=== PATIENT | male | born 1955 | race Two or more races ===

== ENCOUNTER 2020-08-19 10:11 | Outpatient (REF) | payer OTHER, SELFPAY ==
[2020-08-19 12:37] LABS: Alanine Aminotransferase 23 U/L (0-40); Albumin Level 4.3 g/dL (3.5-5.0); Alkaline Phosphatase 66 U/L (39-117); Anion Gap 13 (12-20); Aspartate Amino Transferase 18 U/L (5-37); Bilirubin Total 0.5 mg/dL (0.0-1.0); Blood Urea Nitrogen 12 mg/dL (9-16); Calcium 9.3 mg/dL (8.4-10.2); Carbon Dioxide 27 mmol/L (22-29); Chloride 105 mmol/L (96-108); Cholesterol 191 mg/dL; Estimated Glomerular Filt Rate > 60; Glucose Fasting 160 mg/dL (60-99); HDL Cholesterol 47 mg/dL; LDL Cholesterol Calculated 119 mg/dl; Potassium 4.7 mmol/l (3.3-5.1); Sodium 140 mmol/L (135-145); Triglycerides 129 mg/dL
[2020-08-19 13:00] LABS: Free T4 (Free Thyroxine) 0.81 ng/dL (0.71-1.85); Thyroid Stimulating Hormone 2.39 uIU/mL (0.32-4.0); Vitamin D 25-OH Total 28.9 ng/mL (>30)
[2020-08-19 13:01] LABS: Vitamin B12 290 pg/mL (200-900)
[2020-08-20 12:12] LABS: LDL Cholesterol Direct 130 mg/dL (<100)
== END 2020-08-19 10:12 | disposition home or self-care (01) ==
LOC: HO.LAB 10:11
PROVIDERS: PCP Internal Medicine; Visit Provider Internal Medicine Endocrinology, Diabetes & Metabolism
DX: E11.65 Type 2 diabetes mellitus with hyperglycemia (principal); E11.42 Type 2 diabetes mellitus with diabetic polyneuropathy; E11.21 Type 2 diabetes mellitus with diabetic nephropathy; I10 Essential (primary) hypertension; E55.9 Vitamin D deficiency, unspecified; Z79.899 Other long term (current) drug therapy; Z79.4 Long term (current) use of insulin
CPT/HCPCS: 36415; 80053; 80061; 82306; 82607; 82947; 83721; 84439; 84443; 99212

== ENCOUNTER → 2020-08-25 14:09 | Outpatient (BNVA) | payer OTHER, SELFPAY | PROVIDERS: PCP Internal Medicine; Visit Provider Internal Medicine | DX: R06.00 Dyspnea, unspecified (principal); F17.200 Nicotine dependence, unspecified, uncomplicated | CPT/HCPCS: 99202 ==

== ENCOUNTER → 2020-09-17 13:01 | Outpatient (BNVA) | payer OTHER, SELFPAY | PROVIDERS: PCP Internal Medicine; Visit Provider Physician Assistant Medical ==

== ENCOUNTER → 2020-10-29 10:19 | Outpatient (BNVA) | payer OTHER, SELFPAY | PROVIDERS: PCP Internal Medicine; Visit Provider Nurse Practitioner Gerontology | DX: E11.65 Type 2 diabetes mellitus with hyperglycemia (principal); E78.5 Hyperlipidemia, unspecified; I10 Essential (primary) hypertension | CPT/HCPCS: 82947; 99212 ==

== ENCOUNTER → 2020-11-11 09:32 | Outpatient (BNVA) | payer OTHER, SELFPAY | PROVIDERS: PCP Internal Medicine; Visit Provider Internal Medicine Endocrinology, Diabetes & Metabolism | DX: E11.65 Type 2 diabetes mellitus with hyperglycemia (principal); E11.21 Type 2 diabetes mellitus with diabetic nephropathy; E11.42 Type 2 diabetes mellitus with diabetic polyneuropathy; Z79.4 Long term (current) use of insulin; E55.9 Vitamin D deficiency, unspecified; E78.5 Hyperlipidemia, unspecified; I10 Essential (primary) hypertension | CPT/HCPCS: 82947; 99212 ==

== ENCOUNTER 2021-04-08 08:00 | Outpatient (REF) | payer OTHER, SELFPAY ==
--- NOTE | ~2021-04-08 | US_ITS ---
EXAMINATION: US RETROPERITONEAL LIMITED (AORTA) CLINICAL INFORMATION: Screening for cardiovascular diseases. COMPARISON: None TECHNIQUE: Jaffe-scale, color Doppler and spectral Doppler evaluation of the abdominal aorta. FINDINGS: The aorta is normal. The measurements of the aorta in maximum AP and transverse dimensions respectively are as follows: Proximal: 2.4 x 2.2 cm. Mid: 1.8 x 1.9 cm. Distal: 1.7 x 1.9 cm. PSV: 184 cm/s. Mild atherosclerotic irregularity of the aorta. The measurements of the common iliac arteries in maximum AP and TRV dimensions are as follows: Right Common Iliac Artery: 1.2 x 1.1 cm. Left Common Iliac Artery: 1.1 x 1.3 cm. US/US aorta IMPRESSION: Normal caliber abdominal aorta. No aneurysm. Mild atherosclerotic irregularity.
== END 2021-04-08 08:01 | disposition home or self-care (01) ==
LOC: HO.US 08:00
PROVIDERS: PCP Family Medicine; Visit Provider Nurse Practitioner
DX: Z13.6 Encounter for screening for cardiovascular disorders (principal); Z86.79 Personal history of other diseases of the circulatory system
CPT/HCPCS: 76775

== ENCOUNTER → 2021-05-23 14:09 | Outpatient (BNVA) | payer OTHER, SELFPAY | PROVIDERS: PCP Family Medicine; Referring Provider Family Medicine; Visit Provider Nurse Practitioner Family | DX: K58.1 Irritable bowel syndrome with constipation (principal); K21.9 Gastro-esophageal reflux disease without esophagitis; R13.10 Dysphagia, unspecified; J45.909 Unspecified asthma, uncomplicated; I10 Essential (primary) hypertension; E11.65 Type 2 diabetes mellitus with hyperglycemia; E11.40 Type 2 diabetes mellitus with diabetic neuropathy, unspecified; E11.21 Type 2 diabetes mellitus with diabetic nephropathy; E78.5 Hyperlipidemia, unspecified; E55.9 Vitamin D deficiency, unspecified; Z88.8 Allergy status to other drugs, medicaments and biological substances | CPT/HCPCS: 99202 ==

== ENCOUNTER 2021-07-07 08:22 | Outpatient (REF) | payer OTHER, SELFPAY ==
[2021-07-07 08:43] LABS: MANUAL DIFF FLAG NO
[2021-07-07 09:28] LABS: Appearance Urine CLEAR; Color Urine YELLOW; Glucose Urine UA 100 MG/DL (NEG); Leukocyte Esterase Urine NEG (NEG); Nitrite Urine NEG (NEG); Specific Gravity - Urine >= 1.030 (1.005-1.025); Urine Blood TRACE (NEG); Urine Ketones NEG (NEG); Urine Protein 2+ MG/DL (NEG-TRACE)
[2021-07-07 09:34] LABS: Basophils Percent Auto 0.8 % (0-2); Eosinophils Absolute Auto 0.3 X10*3/uL (0.0-0.4); Eosinophils Percent Auto 5.3 % (0-4); Hematocrit 46.7 % (42.0-52.0); Hemoglobin 15.5 g/dl (14.0-18.0); Imm Gran Abs Auto 0.02 X10*3/uL (0.00-0.03); Imm Gran Pct Auto 0.4 % (0.0-0.4); Lymphocytes Absolute Auto 1.8 X10*3/uL (1.2-4.9); Lymphocytes Percent Auto 37.3 % (20-40); Mean Corpuscular HGB Conc 33.2 g/dl (31.0-36.0); Mean Corpuscular Hemoglobin 29.6 pg (27.0-33.0); Mean Corpuscular Volume 89.1 fL (80.0-98.0); Mean Platelet Volume 11.9 fL (9.4-12.4); Monocytes Absolute Auto 0.4 X10*3/uL (0.1-1.2); Monocytes Percent Auto 7.1 % (2-11); Neutrophils Absolute Auto 2.4 x10*3/uL (2.0-8.3); Neutrophils Percent Auto 49.1 % (45-73); Platelet Count 158 X10*3/uL (160-400); Red Blood Count 5.24 X10*6/uL (4.60-5.80); Red Cell Distribution Width 12.3 % (11.0-16.0); White Blood Count 4.9 X10*3/uL (4.8-10.8)
[2021-07-07 09:39] LABS: Squamous Epithelial Cell Urine TRACE /LPF
[2021-07-07 09:40] LABS: Mucus Urine TRACE /LPF
[2021-07-07 09:41] LABS: Bacteria Urine TRACE /LPF; Granular Casts Urine 0-2 /LPF; RBC Urine 0-2 /HPF (0); WBC Urine 0-2 /HPF (0-4)
[2021-07-07 10:04] LABS: Anion Gap 13 (12-20); Blood Urea Nitrogen 12 mg/dL (9-16); Calcium 9.4 mg/dL (8.4-10.2); Carbon Dioxide 27 mmol/L (22-29); Chloride 103 mmol/L (96-108); Estimated Glomerular Filt Rate 53; Iron 71 mcg/dL (45-160); Percent Iron Saturation 27 % (15-50); Potassium 4.3 mmol/L (3.3-5.1); Sodium 139 mmol/L (135-145); Total Iron Binding Capacity 264 mcg/dL (228-428); Unsaturated Iron Binding 193 ug/dL
[2021-07-07 10:20] LABS: Creatinine Urine 260.41 mg/dL; Protein/Creatinine Ratio, Ur 0.63 (<0.2); Total Protein Urine Random 163 mg/dL (<12)
[2021-07-07 10:26] LABS: Ferritin 120 ng/mL (20-250); Vitamin D 25-OH Total 32.4 ng/mL (>30)
[2021-07-08 15:56] LABS: Calcium (PTHI) 9.3 mg/dL (8.6-10.3); PTHI 53 pg/mL (14-64)
== END 2021-07-07 08:23 | disposition home or self-care (01) ==
LOC: HO.LAB 08:22
PROVIDERS: Absent Provider Internal Medicine Nephrology; Visit Provider Internal Medicine Endocrinology, Diabetes & Metabolism
DX: N18.2 Chronic kidney disease, stage 2 (mild) (principal)
CPT/HCPCS: 36415; 80051; 81001; 82306; 82310; 82565; 82728; 83540; 83970; 84156; 84520; 85025

== ENCOUNTER 2021-07-25 08:50 | Emergency (ER) | payer OTHER, SELFPAY ==
[2021-07-25 09:02] VITALS: BP 170/89; PULSE 82; RESP 18; TEMP 36.4; O2SAT 95; BMI 25.5
[2021-07-25] MEDS: Ketorolac Tromethamine 60 MG/2 ML VIAL IM (10:46)
[2021-07-25 10:52] VITALS: BP 148/81; PULSE 67; RESP 18; O2SAT 100
--- NOTE | 2021-07-25 11:13 | ED.BACK ---
HPI - Back Pain/Injury General Chief Complaint: Back Pain/Injury Stated Complaint: Back Pain No Injury Time Seen by Provider: 07/25/21 10:25 Source: patient Mode of arrival: ambulatory Limitations: no limitations History of Present Illness HPI Narrative: 66-year-old male here with reports of lower back pain right side radiating down the right leg for the last week. Patient tells his longstanding history of herniated disc and heads had several spinal surgeries with the last 1 in 2001. He does have intermittent pain since then but for the last week the pain has been constant. No injury, trauma or fall. Pain radiates from the lower spine down the right leg. There is no associated numbness, tingling. No saddle anesthesia. No bowel or bladder incontinence. No fevers or chills. Patient is taking Tylenol with continued symptoms. Related Data Home Medications Medication Instructions Recorded Confirmed amlodipine 5 mg tablet 5 mg PO DAILY 08/09/20 11/11/20 apremilast 30 mg tablet 30 mg PO BID 08/09/20 11/11/20 hydrochlorothiazide 12.5 mg capsule 12.5 mg PO DAILY 08/09/20 11/11/20 imipramine HCl 25 mg tablet 25 mg PO BEDTIME 08/09/20 11/11/20 lisinopril 40 mg tablet 40 mg PO QAM 08/09/20 11/11/20 metoprolol succinate 25 mg 12.5 mg PO QAM 08/09/20 11/11/20 tablet,extended release 24 hr tamsulosin 0.4 mg capsule 0.4 mg PO BEDTIME 08/09/20 11/11/20 zolpidem 5 mg tablet 5 mg PO BEDTIME PRN 08/09/20 11/11/20 lancets 33 gauge #100 ea 10/29/20 11/11/20 sitagliptin 100 mg-metformin ER 1 tab PO QPM 05/23/21 1,000 mg tablet,extended [id number] mp (Janumet XR) Previous Rx's Medication Instructions Recorded acetaminophen 650 mg 650 mg PO Q8H PRN 90 Days #270 tab 06/25/20 tablet,extended release (Arthritis Pain Reliever) diclofenac sodium 1 % topical gel 2 g TOPICAL BID PRN #200 g 06/25/20 pen needle, diabetic 32 gauge x #150 ea 08/19/20 (BD Miriam 2nd Gen Pen Needle) triamcinolone acetonide 0.1 % 1 appl TOPICAL BID 30 Days #30 g 08/20/20 topical cream blood-glucose meter (FreeStyle #1 ea 08/24/20 Lite Meter) lancets 28 gauge (FreeStyle #120 ea 08/24/20 Lancets) electric wheelchair #1 ea 09/22/20 insulin glargine U-300 conc 300 15 unit (0.05 mL) SUBCUT BEDTIME 11/11/20 unit/mL (1.5 mL) subcutaneous pen 30 Days #1.5 ml sitagliptin 100 mg-metformin ER 1 tab PO DAILY 90 Days #90 tab 11/11/20 1,000 mg tablet,extended [id number] mp (Janumet XR) insulin aspart 2 - 4 unit SUBCUT TID 30 Days #15 11/18/20 (niacinamide)(U-100) 100 unit/mL(3 ml mL) subcutaneous pen aspirin 81 mg tablet,delayed 81 mg PO BEDTIME #90 ea 11/28/20 release pantoprazole 40 mg tablet,delayed 40 mg PO QAM #90 tab 11/28/20 release cholecalciferol (vitamin D3) 50 50 mcg PO DAILY 30 Days #30 cap 12/06/20 mcg (2,000 unit) capsule Praluent Pen 150 mg/mL 150 mg SUBCUT Q2W 30 Days #2 ml NS 01/06/21 subcutaneous pen injector (alirocumab) FreeStyle Lite Strips (blood sugar 1 strip MISCELLANEOUS .4 times a 01/18/21 diagnostic) day 30 Days #150 strip NS albuterol sulfate 90 mcg/actuation 2 puff INHALATION Q6H PRN #18 g 03/22/21 aerosol inhaler ezetimibe 10 mg tablet 10 mg PO DAILY #90 tab 04/05/21 docusate sodium 100 mg capsule 100 mg PO BEDTIME #30 cap 05/23/21 methylcellulose (laxative) 500 mg 500 mg PO DAILY PRN #30 tab 05/23/21 tablet (Citrucel) umeclidinium 62.5 mcg-vilanterol 1 ea PO DAILY #180 cap 05/26/21 25 mcg/actuation powdr for inhalation (Anoro Ellipta) cyclobenzaprine 10 mg tablet 10 mg PO TID PRN #15 tab 07/25/21 lidocaine 5 % topical patch 1 patch TOPICAL DAILY #15 ea 07/25/21 (Lidoderm) naproxen 500 mg tablet 500 mg PO BID PRN #20 tab 07/25/21 oxycodone 5 mg tablet 5 mg PO Q8H PRN #5 tab 07/25/21 Allergies Allergy/AdvReac Type Severity Reaction Status Date / Time dulaglutide [Trulicity] AdvReac Unknown diarrhea Verified 05/23/21 14:19 Review of Systems Review of Systems: Yes all other systems are reviewed and are negative Constitutional: Constitutional: Reports no additional constitutional complaints, Denies body ache(s), Denies chills, Denies fever(s), Denies headache(s) and Denies weakness Eyes: Eyes: Reports no additional eye complaints and Denies change in vision ENT: Reports system reviewed and no additional complaints, except as documented, Denies dizziness, Denies headache(s), Denies nasal congestion, Denies nasal discharge and Denies neck pain Cardiovascular: Cardiovascular: Reports no additional cardiovascular complaints, Denies chest pain, Denies leg edema and Denies dyspnea Respiratory: Respiratory: Reports no additional respiratory complaints, Denies cough and Denies dyspnea Gastrointestinal: Gastrointestinal: Reports no additional gastrointestinal complaints, Denies abdominal pain, Denies diarrhea, Denies nausea and Denies vomiting Genitourinary: Genitourinary: Denies urinary incontinence Musculoskeletal: Musculoskeletal: Reports no additional musculoskeletal complaints, Reports back pain, Denies arthralgias, Denies joint swelling, Denies neck pain, Denies numbness and Denies tingling Integumentary/Breasts: Skin/Breast: Reports system reviewed and no additional complaints, except as docu and Denies rash Neurologic: Reports system reviewed and no additional complaints, except as documented, Denies Abnormal speech present, Denies dizziness, Denies headache(s), Denies numbness, Denies tingling and Denies weakness PMF Past Medical History Attestation statement: The following information was validated with the patient. 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 of insulin Mass of right parotid gland Smoker Tubular adenoma of colon Unsteady gait Vitamin D deficiency Surgical History History of amputation of finger History of lumbar surgery Hx of colonoscopy Family History Family History Father Medical history unknown Mother Medical history unknown Sister Breast cancer Brother Cancer Social History Social History Alcohol intake: current Alcohol intake frequency: a few times a month Years Smoked: 52 (onset 13yo) Advance Directives: No Advance Directives Information Provided: No Physical Exam Vital Signs: Vital Signs: Last Vital Signs Temp 97.5 F 07/25/21 09:02 Pulse 67 07/25/21 10:52 Resp 18 07/25/21 10:52 BP 148/81 H 07/25/21 10:52 Pulse Ox 100 07/25/21 10:52 BMI result Body Mass Index 25.5 Const: General: cooperative, healthy appearing, comfortable and no acute distress Orientation/consciousness: patient oriented x3 Limitations: no limitations HENMT: Head: Yes normal to inspection Ears: hearing grossly normal bilaterally General nose exam: Normal external nose present Face and sinus: Yes normal facial exam Mouth: Normal oral and palatal mucosa present Throat: Yes posterior oropharynx normal Eyes: General: appearance normal, both eyes and all related structures Pupils: Equal, round and reactive pupils present Neck: Neck: Yes normal visual inspection Chest: Chest palpation & inspection: normal inspection of the chest Resp: Effort & Inspection: normal respiratory effort Auscultation: clear to auscultation bilaterally Cardio: Rate: regular rate Rhythm: regular rhythm Peripheral pulses: Peripheral pulses 2+ throughout GI: Inspection: Yes normal to inspection Palpation (GI): Soft to palpation and nontender Auscultation: normal bowel sounds : General: Yes no CVA tenderness Back/Spine/Pelvis: Other: lumbar midline tenderness with no step offs or deformities. Also tenderness over the right lumbar soft tissue with palpable muscle spasm. is worsened with right straight leg raise. Back: no CVA tenderness Thoracic/Lumbar Spine: thoracic and lumbar spine normal to inspection Skin: General skin exam: no rashes or lesions noted Neuro: General: patient oriented x3, no focal motor deficits and normal sensation to monofilament Cranial nerves: Yes CN's II-XII intact bilaterally, Yes Equal, round and reactive pupils present, Yes Bilaterally intact EOM present, Yes Nystagmus not present, Yes Normal facial strength present and Yes Midline tongue present Cognition (Neuro): normal cognition Speech: No Abnormal speech present Gait exam (Neuro): Normal gait present Motor exam (neuro): 5/5 motor strength present throughout Sensory Exam: Normal double simultaneous stimulation for sensation Deep tendon reflexes (DTR's): Right patellar reflex intensity grade: 2+ and Left patellar reflex intensity grade: 2+ Extrem: General: Yes normal to inspection Course Course Course Narrative: 66-year-old male here with acute on chronic low back pain with radiation down the right leg. Normal neurological exam. No neurological deficits. No red flag symptoms. Exam is consistent with lumbar radiculopathy. Patient improved with IM Toradol. Will discharge home with course of low-dose NSAID, muscle oxycodone medicated patches and have patient follow up outpatient with his primary care doctor. Reviewed worrisome signs symptoms such as saddle anesthesia, incontinence of when to return to the emergency department. Comfortable discharge home. MDM - Back Pain/Injury MDM Narrative Medical decision making narrative: Low concern for caude equina with no saddle anesthesia, neuro deficits or incontinence Medical Records Attestation: I reviewed the patient's medical records. Lab Data Attestation: I reviewed the patient's lab results. Discharge Plan Discharge Clinical Impression: Lumbar radiculopathy Patient Disposition: Home, Self-Care Instructions: Lumbar Radiculopathy (ED), Lower Back Exercises (ED) Additional Instructions: Heat or ice Gentle stretching Follow-up with primary care doctor as discussed Prescriptions: New naproxen 500 mg tablet 500 mg PO BID PRN (Reason: pain) Qty: 20 RF: 0 cyclobenzaprine 10 mg tablet 10 mg PO TID PRN (Reason: muscle spasm) Qty: 15 RF: 0 lidocaine [Lidoderm] 5 % adhesive patch,medicated 1 patch topical DAILY Qty: 15 RF: 0 oxycodone 5 mg tablet 5 mg PO Q8H PRN (Reason: pain) Qty: 5 RF: 0 No Action diclofenac sodium 1 % gel 2 g topical BID PRN (Reason: pain) Qty: 200 RF: 3 acetaminophen [Arthritis Pain Reliever] 650 mg tablet extended release 650 mg PO Q8H PRN (Reason: pain) 90 Days Qty: 270 RF: 2 triamcinolone acetonide 0.1 % cream 1 appl topical BID 30 Days Qty: 30 RF: 3 (DME) blood-glucose meter [FreeStyle Lite Meter] Kit See Rx Instructions .ROUTE .MEDSUPPLY Qty: 1 RF: 0 (DME) lancets [FreeStyle Lancets] 28 gauge misc See Rx Instructions .MEDSUPPLY Qty: 120 RF: 11 insulin aspart (niacinamide) 100 unit/mL (3 mL) insulin pen 2 - 4 unit subcut TID 30 Days Qty: 15 RF: 6 aspirin 81 mg tablet,delayed release (DR/EC) 81 mg PO BEDTIME Qty: 90 RF: 3 pantoprazole 40 mg tablet,delayed release (DR/EC) 40 mg PO QAM Qty: 90 RF: 2 cholecalciferol (vitamin D3) 50 mcg (2,000 unit) capsule 50 mcg PO DAILY 30 Days Qty: 30 RF: 11 Praluent Pen 150 mg/mL pen injector 150 mg subcut Q2W 30 Days Qty: 2 RF: 7 FreeStyle Lite Strips Strip 1 strip miscellaneous .4 times a day 30 Days Qty: 150 RF: 6 albuterol sulfate 90 mcg/actuation HFA aerosol inhaler 2 puff inhalation Q6H PRN (Reason: for wheezing) Qty: 18 RF: 3 ezetimibe 10 mg tablet 10 mg PO DAILY Qty: 90 RF: 1 Anoro Ellipta 62.5-25 mcg/actuation blister with device 1 ea PO DAILY Qty: 180 RF: 1 imipramine HCl 25 mg tablet 25 mg PO BEDTIME RF: 0 lisinopril 40 mg tablet 40 mg PO QAM RF: 0 metoprolol succinate 25 mg tablet extended release 24 hr 12.5 mg PO QAM RF: 0 tamsulosin 0.4 mg capsule 0.4 mg PO BEDTIME RF: 0 amlodipine 5 mg tablet 5 mg PO DAILY RF: 0 hydrochlorothiazide 12.5 mg capsule 12.5 mg PO DAILY RF: 0 Otezla 30 mg tablet 30 mg PO BID RF: 0 zolpidem 5 mg tablet 5 mg PO BEDTIME PRNRF: 0 (DME) electric wheelchair See Rx Instructions .Route .MEDSUPPLY Qty: 1 RF: 0 Janumet XR 100-1,000 mg tablet, ER multiphase 24 hr 1 tab PO QPM RF: 0 docusate sodium 100 mg capsule 100 mg PO BEDTIME Qty: 30 RF: 3 Citrucel 500 mg tablet 500 mg PO DAILY PRN (Reason: constipation) Qty: 30 RF: 2 (DME) pen needle, diabetic [BD Miriam 2nd Gen Pen Needle] 32 gauge x 5/32 needle See Rx Instructions .MEDSUPPLY Qty: 150 RF: 4 (DME) lancets 33 gauge misc See Rx Instructions ea topical .MEDSUPPLY Qty: 100 RF: 0 Janumet XR 100-1,000 mg tablet, ER multiphase 24 hr 1 tab PO DAILY 90 Days Qty: 90 RF: 1 insulin glargine U-300 conc 300 unit/mL (1.5 mL) insulin pen 15 unit subcut BEDTIME 30 Days Qty: 1.5 RF: 5 Referrals: Marcie Parekh MD [Primary Care Provider] - 2 days Interventions: ED Discharge Assessment Last Done: 07/25/21 11:21 Discharge Date/Time: 07/25/21 11:22 Print Language: Mauritanian
== END 2021-07-25 11:22 | disposition home or self-care (01) ==
PROVIDERS: Emergency Provider Emergency Medicine; PCP Internal Medicine
DX: M54.16 Radiculopathy, lumbar region (principal); E11.9 Type 2 diabetes mellitus without complications; I10 Essential (primary) hypertension; J45.909 Unspecified asthma, uncomplicated; Z79.4 Long term (current) use of insulin
CPT/HCPCS: 96372; 99284; J1885

== ENCOUNTER → 2021-09-08 14:22 | Outpatient (BNVA) | payer OTHER, SELFPAY | PROVIDERS: PCP Nurse Practitioner; Visit Provider Internal Medicine Endocrinology, Diabetes & Metabolism | DX: E11.65 Type 2 diabetes mellitus with hyperglycemia (principal); E78.5 Hyperlipidemia, unspecified; Z79.4 Long term (current) use of insulin | CPT/HCPCS: 82947; 83036; 99212 ==

== ENCOUNTER → 2021-09-12 08:37 | Outpatient (BNVA) | payer OTHER, SELFPAY | PROVIDERS: PCP Nurse Practitioner; Visit Provider Nurse Practitioner Family | DX: M48.061 Spinal stenosis, lumbar region without neurogenic claudication (principal); M96.1 Postlaminectomy syndrome, not elsewhere classified; R26.81 Unsteadiness on feet; E11.42 Type 2 diabetes mellitus with diabetic polyneuropathy; E11.21 Type 2 diabetes mellitus with diabetic nephropathy; F40.240 Claustrophobia | CPT/HCPCS: 99202 ==

== ENCOUNTER → 2021-10-03 10:40 | Outpatient (BNVA) | payer OTHER, SELFPAY | PROVIDERS: PCP Nurse Practitioner; Visit Provider Nurse Practitioner Family | DX: M96.1 Postlaminectomy syndrome, not elsewhere classified (principal); M48.061 Spinal stenosis, lumbar region without neurogenic claudication; M19.90 Unspecified osteoarthritis, unspecified site; M25.561 Pain in right knee; M25.562 Pain in left knee; E11.42 Type 2 diabetes mellitus with diabetic polyneuropathy | CPT/HCPCS: 99212 ==

== ENCOUNTER 2021-10-04 10:01 | Outpatient (REF) | payer MEDICARE, SELFPAY ==
--- NOTE | ~2021-10-04 | XR_ITS ---
EXAMINATION: XR KNEE, RIGHT CLINICAL INFORMATION: This is a 66-year-old male with right knee pain. COMPARISON: None TECHNIQUE: 2 views of the right knee. FINDINGS: There are tram track calcifications in the posterior soft tissues consistent with atherosclerotic disease. No chondrocalcinosis is identified. No fracture or dislocation is seen. No significant joint effusion is demonstrated. XR/XR knee RT 2V IMPRESSION: 1. Minimal atherosclerotic disease in the adjacent blood vessels. Negative knee study.
--- NOTE | ~2021-10-04 | XR_ITS ---
EXAMINATION: XR KNEE, LEFT CLINICAL INFORMATION: This is a 66-year-old male with right knee pain. COMPARISON: None TECHNIQUE: 2 views of the left knee. FINDINGS: There are tram track calcifications in the posterior soft tissues consistent with atherosclerotic disease. No chondrocalcinosis is identified. No fracture or dislocation is seen. No significant joint effusion is demonstrated. XR/XR knee LT 2V IMPRESSION: 1. Minimal atherosclerotic disease in the adjacent blood vessels. Negative knee study.
== END 2021-10-04 10:02 | disposition home or self-care (01) ==
LOC: HO.XRAY 10:01
PROVIDERS: PCP Nurse Practitioner; Visit Provider Nurse Practitioner Family
DX: M25.561 Pain in right knee (principal); M25.562 Pain in left knee
CPT/HCPCS: 73560

== ENCOUNTER → 2021-10-06 12:55 | Outpatient (BNVA) | payer MEDICARE, SELFPAY | PROVIDERS: PCP Nurse Practitioner; Visit Provider Registered Nurse Diabetes Educator | DX: E11.42 Type 2 diabetes mellitus with diabetic polyneuropathy (principal); Z71.3 Dietary counseling and surveillance; Z71.89 Other specified counseling | CPT/HCPCS: 99211 ==

== ENCOUNTER → 2021-10-17 12:39 | Outpatient (BNVA) | payer MEDICARE, SELFPAY | PROVIDERS: PCP Nurse Practitioner; Visit Provider Nurse Practitioner Family | DX: M25.561 Pain in right knee (principal); M25.562 Pain in left knee; M96.1 Postlaminectomy syndrome, not elsewhere classified; M48.061 Spinal stenosis, lumbar region without neurogenic claudication; E11.42 Type 2 diabetes mellitus with diabetic polyneuropathy | CPT/HCPCS: 99212 ==

== ENCOUNTER → 2021-10-26 13:24 | Outpatient (BNVA) | payer OTHER, SELFPAY | PROVIDERS: PCP Nurse Practitioner; Visit Provider Dietitian, Registered | DX: E11.65 Type 2 diabetes mellitus with hyperglycemia (principal); Z71.3 Dietary counseling and surveillance | CPT/HCPCS: 97803 ==

== ENCOUNTER → 2021-11-09 14:04 | Outpatient (BNVA) | payer MEDICARE, SELFPAY | PROVIDERS: PCP Nurse Practitioner; Visit Provider Registered Nurse Diabetes Educator | DX: E11.65 Type 2 diabetes mellitus with hyperglycemia (principal); E11.21 Type 2 diabetes mellitus with diabetic nephropathy; E11.42 Type 2 diabetes mellitus with diabetic polyneuropathy; E11.319 Type 2 diabetes mellitus with unspecified diabetic retinopathy without macular edema; H35.031 Hypertensive retinopathy, right eye; I10 Essential (primary) hypertension; E78.5 Hyperlipidemia, unspecified; E55.9 Vitamin D deficiency, unspecified; F17.210 Nicotine dependence, cigarettes, uncomplicated; Z88.8 Allergy status to other drugs, medicaments and biological substances; Z79.4 Long term (current) use of insulin | CPT/HCPCS: 99211 ==

== ENCOUNTER → 2021-12-06 13:53 | Outpatient (BNVA) | payer MEDICARE, SELFPAY | PROVIDERS: PCP Nurse Practitioner; Visit Provider Internal Medicine Endocrinology, Diabetes & Metabolism | DX: E11.65 Type 2 diabetes mellitus with hyperglycemia (principal); E78.5 Hyperlipidemia, unspecified; Z79.84 Long term (current) use of oral hypoglycemic drugs; Z79.82 Long term (current) use of aspirin; Z79.4 Long term (current) use of insulin | CPT/HCPCS: 82947; 83036; 99212 ==

== ENCOUNTER → 2022-01-16 10:38 | Outpatient (BNVA) | payer MEDICARE, SELFPAY | PROVIDERS: PCP Nurse Practitioner; Visit Provider Nurse Practitioner Family | DX: R13.12 Dysphagia, oropharyngeal phase (principal); K21.9 Gastro-esophageal reflux disease without esophagitis; K58.2 Mixed irritable bowel syndrome | CPT/HCPCS: 99212 ==

== ENCOUNTER 2022-02-28 08:42 | Outpatient (REF) | payer OTHER, SELFPAY ==
[2022-02-28 09:31] LABS: Cholesterol 103 mg/dL; HDL Cholesterol 46 mg/dL; LDL Cholesterol Calculated 40 mg/dl; Triglycerides 86 mg/dL
[2022-02-28 11:19] LABS: Microalbum/Creatinine Ratio Ur 150.4 ug/mg cr
== END 2022-02-28 08:43 | disposition home or self-care (01) ==
LOC: HO.LAB 08:42
PROVIDERS: PCP Nurse Practitioner; Visit Provider Internal Medicine Endocrinology, Diabetes & Metabolism
DX: E11.65 Type 2 diabetes mellitus with hyperglycemia (principal)
CPT/HCPCS: 36415; 80061; 82043

== ENCOUNTER → 2022-03-08 13:34 | Outpatient (BNVA) | payer OTHER, SELFPAY | PROVIDERS: PCP Nurse Practitioner; Visit Provider Internal Medicine Endocrinology, Diabetes & Metabolism | DX: E11.65 Type 2 diabetes mellitus with hyperglycemia (principal); E78.5 Hyperlipidemia, unspecified; Z79.4 Long term (current) use of insulin; Z79.899 Other long term (current) drug therapy | CPT/HCPCS: 82947; 83036; 99212 ==

== ENCOUNTER → 2022-03-20 09:55 | Outpatient (BNVA) | payer OTHER, SELFPAY | PROVIDERS: PCP Nurse Practitioner; Visit Provider Nurse Practitioner Family | DX: M54.2 Cervicalgia (principal); M25.561 Pain in right knee; M25.562 Pain in left knee; M96.1 Postlaminectomy syndrome, not elsewhere classified; M48.061 Spinal stenosis, lumbar region without neurogenic claudication; E11.42 Type 2 diabetes mellitus with diabetic polyneuropathy | CPT/HCPCS: 99212 ==

== ENCOUNTER 2022-03-29 08:03 | Outpatient (REF) | payer OTHER, SELFPAY ==
[2022-03-29 09:17] LABS: Anion Gap 14 (12-20); Blood Urea Nitrogen 23 mg/dL (9-16); Calcium 8.9 mg/dL (8.4-10.2); Carbon Dioxide 23 mmol/L (22-29); Chloride 109 mmol/L (96-108); Estimated Glomerular Filt Rate > 60; Glucose Random 127 mg/dL (60-115); Potassium 4.2 mmol/L (3.3-5.1); Sodium 142 mmol/L (135-145)
== END 2022-03-29 08:04 | disposition home or self-care (01) ==
LOC: HO.LAB 08:03
PROVIDERS: PCP Nurse Practitioner; Visit Provider Internal Medicine Endocrinology, Diabetes & Metabolism
DX: E11.65 Type 2 diabetes mellitus with hyperglycemia (principal)
CPT/HCPCS: 36415; 80048

== ENCOUNTER 2022-04-13 10:28 | Day surgery (SDC) | payer OTHER, SELFPAY ==
[2022-04-10 11:17] VITALS: BMI 26.3
--- NOTE | 2022-04-12 11:58 | HO.ANESPROP2 ---
Documented by User: Lizbet Sutherland NP 04/12/22 12:00 HPI - Anesthesia Eval Consult details Narrative: 67yo M for Upper Endoscopy and Colonoscopy [facility] Active Problems Active Problems: All Active Problems (Updated 03/20/22 @ 10:33 by ANYI Barrientos) Neck pain (Acute) Bilateral knee pain (Acute) Osteoarthritis (Acute) Claustrophobia (Acute) Failed back syndrome (Acute) Degenerative lumbar spinal stenosis (Acute) Unsteady gait (Acute) Asthma (Acute) Leg weakness (Acute) Smoker (Acute) Dyspnea on exertion (Acute) Vitamin D deficiency (Acute) Hypertension (Acute) Diabetic polyneuropathy associated with type 2 diabetes mellitus (Acute) Diabetic nephropathy associated with type 2 diabetes mellitus (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) Dyslipidemia (Acute) Diabetes type 2, uncontrolled (Acute) Past Medical History Medical History Asthma Diabetes type 2, uncontrolled Diabetic nephropathy associated with type 2 diabetes mellitus Diabetic polyneuropathy associated with type 2 diabetes mellitus Dyslipidemia Dyspnea on exertion Hypertension Hypertensive retinopathy of right eye Leg weakness [facility] (current) use of insulin Mass of right parotid gland Smoker Tubular adenoma of colon Unsteady gait Vitamin D deficiency Family History Family History Father Medical history unknown Mother Medical history unknown Sister Breast cancer Brother Cancer Surgical History Surgical History History of amputation of finger History of lumbar surgery Hx of colonoscopy Social History Social History Alcohol intake: current Alcohol intake frequency: a few times a month Patient Tobacco Use Status: Former Tobacco user Quit Date: over 20 years ago Years Smoked: 52 (onset 13yo) Meds Allergies Allergy/AdvReac Type Severity Reaction Status Date / Time dulaglutide [Trulicity] AdvReac Unknown diarrhea Verified 03/20/22 10:07 Home Medications Medication Instructions Recorded Confirmed Last Taken Type amlodipine 5 mg tablet 5 mg PO DAILY 08/09/20 12/06/21 04/13/22 History apremilast 30 mg tablet 30 mg PO BID 08/09/20 12/06/21 Unknown History hydrochlorothiazide 12.5 mg capsule 12.5 mg PO DAILY 08/09/20 12/06/21 Unknown History imipramine HCl 25 mg tablet 25 mg PO BEDTIME 08/09/20 12/06/21 Unknown History lisinopril 40 mg tablet 40 mg PO QAM 08/09/20 12/06/21 Unknown History metoprolol succinate 25 mg 12.5 mg PO QAM 08/09/20 12/06/21 04/13/22 History tablet,extended release 24 hr tamsulosin 0.4 mg capsule 0.4 mg PO BEDTIME 08/09/20 12/06/21 Unknown History zolpidem 5 mg tablet 5 mg PO BEDTIME PRN 08/09/20 12/06/21 Unknown History lancets 33 gauge #100 ea 10/29/20 12/06/21 Unknown History hydrochlorothiazide 25 mg tablet 25 mg PO DAILY 09/08/21 12/06/21 Unknown History flash glucose scanning reader 03/08/22 Unknown History (ErrundStyle Luis 2 [place]) flash glucose sensor (ErrundStyle 03/08/22 Unknown History Luis 2 Sensor kit) cyclobenzaprine 5 mg tablet 5 mg PO TID PRN 03/20/22 Unknown History gabapentin 300 mg capsule 300 mg PO TID 03/20/22 Unknown History metformin 500 mg tablet,extended 1,000 mg PO 03/20/22 Unknown History release 24 hr naproxen 375 mg tablet 375 mg PO BID PRN low back pain 03/20/22 Unknown History Exam Exam Date and Time: April 12, 2022 1158 Height,Weight and Vital Signs: Height 5 ft 11 in Weight 85.729 kg Pertinent Lab Results Pertinent Lab Results: Laboratory Tests 07/07/21 03/29/22 08:38 08:13 WBC 4.9 Hgb 15.5 Hct 46.7 Plt Count 158 L Sodium 142 Potassium 4.2 Chloride 109 H Carbon Dioxide 23 BUN 23 H D Creatinine 1.12 Narrative Narrative: ECHO 07/2020 Nml LV function EF 60-65% Assessment and Plan Assessment Anesthesia Assessment: Chart Reviewed Documented by User: Fredy Cunha MD 04/13/22 17:04 [facility] Past Medical History Medical History Asthma Diabetes type 2, uncontrolled Diabetic nephropathy associated with type 2 diabetes mellitus Diabetic polyneuropathy associated with type 2 diabetes mellitus Dyslipidemia Dyspnea on exertion Hypertension Hypertensive retinopathy of right eye 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 Mass of right parotid gland Smoker Tubular adenoma of colon Unsteady gait Vitamin D deficiency Family History Family History Father Medical history unknown Mother Medical history unknown Sister Breast cancer Brother Cancer Family history of problems with anesthesia: No Surgical History Surgical History History of amputation of finger History of lumbar surgery Hx of colonoscopy History of Problems with Anesthesia: No Social History Social History Alcohol intake: current Alcohol intake frequency: a few times a month Patient Tobacco Use Status: Former Tobacco user Quit Date: over 20 years ago Years Smoked: 52 (onset 13yo) Meds Allergies Allergy/AdvReac Type Severity Reaction Status Date / Time dulaglutide [Trulicity] AdvReac Unknown diarrhea Verified 03/20/22 10:07 Home Medications Medication Instructions Recorded Confirmed Last Taken Type amlodipine 5 mg tablet 5 mg PO DAILY 08/09/20 12/06/21 04/13/22 History apremilast 30 mg tablet 30 mg PO BID 08/09/20 12/06/21 Unknown History hydrochlorothiazide 12.5 mg capsule 12.5 mg PO DAILY 08/09/20 12/06/21 Unknown History imipramine HCl 25 mg tablet 25 mg PO BEDTIME 08/09/20 12/06/21 Unknown History lisinopril 40 mg tablet 40 mg PO QAM 08/09/20 12/06/21 Unknown History metoprolol succinate 25 mg 12.5 mg PO QAM 08/09/20 12/06/21 04/13/22 History tablet,extended release 24 hr tamsulosin 0.4 mg capsule 0.4 mg PO BEDTIME 08/09/20 12/06/21 Unknown History zolpidem 5 mg tablet 5 mg PO BEDTIME PRN 08/09/20 12/06/21 Unknown History lancets 33 gauge #100 ea 10/29/20 12/06/21 Unknown History hydrochlorothiazide 25 mg tablet 25 mg PO DAILY 09/08/21 12/06/21 Unknown History flash glucose scanning reader 03/08/22 Unknown History (FreeStyle Luis 2 [place]) flash glucose sensor (FreeStyle 03/08/22 Unknown History Luis 2 Sensor kit) cyclobenzaprine 5 mg tablet 5 mg PO TID PRN 03/20/22 Unknown History gabapentin 300 mg capsule 300 mg PO TID 03/20/22 Unknown History metformin 500 mg tablet,extended 1,000 mg PO 03/20/22 Unknown History release 24 hr naproxen 375 mg tablet 375 mg PO BID PRN low back pain 03/20/22 Unknown History Exam Airway Mallampati Class: IV TM Dist: >3cm Neck ROM: Limited Denture: Upper Partial: Upper Loose/Missing/Broken Teeth: Yes Heart: S1,S2 Lungs: b/l breath sounds Assessment and Plan Assessment Anesthesia Assessment: Anesthesia Plan Discussed Final Anesthetic Review Family History of Problems with Anesthesia: No History of Problems with Anesthesia: No NPO: Yes ASA Class: III Final Preanesthetic Review: Meds/Allgs Chart Reviewed, Consent Obtained/Reviewed and Anes Risks/Benef Reviewed Patient Risk: Intermediate Procedure Risk: Intermediate Anesthetic Plan Anesthetic Plan: MAC: Disposition: Standard PACU
[2022-04-13 10:56] VITALS: BP 157/77; PULSE 68; RESP 18; TEMP 36.4; O2SAT 99; BMI 25.7
--- NOTE | 2022-04-13 11:19 | P.HPSUR_ITS ---
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 Mass) History of Previous Operations: Relevant previous surgery/procedure and date(s) (History of amputation of finger History of lumbar surgery Hx of colonoscopy) Allergies: Allergies Allergy/AdvReac Type Severity Reaction Status Date / Time dulaglutide [Trulicity] AdvReac Unknown diarrhea Verified 03/20/22 10:07 Review of Systems Sugical H&P ROS: Negative: Constitution, Cardiovascular, Respiratory, Neurological, Psychiatric, Hem-Onc, Allergic/Immunologic, Gastrointestinal, Genitourinary, Musculoskeletal, Integumentary, Endocrine and Eyes/Ears/Nose/Throat Exam Surgical H&P Exam: Normal: HEENT, Normal: Heart, Normal: Lungs, Normal: Extremities, Normal: Abdomen, Normal: Skin and Normal: Neurological Plan Diagnosis/Plan: Unchanged I have reviewed the history and physical and performed a pertinent physical examination on my patient. No changes have occurred unless specified.
[2022-04-13] MEDS: Lactated Ringers 1,000 ML 100 ML IVCONT (11:22)
[2022-04-13 11:28] LABS: Glucose, Whole Blood 118 mg/dL (60-115)
--- NOTE | 2022-04-13 11:46 | W.PM.OPN ---
Operative Note Operative Note Date of Service: 04/13/22 Narrative: Operative Information Procedure Description: EGD, Colonoscopy Indication: GERD, dysphagia, screening Anesthesia: MAC FLEXIBLE TRANSORAL UPPER GASTROINTESTINAL ENDOSCOPY AND COLONOSCOPY PROCEDURE NOTE UPPER ENDOSCOPY Consent: Indications for the procedure and potential complications of bleeding, perforation, reaction to medications and missed diagnosis were discussed with the patient and informed consent was obtained. Instrument: Olympus GIF H 190 J mid size upper endoscope Monitoring: Vital signs and clinical assessment, continuous EKG monitoring, Pulse oximetry, Carbon Dioxide monitoring and blood pressure monitoring were done throughout the procedure. Procedure: The patient was placed in the left lateral decubitis position and pre-procedure medications were administered and a bite block was placed. The endoscope was inserted into the mouth and advanced under direct vision to the third part of duodenum. A careful inspection was made as the upper endoscope was withdrawn including a retroflexed examination of the proximal stomach; Findings and interventions are described below. Findings: Larynx:normal Esophagus: GE junction at 40 cm, diaphragm hiatus at 42 cm, consistent with 2 cm sliding hiatal hernia, schatzki ring noted, with possible small islands of barretts mucosa, bx taken from GEJ, distal and proximal esophagus. Balloon dilation done to 20 mm at LES and UEs, no tears seen Stomach: Patchy erythematous mucosa. Biopsies were obtained. Grade 2 flap valve on retroflexed examination of the cardia. Pylorus seemed v tight dilated with balloon to 19 mm, no tears seen. Duodenum: Normal bulb and descending duodenum, bx taken Intervention: Biopsies as noted above COLONOSCOPY Instrument: Olympus variable stiffness pediatric scope 190L Colonoscopy Monitoring: Vital signs and clinical assessment, continuous EKG monitoring, Pulse oximetry, Carbon Dioxide monitoring and blood pressure monitoring were done throughout the procedure. Colon withdrawal time was 8 minutes. Procedure: The patient was placed in the left lateral decubitis position and pre-procedure medications were administered. After a digital rectal examination of the ano-rectum, the video colonoscope was inserted into the rectum and advanced through the colon to the cecum/TI. The colonoscope was slowly withdrawn in a retrograde panoramic fashion and the colon mucosa was carefully examined including a retroflexed view of the rectum. Findings and interventions are described below. Procedure Difficulty: easy Findings: Terminal Ileum-normal Cecum: 10 mm sessile polyp removed with cold snare Ascending Colon: normal Transverse Colon - 5-7 mm sessile polyp removed with cold forceps Descending Colon:normal Sigmoid Colon: midl diverticulosis Rectum: Retroflexion with medium sized internal hemorrhoids, grade I Anorectum - normal Colon preparation: [place] Bowel Preparation Scale Right colon; 2 Transverse colon: 2 Left colon; 1 (0 = Unprepared colon segment with mucosa not seen due to solid stool that cannot be cleared. 1 = Portion of mucosa of the colon segment seen, but other areas of the colon segment not well seen due to staining, residual stool and/or opaque liquid. 2 = Minor amount of residual staining, small fragments of stool and/or opaque liquid, but mucosa of colon segment seen well. 3 = Entire mucosa of colon segment seen well with no residual staining, small fragments of stool or opaque liquid) Impression and Post Procedure Diagnosis: Endoscopy Findings: schatzki ring hiatal hernia gastritis Colonoscopy Findings: polyps internal hemorrhoids diverticular disease Plan: Await Pathology results Repeat Colonoscopy in 1 year due to left sided prep or earlier if clinically indicated High fiber diet leaflet avoid straining at stool, epsom salts and sitz bath, anusol supps or cream confirm compliance with PPI, if ongoing sx then can consider JOSE, or referral for pH impedance, manometry Above findings were reviewed with the patient and relevant handouts were provided if indicated.
[2022-04-13 12:46] VITALS: BP 86/45; PULSE 64; RESP 16; TEMP 36.1; O2SAT 97
[2022-04-13 12:50] VITALS: BP 96/48; PULSE 58; RESP 17; O2SAT 100
[2022-04-13 13:05] VITALS: BP 103/52; PULSE 64; RESP 14; TEMP 36.1; O2SAT 99
== END 2022-04-13 13:50 | disposition home or self-care (01) ==
PROVIDERS: PCP Nurse Practitioner; Visit Provider Internal Medicine Gastroenterology
PROC: (CPT 45385; principal; 2022-04-13 12:30)
DX: Z12.11 Encounter for screening for malignant neoplasm of colon (principal); Z86.010 Personal history of colon polyps; D12.0 Benign neoplasm of cecum; K63.5 Polyp of colon; K57.30 Diverticulosis of large intestine without perforation or abscess without bleeding; K64.0 First degree hemorrhoids; K58.2 Mixed irritable bowel syndrome; K21.9 Gastro-esophageal reflux disease without esophagitis; K22.2 Esophageal obstruction; K29.50 Unspecified chronic gastritis without bleeding; K29.80 Duodenitis without bleeding; K20.80 Other esophagitis without bleeding; K44.9 Diaphragmatic hernia without obstruction or gangrene; E11.21 Type 2 diabetes mellitus with diabetic nephropathy; E11.42 Type 2 diabetes mellitus with diabetic polyneuropathy; Z79.4 Long term (current) use of insulin; E78.5 Hyperlipidemia, unspecified; I10 Essential (primary) hypertension; J45.909 Unspecified asthma, uncomplicated; H35.031 Hypertensive retinopathy, right eye; Z79.899 Other long term (current) drug therapy; Z88.8 Allergy status to other drugs, medicaments and biological substances; Z87.891 Personal history of nicotine dependence
CPT/HCPCS: 45385; 45380; 43249; 43245; 43239; 82947; 88305; 88342; C1726

== ENCOUNTER 2022-04-18 06:00 | Outpatient (REF) | payer OTHER, SELFPAY ==
--- NOTE | ~2022-04-18 | FL_ITS ---
EXAMINATION: XR FLUOROSCOPY WITH IMAGES CLINICAL INFORMATION: M96.1 - Postlaminectomy syndrome, not elsewhere classified COMPARISON: None. TECHNIQUE: Fluoroscopy performed by Dr. Sal Fulton. Fluoroscopy time: under 1 minute. Cumulative Dose: 4.63 mGy. DAP: 0.969 Gy-cm2. Images: 3. FINDINGS: There is a spinal needle at the lower sacral hiatus. Epidural contrast is demonstrated. No visible vascular communication. FL/FL guidance in treatment room IMPRESSION: Fluoroscopy for pain management procedure.
== END 2022-04-18 06:01 | disposition home or self-care (01) ==
LOC: HO.RADIR 06:00
PROVIDERS: Visit Provider Anesthesiology
DX: M48.061 Spinal stenosis, lumbar region without neurogenic claudication (principal); M96.1 Postlaminectomy syndrome, not elsewhere classified; M54.2 Cervicalgia
CPT/HCPCS: 62323; J3300

== ENCOUNTER → 2022-04-26 11:28 | Outpatient (BNVA) | payer OTHER, SELFPAY | PROVIDERS: PCP Nurse Practitioner; Visit Provider Nurse Practitioner Family | DX: K21.00 Gastro-esophageal reflux disease with esophagitis, without bleeding (principal); D12.0 Benign neoplasm of cecum; D12.3 Benign neoplasm of transverse colon; K64.0 First degree hemorrhoids; K57.30 Diverticulosis of large intestine without perforation or abscess without bleeding; Z98.890 Other specified postprocedural states | CPT/HCPCS: 99212 ==

== ENCOUNTER → 2022-05-16 12:44 | Outpatient (BNVA) | payer OTHER, SELFPAY | PROVIDERS: PCP Nurse Practitioner; Visit Provider Nurse Practitioner Family | DX: M19.90 Unspecified osteoarthritis, unspecified site (principal); M96.1 Postlaminectomy syndrome, not elsewhere classified; G89.4 Chronic pain syndrome; E11.42 Type 2 diabetes mellitus with diabetic polyneuropathy | CPT/HCPCS: 99212 ==

== ENCOUNTER → 2022-06-26 11:48 | Outpatient (BNVA) | payer OTHER, SELFPAY | PROVIDERS: PCP Nurse Practitioner; Visit Provider Nurse Practitioner Family | DX: K21.9 Gastro-esophageal reflux disease without esophagitis (principal); K59.01 Slow transit constipation; R13.12 Dysphagia, oropharyngeal phase | CPT/HCPCS: 99212 ==

== ENCOUNTER → 2022-07-07 09:36 | Outpatient (BNVA) | payer OTHER, SELFPAY | PROVIDERS: PCP Nurse Practitioner; Visit Provider Nurse Practitioner Family | DX: E11.69 Type 2 diabetes mellitus with other specified complication (principal); N40.1 Benign prostatic hyperplasia with lower urinary tract symptoms; N52.1 Erectile dysfunction due to diseases classified elsewhere | CPT/HCPCS: 51798; 99202 ==

== ENCOUNTER → 2022-07-12 10:52 | Outpatient (BNVA) | payer OTHER, SELFPAY | PROVIDERS: PCP Nurse Practitioner; Visit Provider Internal Medicine Endocrinology, Diabetes & Metabolism | DX: E11.65 Type 2 diabetes mellitus with hyperglycemia (principal); E78.5 Hyperlipidemia, unspecified | CPT/HCPCS: 82947; 83036; 99212 ==

== ENCOUNTER → 2022-08-15 14:45 | Outpatient (BNVA) | payer OTHER, SELFPAY | PROVIDERS: PCP Nurse Practitioner; Visit Provider Nurse Practitioner Family | DX: M25.551 Pain in right hip (principal); M25.552 Pain in left hip; M48.061 Spinal stenosis, lumbar region without neurogenic claudication; M96.1 Postlaminectomy syndrome, not elsewhere classified; G89.4 Chronic pain syndrome; E11.42 Type 2 diabetes mellitus with diabetic polyneuropathy | CPT/HCPCS: 99212 ==

== ENCOUNTER → 2022-08-25 11:33 | Outpatient (BNVA) | payer OTHER, SELFPAY | PROVIDERS: PCP Nurse Practitioner; Visit Provider Nurse Practitioner Family | DX: K58.2 Mixed irritable bowel syndrome (principal); R13.12 Dysphagia, oropharyngeal phase | CPT/HCPCS: Q3014 ==

== ENCOUNTER 2022-08-29 11:09 | Outpatient (REF) | payer OTHER, SELFPAY ==
[2022-09-09 15:37] LABS: Rast Allergen SEE EMR
== END 2022-08-29 11:10 | disposition home or self-care (01) ==
LOC: HO.LAB 11:09
PROVIDERS: PCP Internal Medicine; Visit Provider Nurse Practitioner Family
DX: K20.90 Esophagitis, unspecified without bleeding (principal)
CPT/HCPCS: 36415; 86003

== ENCOUNTER 2022-09-19 07:12 | Outpatient (REF) | payer OTHER, SELFPAY ==
--- NOTE | ~2022-09-19 | FL_ITS ---
EXAMINATION: XR FLUOROSCOPY WITH IMAGES CLINICAL INFORMATION: Pain management injection for right hip pain. COMPARISON: None. TECHNIQUE: Fluoroscopy Supervised By: Dr. Sal Fulton. Fluoroscopy Time: 0.5 minutes. Cumulative Dose: 2.56 mGy. Images: 2. FINDINGS: There is spinal needle with tip overlying the superolateral right hip joint. There is contrast in the right hip joint capsule. No vascular communication. FL/FL guidance in treatment room IMPRESSION: Fluoroscopy for pain management procedure.
== END 2022-09-19 07:13 | disposition home or self-care (01) ==
LOC: CF 07:12
PROVIDERS: Visit Provider Anesthesiology
DX: M25.551 Pain in right hip (principal); M25.552 Pain in left hip
CPT/HCPCS: 20610; J3301

== ENCOUNTER 2022-09-29 13:10 | Outpatient (REF) | payer OTHER, SELFPAY ==
--- NOTE | ~2022-09-29 | US_ITS ---
EXAMINATION: US RETROPERITONEAL LIMITED (RENAL ONLY) CLINICAL INFORMATION: Benign prostatic hyperplasia with lower urinary tract symptoms. COMPARISON: None TECHNIQUE: Ultrasound kidneys and bladder 01/14/2014 FINDINGS: RIGHT KIDNEY: 11.8 x 5.8 x 5.7 cm (SAG x AP x TRV). The kidney is normal in size, contour, and echogenicity. Renal cortical thickness is normal. No calculi or focal parenchymal lesions. No hydronephrosis. LEFT KIDNEY: 12.5 x 3.4 x 4.1 cm (SAG x AP x TRV). The kidney is normal in size, contour, and echogenicity. Renal cortical thickness is normal. No renal calculi or hydronephrosis. 2 cm likely benign left lower pole renal cyst with a single thin internal septation, no routine follow up imaging recommended US/US renal BI IMPRESSION: No hydronephrosis or nephrolithiasis..
== END 2022-09-29 13:11 | disposition home or self-care (01) ==
LOC: HO.US 13:10
PROVIDERS: Visit Provider Nurse Practitioner Family
DX: N40.1 Benign prostatic hyperplasia with lower urinary tract symptoms (principal)
CPT/HCPCS: 76775

== ENCOUNTER → 2022-10-17 14:50 | Outpatient (BNVA) | payer OTHER, SELFPAY | PROVIDERS: PCP Internal Medicine; Visit Provider Nurse Practitioner Family | DX: M25.551 Pain in right hip (principal); M25.552 Pain in left hip; M96.1 Postlaminectomy syndrome, not elsewhere classified; M48.061 Spinal stenosis, lumbar region without neurogenic claudication; E11.42 Type 2 diabetes mellitus with diabetic polyneuropathy; G89.4 Chronic pain syndrome | CPT/HCPCS: 99212 ==

== ENCOUNTER 2022-10-18 09:18 | Outpatient (REF) | payer OTHER, SELFPAY ==
--- NOTE | ~2022-10-18 | XR_ITS ---
EXAMINATION: XR BILATERAL HIPS WITH AP PELVIS CLINICAL INFORMATION: Bilateral hip pain. COMPARISON: None available. TECHNIQUE: AP view of the pelvis and 2 views of each hip were obtained. Total 5 views FINDINGS: AP Pelvis: There is normal symmetry of SI joints and hip joints without any bony erosive changes. There is a small avulsion fragment or osteophyte lateral left acetabulum. No lytic or sclerotic process. There is soft tissues are normal. Right Hip: AP and frog-leg views right hip reveal no visible fracture or dislocation. No bony erosive changes. No lytic or sclerotic process. The soft tissues are normal. Left Hip: There is a small avulsion fragment along the lateral acetabulum, likely an osteophyte or old fracture. The joint space is maintained normal. No lytic or sclerotic process. The soft tissues are normal. XR/XR hip BI w PEL1V IMPRESSION: 1. Small avulsion fracture fragment or osteophyte lateral left acetabulum. 2. No visible acute fracture or dislocation either hips or AP pelvis.
== END 2022-10-18 09:19 | disposition home or self-care (01) ==
LOC: HO.XRAY 09:18
PROVIDERS: Absent Provider Nurse Practitioner; PCP Internal Medicine; Visit Provider Nurse Practitioner Family
DX: M25.552 Pain in left hip (principal); M25.551 Pain in right hip
CPT/HCPCS: 73521

== ENCOUNTER 2022-10-27 10:37 | Outpatient (REF) | payer OTHER, SELFPAY ==
[2022-11-02 13:19] LABS: Testosterone, Free 35.7 pg/mL (35.0-155.0); Testosterone, Total 347 ng/dL (250-1100)
== END 2022-10-27 10:38 | disposition home or self-care (01) ==
LOC: HO.LAB 10:37
PROVIDERS: PCP Registered Nurse; Visit Provider Nurse Practitioner Family
DX: N40.1 Benign prostatic hyperplasia with lower urinary tract symptoms (principal); E11.69 Type 2 diabetes mellitus with other specified complication; N52.1 Erectile dysfunction due to diseases classified elsewhere; Z12.5 Encounter for screening for malignant neoplasm of prostate
CPT/HCPCS: 36415; 84153; 84402; 84403

== ENCOUNTER → 2022-11-03 09:47 | Outpatient (BNVA) | payer OTHER, SELFPAY | PROVIDERS: PCP Registered Nurse; Visit Provider Nurse Practitioner Family | DX: N40.1 Benign prostatic hyperplasia with lower urinary tract symptoms (principal); N28.1 Cyst of kidney, acquired; E11.69 Type 2 diabetes mellitus with other specified complication; N52.1 Erectile dysfunction due to diseases classified elsewhere; Z79.82 Long term (current) use of aspirin | CPT/HCPCS: 51798; 99212 ==

== ENCOUNTER → 2022-12-01 09:55 | Outpatient (BNVA) | payer OTHER, MEDICAID, SELFPAY | PROVIDERS: PCP Registered Nurse; Visit Provider Physician Assistant | DX: M25.551 Pain in right hip (principal); M25.552 Pain in left hip; G89.4 Chronic pain syndrome; M96.1 Postlaminectomy syndrome, not elsewhere classified; M48.061 Spinal stenosis, lumbar region without neurogenic claudication; M54.16 Radiculopathy, lumbar region; E11.42 Type 2 diabetes mellitus with diabetic polyneuropathy | CPT/HCPCS: 99202 ==

== ENCOUNTER → 2023-01-25 11:15 | Outpatient (BNVA) | payer OTHER, MEDICAID, SELFPAY | PROVIDERS: PCP Registered Nurse; Visit Provider Internal Medicine Endocrinology, Diabetes & Metabolism | DX: E11.65 Type 2 diabetes mellitus with hyperglycemia (principal); E78.5 Hyperlipidemia, unspecified | CPT/HCPCS: 82947; 83036; 99212 ==

== ENCOUNTER 2023-02-09 11:52 | Outpatient (REF) | payer OTHER, MEDICAID, SELFPAY ==
[2023-02-09 15:54] LABS: Alanine Aminotransferase 14 U/L (0-40); Albumin Level 4.3 g/dL (3.5-5.0); Alkaline Phosphatase 64 U/L (39-117); Anion Gap 14 (12-20); Aspartate Amino Transferase 18 U/L (5-37); Blood Urea Nitrogen 15 mg/dL (9-16); Carbon Dioxide 26 mmol/L (22-29); Chloride 110 mmol/L (96-108); Estimated Glomerular Filt Rate > 60; Glucose Random 106 mg/dL (60-115); Potassium 4.9 mmol/L (3.3-5.1); Sodium 145 mmol/L (135-145); Total Protein 7.3 g/dL (6.5-8.0)
[2023-02-09 16:33] LABS: Bilirubin Total 0.6 mg/dL (0.0-1.0)
== END 2023-02-09 11:53 | disposition home or self-care (01) ==
LOC: HO.HHCL 11:52
PROVIDERS: Nurse Practitioner Family; Visit Provider Registered Nurse
DX: Z00.00 Encounter for general adult medical examination without abnormal findings (principal); B35.1 Tinea unguium; K58.9 Irritable bowel syndrome, unspecified; R13.10 Dysphagia, unspecified; K21.9 Gastro-esophageal reflux disease without esophagitis; R10.13 Epigastric pain
CPT/HCPCS: 36415; 80053; 86003

== ENCOUNTER 2023-05-03 18:00 | Emergency (ER) | payer OTHER, SELFPAY ==
[2023-05-03 18:04] VITALS: BP 162/88; BP 195/72; PULSE 65; PULSE 66; RESP 18; TEMP 37; O2SAT 100; O2SAT 98; BMI 23.7
--- NOTE | 2023-05-03 18:07 | ED_ITS ---
HPI - General Adult General Chief complaint: Fall Stated complaint: mechanical fall x4hrs ago, no loc,no thinners Time Seen by Provider: 05/03/23 22:31 Source: patient Mode of arrival: EMS Limitations: no limitations History of Present Illness HPI narrative: Patient is 68 years old with history of diabetes diabetic polyneuropathy chronic pain syndrome postlaminectomy syndrome spinal stenosis apparently fell when his left knee gave out earlier today came by ambulance for pain in the left shoulder x-ray was done prior to my evaluation which was negative patient is very dramatic complaining of pain in the left anterior chest and left arm but was moving his arm well and ambulated in the ED Related Data Home Medications Medication Instructions Recorded Confirmed imipramine HCl 25 mg tablet 25 mg PO BEDTIME 08/09/20 10/17/22 metoprolol succinate 25 mg 12.5 mg PO QAM 08/09/20 10/17/22 tablet,extended release 24 hr zolpidem 5 mg tablet 5 mg PO BEDTIME PRN 08/09/20 10/17/22 hydrochlorothiazide 25 mg tablet 25 mg PO DAILY 09/08/21 10/17/22 flash glucose scanning reader 03/08/22 10/17/22 (Erlyyle Luis 2 Quinton) cyclobenzaprine 5 mg tablet 5 mg PO TID PRN 03/20/22 10/17/22 betamethasone dipropionate 0.05 % topical 07/07/22 10/17/22 topical ointment methylcellulose (laxative) 500 mg 0 mg PO 09/19/22 10/17/22 tablet (Fiber Laxative (methylcellulose)) amlodipine 5 mg tablet 10 mg PO DAILY 01/25/23 Previous Rx's Medication Instructions Recorded diclofenac sodium 1 % topical gel 2 g topical BID PRN pain #200 grams 06/25/20 pen needle, diabetic 32 gauge x #150 ea 08/19/20 (BD Miriam 2nd Gen Pen Needle) blood-glucose meter ([employer]Style #1 ea 08/24/20 Lite Meter kit) electric wheelchair #1 ea 09/22/20 aspirin 81 mg tablet,delayed 81 mg PO BEDTIME #90 ea 11/28/20 release umeclidinium 62.5 mcg-vilanterol 1 ea PO DAILY #180 caps 05/26/21 25 mcg/actuation powdr for inhalation (Anoro Ellipta) acetaminophen 650 mg 650 mg PO Q8H PRN pain 90 days 03/20/22 tablet,extended release (Arthritis #270 tabs Pain Reliever) lidocaine 5 % topical patch 2 patch topical DAILY PRN pain 15 03/27/22 days #30 patches esomeprazole magnesium 40 mg 40 mg PO DAILY #90 caps 04/26/22 capsule,delayed release (Nexium) famotidine 40 mg tablet 40 mg PO BEDTIME #90 tabs 04/26/22 sennosides 8.6 mg tablet (Natural 8.6 mg PO BEDTIME constipation #90 04/26/22 Senna Laxative) tabs ezetimibe 10 mg tablet 10 mg PO QAM #90 tabs 06/15/22 flash glucose sensor (FreeStyle #2 ea 07/12/22 Luis 2 Sensor kit) FreeStyle Lite Strips (blood sugar #150 strips 08/14/22 diagnostic) cetirizine 10 mg tablet (Zyrtec) 10 mg PO DAILY PRN allergy 08/25/22 symptoms #30 tabs polyethylene glycol 3350 17 17 g PO DAILY #510 grams 08/25/22 gram/dose oral powder (Miralax) alcohol swabs (Alcohol Prep Pads) 3 pad topical QID #200 pad 08/28/22 tadalafil 20 mg tablet 20 mg PO DAILY PRN sexual activity 11/04/22 90 days #20 tabs tadalafil 5 mg tablet 5 mg PO DAILY sexual activity 90 11/04/22 days #90 tabs insulin aspart 2 - 4 unit subcut TID 30 days #15 11/06/22 (niacinamide)(U-100) 100 unit/mL(3 mL mL) subcutaneous pen lancets 28 gauge (FreeStyle #120 ea 11/06/22 Lancets) insulin glargine U-300 conc 300 15 unit (0.05 mL) subcut BEDTIME 11/09/22 unit/mL (1.5 mL) subcutaneous pen #4.5 mL (Toujeo SoloStar U-300 Insulin) Ventolin HFA 90 mcg/actuation 2 puff PO Q6H PRN for wheezing 30 11/22/22 aerosol inhaler (albuterol sulfate) days #18 grams cholecalciferol (vitamin D3) 50 50 mcg PO QAM #30 caps 12/26/22 mcg (2,000 unit) capsule (Vitamin D3) metformin 500 mg tablet,extended 1,000 mg (2 x 500 mg) PO DAILY 12/26/22 release 24 hr #120 tabs dapagliflozin propanediol 5 mg 5 mg PO QAM #30 tabs 01/24/23 tablet (Farxiga) glucagon 3 mg/actuation nasal 3 mg intranasal ONCE #2 ea 01/25/23 spray (Baqsimi) tamsulosin 0.4 mg capsule 0.4 mg PO BEDTIME refill 90 days 02/02/23 #90 caps semaglutide 1 mg/dose (4 mg/3 mL) 1 mg (0.75 mL) subcut QWEEK #3 mL 03/23/23 subcutaneous pen injector (Ozempic) Praluent Pen 150 mg/mL 150 mg subcut Q2W #2 mL 04/23/23 subcutaneous pen injector (alirocumab) tramadol 50 mg tablet 50 mg PO Q6H PRN pain #20 tabs 05/03/23 Allergies Allergy/AdvReac Type Severity Reaction Status Date / Time dulaglutide [Trulicity] AdvReac Unknown diarrhea Verified 01/25/23 11:21 Review of Systems Review of Systems: Yes all other systems are reviewed and are negative PMFSH Past Medical History Medical History Erectile dysfunction associated with type 2 diabetes mellitus Unsteady gait Asthma Leg weakness Mass of right parotid gland Hypertensive retinopathy of right eye Tubular adenoma of colon Smoker Dyspnea on exertion Vitamin D deficiency Hypertension Diabetic polyneuropathy associated with type 2 diabetes mellitus Diabetic nephropathy associated with type 2 diabetes mellitus 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 Dyslipidemia Diabetes type 2, uncontrolled Surgical History History of esophagogastroduodenoscopy (EGD) Hx of colonoscopy History of amputation of finger History of lumbar surgery Family History Family History Father Medical history unknown Mother Medical history unknown Sister Breast cancer Brother Cancer Social History Social History Household Members: Spouse Alcohol intake: current Alcohol intake frequency: a few times a month Patient Tobacco Use Status: Former Tobacco user Quit Date: over 20 years ago Years Smoked: 52 (onset 13yo) Advance Directives: No Advance Directives Information Provided: No Physical Exam ED Vital Signs: Vital Signs - 24 hr 05/03/23 18:04 Temperature 98.6 F Pulse Rate 65 Respiratory Rate 18 Blood Pressure 195/72 H Pulse Oximetry 98 Oxygen Delivery Method Room Air BMI result Body Mass Index 23.7 Appearance: Alert. Oriented X3. No acute distress. Anxious dramatic Eyes: PERRLA, No Nystagmus ENT: Pharynx normal. Oral Mucosa moist Neck: Normal inspection. Neck supple. CVS: Normal heart rate and rhythm. Pulses normal. Respiratory: No respiratory distress. Equal air entry bilateral, no wheezing/rales/rhonchi Abdomen: Soft and nontender. Bowel sounds are present, no mass palpable, no CVA tenderness Skin: Skin warm and dry. Normal skin color. Normal skin turgor. Extremities: No lower extremity edema. No calf tenderness no signs of injury noticed was my well but when examined complaining of pain all over Neuro: Oriented X 3. No motor deficit. No sensory deficit.No cerebellar signs , cranial nerves II-XII intact Course Course Course Narrative: This is a rapid medical exam: Additional HPI, ROS, PE not included below will be deferred to primary provider. Patient is a 68-year-old male presenting to the emergency department after a fall while ambulating in history. States that his left knee gave, causing him to fall. Denies head strike or loss of consciousness. He is not on any blood thinners. He is complaining of left anterior shoulder and left elbow pain. Small abrasion noted to left elbow. Plan: x-ray left shoulder and elbow Medical Decision Making Medical Decision Making [facility] Narrative: Patient status post mechanical fall no signs of significant injuries x-ray negative with does have chronic with anxiety discharge patient home on tramadol with follow with PCP and Pain Clinic Radiology Impression Discussion of test interpretation with radiology: I have reviewed the radiologis t's reading. Discharge Plan Discharge Clinical Impression: Contusion of left shoulder Patient Disposition: Home, Self-Care Instructions: Musculoskeletal Pain (ED) Additional Instructions: Take pain medication as prescribed and follow up with pain clinic/PCP Prescriptions: New tramadol 50 mg tablet 50 mg PO Q6H PRN (Reason: pain) Qty: 20 0RF No Action diclofenac sodium 1 % gel 2 g topical BID PRN (Reason: pain) Qty: 200 3RF (DME) blood-glucose meter [FreeStyle Lite Meter] Kit See Rx Instructions .ROUTE .MEDSUPPLY Qty: 1 0RF Rx Instructions: 4 times a day aspirin 81 mg tablet,delayed release (DR/EC) 81 mg PO BEDTIME Qty: 90 3RF Anoro Ellipta 62.5-25 mcg/actuation blister with device 1 ea PO DAILY Qty: 180 1RF lidocaine 5 % adhesive patch,medicated 2 patch topical DAILY PRN (Reason: pain) 15 Days Qty: 30 1RF ezetimibe 10 mg tablet 10 mg PO QAM Qty: 90 3RF (DME) FreeStyle Lite Strips Strip See Rx Instructions .ROUTE .COMPLEX Qty: 150 6RF Dose Instruction: TEST BLOOD SUGAR FOUR TIMES DAILY Rx Instructions: TEST BLOOD SUGAR FOUR TIMES DAILY alcohol swabs [Alcohol Prep Pads] Pads, Medicated 3 pad topical QID Qty: 200 5RF insulin aspart (niacinamide) 100 unit/mL (3 mL) insulin pen 2 - 4 unit subcut TID 30 Days Qty: 15 6RF (DME) lancets [FreeStyle Lancets] 28 gauge misc See Rx Instructions .MEDSUPPLY Qty: 120 11RF Rx Instructions: 4 times a day Toujeo SoloStar U-300 Insulin 300 unit/mL (1.5 mL) insulin pen 15 unit subcut BEDTIME Qty: 4.5 5RF albuterol sulfate [Ventolin HFA] 90 mcg/actuation HFA aerosol inhaler 2 puff PO Q6H PRN (Reason: for wheezing) 30 Days Qty: 18 3RF cholecalciferol (vitamin D3) [Vitamin D3] 50 mcg (2,000 unit) capsule 50 mcg PO QAM Qty: 30 11RF metformin 500 mg tablet extended release 24 hr 1,000 mg PO DAILY Qty: 120 5RF Farxiga 5 mg tablet 5 mg PO QAM Qty: 30 4RF tamsulosin 0.4 mg capsule 0.4 mg PO BEDTIME 90 Days Qty: 90 3RF Ozempic 1 mg/dose (4 mg/3 mL) pen injector 1 mg subcut QWEEK Qty: 3 5RF Praluent Pen 150 mg/mL pen injector 150 mg subcut Q2W Qty: 2 3RF imipramine HCl 25 mg tablet 25 mg PO BEDTIME metoprolol succinate 25 mg tablet extended release 24 hr 12.5 mg PO QAM zolpidem 5 mg tablet 5 mg PO BEDTIME PRN amlodipine 5 mg tablet 10 mg PO DAILY (DME) electric wheelchair See Rx Instructions .Route .MEDSUPPLY Qty: 1 0RF Rx Instructions: As directed (DME) pen needle, diabetic [BD Miriam 2nd Gen Pen Needle] 32 gauge x 5/32 needle See Rx Instructions .MEDSUPPLY Qty: 150 4RF Rx Instructions: 5 times a day (DME) FreeStyle Luis 2 Quinton Misc See Rx Instructions .Route Rx Instructions: As directed esomeprazole magnesium [Nexium] 40 mg capsule,delayed release(DR/EC) 40 mg PO DAILY Qty: 90 3RF sennosides [Natural Senna Laxative] 8.6 mg tablet 8.6 mg PO BEDTIME Qty: 90 3RF famotidine 40 mg tablet 40 mg PO BEDTIME Qty: 90 3RF cyclobenzaprine 5 mg tablet 5 mg PO TID PRN acetaminophen [Arthritis Pain Reliever] 650 mg tablet extended release 650 mg PO Q8H PRN (Reason: pain) 90 Days Qty: 270 2RF betamethasone dipropionate 0.05 % ointment topical tadalafil 5 mg tablet 5 mg PO DAILY 90 Days Qty: 90 3RF Rx Instructions: [facility] Group [facility] [address] [id number] tadalafil 20 mg tablet 20 mg PO DAILY PRN (Reason: sexual activity) 90 Days Qty: 20 3RF Rx Instructions: [facility] Group [facility] [address] [id number] Fiber Laxative(methylcellulos) 500 mg tablet 0 mg PO hydrochlorothiazide 25 mg tablet 25 mg PO DAILY polyethylene glycol 3350 [Miralax] 17 gram/dose powder 17 g PO DAILY Qty: 510 2RF cetirizine [Zyrtec] 10 mg tablet 10 mg PO DAILY PRN (Reason: allergy symptoms) Qty: 30 2RF (DME) FreeStyle Luis 2 Sensor Kit See Rx Instructions .Route Qty: 2 6RF Rx Instructions: As directed Baqsimi 3 mg/actuation spray,non-aerosol 3 mg intranasal ONCE Qty: 2 5RF Print Language: Telugu
== END 2023-05-03 23:41 | disposition home or self-care (01) ==
PROVIDERS: Emergency Provider Internal Medicine
DX: S40.012A Contusion of left shoulder, initial encounter (principal); S50.312A Abrasion of left elbow, initial encounter; W01.0XXA Fall on same level from slipping, tripping and stumbling without subsequent striking against object, initial encounter; E11.9 Type 2 diabetes mellitus without complications; I10 Essential (primary) hypertension; E78.5 Hyperlipidemia, unspecified; G89.4 Chronic pain syndrome; R26.81 Unsteadiness on feet; Z79.82 Long term (current) use of aspirin; Z79.4 Long term (current) use of insulin; Z79.899 Other long term (current) drug therapy; Z87.891 Personal history of nicotine dependence; Y93.9 Activity, unspecified; Y92.9 Unspecified place or not applicable; Y99.9 Unspecified external cause status
CPT/HCPCS: 73030; 73070; 99283

== ENCOUNTER 2023-05-17 10:35 | Outpatient (REF) | payer OTHER, SELFPAY ==
[2023-05-17 13:51] LABS: Cholesterol 173 mg/dL (<200); HDL Cholesterol 39 mg/dL (>40); LDL Cholesterol Calculated 115 mg/dL (<100); Triglycerides 95 mg/dL (<150)
== END 2023-05-17 10:36 | disposition home or self-care (01) ==
LOC: HO.LAB 10:35
PROVIDERS: Visit Provider Internal Medicine Endocrinology, Diabetes & Metabolism
DX: E78.5 Hyperlipidemia, unspecified (principal)
CPT/HCPCS: 36415; 80061

== ENCOUNTER 2023-05-21 12:17 | Outpatient (REF) | payer OTHER, SELFPAY ==
--- NOTE | ~2023-05-21 | XR_ITS ---
EXAMINATION: XR SOFT TISSUE NECK CLINICAL INDICATION: Dysphagia. COMPARISON: None available. TECHNIQUE: AP and lateral views of the soft tissue neck were obtained. FINDINGS: Soft tissue films of the neck demonstrate a normal larynx, pharynx and upper trachea. No soft tissue swelling or opaque foreign body is demonstrated. There is moderately severe degenerative disc disease at C4-C5 and C5-C6, and mild to moderate degenerative disc disease is seen at C6-C7. There are calcifications of the ligamentum nuchae. There are bilateral carotid atherosclerotic calcifications, right greater than left. XR/XR soft tissue neck IMPRESSION: 1. Unremarkable radiographic appearance of the soft tissues of the neck. 2. There are degenerative changes of the spine, as detailed. 3. There are bilateral carotid atherosclerotic calcifications, which may be more fully evaluated with dedicated carotid ultrasound, if clinically indicated.
== END 2023-05-21 12:18 | disposition home or self-care (01) ==
LOC: HO.XRAY 12:17
PROVIDERS: Visit Provider Nurse Practitioner Family
DX: R13.10 Dysphagia, unspecified (principal)
CPT/HCPCS: 70360

== ENCOUNTER 2023-05-23 11:05 | Outpatient (AMB) | payer OTHER, MEDICAID, SELFPAY ==
[2023-05-23 11:07] VITALS: BP 118/52; PULSE 83; BMI 22.8
--- NOTE | 2023-05-23 11:07 | MHC.OFFVIS ---
Intake Vital Signs 05/23/23 11:07 Height 5 ft 11 in Weight 163 lb 2.273 oz BMI 22.8 BP 118/52 L Blood Pressure Location Lt brachial Position Sitting Pulse 83 Pulse Source Pulse Oximeter Intake Visit Reasons: dm Intake Note: Patient present today to follow up on Type 2 Diabetes Mellitus. 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 Today is for diabetes management Luis download shows he is wearing the sensor 66% of the time. Average glucose is 135 with G mi of 6.5% and variability 37.9%. He is in target range 74% of the time with 19% hyperglycemia and 7% hypoglycemia. The hypoglycemia is occurring primarily overnight but there is a large drop in blood sugar after dinner and increase in blood sugar after breakfast He is currently on Toujeo to 15 units, Novolog 4 units for point care <200 before breakfast . lunch 4 units for point care <200 and 5 units of point cares greater than 200. dinner NovoLog to 2 units for point care< 200 at 3 units for point care>200. metformin 2000 mg QD Ozempic 1 mg Q wkly . . Farxiga 5 mg QD He admits dietary indiscretions. He reports he has no further diarrhea. . He has DM 2 diagnosed in 1989. He has other PMH of GERD, anxiety, asthma, arthritis, history of alcohol and cocaine abuse, hypertension, hyperlipidemia. He has nephropathy without other microvascular, he has PVD based on foot XRay which showed calcifications in foot arteries, no other macrovascular disease had diarrhea with Trulicity 0.75 mg weekly He had elevated CPK on statin, currently on Praluent 150 mg every 2 weeks and Zetia 10 mg daily. Some hypoglycemia occuring at night 2-3 X/wk Last ophthalmology evaluation: this yr , no diabetic retinopathy was has hypertensive retinopathy.Saw optho in last mos no Diabetic retinopathy Laboratory Tests 08/19/20 08/19/20 08/19/20 10:37 10:37 10:37 Sodium 140 Potassium 4.7 Creatinine 1.09 Glucose (Clinic) Hgb A1c (Clinic) Calcium 9.3 AST 18 ALT 23 Albumin 4.3 Triglycerides 129 Cholesterol 191 LDL Cholesterol Di rect 130 H LDL Cholesterol, C alc 119 HDL Cholesterol 47 Vitamin B12 290 25-OH Vitamin D To ho 28.9 TSH 2.39 Free T4 0.81 08/19/20 10/29/20 10:56 10:34 Sodium Potassium Creatinine Glucose (Clinic) 206 H Hgb A1c (Clinic) 8.2 H Calcium AST ALT Albumin Triglycerides Cholesterol LDL Cholesterol Di rect LDL Cholesterol, C alc HDL Cholesterol Vitamin B12 25-OH Vitamin D To ho TSH Free T4 PFSH Medical History Erectile dysfunction associated with type 2 diabetes mellitus Unsteady gait Asthma Leg weakness Mass of right parotid gland Hypertensive retinopathy of right eye Tubular adenoma of colon Smoker Dyspnea on exertion Vitamin D deficiency Hypertension Diabetic polyneuropathy associated with type 2 diabetes mellitus Diabetic nephropathy associated with type 2 diabetes mellitus 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 Dyslipidemia Diabetes type 2, uncontrolled Surgical History History of esophagogastroduodenoscopy (EGD) Hx of colonoscopy History of amputation of finger History of lumbar surgery Family History Father Medical history unknown Mother Medical history unknown Sister Breast cancer Brother Cancer Social History Household Members: Spouse Alcohol intake: current Alcohol intake frequency: a few times a month Patient Tobacco Use Status: Former Tobacco user Quit Date: over 20 years ago Years Smoked: 52 (onset 13yo) Physical Exam Vital Signs: Last Vital Signs Pulse 83 05/23/23 11:07 BP 118/52 L 05/23/23 11:07 BMI result Body Mass Index 22.8 Absence of Cushingoid features. Absence of acromegalic features. Neck exam reveals nl size thyroid about 15 gms. No thyroid nodules palpable. No carotid bruits present. Lungs CTA. Heart S1 S2, Reg R/R. No M/R/ G. Skin exam reveals absence of vitiligo or acanthosis nigricans. Abdominal exam reveals Soft NT/ND with NA BS. No organomegaly present. Neck Other: . Extrem Other: Visual exam of foot performed. No ulcerations or open lesions. No onchomycosis, no callouses.Pulses 2 + distally Sensation mildly decreased to monofilament exam. Vibratory sensation sensed is decreased with 128 Hz tuning fork Results AMB Hemoglobin A1c AMB Hemoglobin A1c 6.7 % Last Edit by Heena Christopher on 05/23/23 11:55 Results Reviewed Results Reviewed: 05/23/23 11:19 Glucose, Whole Blood Routine Laboratory Last Values Glucose (Clinic) 129 mg/dL (60-115) H 05/23/23 11:19 Assessment & Plan Assessment & Plan (1) Diabetes type 2, uncontrolled: Code(s): E11.65 - Type 2 diabetes mellitus with hyperglycemia Qualifiers: Glycemic state: with hyperglycemia Qualified Code(s): E11.65 - Type 2 diabetes mellitus with hyperglycemia Plan: This is a 68-year-old male with a history of type 2 diabetes being treated with metformin, Ozempic and basal-bolus insulin with good improved excellent at goal glycemic control and known microvascular and macrovascular complications namely neuropathy, nephropathy and peripheral vascular disease . The plan is decreased Toujeo 12 units . Would also decrease pre dinner NovoLog to 2 units. Also recommended patient follow-up with CDE (2) Dyslipidemia: Code(s): E78.5 - Hyperlipidemia, unspecified Plan: On Praulent and Zetia . LDL is not at goal Plan is to change Zetia to Nexlizet which is bempoic acid and ezetibe 180mg/10 mg Orders: Orders Lipid Panel 2 Months E78.5 - Hyperlipidemia, unspecified AMB Hemoglobin A1c Today E11.42 - Type 2 diabetes mellitus with diabetic polyneuropathy Medications: New bempedoic acid-ezetimibe 180-10 mg (Nexlizet) 1 tab PO DAILY 30 tabs 5RF bempedoic acid-ezetimibe 180-10 mg (Nexlizet) 1 tab PO DAILY 30 tabs 5RF Refilled flash glucose sensor (FreeStyle Luis 2 Sensor kit) As directed 2 ea 6RF Discontinued ezetimibe Discontinued Reason: Doctor's Order 10 mg PO QAM 90 tabs 3RF E78.5 - Hyperlipidemia, unspecified Coding Level of Care Code Est Pt Level 4 (93201) Diagnoses Uncontrolled type 2 diabetes mellitus with hyperglycemia E11.65 Glycemic state: with hyperglycemia Dyslipidemia E78.5
[2023-05-23 11:24] LABS: Glucose, Whole Blood 129 mg/dL (60-115)
== END 2023-05-23 14:35 | disposition home or self-care (01) ==
PROVIDERS: PCP Registered Nurse; Visit Provider Internal Medicine Endocrinology, Diabetes & Metabolism
DX: E11.65 Type 2 diabetes mellitus with hyperglycemia (principal); E78.5 Hyperlipidemia, unspecified; E11.42 Type 2 diabetes mellitus with diabetic polyneuropathy
CPT/HCPCS: 99214

== ENCOUNTER → 2023-05-23 11:05 | Outpatient (BNVA) | payer OTHER, MEDICAID, SELFPAY | PROVIDERS: PCP Registered Nurse; Visit Provider Internal Medicine Endocrinology, Diabetes & Metabolism | DX: E11.65 Type 2 diabetes mellitus with hyperglycemia (principal); E78.5 Hyperlipidemia, unspecified | CPT/HCPCS: 82947; 83036; 99212 ==

== ENCOUNTER 2023-06-13 14:44 | Outpatient (AMB) | payer OTHER, SELFPAY ==
--- NOTE | 2023-06-13 14:56 | A.OFFVIS_ITS ---
Intake Vital Signs 06/13/23 14:57 Height 5 ft 11 in Weight 158 lb BMI 22.0 BP 113/56 L Blood Pressure Location Lt brachial Position Sitting Pulse 73 Intake Visit Reasons: Follow Up Labs Intake Note: Patient follow up for lab results. Patient cc: Director Of Assessing Required: Yes Director Of Assessing Name: Jessica [id number] Accompanied by: Self / Same As Patient Allergies dulaglutide [Trulicity] Adverse Reaction (Unknown, Verified 06/13/23 14:55) diarrhea HPI Follow Up Labs 2 HPI Details LAST VISIT: Dysphagia Patient continues having trouble swallowing. Denies odynophagia or dyspepsia. Patient reports that acid reflux symptoms are suppressed with Nexium. Patient will go for barium swallow next month. I will order rest allergen test and patient will have x-ray of his neck. IBS (irritable bowel syndrome) Postprandial loose stools then constipation. Patient does not feel like he empties his bowels completely. Script for MiraLax sent. Discussed with patient FODMAP diet. List of food to avoid as well as list of food recommended given to patient. I will see patient in 2 months, sooner on as needed basis. Patient is agreeable to this plan and verbalizes understanding of instructions. He was given the opportunity to ask questions and all questions answered. ? Thank you for allowing me to participate in his care Plan Orders Orders Rast Allergen 08/29/22 K20.90 XR soft tissue neck 08/25/22 R13.10 Medications New polyethylene glycol 3350 (Miralax) 17 grams PO DAILY 510 grams 2RF cetirizine (Zyrtec) 10 mg PO DAILY PRN 30 tabs 2RF allergy symptoms J31.0 Discontinued docusate sodium Discontinued Reason: Patient no longer taking 100 mg PO BEDTIME 30 caps 3RF K59.00 methylcellulose (laxative) tomalo con un vaso de agua lleno Discontinued Reason: Doctor's Order 500 mg PO DAILY PRN 90 tabs 2RF constipation K58.9 polyethylene glycol 3350 As directed by gastroenterology department at [facility] Discontinued Reason: Doctor's Order 238 grams PO ONCE 238 grams 0RF Z12.11 TODAY'S VISIT Patient is here today for follow-up and to discuss x-ray results. Patient reports to be feeling better, takes Nexium in the morning and famotidine at bedtime. Patient denies any dyspepsia, dysphagia or odynophagia. Normal soft tissue x-ray of the neck. Patient has been taking Ozempic since February. Reports that he is tolerating it better than Trulicity. Patient states that he is moving his bowels better now. Denies melena, hematochezia, unintentional weight loss or ribbon like stools. 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 Dyslipidemia Diabetes type 2, uncontrolled Surgical History History of esophagogastroduodenoscopy (EGD) Hx of colonoscopy History of amputation of finger History of lumbar surgery Family History Father Medical history unknown Mother Medical history unknown Sister Breast cancer Brother Cancer Social History Household Members: Spouse Alcohol intake: current Alcohol intake frequency: a few times a month Patient Tobacco Use Status: Former Tobacco user Quit Date: over 20 years ago Years Smoked: 52 (onset 13yo) Review of Systems Const Denies weight gain and Denies weight loss ENT Reports no additional complaints, Denies dysphagia and Denies odynophagia Card Reports no additional complaints Resp Reports no additional complaints GI Denies abdominal pain, Denies belching, Denies melena, Denies bloating, Denies change in bowel habits, Denies dysphagia, Denies excessive flatus, Denies dyspepsia, Denies heartburn, Denies diarrhea, Denies loose stools, Denies nausea, Denies odynophagia and Denies vomiting Reports no additional complaints Musc Reports no additional complaints Neuro Reports no additional complaints Psych Reports no additional complaints Endo Reports no additional complaints Physical Exam Vital Signs: Last Vital Signs Pulse 73 06/13/23 14:57 BP 113/56 L 06/13/23 14:57 BMI result Body Mass Index 22.0 Const General: healthy appearing, no acute distress and well developed Nutritional Appearance: well nourished Orientation/consciousness: patient oriented x3 HEENT Head: Yes normal to inspection, Yes normocephalic and Yes atraumatic Face and sinus: Yes normal facial exam Mouth: Normal oral and palatal mucosa present Throat: Yes posterior oropharynx normal, Yes tonsils normal and Yes uvula midline Eyes General: appearance normal, both eyes and all related structures Neck Neck: Yes normal visual inspection, Yes full ROM and Yes trachea midline Thyroid: Thyroid normal Resp Effort & Inspection: normal respiratory effort, able to speak in complete sentences, no tracheal deviation and symmetric chest movement Auscultation: clear to auscultation bilaterally Cardio Rate: regular rate GI Inspection: Yes normal to inspection and No distended Palpation (GI): Soft to palpation, not firm, nontender and No hepatosplenomegaly present Auscultation: normal bowel sounds General: Yes no CVA tenderness Back/Spine/Pelvis Back: no CVA tenderness Skin General skin exam: elasticity normal, turgor normal and dry skin Neuro General: patient oriented x3 Psych Appearance: grossly normal Mental Status: mental status grossly normal Results Reviewed Results Reviewed: Soft tissue neck x-ray 05/21/2023 XR/XR soft tissue neck IMPRESSION: 1. Unremarkable radiographic appearance of the soft tissues of the neck. 2. There are degenerative changes of the spine, as detailed. 3. There are bilateral carotid atherosclerotic calcifications, which may be more fully evaluated with dedicated carotid ultrasound, if clinically indicated. Assessment & Plan Assessment & Plan (1) Dysphagia: Code(s): R13.10 - Dysphagia, unspecified Qualifiers: Dysphagia type: pharyngoesophageal phase Qualified Code(s): R13.14 - Dysphagia, pharyngoesophageal phase (2) IBS (irritable bowel syndrome): Code(s): K58.9 - Irritable bowel syndrome without diarrhea Qualifiers: Irritable bowel syndrome type: with both diarrhea and constipation Qualified Code(s): K58.2 - Mixed irritable bowel syndrome (3) GERD (gastroesophageal reflux disease): Code(s): K21.9 - Gastro-esophageal reflux disease without esophagitis Qualifiers: Esophagitis presence: esophagitis presence not specified Qualified Code(s): K21.9 - Gastro-esophageal reflux disease without esophagitis Plan Continue current treatment for reflux. Nexium in the morning and famotidine on as needed basis at bedtime. Discussed with patient avoiding dietary triggers and late night snacking. Staying upright for minimum 3 hours after meals discussed with patient. Discussed with patient increasing fluid intake and activity to promote better bowel motility. Patient reports that currently he is moving his bowels better. Patient lost 22 lb since July and is feeling better. Currently is on Ozempic and tolerating well. I will see him in 3 months, sooner on as needed basis. Patient is agreeable to this plan and verbalizes understanding of instructions. He was given the opportunity to ask questions and all questions answered. Thank you for allowing me to participate in his care Coding Level of Care Code Est Pt Level 3 (59573) Diagnoses Pharyngoesophageal dysphagia R13.14 Dysphagia type: pharyngoesophageal phase Irritable bowel syndrome with both constipation and diarrhea K58.2 Irritable bowel syndrome type: with both diarrhea and constipation Gastroesophageal reflux disease, unspecified whether esophagitis present K21.9 Esophagitis presence: esophagitis presence not specified Time Spent (min) 25 Comment 15 minutes spent with patient and additional 10 minutes spent reviewing his records
[2023-06-13 14:57] VITALS: BP 113/56; PULSE 73; BMI 22.0
== END 2023-06-13 15:31 | disposition home or self-care (01) ==
PROVIDERS: Visit Provider Nurse Practitioner Family
DX: R13.14 Dysphagia, pharyngoesophageal phase (principal); K58.2 Mixed irritable bowel syndrome; K21.9 Gastro-esophageal reflux disease without esophagitis
CPT/HCPCS: 99213

== ENCOUNTER → 2023-06-13 14:44 | Outpatient (BNVA) | payer OTHER, SELFPAY | PROVIDERS: Visit Provider Nurse Practitioner Family | DX: K21.9 Gastro-esophageal reflux disease without esophagitis (principal); K58.2 Mixed irritable bowel syndrome; R13.14 Dysphagia, pharyngoesophageal phase | CPT/HCPCS: 99212 ==

== ENCOUNTER 2023-08-20 09:48 | Outpatient (REF) | payer OTHER, SELFPAY ==
[2023-08-20 11:43] LABS: Hematocrit 42.2 % (42.0-52.0); Hemoglobin 14.1 g/dl (14.0-18.0); Mean Corpuscular HGB Conc 33.4 g/dl (31.0-36.0); Mean Corpuscular Hemoglobin 29.7 pg (27.0-33.0); Mean Corpuscular Volume 88.8 fL (80.0-98.0); Mean Platelet Volume 11.4 fL (9.4-12.4); Platelet Count 147 X10*3/uL (160-400); Red Blood Count 4.75 X10*6/uL (4.60-5.80); Red Cell Distribution Width 13.1 % (11.0-16.0); White Blood Count 4.1 X10*3/uL (4.8-10.8)
[2023-08-20 11:51] LABS: Estimated Average Glucose 140 mg/dL; Hemoglobin A1c % 6.5 % (<6.0)
[2023-08-20 12:14] LABS: Alanine Aminotransferase 19 U/L (0-40); Albumin Level 4.1 g/dL (3.5-5.0); Alkaline Phosphatase 66 U/L (39-117); Anion Gap 11 (12-20); Aspartate Amino Transferase 20 U/L (5-37); Bilirubin Total 0.4 mg/dL (0.0-1.0); Blood Urea Nitrogen 14 mg/dL (9-16); Carbon Dioxide 28 mmol/L (22-29); Chloride 104 mmol/L (96-108); Cholesterol 135 mg/dL (<200); Estimated Glomerular Filt Rate > 60; Glucose Random 175 mg/dL (60-115); HDL Cholesterol 65 mg/dL (>40); LDL Cholesterol Calculated 55 mg/dL (<100); Potassium 4.3 mmol/L (3.3-5.1); Sodium 139 mmol/L (135-145); Total Protein 7.2 g/dL (6.5-8.0); Triglycerides 75 mg/dL (<150)
[2023-08-20 12:30] LABS: Syphilis Screen Nonreactive (Nonreactive)
[2023-08-20 12:33] LABS: HBS Num1 0.07 mIU/mL (0-7.99); HBc Num1 0.09 S/CO (0.00-0.79); HIV AB/AG Nonreactive (Nonreactive); HIV Num 1 0.07 S/CO (0.00-0.99); Hepatitis B Core Antibody Nonreactive (Nonreactive); Hepatitis B Surface Antigen Negative (Negative); TSH reflex Free T4 3.89 uIU/mL (0.32-4.0); ~HepC Num1 0.12 S/CO (0.00-0.79); ~Hepatitis B Surface Antibody NONREACTIVE (Nonreactive); ~Hepatitis C Antibody Nonreactive (Nonreactive)
[2023-08-20 12:34] LABS: Creatinine Urine 109.49 mg/dL; Microalbum/Creatinine Ratio Ur 372.6 ug/mg cr (<30)
[2023-08-20 12:56] LABS: Prostate Specific Antigen 0.51 ng/mL (<0.05-4.0); Vitamin B12 344 pg/mL (200-900)
[2023-08-20 14:36] LABS: CT PCR NOT DETECTED (Not Detect.); NG PCR NOT DETECTED (Not Detect.)
== END 2023-08-20 09:49 | disposition home or self-care (01) ==
LOC: HO.HHCL 09:48
PROVIDERS: Visit Provider Student in an Organized Health Care Education/Training Program
DX: Z00.00 Encounter for general adult medical examination without abnormal findings (principal); Z12.5 Encounter for screening for malignant neoplasm of prostate; Z11.4 Encounter for screening for human immunodeficiency virus [HIV]; Z20.2 Contact with and (suspected) exposure to infections with a predominantly sexual mode of transmission
CPT/HCPCS: 0353U; 36415; 80053; 80061; 82043; 82570; 82607; 82746; 83036; 84153; 84443; 85027; 86704; 86706; 86780; 86803; 87340; 87389

== ENCOUNTER 2023-09-11 14:46 | Outpatient (AMB) | payer OTHER, SELFPAY ==
--- NOTE | 2023-09-11 14:51 | MHC.OFFVIS ---
Intake Vital Signs 09/11/23 14:53 Height 5 ft 11 in Weight 160 lb BMI 22.3 BP 112/53 L Blood Pressure Location Lt brachial Position Sitting Pulse 67 Intake Visit Reasons: 3 month follow up Intake Note: Patient follow up for constipation. Patient cc: constipation and swallowing problems. Denies any other GI issues. Housekeeper Supervisor Required: Yes Housekeeper Supervisor [place] [facility] [place] Accompanied by: Self / Same As Patient Allergies dulaglutide [Trulicity] Adverse Reaction (Unknown, Verified 09/11/23 14:51) diarrhea HPI 3 month follow up HPI Details LAST VISIT: Dysphagia IBS (irritable bowel syndrome) GERD (gastroesophageal reflux disease) Plan Continue current treatment for reflux. Nexium in the morning and famotidine on as needed basis at bedtime. Discussed with patient avoiding dietary triggers and late night snacking. Staying upright for minimum 3 hours after meals discussed with patient. Discussed with patient increasing fluid intake and activity to promote better bowel motility. Patient reports that currently he is moving his bowels better. Patient lost 22 lb since July and is feeling better. Currently is on Ozempic and tolerating well. I will see him in 3 months, sooner on as needed basis. Patient is agreeable to this plan and verbalizes understanding of instructions. He was given the opportunity to ask questions and all questions answered. COLONOSCOPY AND UPPER ENDOSCOPY 04/13/2022 Findings: Larynx:normal Esophagus: GE junction at 40? cm, diaphragm hiatus at 42 cm, consistent with 2 cm sliding hiatal hernia, schatzki ring noted, with possible small islands of barretts mucosa, bx taken from GEJ, distal and proximal esophagus. Balloon dilation done to 20 mm at LES and UEs, no tears seen Stomach: Patchy erythematous mucosa. Biopsies were obtained. Grade 2 flap valve on retroflexed examination of the cardia. Pylorus seemed v tight dilated with balloon to 19 mm, no tears seen. Duodenum: Normal bulb and descending duodenum, bx taken Findings: Terminal Ileum-normal Cecum: 10 mm sessile polyp removed with cold snare Ascending Colon: normal Transverse Colon - 5-7 mm sessile polyp removed with cold forceps Descending Colon:normal Sigmoid Colon: midl diverticulosis Rectum: Retroflexion with medium sized internal hemorrhoids, grade I Anorectum - normal Impression and Post Procedure Diagnosis: Endoscopy Findings: schatzki ring, hiatal hernia, gastritis Colonoscopy Findings: polyps, internal hemorrhoids, diverticular disease Plan: Await Pathology results Repeat Colonoscopy in 1 year due to left sided prep or earlier if clinically indicated High fiber diet leaflet avoid straining at stool, epsom salts and sitz bath, anusol supps or cream confirm compliance with PPI, if ongoing sx then can consider JOSE, or referral for pH impedance, manometry PATHOLOGY RESULTS: Diagnosis A.? Duodenum, biopsy:? Chronic inactive duodenitis. B.? Stomach, biopsy:? Antral-type and oxyntic mucosa with mild chronic inactive inflammation; no Helicobacter organisms seen. C.? GE junction, biopsy: - Cardiac-type mucosa with moderate chronic active inflammation; no intestinal metaplasia seen. - Active esophagitis (maximum eosinophil count 2 per high powered field). D.? Esophagus, distal, biopsy: - Active esophagitis (maximum eosinophil count 1 per high powered field). - Small focus of gastric epithelium within normal limits. E.? Esophagus, proximal, biopsy:? Squamous epithelium within normal limits; no inflammation seen. F.? Cecum, polypectomy:? Fragments of tubular adenoma; negative for high-grade dysplasia or carcinoma. G.? Colon, transverse, polypectomy:? Hyperplastic mucosal polyp. TODAY'S VISIT: Patient is here today for follow-up and to discuss going for colonoscopy. Patient reports that his acid reflux symptoms are better, occasional trouble swallowing solids. Patient reports that he is taking Senokot 1 tablet at bedtime and MiraLax in the morning and reports that he is able to move his bowels better, however he continues to be constipated. Patient denies any melena, hematochezia, unintentional weight loss or ribbon like stools. Patient denies any cardiac or respiratory symptoms. No issues with anesthesia in the past. Patient is on Ozempic will need to stop that minimal 1 week before the procedure. Patient is on low-dose aspirin. No history of sleep apnea. [facility] Medical History Erectile dysfunction associated with type 2 diabetes mellitus Unsteady gait Asthma Leg weakness Mass of right parotid gland Hypertensive retinopathy of right eye Tubular adenoma of colon Smoker Dyspnea on exertion Vitamin D deficiency Hypertension Diabetic polyneuropathy associated with type 2 diabetes mellitus Diabetic nephropathy associated with type 2 diabetes mellitus USP (current) use of insulin Dyslipidemia Diabetes type 2, uncontrolled Surgical History History of esophagogastroduodenoscopy (EGD) Hx of colonoscopy History of amputation of finger History of lumbar surgery Family History Father Medical history unknown Mother Medical history unknown Sister Breast cancer Brother Cancer Social History Household Members: Spouse Alcohol intake: current Alcohol intake frequency: a few times a month Patient Tobacco Use Status: Former Tobacco user Quit Date: over 20 years ago Years Smoked: 52 (onset 13yo) Physical Exam Vital Signs: Last Vital Signs Pulse 67 09/11/23 14:53 BP 112/53 L 09/11/23 14:53 BMI result Body Mass Index 22.3 Assessment & Plan Assessment & Plan (1) Dysphagia: Code(s): R13.10 - Dysphagia, unspecified Qualifiers: Dysphagia type: pharyngoesophageal phase Qualified Code(s): R13.14 - Dysphagia, pharyngoesophageal phase (2) IBS (irritable bowel syndrome): Code(s): K58.9 - Irritable bowel syndrome without diarrhea Qualifiers: Irritable bowel syndrome type: without diarrhea Qualified Code(s): K58.9 - Irritable bowel syndrome without diarrhea (3) GERD (gastroesophageal reflux disease): Code(s): K21.9 - Gastro-esophageal reflux disease without esophagitis Qualifiers: Esophagitis presence: esophagitis presence not specified Qualified Code(s): K21.9 - Gastro-esophageal reflux disease without esophagitis (4) Constipation: Code(s): K59.00 - Constipation, unspecified Qualifiers: Constipation type: slow transit constipation Qualified Code(s): K59.01 - Slow transit constipation (5) Screen for colon cancer: Code(s): Z12.11 - Encounter for screening for malignant neoplasm of colon Plan Patient will start taking 2 Senokot every evening,continue with MiraLax. Patient was encouraged to increase fluid intake and activity to promote better bowel motility. Continue Nexium and famotidine. Patient will be sent for upper endoscopy. Continues with dysphagia with solid food. Patient was encouraged to chew well. Will rule out duodenitis, gastritis, esophagitis, gastric or peptic ulcers, Barretts, H pylori. Discussed with patient the importance of good bowel prep as well as clear liquid diet day before procedure. Suboptimal prep to left colon last colonoscopy, see above report in HPI. Patient denies any cardiac symptoms. 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 No issues with anesthesia in the past. Please call games dealer's office for clearance. Patient is on daily aspirin. No history of sleep apnea. Patient is also taking Ozempic and is aware to stop it minimum 7 days before the procedure. I will see patient after the procedure, sooner on as needed basis. Patient is agreeable to this plan and verbalizes understanding of instructions. He was given the opportunity to ask questions and all questions answered. Thank you for allowing me to participate in his care Medications: New polyethylene glycol 3350 (Miralax) As directed by gastroenterology department at [facility] 238 grams PO ONCE 238 grams 0RF Z12.11 - Encounter for screening for malignant neoplasm of colon bisacodyl (Dulcolax (bisacodyl)) take 4 tabs at noon the day before your colonoscopy 20 mg (4 x 5 mg) PO ONCE 1 day 4 tabs 0RF constipation Z12.11 - Encounter for screening for malignant neoplasm of colon Changed From sennosides (Natural Senna Laxative) 8.6 mg PO BEDTIME 90 tabs 3RF constipation K59.00 - Constipation, unspecified To sennosides (Natural Senna Laxative) 17.2 mg (2 x 8.6 mg) PO BEDTIME 120 tabs 3RF constipation K59.00 - Constipation, unspecified Coding Level of Care Code Est Pt Level 4 (54620) Diagnoses Pharyngoesophageal dysphagia R13.14 Dysphagia type: pharyngoesophageal phase Irritable bowel syndrome without diarrhea K58.9 Irritable bowel syndrome type: without diarrhea Gastroesophageal reflux disease, unspecified whether esophagitis present K21.9 Esophagitis presence: esophagitis presence not specified Slow transit constipation K59.01 Constipation type: slow transit constipation Screen for colon cancer Z12.11 Time Spent (min) 35 Comment 25 minutes spent with patient and additional 10 minutes spent reviewing his records
[2023-09-11 14:53] VITALS: BP 112/53; PULSE 67; BMI 22.3
== END 2023-09-11 15:23 | disposition home or self-care (01) ==
PROVIDERS: Visit Provider Nurse Practitioner Family
DX: R13.14 Dysphagia, pharyngoesophageal phase (principal); K58.9 Irritable bowel syndrome, unspecified; K21.9 Gastro-esophageal reflux disease without esophagitis; K59.01 Slow transit constipation; Z12.11 Encounter for screening for malignant neoplasm of colon
CPT/HCPCS: 99214

== ENCOUNTER → 2023-09-11 14:46 | Outpatient (BNVA) | payer OTHER, SELFPAY | PROVIDERS: Visit Provider Nurse Practitioner Family | DX: Z12.11 Encounter for screening for malignant neoplasm of colon (principal); R13.14 Dysphagia, pharyngoesophageal phase; K58.9 Irritable bowel syndrome, unspecified; K21.9 Gastro-esophageal reflux disease without esophagitis; K59.01 Slow transit constipation | CPT/HCPCS: 99212 ==

== ENCOUNTER 2023-09-20 14:08 | Outpatient (AMB) | payer OTHER, SELFPAY ==
--- NOTE | 2023-09-20 14:10 | MHC.OFFVIS ---
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 He was last seen in our office a year ago in September 2022 and had been referred for Behavioral evaluation for potential SCS trial. Patient reports increased back pain with bilateral radiculopathy into his buttocks and posterior lower extremities and into his calves and feet with associated numbness and tingling. He reports mechanical fall in April 2023 due to left knee giving out and hurting his left shoulder. He was evaluated in ER s/p fall and imaging are noted below. Today patient would like to address his radicular pain with therapeutic injection. His most recent A1C is 6.5. Denies any recent cough, cold, infection, fever, bladder or bowel dysfunction, saddle anesthesia or other significant changes in medical history since last office visit. Past Procedures: 09/19/22: Bilateral intra-articular hip steroid injections-80% ongoing pain relief 04/18/22: Caudal PRABHJOT with catheter-0% pain relief PRIOR: Patient presents today for follow up with increasing lower back pain, bilateral hip and leg pain. Patient underwent neurosurgical evaluation by Dr. Ricardo on 06/20/22 and was told that no additional surgery was indicated and was advised to proceed with spinal cord stimulator. Pending behavioral assessment, not completed at [facility] and was sent to [facility] on 08/03/22. Patient has significant bilateral hip pain and groin pain with external and internal hip rotations bilaterally, worse on the right. His back pain continues to radiate down to both of his lower legs posteriorly with numbness and tingling. He ambulates with slow, antalgic gait with use of cane in mildly flexed position due to pain. Reports pain with walking, sitting, standing, or changing positions. Patient would like to proceed with bilateral hip steroid injection under sedation. Denies any fever, abdominal pain, bowel or bladder incontinence or saddle anesthesia. The trialed and failed therapy has been reviewed with the patient. The risks, consequences, alternatives, and benefits of various treatment options were discussed with the patient in great detail, including conservative management, injections and procedures. Plan to proceed with lumbar SCS trial once behavioral assessment is completed. PRIOR: Patient presents today in the office to assess his response to Caudal PRABHJOT with catheter injection on 04/18/22. Patient reports 0% pain relief status post procedure and continues to endorse spinal stenosis related pain. He continues to reports lower back pain with radiation to both of his lower extremity posteriorly with numbness and tingling and parenthesia symptoms in L5-S1 distribution. He also has burning pain in his feet due to chronic diabetic neuropathy. Unfortunately, his insurance did not approve [employer]. Pain continues to affect his daily functioning, sleep and quality of life. We discussed SCS trial previously and behavioral assessment was submitted but not completed. I will refer this patient for neurosurgical evaluation to evaluate if any additional surgery is needed prior to considering SCS trial. Patient cannot tolerate walking more than 5 minutes and ambulates in forward flexed position slowly, with antalgic gait and uses cane. Most recent lumbar MRI was completed in September, and is noted below. Patient denies any fever, weight changes, dizziness, lightheadedness, shortness of breaths, bowel or bladder incontinence or saddle anesthesia. PRIOR: Patient returns today for follow up in the office with worsening of chronic low back pain. He was last seen in our office on 10/17/21. His back pain presents in his lower back that spreads across his lower back and into his bilateral lower extremities posteriorly with shooting, sharp pain and significant numbness and tingling with cramping in both of his feet. Patient reports worsening of chronic painful diabetic neuropathy in his both feet which has been worse at night. Back pain and bilateral neuropathy in his feet has been affecting his daily activities, functioning, sleep and quality of life. At previous visit, his A1C was elevated and we did not proceed with lumbar injections. 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 Patient was praised for monitoring his blood sugars, medication compliance and his attempts and efforts to adhere to ADA diet. We have discussed caudal epidural injection with catheter and patient agreed to undergo this under local and fluoroscopy. He has been managing his back pain with lidocaine patches, naproxen, intermittent use of gabapentin due to drowsiness and low dose of cyclobenzaprine prn with continued symptoms. Patient reports pain with prolonged standing or walking, pain mildly relieved with rest. He ambulates with antalgic gait with the use of cane. Patient reports he has recently fell last Sunday due to significant back pain while walking with cane at home. Patient reports falling backwards and onto his left side with intermittent neck pain and significant muscle pain in his bilateral trapezius regions. Patient reports he did not go to ER or his PCP for evaluation status post fall and has been feeling better except his back symptoms. He denies loss of consciousness, fever, malaise, dizziness, headache, chest pain, shortness of breaths, abdominal or groin pain, bowel or bladder incontinence or saddle anesthesia. Patient reports bilateral lower extremity weakness due to chronic knee and back pain. PRIOR: Today patient presents to the office for review of lumbar MRI and bilateral knee xray. He is accompanied by his PRICING CONSULTANT who is also helps with translation per patient's request. Patient continues to report bilateral knee pain and chronic back pain with right radiculopathy to his right leg laterally and anteriorly to right thigh. He has a prior history of left L5-S1 decompression, discectomy and laminectomy in 2003. He is diabetic with poorly controlled blood sugars with most recent A1C 10.3 on 09/08/21. He states he is followed by our endocrinology services and tries to adhere to ADA diet and closely monitor his blood sugars. Per [facility] notes review, patient last had Left L5-S1 TFESI as well as S1 selective epidurals with nerve root blocks on 01/24/2017. Due to his elevated A1C and poorly controlled diabetes, we will avoid steroid injections at this time. I have placed behavioral evaluation referral for SCS trial at previous visit which is pending. Both lumbar MRI and bilateral knee xrays reports reviewed with patient and are noted below. He notices good relief with lidocaine patches for knee pain and mild improvements with gabapentin, flexeril, and naproxen. Patient denies any fever, malaise, dizziness, weight loss, abdominal or groin pain, bladder/bowel dysfunction or saddle anesthesia. Patient reports lower extremity weakness and difficulty with prolong walking or sitting. Ambulates with antalgic gate and uses cane. PFSH Medical History Erectile dysfunction associated with type 2 diabetes mellitus Unsteady gait Asthma Leg weakness Mass of right parotid gland Hypertensive retinopathy of right eye Tubular adenoma of colon Smoker Dyspnea on exertion Vitamin D deficiency Hypertension Diabetic polyneuropathy associated with type 2 diabetes mellitus Diabetic nephropathy associated with type 2 diabetes mellitus [facility] (current) use of insulin Dyslipidemia Diabetes type 2, uncontrolled Surgical History History of esophagogastroduodenoscopy (EGD) Hx of colonoscopy History of amputation of finger History of lumbar surgery Family History Father Medical history unknown Mother Medical history unknown Sister Breast cancer Brother Cancer Social History Household Members: Spouse Alcohol intake: current Alcohol intake frequency: a few times a month Patient Tobacco Use Status: Former Tobacco user Quit Date: over 20 years ago Years Smoked: 52 (onset 13yo) Review of Systems Const All systems reviewed & are unremarkable except as noted in HPI and below Physical Exam Vital Signs: Last Vital Signs Pulse 68 09/20/23 14:15 BP 115/58 L 09/20/23 14:15 Pulse Ox 99 09/20/23 14:15 Oxygen Delivery Method Room Air 09/20/23 14:15 BMI result Body Mass Index 23.4 General: Appears afebrile. Alert and oriented. Mood and affect appropriate. Follows and participates in conversation appropriately. Respiratory effort is unlabored. No cough. Able to transition from sit to stand unassisted. Slow, antalgic gait. No assistive devices. Ambulates with bilaterally normal heel strike and toe off. General: Yes no CVA tenderness Back/Spine/Pelvis Other: Limited lumbar flexion and extension due to significant aggravation of his back symptoms. Demonstrates 4/5 strength of quadriceps bilaterally as well as flexion/dorsiflexion of bilateral feet against resistance. +1 right and +1 left patellar reflexes with diminished ankle reflexes. Back: no CVA tenderness Cervical Spine: cervical muscular tenderness, pain with cervical ROM and No Cervical spine tenderness Thoracic/Lumbar Spine: Thoracic/lumbar spine scar(s) (midline lower back), Lasegue's sign positive bilateral and localized, pain with thoraco-lumbar ROM, paraspinal muscle tenderness, thoraco-lumbar ROM limited with forward flexion (WNL) and with lateral flexion to the left (limited by pain), No thoracic spinal tenderness, No lumbar spinal tenderness and straight leg raise positive bilateral at 40 degrees Pelvis: buttock tenderness bilaterally Sacroiliac joints: bilaterally tender to palpation Results Reviewed Results Reviewed: MR LUMBAR SPINE WITHOUT CONTRAST 10/06/21 CLINICAL INFORMATION: Post laminectomy syndrome. Low back and leg pain. COMPARISON: MRI dated 11/24/2016. FINDINGS: VERTEBRAL BODIES AND PARASPINAL STRUCTURES: There are chronic post laminectomy changes at the L4-L5 and L5-S1 levels on the left side. The marrow signal is within normal limits. Mild anteroinferior endplate edema noted at the T12 level with worsened moderate disc space narrowing and anterior endplate spurring at the T12-L1 level. There are no compression fractures. Slight retrosubluxation is stable at the L4-L5 level. No paraspinal soft tissue fluid collections are seen. Renal cysts again visible. The imaged bony pelvis is unremarkable. CONUS MEDULLARIS AND CAUDA EQUINA: Normal, terminating at the level of L2. No lower cord signal abnormality is seen. The cauda equina nerve roots are normal. SPINAL LEVELS: L1-L2 and L2-L3: No significant disc pathology, central canal stenosis, or foraminal narrowing. L3-L4: Mild disc bulge and hypertrophic facet arthropathy resulting in slight narrowing of the central canal compared to prior imaging and mild right foraminal encroachment. L4-L5: Chronic post laminectomy changes and moderate facet arthropathy with a recurrent broad-based central disc protrusion mildly distorting the ventral thecal sac and impressing upon both L5 nerve roots, more so on the left side. Moderate central canal stenosis and mild left foraminal narrowing. L5-S1: Chronic post laminectomy changes and partially resorbed residual small central disc protrusion mildly impressing upon the ventral thecal sac. Underlying disc bulge and hypertrophic facet arthropathy encroach upon the subarticular zones with chronic mass effect upon the traversing S1 nerve roots. Patent foramina. IMPRESSION: Recurrent broad-based central disc protrusion at the L4-L5 level mildly distorting the ventral thecal sac and impressing upon both L5 nerve roots with moderate central canal stenosis and chronic post laminectomy changes. Chronic postoperative changes at L5-S1 with a partially resorbed residual small central disc protrusion mildly distorting the ventral thecal sac. Bulging disc and osseous spurring chronically encroach upon the subarticular zones with mass effect upon the traversing S1 nerve roots. Mild disc bulge and facet arthropathy slightly encroaching upon the central canal at the L3-L4 level. Progressed [id number] spondylosis at the T12-L1 level with mild anterior endplate edema. X-Ray hip BI w PEL1V 10/18/22 IMPRESSION: 1. Small avulsion fracture fragment or osteophyte lateral left acetabulum. 2. No visible acute fracture or dislocation either hips or AP pelvis. XR SOFT TISSUE NECK 05/21/23 CLINICAL INDICATION: Dysphagia. FINDINGS: Soft tissue films of the neck demonstrate a normal larynx, pharynx and upper trachea. No soft tissue swelling or opaque foreign body is demonstrated. There is moderately severe degenerative disc disease at C4-C5 and C5-C6, and mild to moderate degenerative disc disease is seen at C6-C7. There are calcifications of the ligamentum nuchae. There are bilateral carotid atherosclerotic calcifications, right greater than left. IMPRESSION: 1. Unremarkable radiographic appearance of the soft tissues of the neck. 2. There are degenerative changes of the spine, as detailed. 3. There are bilateral carotid atherosclerotic calcifications, which may be more fully evaluated with dedicated carotid ultrasound, if clinically indicated. XR SHOULDER, LEFT 05/03/23 CLINICAL INFORMATION: Pain and abrasion status-post fall. FINDINGS: Bony alignment and mineralization are normal. The glenohumeral joint is intact. The acromioclavicular and coracoclavicular intervals are normal. No fracture or dislocation is seen. There is a small distal acromial undersurface osteophyte. There is very mild calcific tendinitis of the left rotator cuff insertion. No foreign body is seen. There is no left pneumothorax. IMPRESSION: 1. No fracture or dislocation is seen. 2. There is very mild calcific tendinitis of the left rotator cuff. Assessment & Plan Assessment & Plan (1) Bilateral hip pain: Code(s): M25.551 - Pain in right hip; M25.552 - Pain in left hip (2) Chronic pain syndrome: Code(s): G89.4 - Chronic pain syndrome (3) Postlaminectomy syndrome: Code(s): M96.1 - Postlaminectomy syndrome, not elsewhere classified (4) Degenerative lumbar spinal stenosis: Code(s): M48.061 - Spinal stenosis, lumbar region without neurogenic claudication Plan 1. Patient with prior history of left L5-S1 decompression, discectomy and laminectomy in 2003 and worsening radicular back pain was evaluated by Dr. Ricardo on 06/20/22 and was told that he is not a candidate for additional surgery and advised patient to undergo evaluation for SCS trial. We reviewed SCS trial and implant in greater detail again today for post-laminectomy and diabetic neuropathy syndromes. I will re-submit behavioral evaluation for potential lumbar SCS trial per patient's request. 2. Schedule for Bilateral L5-S1 TFESI under sedation and fluoroscopy. Most recent A1C 6.5 as of 07/2023. Counseled to monitor his blood glucose levels following steroid injection. All questions and concerns answered and patient agreed with the plan. Follow up after injections, behavioral evaluation and sooner if needed. Justification for interventional therapy: ? Patient with average pain > 6/10 ? Patient has exhausted conservative therapy ? Patient unable to perform physical therapy due to pain The risks, consequences, alternatives, and benefits of various treatment options were discussed with the patient in great detail, including conservative management, injections and procedures. I have informed patient of hyperglycemic effects of steroids. Coding Level of Care Code Est Pt Level 4 (62568) Diagnoses Bilateral hip pain M25.551; M25.552 Chronic pain syndrome G89.4 Postlaminectomy syndrome M96.1 Degenerative lumbar spinal stenosis M48.061
[2023-09-20 14:15] VITALS: BP 115/58; PULSE 68; O2SAT 99; BMI 23.4
== END 2023-09-20 14:33 | disposition home or self-care (01) ==
PROVIDERS: Visit Provider Nurse Practitioner Family
DX: M25.551 Pain in right hip (principal); M25.552 Pain in left hip; G89.4 Chronic pain syndrome; M96.1 Postlaminectomy syndrome, not elsewhere classified; M48.061 Spinal stenosis, lumbar region without neurogenic claudication
CPT/HCPCS: 99214

== ENCOUNTER → 2023-09-20 14:08 | Outpatient (BNVA) | payer OTHER, SELFPAY | PROVIDERS: Visit Provider Nurse Practitioner Family | DX: M25.551 Pain in right hip (principal); M25.552 Pain in left hip; M96.1 Postlaminectomy syndrome, not elsewhere classified; M48.061 Spinal stenosis, lumbar region without neurogenic claudication; G89.4 Chronic pain syndrome | CPT/HCPCS: 99212 ==

== ENCOUNTER 2023-09-24 10:21 | Outpatient (AMB) | payer OTHER, MEDICAID, SELFPAY ==
--- NOTE | 2023-09-24 10:24 | MHC.OFFVIS ---
Intake Vital Signs 09/24/23 10:25 Height 5 ft 11 in Weight 166 lb 7.184 oz BMI 23.2 BP 102/42 L Blood Pressure Location Lt brachial Position Sitting Pulse 45 L Pulse Source Pulse Oximeter Intake Visit Reasons: f/u Type 2 DM and hyperlipidemia-confirmed Intake Note: Patient present today to follow up on Type 2 Diabetes Mellitus and Hyperlipidemia. Patient receives DME supplies through: Pharmacy Last Diabetic Eye exam: 12/2022 Last Podiatry Visit: Patient has appointment in September. Random Glucose: 143 mg/dl HgA1C: 6.5% 08/20/2023 Administrative Services Specialist Required: Yes Administrative Services Specialist Language: Green Chain Marker Name: [facility] medical staff Information Interpreted: non-clinical & clinical Accompanied by: Self / Same As Patient Allergies dulaglutide [Trulicity] Adverse Reaction (Unknown, Verified 09/24/23 10:31) diarrhea Medication List - Last Reconciled 09/24/23 by Marcus Medina MD acetaminophen ER (Arthritis Pain Reliever) 650 mg PO Q8H PRN 90 days alcohol swabs (Alcohol Prep Pads) 1 pad topical QID amlodipine 10 mg PO DAILY apremilast (Otezla) 30 mg PO BID aspirin 81 mg PO BEDTIME bempedoic acid-ezetimibe 180-10 mg (Nexlizet) 1 tab PO DAILY bisacodyl (Dulcolax (bisacodyl)) 20 mg (4 x 5 mg) PO ONCE 1 day blood-glucose meter (FreeStyle Lite Meter kit) 4 times a day cetirizine (Zyrtec) 10 mg PO DAILY PRN cholecalciferol (vitamin D3) (Vitamin D3) 50 mcg PO QAM cyclobenzaprine 5 mg PO TID PRN dapagliflozin propanediol (Farxiga) 5 mg PO QAM [electric wheelchair As directed] esomeprazole magnesium (Nexium) 40 mg PO DAILY famotidine 40 mg PO BEDTIME flash glucose scanning reader (FreeStyle Luis 2 [place]) As directed flash glucose sensor (FreeStyle Luis 2 Sensor kit) As directed FreeStyle Lite Strips (blood sugar diagnostic) TEST BLOOD SUGAR FOUR TIMES DAILY NS gabapentin 100 mg PO TID glucagon 3 mg/actuation (Baqsimi) 3 mg intranasal ONCE hydrochlorothiazide 25 mg PO DAILY imipramine HCl 25 mg PO BEDTIME insulin aspart (niacinamide) 100 unit/mL (3 mL) 2 - 4 units subcut TID 30 days insulin glargine U-300 conc (Toujeo SoloStar U-300 Insulin) 15 units (0.05 mL) subcut BEDTIME lancets (FreeStyle Lancets) 4 times a day lidocaine 5% 2 patches topical DAILY PRN 15 days metformin ER 1,000 mg (2 x 500 mg) PO BID methylcellulose (laxative) (Fiber Laxative (methylcellulose)) 0 mg PO metoprolol succinate ER 12.5 mg PO QAM pen needle, diabetic (BD Miriam 2nd Gen Pen Needle) 5 times a day polyethylene glycol 3350 (Miralax) 17 grams PO DAILY polyethylene glycol 3350 (Miralax) 238 grams PO ONCE Praluent Pen (alirocumab) 150 mg subcut Q2W NS semaglutide (Ozempic) 1 mg (0.75 mL) subcut QWEEK sennosides (Natural Senna Laxative) 17.2 mg (2 x 8.6 mg) PO BEDTIME tadalafil 5 mg PO DAILY 90 days tadalafil 20 mg PO DAILY PRN 90 days tamsulosin 0.4 mg PO BEDTIME 90 days tramadol 50 mg PO Q6H PRN umeclidinium-vilanterol 62.5-25 mcg/actuation (Anoro Ellipta) 1 ea PO DAILY Ventolin HFA 90 mcg/actuation (albuterol sulfate) 2 puffs PO Q6H PRN 30 days NS zolpidem 5 mg PO BEDTIME PRN HPI HPI Comments History of Present Illness Details 66 yo male , today for follow-up visit, for diabetes management. Today is for diabetes management Luis download shows he is wearing the sensor 67% of the time. Average glucose is 125 with G mi of 6.5% and variability 28.9%. He is in target range 89% of the time with 8% hyperglycemia and 3% hypoglycemia. The hypoglycemia is occurring primarily overnight but there is a large drop in blood sugar after dinner and increase in blood sugar after breakfast He is currently on Toujeo to 12 units, Novolog 4 units for point care <200 before breakfast . lunch 4 units for point care <200 and 5 units of point cares greater than 200. dinner NovoLog to 2 units. metformin 2000 mg QD Ozempic 1 mg Q wkly . . Farxiga 5 mg QD He admits dietary indiscretions. He reports he has no further diarrhea. . He has DM 2 diagnosed in 1989. He has other PMH of GERD, anxiety, asthma, arthritis, history of alcohol and cocaine abuse, hypertension, hyperlipidemia. He has nephropathy without other microvascular, he has PVD based on foot XRay which showed calcifications in foot arteries, no other macrovascular disease had diarrhea with Trulicity 0.75 mg weekly He had elevated CPK on statin, currently on Praluent 150 mg every 2 weeks and Zetia 10 mg daily. Nexlizet Rare hypoglycemia occuring at night if doesn't eat Last ophthalmology evaluation: has appt , no diabetic retinopathy was has hypertensive retinopathy.Saw optho in last mos no Diabetic retinopathy Laboratory Tests 08/19/20 08/19/20 08/19/20 10:37 10:37 10:37 Sodium 140 Potassium 4.7 Creatinine 1.09 Glucose (Clinic) Hgb A1c (Clinic) Calcium 9.3 AST 18 ALT 23 Albumin 4.3 Triglycerides 129 Cholesterol 191 LDL Cholesterol Di rect 130 H LDL Cholesterol, C alc 119 HDL Cholesterol 47 Vitamin B12 290 25-OH Vitamin D To ho 28.9 TSH 2.39 Free T4 0.81 08/19/20 10/29/20 10:56 10:34 Sodium Potassium Creatinine Glucose (Clinic) 206 H Hgb A1c (Clinic) 8.2 H Calcium AST ALT Albumin Triglycerides Cholesterol LDL Cholesterol Di rect LDL Cholesterol, C alc HDL Cholesterol Vitamin B12 25-OH Vitamin D To ho TSH Free T4 PFSH Medical History Erectile dysfunction associated with type 2 diabetes mellitus Unsteady gait Asthma Leg weakness Mass of right parotid gland Hypertensive retinopathy of right eye Tubular adenoma of colon Smoker Dyspnea on exertion Vitamin D deficiency Hypertension Diabetic polyneuropathy associated with type 2 diabetes mellitus Diabetic nephropathy associated with type 2 diabetes mellitus 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 Dyslipidemia Diabetes type 2, uncontrolled Surgical History History of esophagogastroduodenoscopy (EGD) Hx of colonoscopy History of amputation of finger History of lumbar surgery Family History Father Medical history unknown Mother Medical history unknown Sister Breast cancer Brother Cancer Social History Household Members: Spouse Alcohol intake: current Alcohol intake frequency: a few times a month Patient Tobacco Use Status: Former Tobacco user Quit Date: over 20 years ago Years Smoked: 52 (onset 13yo) Physical Exam Vital Signs: Last Vital Signs Pulse 45 L 09/24/23 10:25 BP 102/42 L 09/24/23 10:25 BMI result Body Mass Index 23.2 Absence of Cushingoid features. Absence of acromegalic features. Neck exam reveals nl size thyroid about 15 gms. No thyroid nodules palpable. No carotid bruits present. Lungs CTA. Heart S1 S2, Reg R/R. No M/R/ G. Skin exam reveals absence of vitiligo or acanthosis nigricans. Abdominal exam reveals Soft NT/ND with NA BS. No organomegaly present. Neck Other: . Extrem Other: Visual exam of foot performed. No ulcerations or open lesions. No onchomycosis, no callouses.Pulses 2 + distally Sensation mildly decreased to monofilament exam. Vibratory sensation sensed is decreased with 128 Hz tuning fork Assessment & Plan Assessment & Plan (1) Diabetes type 2, uncontrolled: Code(s): E11.65 - Type 2 diabetes mellitus with hyperglycemia Qualifiers: Glycemic state: with hyperglycemia Qualified Code(s): E11.65 - Type 2 diabetes mellitus with hyperglycemia Plan: This is a 68-year-old male with a history of type 2 diabetes being treated with metformin, Ozempic and basal-bolus insulin with good improved excellent at goal glycemic control and known microvascular and macrovascular complications namely neuropathy, nephropathy and peripheral vascular disease . The plan is continue the current regimen. At this point, patient returned to the care of his primary care provider and return to endocrinology should his HbA1c deteriorate (2) Dyslipidemia: Code(s): E78.5 - Hyperlipidemia, unspecified Plan: On Praulent and Zetia and Nexlizet . LDL is at goal Plan is to to the current therapy. Returned to the care of his primary care provider and back to endocrinology as needed Coding Level of Care Code Est Pt Level 4 (08108) Diagnoses Uncontrolled type 2 diabetes mellitus with hyperglycemia E11.65 Glycemic state: with hyperglycemia Dyslipidemia E78.5
[2023-09-24 10:25] VITALS: BP 102/42; PULSE 45; BMI 23.2
[2023-09-24 10:37] LABS: Glucose, Whole Blood 143 mg/dL (60-115)
== END 2023-09-24 10:56 | disposition home or self-care (01) ==
PROVIDERS: PCP Registered Nurse; Visit Provider Internal Medicine Endocrinology, Diabetes & Metabolism
DX: E11.65 Type 2 diabetes mellitus with hyperglycemia (principal); E78.5 Hyperlipidemia, unspecified
CPT/HCPCS: 99214

== ENCOUNTER → 2023-09-24 10:21 | Outpatient (BNVA) | payer OTHER, MEDICAID, SELFPAY | PROVIDERS: PCP Registered Nurse; Visit Provider Internal Medicine Endocrinology, Diabetes & Metabolism | DX: E11.65 Type 2 diabetes mellitus with hyperglycemia (principal); E78.5 Hyperlipidemia, unspecified | CPT/HCPCS: 82947; 99212 ==

== ENCOUNTER → 2023-10-10 13:41 | Outpatient (REF) | payer OTHER, MEDICAID, SELFPAY ==
--- NOTE | 2023-10-10 13:44 | CA_ITS ---
Transthoracic Echocardiogram Patient (Last, First, Middle): Bruno Mueller M Gender: Male Date of : 1955 Age: 68 Procedure Date: 10/10/2023 Procedure Type: Transthoracic Echocardiogram Location: OP Height: 180.34 cm Weight: 74.84 kg BSA: 1.94 m2 Heart Rate: 68 bpm BP: 110 / 70 mmHg Library Information Technician: SB Referring MD: Shannon Diana MD Head Host/Hostess: Rich De Jesus MD Symptoms: pulmonary hypertension Study Quality: Adequate ECG Rhythm: Sinus with extra beats Conclusions: - 1. Normal LV ejection fraction of 60 65% 2. Mildly dilated left atrium 3. Normal cardiac valvular Doppler 4. Normal RV systolic pressure 5. No pericardial effusion Findings Left Ventricle Normal left ventricular size, thickness, and systolic function. The visually estimated ejection fraction is between 60-65%. Spectral Doppler is indicative of a normal filling pattern. Right Ventricle Normal right ventricular cavity size and systolic function. Atria The left atrium is mildly dilated. There is an interatrial septal aneurysm seen bowing to the right. There is no evidence of interatrial shunt. The right atrium is normal in size. Aortic Valve Normal aortic valve structure and function. There is no aortic valve stenosis. There is no aortic valve regurgitation. Mitral Valve Normal mitral valve structure and function. There is trace mitral valve regurgitation. There is no mitral valve stenosis. Pulmonic Valve The pulmonic valve was not well visualized. Tricuspid Valve Likely normal tricuspid valve structure and function. There is trace tricuspid valve regurgitation. The right ventricular systolic pressure is normal. The right ventricular systolic pressure is 30 mmHg. Normal right atrial pressure. There is no evidence of pulmonary hypertension. Great Vessels All visible segments of the aorta are normal in size. The pulmonary artery was not well visualized. Venous The inferior vena cava is normal in size and collapses greater than 50% with inspiration. Pericardium/Pleural There is no evidence of pericardial effusion. Prior Study Comparison No prior study available for comparison. Measurements 2D Linear Measurements IVSd: 1.05 0.6-0.9/0.6-1.0 cm LVIDd: 4.50 3.9-5.3/4.2-5.9 cm LVIDd Index: 2.32 2.4-3.2/2.2-3.1 cm/m2 LVIDs: 2.88 2.0-3.6 cm LVPWd: 0.63 0.7-1.1 cm LA Diam: 4.00 2.7-3.8/3.0-4.0 cm LAIDs Index: 2.06 1.5-2.3 cm/m2 LV Mass: 150.82 67-162/88-224 g LV Mass Index: 77.74 43-95/49-115 g/m2 LVOT Diam: 2.20 3.0+(-)1.3 cm 2D Systolic Function EF 4C: 65.20 >55% EF 2C: 60.40 >55% EF BiP: 62.60 >55% Mitral Valve MV Pk E: 0.93 MV PK A: 0.79 MV Decel Time: 175.00 E/A: 1.20 E'Lateral: 9.14 E'Medial: 7.62 E/E' Med: 12.20 E/E' Lat: 10.20 PHT: 51.00 MVA PHT: 4.31 Decel [place]: 5.31 Aortic Valve AoV Pk Joss: 1.24 AoV Pk Grad: 6.00 BRETT: 3.08 LVOT LVOT Pk Joss: 1.01 LVOT Mn Joss: 0.68 LVOT VTI: 0.21 LVOT Pk Grad: 4.00 LVOT Mn Grad: 2.00 LVOT Diam: 2.20 LVOT Area: 3.80 Diastolic Function MV Pk E: 0.93 MV Pk A: 0.79 E/A: 1.20 E'Medial: 7.62 E/E' Med: 12.20 E' Laterial: 9.14 E/E' Lat: 10.20 Right Ventricle TAPSE (mm): 24.30 TVS' Joss: 17.30 Tricuspid Valve TR Pk Joss: 2.59 TR Pk Grad: 27.00 RA Press: 3.00 RVSP: 30.00 Great Vessels Aorta Sinus of Valsalva: 3.60 2.0-3.5 cm Ao Asc: 3.10 2.1-3.4 cm Pulmonary Veins Pulm Vein S/D 1.50 Pulmonary Valve PV Pk Joss: 0.94 Peak PV Grad: 4.00 Updated in Other Vendor System with Status of Final Rich De Jesus MD electronically signed on 10/11/2023 4:49:49 PM with status of Final
== END ==
LOC: HO.CARD 13:41
PROVIDERS: PCP Student in an Organized Health Care Education/Training Program; Visit Provider Student in an Organized Health Care Education/Training Program
DX: I27.20 Pulmonary hypertension, unspecified (principal)
CPT/HCPCS: 93306

== ENCOUNTER → 2023-10-10 13:44 | Outpatient (BNV) | payer OTHER, MEDICAID, SELFPAY | PROVIDERS: PCP Student in an Organized Health Care Education/Training Program; Visit Provider Internal Medicine Cardiovascular Disease | DX: I51.7 Cardiomegaly (principal) | CPT/HCPCS: 93306 ==

== ENCOUNTER 2023-11-02 14:05 | Outpatient (REF) | payer OTHER, SELFPAY ==
[2023-11-02 15:57] LABS: PSA,Total (Free>4and<10) 0.52 ng/mL (0.00-4.00)
== END 2023-11-02 14:06 | disposition home or self-care (01) ==
LOC: HO.LAB 14:05
PROVIDERS: PCP Student in an Organized Health Care Education/Training Program; Visit Provider Nurse Practitioner Family
DX: N40.1 Benign prostatic hyperplasia with lower urinary tract symptoms (principal); N13.8 Other obstructive and reflux uropathy; E11.69 Type 2 diabetes mellitus with other specified complication; N52.1 Erectile dysfunction due to diseases classified elsewhere; Z12.5 Encounter for screening for malignant neoplasm of prostate
CPT/HCPCS: 36415; 84153

== ENCOUNTER 2023-11-06 10:46 | Outpatient (AMB) | payer OTHER, SELFPAY ==
--- NOTE | 2023-11-06 10:49 | A.OFFVIS_ITS ---
Intake Intake Visit Reasons: one year ED/psa Intake Note: Patient presents today for a follow up on: Meds- Tamsulosin, Tadalafil Allergies to Antibiotic- No Known Allergies Blood Thinner- Aspirin Post Void Residual: 0ml Patient unable to void in today's visit. Video Game Tester Required: Yes Video Game Tester Name: RONNY HEALY-PHILIP Accompanied by: Self / Same As Patient Allergies dulaglutide [Trulicity] Adverse Reaction (Unknown, Verified 11/06/23 22:13) diarrhea Medication List - Last Reconciled 11/06/23 by ANYI Cobb-PATEL acetaminophen ER (Arthritis Pain Reliever) 650 mg PO Q8H PRN 90 days alcohol swabs (Alcohol Prep Pads) 1 pad topical QID amlodipine 10 mg PO DAILY apremilast (Otezla) 30 mg PO BID aspirin 81 mg PO BEDTIME bempedoic acid-ezetimibe 180-10 mg (Nexlizet) 1 tab PO DAILY bisacodyl (Dulcolax (bisacodyl)) 20 mg (4 x 5 mg) PO ONCE 1 day blood-glucose meter (FreeStyle Lite Meter kit) 4 times a day cetirizine (Zyrtec) 10 mg PO DAILY PRN cholecalciferol (vitamin D3) (Vitamin D3) 50 mcg PO QAM cyclobenzaprine 5 mg PO TID PRN dapagliflozin propanediol (Farxiga) 5 mg PO QAM [electric wheelchair As directed] esomeprazole magnesium (Nexium) 40 mg PO DAILY famotidine 40 mg PO BEDTIME flash glucose scanning reader (FreeStyle Luis 2 [place]) As directed flash glucose sensor (FreeStyle Luis 2 Sensor kit) As directed FreeStyle Lite Strips (blood sugar diagnostic) TEST BLOOD SUGAR FOUR TIMES DAILY NS gabapentin 100 mg PO TID glucagon 3 mg/actuation (Baqsimi) 3 mg intranasal ONCE hydrochlorothiazide 25 mg PO DAILY imipramine HCl 25 mg PO BEDTIME insulin aspart (niacinamide) 100 unit/mL (3 mL) 2 - 4 units subcut TID 30 days insulin glargine U-300 conc (Toujeo SoloStar U-300 Insulin) 15 units (0.05 mL) subcut BEDTIME lancets (FreeStyle Lancets) 4 times a day lidocaine 5% 2 patches topical DAILY PRN 15 days metformin ER 1,000 mg (2 x 500 mg) PO BID methylcellulose (laxative) (Fiber Laxative (methylcellulose)) 0 mg PO metoprolol succinate ER 12.5 mg PO QAM pen needle, diabetic (BD Miriam 2nd Gen Pen Needle) 5 times a day polyethylene glycol 3350 (Miralax) 17 grams PO DAILY polyethylene glycol 3350 (Miralax) 238 grams PO ONCE Praluent Pen (alirocumab) 150 mg subcut Q2W NS semaglutide (Ozempic) 1 mg (0.75 mL) subcut QWEEK sennosides (Natural Senna Laxative) 17.2 mg (2 x 8.6 mg) PO BEDTIME tadalafil 5 mg PO DAILY 90 days tadalafil 20 mg PO DAILY PRN 90 days tamsulosin 0.4 mg PO BEDTIME 90 days tramadol 50 mg PO Q6H PRN umeclidinium-vilanterol 62.5-25 mcg/actuation (Anoro Ellipta) 1 ea PO DAILY Ventolin HFA 90 mcg/actuation (albuterol sulfate) 2 puffs PO Q6H PRN 30 days NS zolpidem 5 mg PO BEDTIME PRN HPI HPI Comments History of Present Illness Details Bruno is a 68-year-old Welsh-speaking male patient of Dr. Moreira. He has a past medical history of erectile dysfunction, asthma, smoker, vitamin-D deficiency, hypertension, type 2 diabetes, diabetic neuropathy, dyslipidemia, and hypertensive retinopathy of the right eye. He presents to the office today for follow-up of his erectile dysfunction and lower urinary tract symptoms. In discussion with the patient today he reports to be doing and feeling well. He discusses at length his frustration regarding his erectile dysfunction. He reports that despite low-dose tadalafil daily with p.r.n. dosing prior to sexual activity he continues to experience issues with maintaining his erections. He discusses at times he is able to obtain an erection however does not feel they are always adequate in maintaining for penetration. He does report sexual desire. Previous workup has included PSA and testosterone levels as well as a recent renal. Renal imaging noted bilateral kidneys with no renal calculi, hydronephrosis, or lesions noted. Left kidney with 2 cm likely benign left lower pole renal cyst with a single thin internal septation with no routine follow-up imaging recommended. PSA 10/19 0.6, 11/19 0.5 Testosterone-- 347 Discussed with patient the affects of diabetes on the bladder as well as its relation with erectile dysfunction. Discussed at length importance of diet control and management of diabetes for overall health and well-being. Discussed further treatment options for erectile dysfunction with penile injection therapy as patient has failed oral therapy. He otherwise denies any bothersome urinary issues or concerns. He reports be happy with current voiding parameters on 0.4 mg of Flomax daily. In office urinalysis results reviewed with the patient today. PVR 0 mL. He otherwise offers no other issues or concerns at this time. 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 Dyslipidemia Diabetes type 2, uncontrolled Surgical History History of esophagogastroduodenoscopy (EGD) Hx of colonoscopy History of amputation of finger History of lumbar surgery Family History Father Medical history unknown Mother Medical history unknown Sister Breast cancer Brother Cancer Social History Household Members: Spouse Alcohol intake: current Alcohol intake frequency: a few times a month Patient Tobacco Use Status: Former Tobacco user Quit Date: over 20 years ago Years Smoked: 52 (onset 13yo) Review of Systems Const Reports no additional complaints Eyes Reports as per HPI ENT Reports no additional complaints Card Reports as per HPI Resp Reports as per HPI GI Reports no additional complaints Reports as per HPI Musc Reports as per HPI Neuro Reports no additional complaints Psych Reports no additional complaints Endo Reports as per HPI Physical Exam Const General: cooperative, healthy appearing, comfortable, no acute distress, well developed, alert and awake Orientation/consciousness: patient oriented x3 Limitations: no limitations HEENT Head: Yes normal to inspection, Yes normocephalic and Yes atraumatic Ears: hearing grossly normal bilaterally Eyes General: appearance normal, both eyes and all related structures Neck Neck: Yes normal visual inspection and Yes trachea midline Chest Chest palpation & inspection: normal inspection of the chest Resp Effort & Inspection: normal respiratory effort and able to speak in complete sentences Cardio Rate: regular rate GI Inspection: Yes normal to inspection General: Yes no CVA tenderness Back/Spine/Pelvis Back: no CVA tenderness Skin General skin exam: no rashes or lesions noted Neuro General: patient oriented x3 Extrem General: Yes normal to inspection Psych Appearance: grossly normal and well kempt Mental Status: mental status grossly normal Speech and movement: Normal speech and movement present and Clear speech present Affect: normal affect Attitude: cooperative Thought process: Normal thought process present Thought content: Normal thought content present Insight: Fair insight present (Psych) Judgement: Fair judgement present (Psych) Office Procedures Post Void Residual Post Residual Void Post Void Residual (PVR): 0 44065-Ffoz Void Residual by ultrasound Assessment & Plan Assessment & Plan (1) Erectile dysfunction associated with type 2 diabetes mellitus: Code(s): E11.69 - Type 2 diabetes mellitus with other specified complication; N52.1 - Erectile dysfunction due to diseases classified elsewhere (2) BPH loc w urin obs/LUTS: Code(s): N40.1 - Benign prostatic hyperplasia with lower urinary tract symptoms Plan In office urinalysis results reviewed with the patient today; as noted above. PVR 0 mL. Discussed at length potential causes for erectile dysfunction. Discussed and stressed the importance of limiting/quitting nicotine dependence for overall health and well-being. Discussed importance of managing diabetes for overall health and well-being as well as for improvement in lower urinary tract symptoms as well as erectile dysfunction. Recent PSA results reviewed with the patient today. Will send prescription for injection therapy Patient will call once this is received for in office teaching. He otherwise denies any bothersome urinary issues or concerns. He reports be happy with current voiding parameters on 0.4 mg of Flomax daily; will continue; refill provided. Will obtain PSA in 1 year. Follow-up in 1 year with PSA to be completed prior; or sooner with any issues, concerns, and or questions. Orders: Orders AMB Post Void Residual by ultrasound Today R33.9 - Retention of urine, unspecified Medications: Refilled tamsulosin 0.4 mg PO BEDTIME 90 days 90 caps 3RF refill N13.8 - Other obstructive and reflux uropathy, N40.1 - Benign prostatic hyperplasia with lower urinary tract symptoms Patient Instructions: The patient had an opportunity to ask questions regarding the treatment plan. All questions were answered. Physical exam, labs, and imaging were discussed and reviewed in detail. As well as risks, benefits, and discussion of treatment choices. No major barriers to understanding were identified. The patient expre ssed understanding and agreement with the above treatment plan. The patient was made aware they should contact our office by phone for worsening of their current condition, the appearance of new symptoms, or with any questions or concerns. Compliance is encouraged with any medications and follow up testing that is ordered. It is a privilege to be allowed the opportunity to participate in? your urological care.? Again, if you have any questions or concerns If you have any questions or concerns please do not hesitate to contact me. The office is [phone]. This note is constructed using voice recognition software. While every effort has been made to ensure accuracy sliver chopper errors may have been included. Yours sincerely, LAKESHA Cobb Coding Level of Care Code Est Pt Level 4 (57802) Diagnoses Erectile dysfunction associated with type 2 diabetes mellitus E11.69; N52.1 BPH loc w urin obs/LUTS N40.1 CPT Codes Post Residual Void - PVR CPT Code: 44506-Crvq Void Residual by ultrasound ([id number]) Time Spent (min) 35
== END 2023-11-06 11:17 | disposition home or self-care (01) ==
PROVIDERS: Visit Provider Nurse Practitioner Family
DX: E11.69 Type 2 diabetes mellitus with other specified complication (principal); N52.1 Erectile dysfunction due to diseases classified elsewhere; N40.1 Benign prostatic hyperplasia with lower urinary tract symptoms
CPT/HCPCS: 99214

== ENCOUNTER → 2023-11-06 10:46 | Outpatient (BNVA) | payer OTHER, SELFPAY | PROVIDERS: Visit Provider Nurse Practitioner Family | DX: E11.69 Type 2 diabetes mellitus with other specified complication (principal); N40.1 Benign prostatic hyperplasia with lower urinary tract symptoms; N52.1 Erectile dysfunction due to diseases classified elsewhere | CPT/HCPCS: 51798; 99212 ==

== ENCOUNTER 2023-12-07 11:39 | Outpatient (AMB) | payer OTHER, SELFPAY ==
--- NOTE | 2023-12-07 11:48 | MHC.OFFVIS ---
Intake Visit Reasons: penile teaching Intake Note: Patient presents today for penile injection teaching Urology Medications: Tamsulosin, Tadalafil Allergies to Antibiotic: No Known Allergies Blood Thinner: Aspirin Property Maintenance Technician Required: Yes Property Maintenance Technician Name: Fabiola [id number] Accompanied by: Self / Same As Patient Allergies dulaglutide [Trulicity] Adverse Reaction (Unknown, Verified 12/07/23 12:14) diarrhea Medication List - Last Reconciled 12/07/23 by LAKESHA Cobb acetaminophen ER (Arthritis Pain Reliever) 650 mg PO Q8H PRN 90 days alcohol swabs (Alcohol Prep Pads) 1 pad topical QID amlodipine 10 mg PO DAILY apremilast (Otezla) 30 mg PO BID aspirin 81 mg PO BEDTIME bempedoic acid-ezetimibe 180-10 mg (Nexlizet) 1 tab PO DAILY bisacodyl (Dulcolax (bisacodyl)) 20 mg (4 x 5 mg) PO ONCE 1 day blood-glucose meter (FreeStyle Lite Meter kit) 4 times a day cetirizine (Zyrtec) 10 mg PO DAILY PRN cholecalciferol (vitamin D3) (Vitamin D3) 50 mcg PO QAM cyclobenzaprine 5 mg PO TID PRN dapagliflozin propanediol (Farxiga) 5 mg PO QAM [electric wheelchair As directed] esomeprazole magnesium (Nexium) 40 mg PO DAILY famotidine 40 mg PO BEDTIME flash glucose scanning reader (FreeStyle Luis 2 Girard) As directed flash glucose sensor (FreeStyle Luis 2 Sensor kit) As directed FreeStyle Lite Strips (blood sugar diagnostic) TEST BLOOD SUGAR FOUR TIMES DAILY NS gabapentin 100 mg PO TID glucagon 3 mg/actuation (Baqsimi) 3 mg intranasal ONCE hydrochlorothiazide 25 mg PO DAILY imipramine HCl 25 mg PO BEDTIME insulin aspart (niacinamide) 100 unit/mL (3 mL) 2 - 4 units subcut TID 30 days insulin glargine U-300 conc (Toujeo SoloStar U-300 Insulin) 15 units (0.05 mL) subcut BEDTIME lancets (FreeStyle Lancets) 4 times a day lidocaine 5% 2 patches topical DAILY PRN 15 days metformin ER 1,000 mg (2 x 500 mg) PO BID methylcellulose (laxative) (Fiber Laxative (methylcellulose)) 0 mg PO metoprolol succinate ER 12.5 mg PO QAM pen needle, diabetic (BD Miriam 2nd Gen Pen Needle) 5 times a day polyethylene glycol 3350 (Miralax) 17 grams PO DAILY polyethylene glycol 3350 (Miralax) 238 grams PO ONCE Praluent Pen (alirocumab) 150 mg subcut Q2W NS semaglutide (Ozempic) 1 mg (0.75 mL) subcut QWEEK sennosides (Natural Senna Laxative) 17.2 mg (2 x 8.6 mg) PO BEDTIME tadalafil 5 mg PO DAILY 90 days tadalafil 20 mg PO DAILY PRN 90 days tamsulosin 0.4 mg PO BEDTIME 90 days tramadol 50 mg PO Q6H PRN umeclidinium-vilanterol 62.5-25 mcg/actuation (Anoro Ellipta) 1 ea PO DAILY Ventolin HFA 90 mcg/actuation (albuterol sulfate) 2 puffs PO Q6H PRN 30 days NS zolpidem 5 mg PO BEDTIME PRN HPI Comments Details: Bruno is a 68-year-old [place]-speaking male patient of Dr. Moreira. He has a past medical history of erectile dysfunction, asthma, smoker, vitamin-D deficiency, hypertension, type 2 diabetes, diabetic neuropathy, dyslipidemia, and hypertensive retinopathy of the right eye. He presents to the office today for follow-up of his erectile dysfunction and penile injection therapy teaching. Of note, patient previously trialed Viagra as well as daily dosing of tadalafil with p.r.n. on demand with no improvement in maintaining and obtaining his erections. Penile injection performed in office. With saline for teaching purposes. Sterile technique use. Teaching provided for identification of injection sites. Education pamphlet provided. CPT code 93877. Previous workup has included PSA and testosterone levels as well as a recent renal. Renal imaging noted bilateral kidneys with no renal calculi, hydronephrosis, or lesions noted. Left kidney with 2 cm likely benign left lower pole renal cyst with a single thin internal septation with no routine follow-up imaging recommended. PSA 10/19 0.6, 11/19 0.5 Testosterone-- 347 Discussed with patient the affects of diabetes on the bladder as well as its relation with erectile dysfunction. Discussed at length importance of diet control and management of diabetes for overall health and well-being. He otherwise denies any bothersome urinary issues or concerns. He reports be happy with current voiding parameters on 0.4 mg of Flomax daily. In office urinalysis results reviewed with the patient today. He otherwise offers no other issues or concerns at this time. [facility] Medical History Erectile dysfunction associated with type 2 diabetes mellitus Unsteady gait Asthma Leg weakness Mass of right parotid gland Hypertensive retinopathy of right eye Tubular adenoma of colon Smoker Dyspnea on exertion Vitamin D deficiency Hypertension Diabetic polyneuropathy associated with type 2 diabetes mellitus Diabetic nephropathy associated with type 2 diabetes mellitus detention (current) use of insulin Dyslipidemia Diabetes type 2, uncontrolled Surgical History History of esophagogastroduodenoscopy (EGD) Hx of colonoscopy History of amputation of finger History of lumbar surgery Family History Father Medical history unknown Mother Medical history unknown Sister Breast cancer Brother Cancer Social History Household Members: Spouse Alcohol intake: current Alcohol intake frequency: a few times a month Patient Tobacco Use Status: Former Tobacco user Quit Date: over 20 years ago Years Smoked: 52 (onset 13yo) Review of Systems Const Reports no additional complaints Eyes Reports as per HPI ENT Reports no additional complaints Card Reports as per HPI Resp Reports as per HPI GI Reports no additional complaints Reports as per HPI Musc Reports as per HPI Neuro Reports no additional complaints Psych Reports no additional complaints Endo Reports as per HPI Physical Exam Const General: cooperative, healthy appearing, comfortable, no acute distress, well developed, alert and awake Orientation/consciousness: patient oriented x3 Limitations: no limitations HEENT Head: Yes normal to inspection, Yes normocephalic and Yes atraumatic Ears: hearing grossly normal bilaterally Eyes General: appearance normal, both eyes and all related structures Neck Neck: Yes normal visual inspection and Yes trachea midline Chest Chest palpation & inspection: normal inspection of the chest Resp Effort & Inspection: normal respiratory effort and able to speak in complete sentences Cardio Rate: regular rate GI Inspection: Yes normal to inspection General: Yes no CVA tenderness Male General Exam: Yes normal external exam Penis: normal penis and uncircumcised Meatus: meatus normal Scrotum: scrotum normal Testes: Testes normal Back/Spine/Pelvis Back: no CVA tenderness Skin General skin exam: no rashes or lesions noted Neuro General: patient oriented x3 Extrem General: Yes normal to inspection Psych Appearance: grossly normal and well kempt Mental Status: mental status grossly normal Speech and movement: Normal speech and movement present and Clear speech present Affect: normal affect Attitude: cooperative Thought process: Normal thought process present Thought content: Normal thought content present Insight: Fair insight present (Psych) Judgement: Fair judgement present (Psych) Assessment & Plan Assessment & Plan (1) Erectile dysfunction associated with type 2 diabetes mellitus: Code(s): E11.69 - Type 2 diabetes mellitus with other specified complication; N52.1 - Erectile dysfunction due to diseases classified elsewhere Category: Medical (2) BPH loc w urin obs/LUTS: Code(s): N40.1 - Benign prostatic hyperplasia with lower urinary tract symptoms Category: Medical Plan Discussed at length potential causes of erectile dysfunction. Discussed further treatment options. Discussed lifestyle modifications to assist with erectile dysfunction. Discussed and stressed the importance of managing diabetes for improvement overall health and well-being as well as erectile dysfunction. Penile injection therapy was reviewed and discussed. Education pamphlet provided. All questions were answered. Continue Flomax. Stop on demand dosing of Cialis. Continue 5 mg of Cialis daily. Follow-up in 3 months; if not sooner with any issues, questions, and or concerns. Patient Instructions: The patient had an opportunity to ask questions regarding the treatment plan. All questions were answered. Physical exam, labs, and imaging were discussed and reviewed in detail. As well as risks, benefits, and discussion of treatment choices. No major barriers to understanding were identified. The patient expressed understanding and agreement with the above treatment plan. The patient was made aware they should contact our office by phone for worsening of their current condition, the appearance of new symptoms, or with any questions or concerns. Compliance is encouraged with any medications and follow up testing that is ordered. It is a privilege to be allowed the opportunity to participate in? your urological care.? Again, if you have any questions or concerns If you have any questions or concerns please do not hesitate to contact me. The office is [phone]. This note is constructed using voice recognition software. While every effort has been made to ensure accuracy wood science professor errors may have been included. Yours sincerely, LAKESHA Cobb Coding Level of Care Code Est Pt Level 4 (41078) Diagnoses Erectile dysfunction associated with type 2 diabetes mellitus E11.69; N52.1 BPH loc w urin obs/LUTS N40.1 Time Spent (min) 30
== END 2023-12-07 12:17 | disposition home or self-care (01) ==
PROVIDERS: PCP Student in an Organized Health Care Education/Training Program; Visit Provider Nurse Practitioner Family
DX: E11.69 Type 2 diabetes mellitus with other specified complication (principal); N52.1 Erectile dysfunction due to diseases classified elsewhere; N40.1 Benign prostatic hyperplasia with lower urinary tract symptoms
CPT/HCPCS: 99214

== ENCOUNTER → 2023-12-07 11:39 | Outpatient (BNVA) | payer OTHER, SELFPAY | PROVIDERS: PCP Student in an Organized Health Care Education/Training Program; Visit Provider Nurse Practitioner Family | DX: E11.69 Type 2 diabetes mellitus with other specified complication (principal); N52.1 Erectile dysfunction due to diseases classified elsewhere; N40.1 Benign prostatic hyperplasia with lower urinary tract symptoms; N13.8 Other obstructive and reflux uropathy; Z79.899 Other long term (current) drug therapy | CPT/HCPCS: 99212 ==

== ENCOUNTER 2024-01-10 11:02 | Outpatient (REF) | payer OTHER, SELFPAY ==
[2024-01-10 11:50] LABS: MANUAL DIFF FLAG NO
[2024-01-10 11:59] LABS: Basophils Percent Auto 0.9 % (0-2); Eosinophils Absolute Auto 0.2 X10*3/uL (0.0-0.4); Eosinophils Percent Auto 5.5 % (0-4); Hemoglobin 14.5 g/dl (14.0-18.0); Imm Gran Abs Auto 0.01 X10*3/uL (0.00-0.03); Imm Gran Pct Auto 0.2 % (0.0-0.4); Lymphocytes Absolute Auto 1.8 X10*3/uL (1.2-4.9); Lymphocytes Percent Auto 41.9 % (20-40); Mean Corpuscular HGB Conc 33.7 g/dl (31.0-36.0); Mean Corpuscular Hemoglobin 29.5 pg (27.0-33.0); Mean Corpuscular Volume 87.6 fL (80.0-98.0); Mean Platelet Volume 11.1 fL (9.4-12.4); Monocytes Absolute Auto 0.2 X10*3/uL (0.1-1.2); Monocytes Percent Auto 4.6 % (2-11); Neutrophils Absolute Auto 2.1 x10*3/uL (2.0-8.3); Neutrophils Percent Auto 46.9 % (45-73); Platelet Count 151 X10*3/uL (160-400); Red Blood Count 4.91 X10*6/uL (4.60-5.80); Red Cell Distribution Width 12.9 % (11.0-16.0); White Blood Count 4.4 X10*3/uL (4.8-10.8)
== END 2024-01-10 11:03 | disposition home or self-care (01) ==
LOC: HO.HHCL 11:02
PROVIDERS: Visit Provider Student in an Organized Health Care Education/Training Program
DX: D61.818 Other pancytopenia (principal)
CPT/HCPCS: 36415; 85025

== ENCOUNTER 2024-01-15 13:15 | Outpatient (AMB) | payer OTHER, SELFPAY ==
--- NOTE | 2024-01-15 13:17 | MHC.OFFVIS ---
Vital Signs 01/15/24 13:36 Height 5 ft 11 in Weight 165 lb BMI 23.0 BP 115/57 L Blood Pressure Location Lt brachial Position Sitting Pulse 57 Pulse Source Pulse Oximeter Pulse Oximetry (%) 98 Oxygen Delivery Method Room Air Intake Visit Reasons: Hip pain Intake Note: Pain today 03/08 Stationary Fireman Required: Yes Stationary Fireman Language: Paste Mixer Liquid Name: Shannon #[id number] Allergies dulaglutide [Trulicity] Adverse Reaction (Unknown, Verified 01/15/24 13:37) diarrhea HPI Comments Details: Patient presents today for follow up for worsening low back pain. He was last seen in our office in August for plans to undergo bilateral L5-S1 TFESI but was not interested at the time we obtained PA approval. Patient presents today with bilateral hip pain and low back pain radiating into his buttocks and posterior lower extremities and into his calves and feet with associated numbness and tingling. Patient requests to schedule back injection to address his radicular pain. His most recent A1C is 6.5. He also reports difficulty utilizing computer at home for Behavioral evaluation with [facility] and would like to set up evaluation in our office. Denies any recent cough, cold, infection, fever, bladder or bowel dysfunction, saddle anesthesia or other significant changes in medical history since last office visit. Past Procedures: 09/19/22: Bilateral intra-articular hip steroid injections-80% ongoing pain relief 04/18/22: Caudal PRABHJOT with catheter-0% pain relief PRIOR: Patient presents today for follow up with increasing lower back pain, bilateral hip and leg pain. Patient underwent neurosurgical evaluation by Dr. Ricardo on 06/20/22 and was told that no additional surgery was indicated and was advised to proceed with spinal cord stimulator. Pending behavioral assessment, not completed at [facility] and was sent to [facility] on 08/03/22. Patient has significant bilateral hip pain and groin pain with external and internal hip rotations bilaterally, worse on the right. His back pain continues to radiate down to both of his lower legs posteriorly with numbness and tingling. He ambulates with slow, antalgic gait with use of cane in mildly flexed position due to pain. Reports pain with walking, sitting, standing, or changing positions. Patient would like to proceed with bilateral hip steroid injection under sedation. Denies any fever, abdominal pain, bowel or bladder incontinence or saddle anesthesia. The trialed and failed therapy has been reviewed with the patient. The risks, consequences, alternatives, and benefits of various treatment options were discussed with the patient in great detail, including conservative management, injections and procedures. Plan to proceed with lumbar SCS trial once behavioral assessment is completed. PRIOR: Patient presents today in the office to assess his response to Caudal PRABHJOT with catheter injection on 04/18/22. Patient reports 0% pain relief status post procedure and continues to endorse spinal stenosis related pain. He continues to reports lower back pain with radiation to both of his lower extremity posteriorly with numbness and tingling and parenthesia symptoms in L5-S1 distribution. He also has burning pain in his feet due to chronic diabetic neuropathy. Unfortunately, his insurance did not approve Quten[employer]. Pain continues to affect his daily functioning, sleep and quality of life. We discussed SCS trial previously and behavioral assessment was submitted but not completed. I will refer this patient for neurosurgical evaluation to evaluate if any additional surgery is needed prior to considering SCS trial. Patient cannot tolerate walking more than 5 minutes and ambulates in forward flexed position slowly, with antalgic gait and uses cane. Most recent lumbar MRI was completed in September, and is noted below. Patient denies any fever, weight changes, dizziness, lightheadedness, shortness of breaths, bowel or bladder incontinence or saddle anesthesia. PRIOR: Patient returns today for follow up in the office with worsening of chronic low back pain. He was last seen in our office on 10/17/21. His back pain presents in his lower back that spreads across his lower back and into his bilateral lower extremities posteriorly with shooting, sharp pain and significant numbness and tingling with cramping in both of his feet. Patient reports worsening of chronic painful diabetic neuropathy in his both feet which has been worse at night. Back pain and bilateral neuropathy in his feet has been affecting his daily activities, functioning, sleep and quality of life. At previous visit, his A1C was elevated and we did not proceed with lumbar injections. Patient has had regular follow ups with his office messenger helper and his most recent A1C was 7.4 on 03/08/22 down from 10.3. Patient was praised for monitoring his blood sugars, medication compliance and his attempts and efforts to adhere to ADA diet. We have discussed caudal epidural injection with catheter and patient agreed to undergo this under local and fluoroscopy. He has been managing his back pain with lidocaine patches, naproxen, intermittent use of gabapentin due to drowsiness and low dose of cyclobenzaprine prn with continued symptoms. Patient reports pain with prolonged standing or walking, pain mildly relieved with rest. He ambulates with antalgic gait with the use of cane. Patient reports he has recently fell last Sunday due to significant back pain while walking with cane at home. Patient reports falling backwards and onto his left side with intermittent neck pain and significant muscle pain in his bilateral trapezius regions. Patient reports he did not go to ER or his PCP for evaluation status post fall and has been feeling better except his back symptoms. He denies loss of consciousness, fever, malaise, dizziness, headache, chest pain, shortness of breaths, abdominal or groin pain, bowel or bladder incontinence or saddle anesthesia. Patient reports bilateral lower extremity weakness due to chronic knee and back pain. PRIOR: Today patient presents to the office for review of lumbar MRI and bilateral knee xray. He is accompanied by his METEOROLOGICAL ENGINEER who is also helps with translation per patient's request. Patient continues to report bilateral knee pain and chronic back pain with right radiculopathy to his right leg laterally and anteriorly to right thigh. He has a prior history of left L5-S1 decompression, discectomy and laminectomy in 2003. He is diabetic with poorly controlled blood sugars with most recent A1C 10.3 on 09/08/21. He states he is followed by our endocrinology services and tries to adhere to ADA diet and closely monitor his blood sugars. Per [facility] notes review, patient last had Left L5-S1 TFESI as well as S1 selective epidurals with nerve root blocks on 01/24/2017. Due to his elevated A1C and poorly controlled diabetes, we will avoid steroid injections at this time. I have placed behavioral evaluation referral for SCS trial at previous visit which is pending. Both lumbar MRI and bilateral knee xrays reports reviewed with patient and are noted below. He notices good relief with lidocaine patches for knee pain and mild improvements with gabapentin, flexeril, and naproxen. Patient denies any fever, malaise, dizziness, weight loss, abdominal or groin pain, bladder/bowel dysfunction or saddle anesthesia. Patient reports lower extremity weakness and difficulty with prolong walking or sitting. Ambulates with antalgic gate and uses cane. [facility] Medical History Erectile dysfunction associated with type 2 diabetes mellitus Unsteady gait Asthma Leg weakness Mass of right parotid gland Hypertensive retinopathy of right eye Tubular adenoma of colon Smoker Dyspnea on exertion Vitamin D deficiency Hypertension Diabetic polyneuropathy associated with type 2 diabetes mellitus Diabetic nephropathy associated with type 2 diabetes mellitus senior living (current) use of insulin Dyslipidemia Diabetes type 2, uncontrolled Surgical History History of esophagogastroduodenoscopy (EGD) Hx of colonoscopy History of amputation of finger History of lumbar surgery Family History Father Medical history unknown Mother Medical history unknown Sister Breast cancer Brother Cancer Social History Household Members: Spouse Alcohol intake: current Alcohol intake frequency: a few times a month Patient Tobacco Use Status: Former Tobacco user Years Smoked: 52 (onset 13yo) Review of Systems Const All systems reviewed & are unremarkable except as noted in HPI and below Physical Exam Vital Signs: Last Vital Signs Pulse 57 01/15/24 13:36 BP 115/57 L 01/15/24 13:36 Pulse Ox 98 01/15/24 13:36 Oxygen Delivery Method Room Air 01/15/24 13:36 BMI result Body Mass Index 23.0 General: Appears afebrile. Alert and oriented. Mood and affect appropriate. Follows and participates in conversation appropriately. Respiratory effort is unlabored. No cough. Able to transition from sit to stand unassisted. Slow, antalgic gait. No assistive devices. Ambulates with bilaterally normal heel strike and toe off, reports imbalance gait with walking due to pain. Back/Spine/Pelvis Other: Limited lumbar flexion and extension due to significant aggravation of his back symptoms. Demonstrates 4/5 strength of quadriceps bilaterally due to pain as well as flexion/dorsiflexion of bilateral feet against resistance. +1 right and +1 left patellar reflexes with diminished ankle reflexes. Mild groin pain with I/E hip rotations bilaterally. Cervical Spine: cervical muscular tenderness, pain with cervical ROM and No Cervical spine tenderness Thoracic/Lumbar Spine: Thoracic/lumbar spine scar(s) (midline lower back), Lasegue's sign positive bilateral and localized, pain with thoraco-lumbar ROM, paraspinal muscle tenderness, thoraco-lumbar ROM limited with forward flexion (WNL) and with lateral flexion to the left (limited by pain), No thoracic spinal tenderness, No lumbar spinal tenderness and straight leg raise positive bilateral at 40 degrees Pelvis: buttock tenderness bilaterally Sacroiliac joints: bilaterally tender to palpation Results Reviewed Results Reviewed: MR LUMBAR SPINE WITHOUT CONTRAST 10/06/21 CLINICAL INFORMATION: Post laminectomy syndrome. Low back and leg pain. COMPARISON: MRI dated 11/24/2016. FINDINGS: VERTEBRAL BODIES AND PARASPINAL STRUCTURES: There are chronic post laminectomy changes at the L4-L5 and L5-S1 levels on the left side. The marrow signal is within normal limits. Mild anteroinferior endplate edema noted at the T12 level with worsened moderate disc space narrowing and anterior endplate spurring at the T12-L1 level. There are no compression fractures. Slight retrosubluxation is stable at the L4-L5 level. No paraspinal soft tissue fluid collections are seen. Renal cysts again visible. The imaged bony pelvis is unremarkable. CONUS MEDULLARIS AND CAUDA EQUINA: Normal, terminating at the level of L2. No lower cord signal abnormality is seen. The cauda equina nerve roots are normal. SPINAL LEVELS: L1-L2 and L2-L3: No significant disc pathology, central canal stenosis, or foraminal narrowing. L3-L4: Mild disc bulge and hypertrophic facet arthropathy resulting in slight narrowing of the central canal compared to prior imaging and mild right foraminal encroachment. L4-L5: Chronic post laminectomy changes and moderate facet arthropathy with a recurrent broad-based central disc protrusion mildly distorting the ventral thecal sac and impressing upon both L5 nerve roots, more so on the left side. Moderate central canal stenosis and mild left foraminal narrowing. L5-S1: Chronic post laminectomy changes and partially resorbed residual small central disc protrusion mildly impressing upon the ventral thecal sac. Underlying disc bulge and hypertrophic facet arthropathy encroach upon the subarticular zones with chronic mass effect upon the traversing S1 nerve roots. Patent foramina. IMPRESSION: Recurrent broad-based central disc protrusion at the L4-L5 level mildly distorting the ventral thecal sac and impressing upon both L5 nerve roots with moderate central canal stenosis and chronic post laminectomy changes. Chronic postoperative changes at L5-S1 with a partially resorbed residual small central disc protrusion mildly distorting the ventral thecal sac. Bulging disc and osseous spurring chronically encroach upon the subarticular zones with mass effect upon the traversing S1 nerve roots. Mild disc bulge and facet arthropathy slightly encroaching upon the central canal at the L3-L4 level. Progressed [id number]-[id number] spondylosis at the T12-L1 level with mild anterior endplate edema. X-Ray hip BI w PEL1V 10/18/22 IMPRESSION: 1. Small avulsion fracture fragment or osteophyte lateral left acetabulum. 2. No visible acute fracture or dislocation either hips or AP pelvis. XR SOFT TISSUE NECK 05/21/23 CLINICAL INDICATION: Dysphagia. FINDINGS: Soft tissue films of the neck demonstrate a normal larynx, pharynx and upper trachea. No soft tissue swelling or opaque foreign body is demonstrated. There is moderately severe degenerative disc disease at C4-C5 and C5-C6, and mild to moderate degenerative disc disease is seen at C6-C7. There are calcifications of the ligamentum nuchae. There are bilateral carotid atherosclerotic calcifications, right greater than left. IMPRESSION: 1. Unremarkable radiographic appearance of the soft tissues of the neck. 2. There are degenerative changes of the spine, as detailed. 3. There are bilateral carotid atherosclerotic calcifications, which may be more fully evaluated with dedicated carotid ultrasound, if clinically indicated. XR SHOULDER, LEFT 05/03/23 CLINICAL INFORMATION: Pain and abrasion status-post fall. FINDINGS: Bony alignment and mineralization are normal. The glenohumeral joint is intact. The acromioclavicular and coracoclavicular intervals are normal. No fracture or dislocation is seen. There is a small distal acromial undersurface osteophyte. There is very mild calcific tendinitis of the left rotator cuff insertion. No foreign body is seen. There is no left pneumothorax. IMPRESSION: 1. No fracture or dislocation is seen. 2. There is very mild calcific tendinitis of the left rotator cuff. Assessment & Plan Assessment & Plan (1) Chronic pain syndrome: Code(s): G89.4 - Chronic pain syndrome Category: Medical (2) Bilateral hip pain: Code(s): M25.551 - Pain in right hip; M25.552 - Pain in left hip Category: Medical (3) Postlaminectomy syndrome: Code(s): M96.1 - Postlaminectomy syndrome, not elsewhere classified Category: Medical (4) Degenerative lumbar spinal stenosis: Code(s): M48.061 - Spinal stenosis, lumbar region without neurogenic claudication Category: Medical Plan 1. Patient with prior history of left L5-S1 decompression, discectomy and laminectomy in 2003 and worsening radicular back pain was evaluated by Dr. Ricardo on 06/20/22 and was told that he is not a candidate for additional surgery and advised patient to undergo evaluation for SCS trial. We reviewed SCS trial and implant again today for post-laminectomy and diabetic neuropathy syndromes. I will set up behavioral evaluation for potential lumbar SCS trial in the office per patient's request. 2. Proceed with Bilateral L5-S1 TFESI under sedation and fluoroscopy as previously planned. Most recent A1C=6.5. Counseled to monitor his blood glucose levels following steroid injection. Refills sent for Tylenol and gabapentin. All questions and concerns answered and patient agreed with the plan. Follow up after injections, behavioral evaluation and sooner if needed. Justification for interventional therapy: ? Patient with average pain > 6/10 ? Patient has exhausted conservative therapy ? Patient unable to perform physical therapy due to pain The risks, consequences, alternatives, and benefits of various treatment options were discussed with the patient in great detail, including conservative management, injections and procedures. I have informed patient of hyperglycemic effects of steroids. Medications: Changed From gabapentin 100 mg PO TID G89.4 - Chronic pain syndrome, M25.551 - Pain in right hip, M25.552 - Pain in left hip To gabapentin 100 mg PO TID 30 days 90 caps 0RF pain G89.4 - Chronic pain syndrome, M25.551 - Pain in right hip, M25.552 - Pain in left hip Refilled acetaminophen ER (Arthritis Pain Reliever) 650 mg PO Q8H 90 days PRN 270 tabs 2RF pain Coding Level of Care Code Est Pt Level 3 (16526) Diagnoses Chronic pain syndrome G89.4 Bilateral hip pain M25.551; M25.552 Postlaminectomy syndrome M96.1 Degenerative lumbar spinal stenosis M48.061
[2024-01-15 13:36] VITALS: BP 115/57; PULSE 57; O2SAT 98; BMI 23.0
== END 2024-01-15 13:52 | disposition home or self-care (01) ==
PROVIDERS: PCP Student in an Organized Health Care Education/Training Program; Visit Provider Nurse Practitioner Family
DX: G89.4 Chronic pain syndrome (principal); M25.551 Pain in right hip; M25.552 Pain in left hip; M96.1 Postlaminectomy syndrome, not elsewhere classified; M48.061 Spinal stenosis, lumbar region without neurogenic claudication
CPT/HCPCS: 99213

== ENCOUNTER → 2024-01-15 13:15 | Outpatient (BNVA) | payer OTHER, SELFPAY | PROVIDERS: PCP Student in an Organized Health Care Education/Training Program; Visit Provider Nurse Practitioner Family | DX: G89.4 Chronic pain syndrome (principal); M96.1 Postlaminectomy syndrome, not elsewhere classified; M48.061 Spinal stenosis, lumbar region without neurogenic claudication; M25.551 Pain in right hip; M25.552 Pain in left hip | CPT/HCPCS: 99212 ==

== ENCOUNTER 2024-01-18 08:36 | Outpatient (AMB) | payer OTHER, SELFPAY ==
[2024-01-18 08:48] VITALS: BP 120/68; PULSE 59; BMI 23.3
--- NOTE | 2024-01-18 08:48 | MHC.OFFVIS ---
Vital Signs 01/18/24 08:48 Height 5 ft 11 in Weight 166 lb 14.239 oz BMI 23.3 BP 120/68 Blood Pressure Location Lt brachial Position Sitting Pulse 59 Pulse Source Pulse Oximeter Intake Visit Reasons: T2DM/confirmed Intake Note: Patient present today to follow up on Type 2 Diabetes Mellitus. Last seen by Dr. Medina on 09/24/2023. Patient receives DME supplies through: Pharmacy Last Diabetic Eye exam: 02/2023 Last Podiatry Visit: 10/2023 Random Glucose: 130 mg/dl HgA1C: 7.3% Business Analysis Specialist Required: Yes Business Analysis Specialist Language: Freelance Art Director Name: Bruno Information Interpreted: non-clinical & clinical Accompanied by: Self / Same As Patient Allergies dulaglutide [Trulicity] Adverse Reaction (Unknown, Verified 01/18/24 09:02) diarrhea HPI HPI T2DM/confirmed: Details: Patient is a 68 -year-old male with a PMH of GERD, anxiety, asthma, arthritis, history of alcohol and cocaine abuse, hypertension, hyperlipidemia presenting today for follow-up of his type 2 diabetes. Today is for diabetes management. He was dx in 1989. Luis download shows he is wearing the sensor 73% of the time. Average glucose is 154 with G mi of 7.4% and variability 27%. He is in target range 73% of the time with 26% hyperglycemia and 1% hypoglycemia. The increase in blood sugar after dinner. He is currently on Toujeo to 15 units, Novolog 4 units for point care <200 before breakfast . lunch 4 units for point care <200 and 5 units of point cares greater than 200. dinner NovoLog to 2 units. metformin 2000 mg QD Ozempic 1 mg Q wkly . . Farxiga 5 mg QD He admits dietary indiscretions since the nice weather. He has no acute concerns today states that he does not want to adjust his regimen as he knows that it is purely related to his diet. When he has good with his diet has blood sugars are perfect. He has nephropathy without other microvascular, he has PVD based on foot XRay which showed calcifications in foot arteries, no other macrovascular disease had diarrhea with Trulicity 0.75 mg weekly He had elevated CPK on statin, currently on Praluent 150 mg every 2 weeks and Zetia 10 mg daily. Nexlizet Rare hypoglycemia occuring at night if doesn't eat Last ophthalmology evaluation: has appt 12/2023. no diabetic retinopathy was has hypertensive retinopathy. 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 (current) use of insulin Dyslipidemia Diabetes type 2, uncontrolled Surgical History History of esophagogastroduodenoscopy (EGD) Hx of colonoscopy History of amputation of finger History of lumbar surgery Family History Father Medical history unknown Mother Medical history unknown Sister Breast cancer Brother Cancer Social History Household Members: Spouse Alcohol intake: current Alcohol intake frequency: a few times a month Patient Tobacco Use Status: Former Tobacco user Years Smoked: 52 (onset 13yo) Physical Exam Const Orientation/consciousness: patient oriented x3 Neck Neck: Yes no lymphadenopathy Thyroid: Thyroid normal Carotids: no bruits Resp Auscultation: clear to auscultation bilaterally Cardio Rate: regular rate Rhythm: regular rhythm Heart sounds: S1 normal heart sound present and S2 normal heart sound present Peripheral pulses: dorsalis pedis present Neuro General: patient oriented x3, gait normal and no focal motor deficits Extrem Other: Monofilament sensation intact bilaterally. Vibratory sensation not present. Skin intact. General: Yes normal to inspection Results AMB Hemoglobin A1c AMB Hemoglobin A1c 7.3 % Last Edit by KAMLESH Cox on 01/18/24 09:17 Assessment & Plan Assessment & Plan (1) care home (current) use of insulin: Code(s): Z79.4 - care home (current) use of insulin Category: Medical Plan: Continue current regimen. We discussed diet changes. Will follow-up in 3 months. Diabetic labs ordered to do prior to appointment. He will follow up sooner if anything worsens or changes. (2) Diabetic nephropathy associated with type 2 diabetes mellitus: Code(s): E11.21 - Type 2 diabetes mellitus with diabetic nephropathy Category: Medical Plan: Microalbumin urine ordered. Will check kidney function. Advised to avoid NSAIDs. (3) Diabetic polyneuropathy associated with type 2 diabetes mellitus: Code(s): E11.42 - Type 2 diabetes mellitus with diabetic polyneuropathy Category: Medical Plan: Stable. Monitors feet closely. (4) Hypertension: Code(s): I10 - Essential (primary) hypertension Category: Medical Qualifiers: Hypertension type: essential hypertension Qualified Code(s): I10 - Essential (primary) hypertension Plan: Well-controlled. Continue current regimen Orders: Orders Comprehensive [place]. Panel Fast Today E11.21 - Type 2 diabetes mellitus with diabetic nephropathy, E11.42 - Type 2 diabetes mellitus with diabetic polyneuropathy, I10 - Essential (primary) hypertension, Z79.4 - care home (current) use of insulin Lipid Panel Today E11.21 - Type 2 diabetes mellitus with diabetic nephropathy, E11.42 - Type 2 diabetes mellitus with diabetic polyneuropathy, I10 - Essential (primary) hypertension, Z79.4 - buttermaker continuous churn (current) use of insulin Microalbumin, Random (w Creat) Today E11.21 - Type 2 diabetes mellitus with diabetic nephropathy, E11.42 - Type 2 diabetes mellitus with diabetic polyneuropathy, I10 - Essential (primary) hypertension, Z79.4 - buttermaker continuous churn (current) use of insulin AMB Hemoglobin A1c Today E11.65 - Type 2 diabetes mellitus with hyperglycemia, Z13.9 - Encounter for screening, unspecified Hemoglobin A1c Today E11.21 - Type 2 diabetes mellitus with diabetic nephropathy, E11.42 - Type 2 diabetes mellitus with diabetic polyneuropathy, I10 - Essential (primary) hypertension, Z79.4 - buttermaker continuous churn (current) use of insulin Coding Level of Care Code Est Pt Level 4 (03423) Complex EM visit Add On G2211 Diagnoses care home (current) use of insulin Z79.4 Diabetic nephropathy associated with type 2 diabetes mellitus E11.21 Diabetic polyneuropathy associated with type 2 diabetes mellitus E11.42 Essential hypertension I10 Hypertension type: essential hypertension
[2024-01-18 09:08] LABS: Glucose, Whole Blood 130 mg/dL (60-115)
== END 2024-01-18 09:29 | disposition home or self-care (01) ==
PROVIDERS: PCP Student in an Organized Health Care Education/Training Program; Visit Provider Physician Assistant
DX: Z79.4 Long term (current) use of insulin (principal); E11.21 Type 2 diabetes mellitus with diabetic nephropathy; E11.42 Type 2 diabetes mellitus with diabetic polyneuropathy; I10 Essential (primary) hypertension; Z13.9 Encounter for screening, unspecified; E11.65 Type 2 diabetes mellitus with hyperglycemia
CPT/HCPCS: 99214; G2211

== ENCOUNTER → 2024-01-18 08:36 | Outpatient (BNVA) | payer OTHER, SELFPAY | PROVIDERS: PCP Student in an Organized Health Care Education/Training Program; Visit Provider Physician Assistant | DX: E11.21 Type 2 diabetes mellitus with diabetic nephropathy (principal); E11.42 Type 2 diabetes mellitus with diabetic polyneuropathy; I10 Essential (primary) hypertension; Z79.4 Long term (current) use of insulin | CPT/HCPCS: 82947; 83036; 99212 ==

== ENCOUNTER → 2024-01-23 12:53 | Outpatient (BNVA) | payer OTHER, SELFPAY | PROVIDERS: PCP Student in an Organized Health Care Education/Training Program; Visit Provider Nurse Practitioner Family ==

== ENCOUNTER 2024-03-10 13:21 | Outpatient (AMB) | payer OTHER, SELFPAY ==
--- NOTE | 2024-03-10 13:26 | A.OFFVIS_ITS ---
Intake Visit Reasons: 3m follow up Intake Note: Patient presents today for follow up on: Erectile Dysfunction and BPH Urology Medications: Tamsulosin, Tadalafil Allergies to Antibiotic: No Known Allergies Blood Thinner: Aspirin PVR: 21ml's Gamma Ray Operator Required: Yes Gamma Ray Operator Services: Gamma Ray Operator Present Gamma Ray Operator Name: JOSE PAULASAAD Accompanied by: Self / Same As Patient Allergies dulaglutide [Trulicity] Adverse Reaction (Unknown, Verified 03/10/24 20:20) diarrhea Medication List - Last Reconciled 03/10/24 by LAKESHA Cobb acetaminophen ER (Arthritis Pain Reliever) 650 mg PO Q8H PRN 90 days alcohol swabs (Alcohol Prep Pads) 1 pad topical QID amlodipine 10 mg PO DAILY apremilast (Otezla) 30 mg PO BID aspirin 81 mg PO BEDTIME bempedoic acid-ezetimibe 180-10 mg (Nexlizet) 1 tab PO DAILY betamethasone dipropionate 0.05% topical blood-glucose meter (FreeStyle Lite Meter kit) 4 times a day cetirizine (Zyrtec) 10 mg PO DAILY PRN cholecalciferol (vitamin D3) (Vitamin D3) 50 mcg PO QAM cyclobenzaprine 5 mg PO TID PRN dapagliflozin propanediol (Farxiga) 5 mg PO QAM [electric wheelchair As directed] esomeprazole magnesium (Nexium) 40 mg PO DAILY famotidine 40 mg PO BEDTIME flash glucose scanning reader (FreeStyle Luis 2 [place]) As directed flash glucose sensor (FreeStyle Luis 2 Sensor kit) USE DIRECTED. CHANGE EVERY 14 DAYS FreeStyle Lite Strips (blood sugar diagnostic) TEST BLOOD SUGAR FOUR TIMES DAILY NS gabapentin 100 mg PO TID PRN 30 days glucagon 3 mg/actuation (Baqsimi) 3 mg intranasal ONCE hydrochlorothiazide 25 mg PO DAILY imipramine HCl 25 mg PO BEDTIME insulin aspart (niacinamide) 100 unit/mL (3 mL) 2 - 4 units subcut TID 30 days insulin glargine U-300 conc (Toujeo SoloStar U-300 Insulin) 15 units (0.05 mL) subcut BEDTIME lancets (FreeStyle Lancets) 4 times a day lidocaine 5% 2 patches topical DAILY PRN 15 days metformin ER 1,000 mg (2 x 500 mg) PO BID methylcellulose (laxative) (Fiber Laxative (methylcellulose)) 0 mg PO metoprolol succinate ER 12.5 mg PO QAM pen needle, diabetic (BD Miriam 2nd Gen Pen Needle) 5 times a day polyethylene glycol 3350 (Miralax) 17 grams PO DAILY Praluent Pen (alirocumab) 150 mg subcut Q2W NS semaglutide (Ozempic) 1 mg (0.75 mL) subcut QWEEK sennosides (Natural Senna Laxative) 17.2 mg (2 x 8.6 mg) PO BEDTIME tadalafil 5 mg PO DAILY 90 days tamsulosin 0.4 mg PO BEDTIME 90 days umeclidinium-vilanterol 62.5-25 mcg/actuation (Anoro Ellipta) 1 ea PO DAILY Ventolin HFA 90 mcg/actuation (albuterol sulfate) 2 puffs PO Q6H PRN 30 days NS zolpidem 5 mg PO BEDTIME PRN HPI Comments Details: Bruno is a 68-year-old Indonesian-speaking male patient of Dr. Moreira. He has a past medical history of erectile dysfunction, asthma, smoker, vitamin-D deficiency, hypertension, type 2 diabetes, diabetic neuropathy, dyslipidemia, and hypertensive retinopathy of the right eye. He presents to the office today for follow-up of his erectile dysfunction. In discussion with the patient today he reports to be doing and feeling well. He reports a significant improvement in erectile dysfunction with penile injection therapy. He reports having adequate erections for penetration with penile injection therapy. He had previously trialed p.o. medications for ED and failed Viagra as well as tadalafil. Previous workup has included PSA and testosterone levels as well as a recent renal. Renal imaging noted bilateral kidneys with no renal calculi, hydronephrosis, or lesions noted. Left kidney with 2 cm likely benign left lower pole renal cyst with a single thin internal septation with no routine follow-up imaging recommended. PSA 10/19 0.6, 11/20 0.5 Testosterone 10/19 347 Discussed with patient the affects of diabetes on the bladder as well as its relation with erectile dysfunction. Discussed at length importance of diet control and management of diabetes for overall health and well-being. He otherwise denies any bothersome urinary issues or concerns. He reports be happy with current voiding parameters on 0.4 mg of Flomax daily. In office urinalysis results reviewed with the patient today. He otherwise offers no other issues or concerns at this time. 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 Dyslipidemia Diabetes type 2, uncontrolled Surgical History History of esophagogastroduodenoscopy (EGD) Hx of colonoscopy History of amputation of finger History of lumbar surgery Family History Father Medical history unknown Mother Medical history unknown Sister Breast cancer Brother Cancer Social History Household Members: Spouse Alcohol intake: current Alcohol intake frequency: a few times a month Patient Tobacco Use Status: Former Tobacco user Years Smoked: 52 (onset 13yo) Physical Exam Const General: cooperative, healthy appearing, comfortable, no acute distress, well developed, alert and awake Orientation/consciousness: patient oriented x3 Limitations: no limitations HEENT Head: Yes normal to inspection, Yes normocephalic and Yes atraumatic Ears: hearing grossly normal bilaterally Eyes General: appearance normal, both eyes and all related structures Neck Neck: Yes normal visual inspection and Yes trachea midline Chest Chest palpation & inspection: normal inspection of the chest Resp Effort & Inspection: normal respiratory effort and able to speak in complete sentences Cardio Rate: regular rate GI Inspection: Yes normal to inspection General: Yes no CVA tenderness Male General Exam: Yes normal external exam Penis: normal penis and uncircumcised Meatus: meatus normal Scrotum: scrotum normal Testes: Testes normal Back/Spine/Pelvis Back: no CVA tenderness Skin General skin exam: no rashes or lesions noted Neuro General: patient oriented x3 Extrem General: Yes normal to inspection Psych Appearance: grossly normal and well kempt Mental Status: mental status grossly normal Speech and movement: Normal speech and movement present and Clear speech present Affect: normal affect Attitude: cooperative Thought process: Normal thought process present Thought content: Normal thought content present Insight: Fair insight present (Psych) Judgement: Fair judgement present (Psych) Office Procedures Post Void Residual Post Residual Void Post Void Residual (PVR): 21 [id number]-[id number] Void Residual by ultrasound Assessment & Plan Assessment & Plan (1) Erectile dysfunction associated with type 2 diabetes mellitus: Code(s): E11.69 - Type 2 diabetes mellitus with other specified complication; N52.1 - Erectile dysfunction due to diseases classified elsewhere Category: Medical (2) BPH loc w urin obs/LUTS: Code(s): N40.1 - Benign prostatic hyperplasia with lower urinary tract symptoms Category: Medical Plan In office urinalysis results reviewed with the patient today; as noted above. PVR 21ml's. Patient currently denies any bothersome urinary issues or concerns. He is happy with current voiding parameters on 0.4 mg of Flomax daily. He reports to have adequate erections with penile injection therapy and would like to continue. Discussed at length lifestyle modifications to assist with ED Discussed and stressed the importance of managing diabetes for improvement in ED as well as overall health and well-being. Will obtain PSA in 6 months. Follow-up in 6 months with labs and PVR; or sooner with any issues, concerns, and or questions. Orders: Orders AMB Post Void Residual by ultrasound Today N40.1 - Benign prostatic hyperplasia with lower urinary tract symptoms Prostate Specific Antigen 6 Months E11.69 - Type 2 diabetes mellitus with other specified complication, N40.1 - Benign prostatic hyperplasia with lower urinary tract symptoms, N52.1 - Erectile dysfunction due to diseases classified elsewhere Patient Instructions: The patient had an opportunity to ask questions regarding the treatment plan. All questions were answered. Physical exam, labs, and imaging were discussed and reviewed in detail. As well as risks, benefits, and discussion of treatment choices. No major barriers to understanding were identified. The patient expressed understanding and agreement with the above treatment plan. The patient was made aware they should contact our office by phone for worsening of their current condition, the appearance of new symptoms, or with any questions or concerns. Compliance is encouraged with any medications and follow up testing that is ordered. It is a privilege to be allowed the opportunity to participate in? your urological care.? Again, if you have any questions or concerns If you have any questions or concerns please do not hesitate to contact me. The office is [phone]. This note is constructed using voice recognition software. While every effort has been made to ensure accuracy [employer] errors may have been included. Yours sincerely, LAKESHA Cobb Coding Level of Care Code Est Pt Level 3 (19453) Complex EM visit Add On G2211 Diagnoses Erectile dysfunction associated with type 2 diabetes mellitus E11.69; N52.1 BPH loc w urin obs/LUTS N40.1 CPT Codes Post Residual Void - PVR CPT Code: 87861-Oycd Void Residual by ultrasound ([id number])
== END 2024-03-10 13:50 | disposition home or self-care (01) ==
PROVIDERS: PCP Student in an Organized Health Care Education/Training Program; Visit Provider Nurse Practitioner Family
DX: E11.69 Type 2 diabetes mellitus with other specified complication (principal); N52.1 Erectile dysfunction due to diseases classified elsewhere; N40.1 Benign prostatic hyperplasia with lower urinary tract symptoms
CPT/HCPCS: 99213; G2211

== ENCOUNTER → 2024-03-10 13:21 | Outpatient (BNVA) | payer OTHER, SELFPAY | PROVIDERS: PCP Student in an Organized Health Care Education/Training Program; Visit Provider Nurse Practitioner Family | DX: N40.1 Benign prostatic hyperplasia with lower urinary tract symptoms (principal); N13.8 Other obstructive and reflux uropathy; N28.1 Cyst of kidney, acquired; E11.39 Type 2 diabetes mellitus with other diabetic ophthalmic complication; N52.1 Erectile dysfunction due to diseases classified elsewhere; Z79.899 Other long term (current) drug therapy | CPT/HCPCS: 51798; 99212 ==

== ENCOUNTER 2024-04-07 10:12 | Outpatient (REF) | payer OTHER, SELFPAY ==
--- NOTE | ~2024-04-07 | XR_ITS ---
EXAMINATION: XR cervical spine 3V CLINICAL INFORMATION: Pain COMPARISON: 11/21/2018 TECHNIQUE: 3 views of the cervical spine were obtained. FINDINGS: The cervical spine is visualized to the level of C7 on the lateral view. Vertebral body alignment is maintained. Vertebral body heights are maintained. Lateral masses of C1 are well aligned on C2. Visualized portion of the dens is intact. Moderate degenerative disc disease at C4/5, manifested by disc space narrowing and osteophytosis.. No prevertebral soft tissue swelling. Calcifications in the soft tissues of the bilateral neck may reflect carotid calcifications. Nuchal ligament calcification. XR/XR cervical spine 3V IMPRESSION: * Moderate spondylosis of the cervical spine, as above detailed. * Calcifications in the soft tissues of the bilateral neck may reflect carotid calcifications. Electronically signed by: Nya De La Rosa MD 04/22/2024 04:38 PM EDT
== END 2024-04-07 10:13 | disposition home or self-care (01) ==
LOC: HO.XRAY 10:12
PROVIDERS: PCP Student in an Organized Health Care Education/Training Program; Visit Provider Student in an Organized Health Care Education/Training Program
DX: M54.2 Cervicalgia (principal)
CPT/HCPCS: 72040

== ENCOUNTER 2024-04-09 10:46 | Outpatient (REF) | payer OTHER, SELFPAY ==
[2024-04-09 11:38] LABS: Estimated Average Glucose 146 mg/dL; Hemoglobin A1c % 6.7 % (<6.0); Total Hemoglobin (HGBA1C) 3314.9001 umol/L
[2024-04-09 12:16] LABS: Creatinine Urine 169.38 mg/dL; Microalbum/Creatinine Ratio Ur 57.8 ug/mg cr (<30)
[2024-04-09 12:22] LABS: Alanine Aminotransferase 14 U/L (0-40); Albumin Level 3.9 g/dL (3.5-5.0); Alkaline Phosphatase 51 U/L (39-117); Anion Gap 10 (12-20); Aspartate Amino Transferase 16 U/L (5-37); Bilirubin Total 0.6 mg/dL (0.0-1.0); Blood Urea Nitrogen 21 mg/dL (9-16); Carbon Dioxide 26 mmol/L (22-29); Chloride 109 mmol/L (96-108); Cholesterol 172 mg/dL (<200); Estimated Glomerular Filt Rate > 60; Glucose Fasting 108 mg/dL (60-99); HDL Cholesterol 45 mg/dL (>40); LDL Cholesterol Calculated 111 mg/dL (<100); Potassium 4.2 mmol/L (3.3-5.1); Sodium 141 mmol/L (135-145); Total Protein 6.6 g/dL (6.5-8.0); Triglycerides 82 mg/dL (<150)
== END 2024-04-09 10:47 | disposition home or self-care (01) ==
LOC: HO.LAB 10:46
PROVIDERS: PCP Student in an Organized Health Care Education/Training Program; Visit Provider Physician Assistant
DX: E11.42 Type 2 diabetes mellitus with diabetic polyneuropathy (principal); E11.21 Type 2 diabetes mellitus with diabetic nephropathy; Z79.4 Long term (current) use of insulin; I10 Essential (primary) hypertension
CPT/HCPCS: 36415; 80053; 80061; 82043; 82570; 83036

== ENCOUNTER 2024-04-10 09:16 | Outpatient (REF) | payer OTHER, SELFPAY ==
--- NOTE | ~2024-04-10 | US_ITS ---
EXAMINATION: US COMPLETE ABDOMEN WITH LIVER ELASTOGRAPHY CLINICAL INFORMATION: Chronic thrombocytopenia and leukopenia with history of alcohol abuse and question of cirrhosis. COMPARISON: Renal ultrasound 09/29/2022. TECHNIQUE: Real-time imaging of the abdominal viscera. Noninvasive ultrasound liver fibrosis assessment is performed using Jeanne ElastPQ point quantification shear wave elastography (pSWE) with a C5-2 MHz transducer. Multiple elastography samples are obtained. FINDINGS: PANCREAS: The visualized pancreatic head and body are normal in appearance. The remainder of the pancreas is obscured from visualization by the overlying bowel gas. ABDOMINAL AORTA: The proximal, middle, and distal aortic segments are normal in caliber. INFERIOR VENA CAVA: Visualized portions are normal. LIVER: Liver is of normal size but with increased echogenicity. No focal lesion or intrahepatic biliary duct dilatation. The right lobe measures 12.5 cm in length. The left lobe measures 8.7 cm in length. Portal flow is hepatopedal. Shear wave liver elastography median stiffness is 1.42 m/s (reference: normal median stiffness is 1.3 m/s or less). IQR/median stiffness to assess sampling precision is 0.08 (reference: good quality data set is IQR/median stiffness of 0.15 or less). GALLBLADDER: Normal. The gallbladder is physiologically distended without evidence of stones, sludge, polyps, wall thickening or pericholecystic fluid. COMMON BILE DUCT: Normal in caliber measuring 0.6 cm in diameter. RIGHT KIDNEY: Normal. No hydronephrosis. No renal calculi or focal parenchymal lesions. The kidney measures 11.2 cm in maximum dimension. LEFT KIDNEY: No hydronephrosis. No renal calculi. A benign 2.5 cm Bosniak class I renal cyst is noted which requires no additional imaging or follow up. No solid renal masses are seen. The kidney measures 11.7 cm in maximum dimension. SPLEEN: Spleen is enlarged at 13.6 cm in maximum dimension. FREE FLUID: None. US/US abdomen comp w elastography IMPRESSION: 1. Increased liver echogenicity suggesting hepatic steatosis with associated splenomegaly. 2. Liver elastography: In the absence of other known clinical signs, measurements rule out compensated advanced chronic liver disease. If there are known clinical signs, further testing may be needed for confirmation. REFERENCE: Society of Radiologists in Ultrasound Liver Stiffness Thresholds (2020): LIVER STIFFNESS THRESHOLDS: *Liver Stiffness equal or less than 1.3 m/s: High probability of being normal. *Liver Stiffness less than 1.7 m/s: In the absence of other known clinical signs, rules out compensated advanced chronic liver disease. *Liver Stiffness 1.7-2.1 m/s: Suggestive of compensated advanced chronic liver disease but need further test for confirmation. *Liver Stiffness over 2.1 m/s: Rules in compensated advanced chronic liver disease. *Liver Stiffness over 2.4 m/s: Suggestive of clinically significant portal hypertension. QUALITY OF DATA SET: *IQR/Median value equal or less than 0.15 implies a quality data set. *IQR/Median value over 0.15 implies a poor quality data set. SIGNIFICANT CHANGE FROM PRIOR EXAM: Significant change if liver stiffness measurement is 10% or greater from prior exam. OTHER CONSIDERATIONS: The stage of liver fibrosis may be overestimated in the setting of acute hepatitis, liver inflammation, elevated liver function tests, hepatic vascular congestion, obstructive cholestasis, non-fasting state, and infiltrative diseases such as amyloidosis and lymphoma. In some patients with NAFLD, the liver stiffness thresholds for compensated advanced chronic liver disease may be lower. In causes other than viral hepatitis and NAFLD, liver stiffness thresholds are not well established. Electronically signed by: Bladimir Rodriguez MD 04/12/2024 12:56 PM EDT
== END 2024-04-10 09:17 | disposition home or self-care (01) ==
LOC: HO.US 09:16
PROVIDERS: PCP Student in an Organized Health Care Education/Training Program; Visit Provider Student in an Organized Health Care Education/Training Program
DX: D61.818 Other pancytopenia (principal)
CPT/HCPCS: 76700; 76981

== ENCOUNTER 2024-04-18 10:48 | Outpatient (AMB) | payer OTHER, SELFPAY ==
--- NOTE | 2024-04-18 10:40 | A.OFFVIS_ITS ---
Vital Signs 04/18/24 10:51 Height 5 ft 11 in Weight 176 lb 5.917 oz BMI 24.6 BP 116/58 L Blood Pressure Location Rt brachial Position Sitting Pulse 58 Pulse Source Pulse Oximeter Intake Visit Reasons: T2DM Intake Note: Patient presents today to re-establish treatment for Type Diabetes Mellitus: Last Diabetic eye exam was on: DUE Last Podiatry exam was on: Does not see a As400 Consultant Most recent HbA1c: 6.7%, 04/09/2024 Random Glucose- 84 mg/dL, Today Lab Analyst Required: Yes Lab Analyst Language: Allergist/Immunologist Services: Lab Analyst Present Lab Analyst Name: KAMLESH Elizabeth/PHILIP DOVER Information Interpreted: non-clinical & clinical Accompanied by: Self / Same As Patient Allergies dulaglutide [Trulicity] Adverse Reaction (Unknown, Verified 03/10/24 20:20) diarrhea Medication List - Last Reconciled 04/18/24 by Chana Hanson PA-C acetaminophen ER (Arthritis Pain Reliever) 650 mg PO Q8H PRN 90 days alcohol swabs (Alcohol Prep Pads) 1 pad topical QID amlodipine 10 mg PO DAILY apremilast (Otezla) 30 mg PO BID aspirin 81 mg PO BEDTIME bempedoic acid-ezetimibe 180-10 mg (Nexlizet) 1 tab PO DAILY betamethasone dipropionate 0.05% topical blood-glucose meter (FreeStyle Lite Meter kit) 4 times a day cetirizine (Zyrtec) 10 mg PO DAILY PRN cholecalciferol (vitamin D3) (Vitamin D3) 50 mcg PO QAM cyclobenzaprine 5 mg PO TID PRN dapagliflozin propanediol (Farxiga) 5 mg PO QAM [electric wheelchair As directed] esomeprazole magnesium (Nexium) 40 mg PO DAILY famotidine 40 mg PO BEDTIME flash glucose scanning reader ([place] Luis 2 [place]) As directed flash glucose sensor (FreeStyle Luis 2 Sensor kit) USE DIRECTED. CHANGE EVERY 14 DAYS FreeStyle Lite Strips (blood sugar diagnostic) TEST BLOOD SUGAR FOUR TIMES DAILY NS gabapentin 100 mg PO TID PRN 30 days glucagon 3 mg/actuation (Baqsimi) 3 mg intranasal ONCE hydrochlorothiazide 25 mg PO DAILY imipramine HCl 25 mg PO BEDTIME insulin aspart (niacinamide) 100 unit/mL (3 mL) 2 - 4 units subcut TID 30 days insulin glargine U-300 conc (Toujeo SoloStar U-300 Insulin) 15 units (0.05 mL) subcut BEDTIME lancets (FreeStyle Lancets) 4 times a day lidocaine 5% 2 patches topical DAILY PRN 15 days metformin ER 1,000 mg (2 x 500 mg) PO BID methylcellulose (laxative) (Fiber Laxative (methylcellulose)) 0 mg PO metoprolol succinate ER 12.5 mg PO QAM pen needle, diabetic (BD Miriam 2nd Gen Pen Needle) 5 times a day polyethylene glycol 3350 (Miralax) 17 grams PO DAILY Praluent Pen (alirocumab) 150 mg subcut Q2W NS semaglutide (Ozempic) 1 mg (0.75 mL) subcut QWEEK sennosides (Natural Senna Laxative) 17.2 mg (2 x 8.6 mg) PO BEDTIME tadalafil 5 mg PO DAILY 90 days tamsulosin 0.4 mg PO BEDTIME 90 days umeclidinium-vilanterol 62.5-25 mcg/actuation (Anoro Ellipta) 1 ea PO DAILY Ventolin HFA 90 mcg/actuation (albuterol sulfate) 2 puffs PO Q6H PRN 30 days NS zolpidem 5 mg PO BEDTIME PRN HPI HPI T2DM: Details: Patient is a 68 -year-old male with a PMH of GERD, anxiety, asthma, arthritis, history of alcohol and cocaine abuse, hypertension, hyperlipidemia presenting today for follow-up of his type 2 diabetes. He denies any acute concerns today. Endo: DM- He was dx in 1989. Sister has t2dm. He had labs previously confirming that he is a t2dm. He is currently on Toujeo to 15 units, Novolog 4 units for point care <200 before breakfast . lunch 4 units for point care <200 and 5 units of point cares greater than 200. dinner NovoLog to 2 units. metformin 2000 mg QD, Ozempic 1 mg Q wkly, Farxiga 5 mg QD CGM-Luis download shows he is wearing the sensor 85% of the time. Average glucose is 154 with G mi of 6.4% and variability 27%. He is in target range 90% of the time with 9% hyperglycemia and 1% hypoglycemia. -he states the hypoglycemic event was because he gave himself mealtime insulin but then forgot to eat. He did correct this with food. He states that he has glucose tabs at. He has nephropathy without other microvascular, he has PVD based on foot XRay which showed calcifications in foot arteries, no other macrovascular disease had diarrhea with Trulicity 0.75 mg weekly He had elevated CPK on statin, currently on Praluent 150 mg every 2 weeks and Zetia 10 mg daily. Nexlizet Rare hypoglycemia occuring at night if doesn't eat Last ophthalmology evaluation: appt 12/2023. no diabetic retinopathy was has hypertensive retinopathy. CV: Blood pressure today in the office is 116/58. He is currently on metoprolol 12.5 mg daily, hydrochlorothiazide 25 mg, amlodipine 10 mg. 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 Dyslipidemia Diabetes type 2, uncontrolled Surgical History History of esophagogastroduodenoscopy (EGD) Hx of colonoscopy History of amputation of finger History of lumbar surgery Family History Father Medical history unknown Mother Medical history unknown Sister Breast cancer Brother Cancer Social History Household Members: Spouse Alcohol intake: current Alcohol intake frequency: a few times a month Patient Tobacco Use Status: Former Tobacco user Years Smoked: 52 (onset 13yo) Physical Exam Vital Signs: Last Vital Signs Pulse 58 09/20/24 10:51 BP 116/58 L 04/18/24 10:51 BMI result Body Mass Index 24.6 Const Orientation/consciousness: patient oriented x3 HEENT Ears: hearing grossly normal bilaterally Neck Thyroid: Thyroid normal Lymphatic: no lymphadenopathy noted Resp Auscultation: clear to auscultation bilaterally Cardio Rate: regular rate Rhythm: regular rhythm Heart sounds: S1 normal heart sound present and S2 normal heart sound present GI Inspection: Yes normal to inspection Palpation (GI): Soft to palpation and Other GI palpation findings present (nontender, no cva tenderness) Auscultation: normoactive bowel sounds Rectal Exam - Male: Yes deferred Skin General skin exam: no rashes or lesions noted Neuro General: patient oriented x3, gait normal and no focal motor deficits Office Procedures Glucose Monitoring Details Details: See [facility] [id number] - Glucose monitoring, continuous-physician I&R Procedure code (CPT) selection complete Results Reviewed Results Reviewed: Laboratory Last Values Glucose (Clinic) 84 mg/dL (60-115) 04/18/24 10:56 Laboratory Tests 08/20/23 01/18/24 04/09/24 09:49 09:04 10:50 Sodium 139 141 Potassium 4.3 4.2 Chloride 104 109 H Carbon Dioxide 28 26 Anion Gap 11 L 10 L BUN 14 21 H Creatinine 0.91 1.08 Estimated GFR > 60 > 60 Glucose (Clinic) 130 H Fasting Glucose 108 H Estimat Average Glucose 146 Hemoglobin A1c % 6.5 H 6.7 H Calcium 9.0 D Total Bilirubin 0.4 AST 20 16 ALT 19 14 Alkaline Phosphatase 66 Triglycerides 75 82 Cholesterol 135 172 LDL Cholesterol, Calc 55 111 H HDL Cholesterol 65 45 Assessment & Plan Assessment & Plan (1) Diabetic nephropathy associated with type 2 diabetes mellitus: Code(s): E11.21 - Type 2 diabetes mellitus with diabetic nephropathy Category: Medical Plan: Currently well-controlled. Continue current regimen. Follow up in 3 months. He will follow up sooner if anything changes. Labs prior to appointment. Patient understands and agrees with this plan. (2) Hypertension: Code(s): I10 - Essential (primary) hypertension Category: Medical Qualifiers: Hypertension type: essential hypertension Qualified Code(s): I10 - Essential (primary) hypertension Plan: WNL. Continue current regimen Orders: Orders Hemoglobin A1c Today E11.21 - Type 2 diabetes mellitus with diabetic nephropathy, I10 - Essential (primary) hypertension Comprehensive [place]. Panel Fast Today E11.21 - Type 2 diabetes mellitus with diabetic nephropathy, I10 - Essential (primary) hypertension Coding Level of Care Code Est Pt Level 4 (02409) Complex EM visit Add On G2211 Diagnoses Diabetic nephropathy associated with type 2 diabetes mellitus E11.21 Essential hypertension I10 Hypertension type: essential hypertension CPT Codes Details - CPT: 87358 - Glucose monitoring, continuous-physician I&R ([id number])
[2024-04-18 10:51] VITALS: BP 116/58; PULSE 58; BMI 24.6
[2024-04-18 11:01] LABS: Glucose, Whole Blood 84 mg/dL (60-115)
== END 2024-04-18 11:15 | disposition home or self-care (01) ==
PROVIDERS: PCP Student in an Organized Health Care Education/Training Program; Visit Provider Physician Assistant
DX: E11.21 Type 2 diabetes mellitus with diabetic nephropathy (principal); I10 Essential (primary) hypertension

== ENCOUNTER → 2024-04-18 10:48 | Outpatient (BNVA) | payer OTHER, SELFPAY | PROVIDERS: PCP Student in an Organized Health Care Education/Training Program; Visit Provider Physician Assistant | DX: E11.21 Type 2 diabetes mellitus with diabetic nephropathy (principal); I10 Essential (primary) hypertension | CPT/HCPCS: 82947; 99212 ==

== ENCOUNTER 2024-05-20 09:53 | Outpatient (AMB) | payer OTHER, SELFPAY ==
--- NOTE | 2024-05-20 09:54 | MHC.OFFVIS ---
Vital Signs 05/20/24 10:04 Height 5 ft 11 in Weight 180 lb BMI 25.1 BP 124/58 L Blood Pressure Location Rt brachial Position Sitting Pulse 58 Pulse Source Pulse Oximeter Pulse Oximetry (%) 98 Oxygen Delivery Method Room Air Intake Visit Reasons: F/U patient requested Intake Note: Pain today 03/08 Learning And Development Coordinator Required: Yes Learning And Development Coordinator Language: Building Equipment Inspector Name: Shane # [id number] Allergies dulaglutide [Trulicity] Adverse Reaction (Unknown, Verified 05/20/24 10:05) diarrhea HPI Comments Details: Patient presents today for follow up for worsening low back pain. Patient presents today with bilateral hip pain and low back pain radiating into right lower extremity in L4-L5 distribution with associated numbness and tingling. Patient requests to schedule back injection to address his radicular pain. His most recent A1C is 6.4. He attempted Behavioral evaluation with [facility] for potential SCS trial but due to high out of pocket costs, decided to cancel it. Denies any recent cough, cold, infection, fever, bladder or bowel dysfunction, saddle anesthesia or other significant changes in medical history since last office visit. Past Procedures: 09/19/22: Bilateral intra-articular hip steroid injections-80% ongoing pain relief 04/18/22: Caudal PRABHJOT with catheter-0% pain relief PRIOR: Patient presents today for follow up with increasing lower back pain, bilateral hip and leg pain. Patient underwent neurosurgical evaluation by Dr. Ricardo on 06/20/22 and was told that no additional surgery was indicated and was advised to proceed with spinal cord stimulator. Pending behavioral assessment, not completed at [facility] and was sent to [facility] on 08/03/22. Patient has significant bilateral hip pain and groin pain with external and internal hip rotations bilaterally, worse on the right. His back pain continues to radiate down to both of his lower legs posteriorly with numbness and tingling. He ambulates with slow, antalgic gait with use of cane in mildly flexed position due to pain. Reports pain with walking, sitting, standing, or changing positions. Patient would like to proceed with bilateral hip steroid injection under sedation. Denies any fever, abdominal pain, bowel or bladder incontinence or saddle anesthesia. The trialed and failed therapy has been reviewed with the patient. The risks, consequences, alternatives, and benefits of various treatment options were discussed with the patient in great detail, including conservative management, injections and procedures. Plan to proceed with lumbar SCS trial once behavioral assessment is completed. PRIOR: Patient presents today in the office to assess his response to Caudal PRABHJOT with catheter injection on 04/18/22. Patient reports 0% pain relief status post procedure and continues to endorse spinal stenosis related pain. He continues to reports lower back pain with radiation to both of his lower extremity posteriorly with numbness and tingling and parenthesia symptoms in L5-S1 distribution. He also has burning pain in his feet due to chronic diabetic neuropathy. Unfortunately, his insurance did not approve [employer]. Pain continues to affect his daily functioning, sleep and quality of life. We discussed SCS trial previously and behavioral assessment was submitted but not completed. I will refer this patient for neurosurgical evaluation to evaluate if any additional surgery is needed prior to considering SCS trial. Patient cannot tolerate walking more than 5 minutes and ambulates in forward flexed position slowly, with antalgic gait and uses cane. Most recent lumbar MRI was completed in September, and is noted below. Patient denies any fever, weight changes, dizziness, lightheadedness, shortness of breaths, bowel or bladder incontinence or saddle anesthesia. PRIOR: Patient returns today for follow up in the office with worsening of chronic low back pain. He was last seen in our office on 10/17/21. His back pain presents in his lower back that spreads across his lower back and into his bilateral lower extremities posteriorly with shooting, sharp pain and significant numbness and tingling with cramping in both of his feet. Patient reports worsening of chronic painful diabetic neuropathy in his both feet which has been worse at night. Back pain and bilateral neuropathy in his feet has been affecting his daily activities, functioning, sleep and quality of life. At previous visit, his A1C was elevated and we did not proceed with lumbar injections. Patient has had regular follow ups with his supervisor [employer] and his most recent A1C was 7.4 on 03/08/22 down from 10.3. Patient was praised for monitoring his blood sugars, medication compliance and his attempts and efforts to adhere to ADA diet. We have discussed caudal epidural injection with catheter and patient agreed to undergo this under local and fluoroscopy. He has been managing his back pain with lidocaine patches, naproxen, intermittent use of gabapentin due to drowsiness and low dose of cyclobenzaprine prn with continued symptoms. Patient reports pain with prolonged standing or walking, pain mildly relieved with rest. He ambulates with antalgic gait with the use of cane. Patient reports he has recently fell last Sunday due to significant back pain while walking with cane at home. Patient reports falling backwards and onto his left side with intermittent neck pain and significant muscle pain in his bilateral trapezius regions. Patient reports he did not go to ER or his PCP for evaluation status post fall and has been feeling better except his back symptoms. He denies loss of consciousness, fever, malaise, dizziness, headache, chest pain, shortness of breaths, abdominal or groin pain, bowel or bladder incontinence or saddle anesthesia. Patient reports bilateral lower extremity weakness due to chronic knee and back pain. PRIOR: Today patient presents to the office for review of lumbar MRI and bilateral knee xray. He is accompanied by his CARBON PAPER MACHINE OPERATOR who is also helps with translation per patient's request. Patient continues to report bilateral knee pain and chronic back pain with right radiculopathy to his right leg laterally and anteriorly to right thigh. He has a prior history of left L5-S1 decompression, discectomy and laminectomy in 2003. He is diabetic with poorly controlled blood sugars with most recent A1C 10.3 on 09/08/21. He states he is followed by our endocrinology services and tries to adhere to ADA diet and closely monitor his blood sugars. Per [facility] notes review, patient last had Left L5-S1 TFESI as well as S1 selective epidurals with nerve root blocks on 01/24/2017. Due to his elevated A1C and poorly controlled diabetes, we will avoid steroid injections at this time. I have placed behavioral evaluation referral for SCS trial at previous visit which is pending. Both lumbar MRI and bilateral knee xrays reports reviewed with patient and are noted below. He notices good relief with lidocaine patches for knee pain and mild improvements with gabapentin, flexeril, and naproxen. Patient denies any fever, malaise, dizziness, weight loss, abdominal or groin pain, bladder/bowel dysfunction or saddle anesthesia. Patient reports lower extremity weakness and difficulty with prolong walking or sitting. Ambulates with antalgic gate and uses cane. [facility] Medical History Erectile dysfunction associated with type 2 diabetes mellitus Unsteady gait Asthma Leg weakness Mass of right parotid gland Hypertensive retinopathy of right eye Tubular adenoma of colon Smoker Dyspnea on exertion Vitamin D deficiency Hypertension Diabetic polyneuropathy associated with type 2 diabetes mellitus Diabetic nephropathy associated with type 2 diabetes mellitus [facility] (current) use of insulin Dyslipidemia Diabetes type 2, uncontrolled Surgical History History of esophagogastroduodenoscopy (EGD) Hx of colonoscopy History of amputation of finger History of lumbar surgery Family History Father Medical history unknown Mother Medical history unknown Sister Breast cancer Brother Cancer Social History Household Members: Spouse Alcohol intake: current Alcohol intake frequency: a few times a month Patient Tobacco Use Status: Former Tobacco user Years Smoked: 52 (onset 13yo) Review of Systems Const All systems reviewed & are unremarkable except as noted in HPI and below Physical Exam Vital Signs: Last Vital Signs Pulse 58 05/20/24 10:04 BP 124/58 L 05/20/24 10:04 Pulse Ox 98 05/20/24 10:04 Oxygen Delivery Method Room Air 05/20/24 10:04 BMI result Body Mass Index 25.1 General: Appears afebrile. Alert and oriented. Mood and affect appropriate. Follows and participates in conversation appropriately. Respiratory effort is unlabored. No cough. Able to transition from sit to stand unassisted. Slow, antalgic gait. Uses cane with ambulation. General: Yes no CVA tenderness Back/Spine/Pelvis Other: Limited lumbar flexion and extension due to significant aggravation of his back symptoms. Demonstrates 4/5 right and 5/5 left strength of quadriceps bilaterally as well as flexion/dorsiflexion of bilateral feet against resistance. Diminished DTRs bilaterally. Positive Seated SLR with dorsiflexion on the right in L4-L5 distribution. Valsalva maneuvr is negative. Back: no CVA tenderness Cervical Spine: cervical muscular tenderness, pain with cervical ROM and No Cervical spine tenderness Thoracic/Lumbar Spine: thoracic and lumbar spine normal to inspection, Thoracic/lumbar spine scar(s) (midline lower back), Lasegue's sign positive on the right and localized, pain with thoraco-lumbar ROM, paraspinal muscle tenderness, thoraco-lumbar ROM limited with forward flexion (WNL) and with lateral flexion to the left (limited by pain), No thoracic spinal tenderness, No lumbar spinal tenderness and straight leg raise positive (right L4-L5 distribution) Sacroiliac joints: bilaterally tender to palpation Results Reviewed Results Reviewed: MR LUMBAR SPINE WITHOUT CONTRAST 10/06/21 CLINICAL INFORMATION: Post laminectomy syndrome. Low back and leg pain. COMPARISON: MRI dated 11/24/2016. FINDINGS: VERTEBRAL BODIES AND PARASPINAL STRUCTURES: There are chronic post laminectomy changes at the L4-L5 and L5-S1 levels on the left side. The marrow signal is within normal limits. Mild anteroinferior endplate edema noted at the T12 level with worsened moderate disc space narrowing and anterior endplate spurring at the T12-L1 level. There are no compression fractures. Slight retrosubluxation is stable at the L4-L5 level. No paraspinal soft tissue fluid collections are seen. Renal cysts again visible. The imaged bony pelvis is unremarkable. CONUS MEDULLARIS AND CAUDA EQUINA: Normal, terminating at the level of L2. No lower cord signal abnormality is seen. The cauda equina nerve roots are normal. SPINAL LEVELS: L1-L2 and L2-L3: No significant disc pathology, central canal stenosis, or foraminal narrowing. L3-L4: Mild disc bulge and hypertrophic facet arthropathy resulting in slight narrowing of the central canal compared to prior imaging and mild right foraminal encroachment. L4-L5: Chronic post laminectomy changes and moderate facet arthropathy with a recurrent broad-based central disc protrusion mildly distorting the ventral thecal sac and impressing upon both L5 nerve roots, more so on the left side. Moderate central canal stenosis and mild left foraminal narrowing. L5-S1: Chronic post laminectomy changes and partially resorbed residual small central disc protrusion mildly impressing upon the ventral thecal sac. Underlying disc bulge and hypertrophic facet arthropathy encroach upon the subarticular zones with chronic mass effect upon the traversing S1 nerve roots. Patent foramina. IMPRESSION: Recurrent broad-based central disc protrusion at the L4-L5 level mildly distorting the ventral thecal sac and impressing upon both L5 nerve roots with moderate central canal stenosis and chronic post laminectomy changes. Chronic postoperative changes at L5-S1 with a partially resorbed residual small central disc protrusion mildly distorting the ventral thecal sac. Bulging disc and osseous spurring chronically encroach upon the subarticular zones with mass effect upon the traversing S1 nerve roots. Mild disc bulge and facet arthropathy slightly encroaching upon the central canal at the L3-L4 level. Progressed [id number]-ce-[id number] spondylosis at the T12-L1 level with mild anterior endplate edema. X-Ray hip BI w PEL1V 10/18/22 IMPRESSION: 1. Small avulsion fracture fragment or osteophyte lateral left acetabulum. 2. No visible acute fracture or dislocation either hips or AP pelvis. XR SOFT TISSUE NECK 05/21/23 CLINICAL INDICATION: Dysphagia. FINDINGS: Soft tissue films of the neck demonstrate a normal larynx, pharynx and upper trachea. No soft tissue swelling or opaque foreign body is demonstrated. There is moderately severe degenerative disc disease at C4-C5 and C5-C6, and mild to moderate degenerative disc disease is seen at C6-C7. There are calcifications of the ligamentum nuchae. There are bilateral carotid atherosclerotic calcifications, right greater than left. IMPRESSION: 1. Unremarkable radiographic appearance of the soft tissues of the neck. 2. There are degenerative changes of the spine, as detailed. 3. There are bilateral carotid atherosclerotic calcifications, which may be more fully evaluated with dedicated carotid ultrasound, if clinically indicated. XR SHOULDER, LEFT 05/03/23 CLINICAL INFORMATION: Pain and abrasion status-post fall. FINDINGS: Bony alignment and mineralization are normal. The glenohumeral joint is intact. The acromioclavicular and coracoclavicular intervals are normal. No fracture or dislocation is seen. There is a small distal acromial undersurface osteophyte. There is very mild calcific tendinitis of the left rotator cuff insertion. No foreign body is seen. There is no left pneumothorax. IMPRESSION: 1. No fracture or dislocation is seen. 2. There is very mild calcific tendinitis of the left rotator cuff. Assessment & Plan Assessment & Plan (1) Chronic pain syndrome: Code(s): G89.4 - Chronic pain syndrome Category: Medical (2) Bilateral hip pain: Code(s): M25.551 - Pain in right hip; M25.552 - Pain in left hip Category: Medical (3) Postlaminectomy syndrome: Code(s): M96.1 - Postlaminectomy syndrome, not elsewhere classified Category: Medical (4) Degenerative lumbar spinal stenosis: Code(s): M48.061 - Spinal stenosis, lumbar region without neurogenic claudication Category: Medical Plan Patient with prior history of left L5-S1 decompression, discectomy and laminectomy in 2003 and worsening radicular back pain was evaluated by Dr. Ricardo on 06/20/22 and was told that he is not a candidate for additional surgery and advised patient to undergo evaluation for SCS trial. We reviewed SCS trial and implant again at previous visit for post-laminectomy and diabetic neuropathy syndromes. However, patient declined behavioral evaluation due to high out of pocket cost. Schedule Right Parasaggital L4-L5 Interlaminar PRABHJOT with local and fluoroscopy as previously planned. Most recent A1C=6.4. Counseled to monitor his blood glucose levels following steroid injection. All questions and concerns answered and patient agreed with the plan. Follow up after injections, behavioral evaluation and sooner if needed. Justification for interventional therapy: ? Patient with average pain > 6/10 ? Patient has exhausted conservative therapy ? Patient unable to perform physical therapy due to pain The risks, consequences, alternatives, and benefits of various treatment options were discussed with the patient in great detail, including conservative management, injections and procedures. I have informed patient of hyperglycemic effects of steroids. Coding Level of Care Code Est Pt Level 4 (08518) Complex EM visit Add On G2211 Diagnoses Chronic pain syndrome G89.4 Bilateral hip pain M25.551; M25.552 Postlaminectomy syndrome M96.1 Degenerative lumbar spinal stenosis M48.061
[2024-05-20 10:04] VITALS: BP 124/58; PULSE 58; O2SAT 98; BMI 25.1
== END 2024-05-20 10:22 | disposition home or self-care (01) ==
PROVIDERS: PCP Student in an Organized Health Care Education/Training Program; Visit Provider Nurse Practitioner Family
DX: G89.4 Chronic pain syndrome (principal); M25.551 Pain in right hip; M25.552 Pain in left hip; M96.1 Postlaminectomy syndrome, not elsewhere classified; M48.061 Spinal stenosis, lumbar region without neurogenic claudication
CPT/HCPCS: 99214; G2211

== ENCOUNTER → 2024-05-20 09:53 | Outpatient (BNVA) | payer OTHER, SELFPAY | PROVIDERS: PCP Student in an Organized Health Care Education/Training Program; Visit Provider Nurse Practitioner Family | DX: M25.552 Pain in left hip (principal); M25.551 Pain in right hip; G89.4 Chronic pain syndrome; M96.1 Postlaminectomy syndrome, not elsewhere classified; M48.061 Spinal stenosis, lumbar region without neurogenic claudication | CPT/HCPCS: 99212 ==

== ENCOUNTER 2024-06-18 09:33 | Outpatient (REF) | payer OTHER, SELFPAY ==
[2024-06-18 11:46] LABS: Hemoglobin 12.9 g/dl (14.0-18.0); Mean Corpuscular HGB Conc 33.1 g/dl (31.0-36.0); Mean Corpuscular Hemoglobin 28.6 pg (27.0-33.0); Mean Corpuscular Volume 86.5 fL (80.0-98.0); Mean Platelet Volume 11.6 fL (9.4-12.4); Platelet Count 132 X10*3/uL (160-400); Red Blood Count 4.51 X10*6/uL (4.60-5.80); Red Cell Distribution Width 12.7 % (11.0-16.0); White Blood Count 3.5 X10*3/uL (4.8-10.8)
[2024-06-18 11:54] LABS: Estimated Average Glucose 146 mg/dL; Hemoglobin A1C 169.9004 umol/L; Hemoglobin A1c % 6.7 % (<6.0); Total Hemoglobin (HGBA1C) 3448.8611 umol/L
[2024-06-18 12:03] LABS: Alanine Aminotransferase 26 U/L (0-40); Albumin Level 3.7 g/dL (3.5-5.0); Alkaline Phosphatase 59 U/L (39-117); Anion Gap 10 (12-20); Aspartate Amino Transferase 25 U/L (5-37); Bilirubin Total 0.6 mg/dL (0.0-1.0); Blood Urea Nitrogen 16 mg/dL (9-16); Calcium 8.4 mg/dL (8.4-10.2); Carbon Dioxide 24 mmol/L (22-29); Chloride 108 mmol/L (96-108); Cholesterol 106 mg/dL (<200); Estimated Glomerular Filt Rate > 60; Glucose Random 116 mg/dL (60-115); HDL Cholesterol 44 mg/dL (>40); LDL Cholesterol Calculated 48 mg/dL (<100); Sodium 138 mmol/L (135-145); Total Protein 6.3 g/dL (6.5-8.0); Triglycerides 72 mg/dL (<150)
[2024-06-18 12:13] LABS: Syphilis Screen Nonreactive (Nonreactive)
[2024-06-18 12:24] LABS: Creatinine Urine 208.88 mg/dL; Microalbum/Creatinine Ratio Ur 45.4 ug/mg cr (<30)
[2024-06-18 12:26] LABS: HBS Num1 103.25 mIU/mL (0-7.99); HBc Num1 0.05 S/CO (0.00-0.79); HBsAGNum1 0.33 S/CO (0.00-0.99); HIV AB/AG Nonreactive (Nonreactive); HIV Num 1 0.05 S/CO (0.00-0.99); Hepatitis B Core Antibody Nonreactive (Nonreactive); Hepatitis B Surface Antigen Negative (Negative); ~HepC Num1 0.12 S/CO (0.00-0.79); ~Hepatitis B Surface Antibody REACTIVE (Nonreactive); ~Hepatitis C Antibody Nonreactive (Nonreactive)
[2024-06-18 12:27] LABS: TSH reflex Free T4 1.57 uIU/mL (0.32-4.0)
[2024-06-18 12:28] LABS: Folate 10.5 ng/mL (> or = 4.0); Prostate Specific Antigen 0.57 ng/mL (<0.05-4.0); Vitamin B12 361 pg/mL (200-900)
[2024-06-18 14:52] LABS: CT PCR NOT DETECTED (Not Detect.); NG PCR NOT DETECTED (Not Detect.)
== END 2024-06-18 09:34 | disposition home or self-care (01) ==
LOC: HO.HHCL 09:33
PROVIDERS: Visit Provider Student in an Organized Health Care Education/Training Program
DX: Z00.00 Encounter for general adult medical examination without abnormal findings (principal); Z12.5 Encounter for screening for malignant neoplasm of prostate; Z13.6 Encounter for screening for cardiovascular disorders; Z13.1 Encounter for screening for diabetes mellitus; Z20.2 Contact with and (suspected) exposure to infections with a predominantly sexual mode of transmission
CPT/HCPCS: 80053; 80061; 82043; 82570; 82607; 82746; 83036; 84153; 84443; 85027; 86704; 86706; 86780; 86803; 87340; 87389; 87491; 87591

== ENCOUNTER 2024-06-18 10:55 | Outpatient (RCR) | payer OTHER, SELFPAY | END 2024-09-01 11:42 | disposition home or self-care (01) | LOC: HO.PT 10:55 | PROVIDERS: PCP Student in an Organized Health Care Education/Training Program; Visit Provider Student in an Organized Health Care Education/Training Program | DX: M54.2 Cervicalgia (principal) | CPT/HCPCS: 97110; 97140; 97162 ==

== ENCOUNTER 2024-06-23 11:37 | Outpatient (AMB) | payer OTHER, SELFPAY ==
[2024-06-23 11:40] VITALS: BP 98/56; PULSE 56; O2SAT 100; BMI 25.5
--- NOTE | 2024-06-23 11:40 | MHC.OFFVIS ---
Vital Signs 06/23/24 11:40 Height 5 ft 11 in Weight 182 lb 15.739 oz BMI 25.5 BP 98/56 L Blood Pressure Location Rt brachial Position Sitting Pulse 56 Pulse Source Pulse Oximeter Pulse Oximetry (%) 100 Oxygen Delivery Method Room Air Intake Visit Reasons: Dysphagia, Problems swallowing Intake Note: PRESCRIPTIONS LAST GENERATED sennosides 8.6 mg tablet?(Natural Senna Laxative)?17.2 mg (2 x 8.6 mg) PO BEDTIME 120 tabs 3RF Nayeli Watts D 09/11/23 15:05 (Transmitted) Pt is still taking this medication w/o difficulty Relevant Flags or Indicators ? Requires Resident Care Coordinator? Y Bruno presents in office today for a scheduled ~ 8-9 mos FUV. CC; Meds per above. No labs or diagnostics ordered. ? Relevant GI Sx as reported per pt? None ? Hx of any recent surgeries? None Resident Care Coordinator Required: Yes Resident Care Coordinator Services: Resident Care Coordinator Present Resident Care Coordinator Name: Cruz [id number] Information Interpreted: non-clinical & clinical Accompanied by: Self / Same As Patient Allergies dulaglutide [Trulicity] Adverse Reaction (Unknown, Verified 06/23/24 11:40) diarrhea HPI HPI Dysphagia, Problems swallowing: Details: LAST VISIT Dysphagia IBS (irritable bowel syndrome) GERD (gastroesophageal reflux disease) Constipation Screen for colon cancer Plan Patient will start taking 2 Senokot every evening,continue with MiraLax. Patient was encouraged to increase fluid intake and activity to promote better bowel motility. Continue Nexium and famotidine. Patient will be sent for upper endoscopy. Continues with dysphagia with solid food. Patient was encouraged to chew well. Will rule out duodenitis, gastritis, esophagitis, gastric or peptic ulcers, Barretts, H pylori. Discussed with patient the importance of good bowel prep as well as clear liquid diet day before procedure. Suboptimal prep to left colon last colonoscopy, see above report in HPI. Patient denies any cardiac symptoms. 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 Parsons. No issues with anesthesia in the past. Please call windows application packager's office for clearance. Patient is on daily aspirin. No history of sleep apnea. Patient is also taking Ozempic and is aware to stop it minimum 7 days before the procedure. I will see patient after the procedure, sooner on as needed basis. Patient is agreeable to this plan and verbalizes understanding of instructions. He was given the opportunity to ask questions and all questions answered. ? Thank you for allowing me to participate in his care Medications New polyethylene glycol 3350 (Miralax) As directed by gastroenterology department at [facility] 238 grams PO ONCE 238 grams 0RF Z12.11 bisacodyl (Dulcolax (bisacodyl)) take 4 tabs at noon the day before your colonoscopy 20 mg (4 x 5 mg) PO ONCE 1 day 4 tabs 0RF constipation Z12.11 Changed Changed From sennosides (Natural Senna Laxative) 8.6 mg PO BEDTIME 90 tabs 3RF constipation K59.00 Changed To sennosides (Natural Senna Laxative) 17.2 mg (2 x 8.6 mg) PO BEDTIME 120 tabs 3RF constipation LAST VISIT Patient is here today to discuss the prep again. Apparently patient took Ozempic last time when he was going for colonoscopy in was never able to have a colonoscopy done. Patient denies any issues with anesthesia. Patient will be book today to go for the procedure. Patient denies any cardiac or respiratory symptoms. Denies any issues with anesthesia in the past. He continues to have occasional trouble swallowing mostly solid. No trouble swallowing liquids. Currently patient is on Nexium in the morning and famotidine at bedtime. Symptoms of acid reflux are suppressed for the most part, however she struggles sometimes with swallowing as mentioned before. Patient denies melena, hematochezia. Patient reports that he is moving his bowels better now that he takes Senokot daily. 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 Dyslipidemia Diabetes type 2, uncontrolled Surgical History History of esophagogastroduodenoscopy (EGD) Hx of colonoscopy History of amputation of finger History of lumbar surgery Family History Father Medical history unknown Mother Medical history unknown Sister Breast cancer Brother Cancer Social History Household Members: Spouse Alcohol intake: current Alcohol intake frequency: a few times a month Patient Tobacco Use Status: Former Tobacco user Years Smoked: 52 (onset 13yo) Review of Systems Const Denies weight gain and Denies weight loss ENT Reports no additional complaints, Reports dysphagia and Denies odynophagia Card Reports no additional complaints Resp Reports no additional complaints GI Denies abdominal pain, Denies belching, Denies melena, Denies bloating, Denies change in bowel habits, Reports dysphagia, Denies excessive flatus, Denies dyspepsia, Reports heartburn, Denies diarrhea, Denies loose stools, Denies nausea, Denies odynophagia and Denies vomiting Reports no additional complaints Musc Reports no additional complaints Neuro Reports no additional complaints Psych Reports no additional complaints Endo Reports no additional complaints Physical Exam Const General: healthy appearing, no acute distress and well developed Nutritional Appearance: well nourished Orientation/consciousness: patient oriented x3 Resp Effort & Inspection: normal respiratory effort, able to speak in complete sentences, no tracheal deviation and symmetric chest movement Auscultation: clear to auscultation bilaterally Cardio Rate: regular rate GI Inspection: Yes normal to inspection and No distended Palpation (GI): Soft to palpation, not firm, nontender and No hepatosplenomegaly present Auscultation: normal bowel sounds General: Yes no CVA tenderness Back/Spine/Pelvis Back: no CVA tenderness Skin General skin exam: elasticity normal, turgor normal and dry skin Neuro General: patient oriented x3 Psych Appearance: grossly normal Mental Status: mental status grossly normal Assessment & Plan Assessment & Plan (1) Dysphagia: Code(s): R13.10 - Dysphagia, unspecified Qualifiers: Dysphagia type: pharyngoesophageal phase Qualified Code(s): R13.14 - Dysphagia, pharyngoesophageal phase (2) IBS (irritable bowel syndrome): Code(s): K58.9 - Irritable bowel syndrome, unspecified Qualifiers: Irritable bowel syndrome type: without diarrhea Qualified Code(s): K58.9 - Irritable bowel syndrome, unspecified (3) GERD (gastroesophageal reflux disease): Code(s): K21.9 - Gastro-esophageal reflux disease without esophagitis Qualifiers: Esophagitis presence: esophagitis presence not specified Qualified Code(s): K21.9 - Gastro-esophageal reflux disease without esophagitis (4) Constipation: Code(s): K59.00 - Constipation, unspecified Qualifiers: Constipation type: slow transit constipation Qualified Code(s): K59.01 - Slow transit constipation (5) Screen for colon cancer: Code(s): Z12.11 - Encounter for screening for malignant neoplasm of colon Plan What to expect before during and after procedure discussed with patient. Patient will try to schedule the procedure with surgical schedulers today. Patient takes Ozempic on Mondays. Has not taking Ozempic yet. Procedure was booked for him on Sunday. Patient is supposed to take half of the night insulin tonight and have tomorrow. No short-acting insulin tomorrow as he will be doing clear liquid diet. I will see him after the procedure. What to expect before during and after procedure discussed with patient. Stressed the importance of clear liquid diet and good bowel prep. I will see him after the procedure, sooner on as needed basis. He is agreeable to this plan and verbalizes understanding of instructions. He was given the opportunity to ask questions and all questions answered. Thank you for allowing me to participate in his care Medications: New bisacodyl (Dulcolax (bisacodyl)) take 4 tabs at noon the day before your colonoscopy 20 mg (4 x 5 mg) PO ONCE 1 day 4 tabs 0RF Z12.11 - Encounter for screening for malignant neoplasm of colon polyethylene glycol 3350 (Miralax) As directed by gastroenterology department at [facility] 238 grams PO ONCE 238 grams 0RF Z12.11 - Encounter for screening for malignant neoplasm of colon Refilled sennosides (Natural Senna Laxative) 17.2 mg (2 x 8.6 mg) PO BEDTIME 120 tabs 3RF constipation K59.00 - Constipation, unspecified Coding Level of Care Code Est Pt Level 3 (33593) Diagnoses Pharyngoesophageal dysphagia R13.14 Dysphagia type: pharyngoesophageal phase Irritable bowel syndrome without diarrhea K58.9 Irritable bowel syndrome type: without diarrhea Gastroesophageal reflux disease, unspecified whether esophagitis present K21.9 Esophagitis presence: esophagitis presence not specified Slow transit constipation K59.01 Constipation type: slow transit constipation Screen for colon cancer Z12.11 Time Spent (min) 30 Comment 20 minutes spent with patient and additional 10 minutes spent reviewing his records
== END 2024-06-23 12:30 | disposition home or self-care (01) ==
PROVIDERS: PCP Student in an Organized Health Care Education/Training Program; Visit Provider Nurse Practitioner Family
DX: R13.14 Dysphagia, pharyngoesophageal phase (principal); K58.9 Irritable bowel syndrome, unspecified; K21.9 Gastro-esophageal reflux disease without esophagitis; K59.01 Slow transit constipation; Z12.11 Encounter for screening for malignant neoplasm of colon
CPT/HCPCS: 99213

== ENCOUNTER → 2024-06-23 11:37 | Outpatient (BNVA) | payer OTHER, SELFPAY | PROVIDERS: PCP Student in an Organized Health Care Education/Training Program; Visit Provider Nurse Practitioner Family | DX: R13.14 Dysphagia, pharyngoesophageal phase (principal); K21.9 Gastro-esophageal reflux disease without esophagitis; K59.00 Constipation, unspecified; K58.9 Irritable bowel syndrome, unspecified; Z12.11 Encounter for screening for malignant neoplasm of colon | CPT/HCPCS: 99212 ==

== ENCOUNTER 2024-07-01 06:12 | Outpatient (REF) | payer OTHER, SELFPAY ==
--- NOTE | ~2024-07-01 | FL_ITS ---
EXAMINATION: FLUORO GUIDANCE IN TREATMENT ROOM CLINICAL INFORMATION: Post laminectomy syndrome, not elsewhere classified. Right lumbar injection. COMPARISON: None available. TECHNIQUE: Fluoroscopy supervised by: Dr. Sal Fulton. Fluoroscopy time: 0.2 minutes. Cumulative Dose: 4.32 mGy. DAP: 0.0750 mGy-m2 (milligray-meter squared). Images: 2. FINDINGS: An epidural needle is seen in the region of the L4-L5 disc space. FL/FL guidance in treatment room IMPRESSION: Fluoroscopy during procedure. Please see procedure report for additional information. Electronically signed by: Bladimir Rodriguez MD 08/27/2024 04:13 PM [facility]
== END 2024-07-01 06:13 | disposition home or self-care (01) ==
LOC: CF 06:12
PROVIDERS: Visit Provider Anesthesiology
DX: M96.1 Postlaminectomy syndrome, not elsewhere classified (principal); M54.16 Radiculopathy, lumbar region
CPT/HCPCS: 62323; J2003; J3301; Q9967

== ENCOUNTER 2024-07-01 09:49 | Outpatient (AMB) | payer OTHER, SELFPAY ==
[2024-07-01 10:19] VITALS: BP 109/51; PULSE 57; O2SAT 100
--- NOTE | 2024-07-01 10:19 | A.OFFVIS_ITS ---
Vital Signs 07/01/24 10:19 07/01/24 10:51 BP 109/51 L 133/58 L Blood Pressure Location Lt brachial Lt brachial Position Sitting Sitting Pulse 57 55 Pulse Source Pulse Oximeter Pulse Oximeter Pulse Oximetry (%) 100 99 Oxygen Delivery Method Room Air Room Air Intake Visit Reasons: RIGHT PARASAGITTAL L4, L5, INTERLAMINAR PRABHJOT Allergies dulaglutide [Trulicity] Adverse Reaction (Unknown, Verified 06/23/24 11:40) diarrhea PFSH Medical History Erectile dysfunction associated with type 2 diabetes mellitus Unsteady gait Asthma Leg weakness Mass of right parotid gland Hypertensive retinopathy of right eye Tubular adenoma of colon Smoker Dyspnea on exertion Vitamin D deficiency Hypertension Diabetic polyneuropathy associated with type 2 diabetes mellitus Diabetic nephropathy associated with type 2 diabetes mellitus 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 Dyslipidemia Diabetes type 2, uncontrolled Surgical History History of esophagogastroduodenoscopy (EGD) Hx of colonoscopy History of amputation of finger History of lumbar surgery Family History Father Medical history unknown Mother Medical history unknown Sister Breast cancer Brother Cancer Social History Household Members: Spouse Alcohol intake: current Alcohol intake frequency: a few times a month Patient Tobacco Use Status: Former Tobacco user Years Smoked: 52 (onset 13yo) Physical Exam Vital Signs: Last Vital Signs Pulse 55 07/01/24 10:51 BP 133/58 L 07/01/24 10:51 Pulse Ox 99 07/01/24 10:51 Oxygen Delivery Method Room Air 07/01/24 10:51 Assessment & Plan Assessment & Plan (1) Postlaminectomy syndrome: Code(s): M96.1 - Postlaminectomy syndrome, not elsewhere classified Category: Medical (2) Lumbar radiculopathy: Code(s): M54.16 - Radiculopathy, lumbar region Category: Medical Plan Interlaminar L4-5 parasagittal to the right epidural steroid injection. Informed consent was obtained were the risks and benefits of the procedure were explained to the patient including risks of bleeding infection peripheral nerve damage spinal cord damage and headache. Patient agreed to go for the procedure. He was taken to the operating room and was positioned prone on operating table, his lower back was opened, it was prepped and draped with ChloraPrep and sterile self adhesive utility towels. Time-out was performed delineating name and date of of the patient nature of the procedure allergies of the patient and current medications. C-arm was brought over the operating field and sq picture of the L5 vertebra was demonstrated on the screen. The upper portion of the L5 lamina was chosen as the initial target of the injection. The projection of the lamina to the skin was injected with small amount of mixture of lidocaine 1%, after that 22 gauge 10 cm Touhy needle was inserted through the skin wheal and advanced to were the epidural space on intermittent anterior posterior and lateral views. Loss of resistance to air technique was used to locate the epidural space. When needle advanced few mm beyond interlaminar line until loss of resistance felt and injection of the contrast was performed delineating epidural spread of the contrast. After that 7 cc of preservative-free lidocaine 1% mixed with Kenalog 40 mg was injected into the epidural space. After that the needle was withdrawn sterile Band-Aid was applied. The patient tolerated the procedure well. He was taken outside of the operating room to recovery room where he recovered uneventfully. Orders: Orders FL guidance in treatment room Today M96.1 - Postlaminectomy syndrome, not elsewhere classified Coding Level of Care Code Procedure Only Diagnoses Postlaminectomy syndrome M96.1 Lumbar radiculopathy M54.16
[2024-07-01 10:51] VITALS: BP 133/58; PULSE 55; O2SAT 99
== END 2024-07-01 10:57 | disposition home or self-care (01) ==
LOC: HO.PMCPRC 09:49
PROVIDERS: PCP Student in an Organized Health Care Education/Training Program; Visit Provider Anesthesiology
DX: M54.16 Radiculopathy, lumbar region (principal); M96.1 Postlaminectomy syndrome, not elsewhere classified
CPT/HCPCS: 62323

== ENCOUNTER 2024-08-04 10:52 | Outpatient (AMB) | payer OTHER, SELFPAY ==
--- NOTE | 2024-08-04 10:54 | MHC.OFFVIS ---
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 Fulton. Patient reports 70% pain relief since procedure with partial improvement in his daily activities, functioning, mobility and sleep. Patient reports better pain relief in his back than right leg pain with injection. He attempted Behavioral evaluation with [facility] for potential SCS trial but due to high out of pocket costs, decided to cancel it. Patient reports he sees Dr. Brown at [facility] for depression which has been under good control with imipramine at bedtime. I will sent referral to Dr. Brown for psychology clearance for potential SCS trial to address patient's chronic back pain with radiculopathy. Denies any recent cough, cold, infection, fever, bladder or bowel dysfunction, saddle anesthesia or other significant changes in medical history since last office visit. Past Procedures: 07/01/24: Right parasagittal L4-L5 Interlaminar PRABHJOT-70% pain relief 09/19/22: Bilateral intra-articular hip steroid injections-80% ongoing pain relief 04/18/22: Caudal PRABHJOT with catheter-0% pain relief PRIOR: Patient presents today for follow up with increasing lower back pain, bilateral hip and leg pain. Patient underwent neurosurgical evaluation by Dr. Ricardo on 06/20/22 and was told that no additional surgery was indicated and was advised to proceed with spinal cord stimulator. Pending behavioral assessment, not completed at [facility] and was sent to [facility] on 08/03/22. Patient has significant bilateral hip pain and groin pain with external and internal hip rotations bilaterally, worse on the right. His back pain continues to radiate down to both of his lower legs posteriorly with numbness and tingling. He ambulates with slow, antalgic gait with use of cane in mildly flexed position due to pain. Reports pain with walking, sitting, standing, or changing positions. Patient would like to proceed with bilateral hip steroid injection under sedation. Denies any fever, abdominal pain, bowel or bladder incontinence or saddle anesthesia. The trialed and failed therapy has been reviewed with the patient. The risks, consequences, alternatives, and benefits of various treatment options were discussed with the patient in great detail, including conservative management, injections and procedures. Plan to proceed with lumbar SCS trial once behavioral assessment is completed. PRIOR: Patient presents today in the office to assess his response to Caudal PRABHJOT with catheter injection on 04/18/22. Patient reports 0% pain relief status post procedure and continues to endorse spinal stenosis related pain. He continues to reports lower back pain with radiation to both of his lower extremity posteriorly with numbness and tingling and parenthesia symptoms in L5-S1 distribution. He also has burning pain in his feet due to chronic diabetic neuropathy. Unfortunately, his insurance did not approve [employer]. Pain continues to affect his daily functioning, sleep and quality of life. We discussed SCS trial previously and behavioral assessment was submitted but not completed. I will refer this patient for neurosurgical evaluation to evaluate if any additional surgery is needed prior to considering SCS trial. Patient cannot tolerate walking more than 5 minutes and ambulates in forward flexed position slowly, with antalgic gait and uses cane. Most recent lumbar MRI was completed in September, and is noted below. Patient denies any fever, weight changes, dizziness, lightheadedness, shortness of breaths, bowel or bladder incontinence or saddle anesthesia. PRIOR: Patient returns today for follow up in the office with worsening of chronic low back pain. He was last seen in our office on 10/17/21. His back pain presents in his lower back that spreads across his lower back and into his bilateral lower extremities posteriorly with shooting, sharp pain and significant numbness and tingling with cramping in both of his feet. Patient reports worsening of chronic painful diabetic neuropathy in his both feet which has been worse at night. Back pain and bilateral neuropathy in his feet has been affecting his daily activities, functioning, sleep and quality of life. At previous visit, his A1C was elevated and we did not proceed with lumbar injections. Patient has had regular follow ups with his spanish moss picker and his most recent A1C was 7.4 on 03/08/22 down from 10.3. Patient was praised for monitoring his blood sugars, medication compliance and his attempts and efforts to adhere to ADA diet. We have discussed caudal epidural injection with catheter and patient agreed to undergo this under local and fluoroscopy. He has been managing his back pain with lidocaine patches, naproxen, intermittent use of gabapentin due to drowsiness and low dose of cyclobenzaprine prn with continued symptoms. Patient reports pain with prolonged standing or walking, pain mildly relieved with rest. He ambulates with antalgic gait with the use of cane. Patient reports he has recently fell last Sunday due to significant back pain while walking with cane at home. Patient reports falling backwards and onto his left side with intermittent neck pain and significant muscle pain in his bilateral trapezius regions. Patient reports he did not go to ER or his PCP for evaluation status post fall and has been feeling better except his back symptoms. He denies loss of consciousness, fever, malaise, dizziness, headache, chest pain, shortness of breaths, abdominal or groin pain, bowel or bladder incontinence or saddle anesthesia. Patient reports bilateral lower extremity weakness due to chronic knee and back pain. PRIOR: Today patient presents to the office for review of lumbar MRI and bilateral knee xray. He is accompanied by his SENIOR ANALYTICAL CHEMIST who is also helps with translation per patient's request. Patient continues to report bilateral knee pain and chronic back pain with right radiculopathy to his right leg laterally and anteriorly to right thigh. He has a prior history of left L5-S1 decompression, discectomy and laminectomy in 2003. He is diabetic with poorly controlled blood sugars with most recent A1C 10.3 on 09/08/21. He states he is followed by our endocrinology services and tries to adhere to ADA diet and closely monitor his blood sugars. Per [facility] notes review, patient last had Left L5-S1 TFESI as well as S1 selective epidurals with nerve root blocks on 01/24/2017. Due to his elevated A1C and poorly controlled diabetes, we will avoid steroid injections at this time. I have placed behavioral evaluation referral for SCS trial at previous visit which is pending. Both lumbar MRI and bilateral knee xrays reports reviewed with patient and are noted below. He notices good relief with lidocaine patches for knee pain and mild improvements with gabapentin, flexeril, and naproxen. Patient denies any fever, malaise, dizziness, weight loss, abdominal or groin pain, bladder/bowel dysfunction or saddle anesthesia. Patient reports lower extremity weakness and difficulty with prolong walking or sitting. Ambulates with antalgic gate and uses cane. [facility] Medical History Erectile dysfunction associated with type 2 diabetes mellitus Unsteady gait Asthma Leg weakness Mass of right parotid gland Hypertensive retinopathy of right eye Tubular adenoma of colon Smoker Dyspnea on exertion Vitamin D deficiency Hypertension Diabetic polyneuropathy associated with type 2 diabetes mellitus Diabetic nephropathy associated with type 2 diabetes mellitus terminal gauger (current) use of insulin Dyslipidemia Diabetes type 2, uncontrolled Surgical History History of esophagogastroduodenoscopy (EGD) Hx of colonoscopy History of amputation of finger History of lumbar surgery Family History Father Medical history unknown Mother Medical history unknown Sister Breast cancer Brother Cancer Social History Household Members: Spouse Alcohol intake: current Alcohol intake frequency: a few times a month Patient Tobacco Use Status: Former Tobacco user Years Smoked: 52 (onset 13yo) Review of Systems Const All systems reviewed & are unremarkable except as noted in HPI and below Physical Exam General: Appears afebrile. No acute distress. Alert and oriented. Mood and affect appropriate. Pleasant. Follows and participates in conversation appropriately. Respiratory effort is unlabored. No cough. Able to transition from sit to stand unassisted. Mildly antalgic gait. Uses cane with ambulation. General: Yes no CVA tenderness Back/Spine/Pelvis Other: Limited lumbar flexion and extension due to pain. Demonstrates 4/5 right and 5/5 left strength of quadriceps bilaterally as well as flexion/dorsiflexion of bilateral feet against resistance. Diminished DTRs bilaterally. Positive Seated SLR with dorsiflexion on the right in L4-L5 distribution. Valsalva maneuvr is negative. Back: no CVA tenderness Cervical Spine: cervical muscular tenderness, pain with cervical ROM and No Cervical spine tenderness Thoracic/Lumbar Spine: thoracic and lumbar spine normal to inspection, Thoracic/lumbar spine scar(s) (midline lower back), Lasegue's sign positive on the right and localized, pain with thoraco-lumbar ROM, paraspinal muscle tenderness, thoraco-lumbar ROM limited with forward flexion (WNL) and with lateral flexion to the left (limited by pain), No thoracic spinal tenderness, No lumbar spinal tenderness and straight leg raise positive (right L4-L5 distribution) Sacroiliac joints: bilaterally tender to palpation Extrem General: Yes capillary refill normal, Yes no clubbing, cyanosis or edema and Yes no calf tenderness Psych Appearance: grossly normal and well kempt Mental Status: mental status grossly normal Speech and movement: Normal speech and movement present and Clear speech present Affect: normal affect Attitude: cooperative Thought process: Normal thought process present Thought content: Normal thought content present, suicidality (none), no hallucinations and Depressive thoughts present Insight: Good insight present (Psych) Judgement: Good judgement present (Psych) Quality Reporting (2019) Depression/Bipolar (159/160/161/177) PHQ-9: Total score: 5 Results Reviewed Results Reviewed: MR LUMBAR SPINE WITHOUT CONTRAST 10/06/21 CLINICAL INFORMATION: Post laminectomy syndrome. Low back and leg pain. COMPARISON: MRI dated 11/24/2016. FINDINGS: VERTEBRAL BODIES AND PARASPINAL STRUCTURES: There are chronic post laminectomy changes at the L4-L5 and L5-S1 levels on the left side. The marrow signal is within normal limits. Mild anteroinferior endplate edema noted at the T12 level with worsened moderate disc space narrowing and anterior endplate spurring at the T12-L1 level. There are no compression fractures. Slight retrosubluxation is stable at the L4-L5 level. No paraspinal soft tissue fluid collections are seen. Renal cysts again visible. The imaged bony pelvis is unremarkable. CONUS MEDULLARIS AND CAUDA EQUINA: Normal, terminating at the level of L2. No lower cord signal abnormality is seen. The cauda equina nerve roots are normal. SPINAL LEVELS: L1-L2 and L2-L3: No significant disc pathology, central canal stenosis, or foraminal narrowing. L3-L4: Mild disc bulge and hypertrophic facet arthropathy resulting in slight narrowing of the central canal compared to prior imaging and mild right foraminal encroachment. L4-L5: Chronic post laminectomy changes and moderate facet arthropathy with a recurrent broad-based central disc protrusion mildly distorting the ventral thecal sac and impressing upon both L5 nerve roots, more so on the left side. Moderate central canal stenosis and mild left foraminal narrowing. L5-S1: Chronic post laminectomy changes and partially resorbed residual small central disc protrusion mildly impressing upon the ventral thecal sac. Underlying disc bulge and hypertrophic facet arthropathy encroach upon the subarticular zones with chronic mass effect upon the traversing S1 nerve roots. Patent foramina. IMPRESSION: Recurrent broad-based central disc protrusion at the L4-L5 level mildly distorting the ventral thecal sac and impressing upon both L5 nerve roots with moderate central canal stenosis and chronic post laminectomy changes. Chronic postoperative changes at L5-S1 with a partially resorbed residual small central disc protrusion mildly distorting the ventral thecal sac. Bulging disc and osseous spurring chronically encroach upon the subarticular zones with mass effect upon the traversing S1 nerve roots. Mild disc bulge and facet arthropathy slightly encroaching upon the central canal at the L3-L4 level. Progressed [id number] spondylosis at the T12-L1 level with mild anterior endplate edema. X-Ray hip BI w PEL1V 10/18/22 IMPRESSION: 1. Small avulsion fracture fragment or osteophyte lateral left acetabulum. 2. No visible acute fracture or dislocation either hips or AP pelvis. XR SOFT TISSUE NECK 05/21/23 CLINICAL INDICATION: Dysphagia. FINDINGS: Soft tissue films of the neck demonstrate a normal larynx, pharynx and upper trachea. No soft tissue swelling or opaque foreign body is demonstrated. There is moderately severe degenerative disc disease at C4-C5 and C5-C6, and mild to moderate degenerative disc disease is seen at C6-C7. There are calcifications of the ligamentum nuchae. There are bilateral carotid atherosclerotic calcifications, right greater than left. IMPRESSION: 1. Unremarkable radiographic appearance of the soft tissues of the neck. 2. There are degenerative changes of the spine, as detailed. 3. There are bilateral carotid atherosclerotic calcifications, which may be more fully evaluated with dedicated carotid ultrasound, if clinically indicated. XR SHOULDER, LEFT 05/03/23 CLINICAL INFORMATION: Pain and abrasion status-post fall. FINDINGS: Bony alignment and mineralization are normal. The glenohumeral joint is intact. The acromioclavicular and coracoclavicular intervals are normal. No fracture or dislocation is seen. There is a small distal acromial undersurface osteophyte. There is very mild calcific tendinitis of the left rotator cuff insertion. No foreign body is seen. There is no left pneumothorax. IMPRESSION: 1. No fracture or dislocation is seen. 2. There is very mild calcific tendinitis of the left rotator cuff. Assessment & Plan Assessment & Plan (1) Degenerative lumbar spinal stenosis: Code(s): M48.061 - Spinal stenosis, lumbar region without neurogenic claudication Category: Medical (2) Failed back syndrome: Code(s): M96.1 - Postlaminectomy syndrome, not elsewhere classified Category: Medical (3) Postlaminectomy syndrome: Code(s): M96.1 - Postlaminectomy syndrome, not elsewhere classified Category: Medical (4) Chronic pain syndrome: Code(s): G89.4 - Chronic pain syndrome Category: Medical (5) Bilateral hip pain: Code(s): M25.551 - Pain in right hip; M25.552 - Pain in left hip Category: Medical Plan Patient is one month status post Right Parasaggital L4-L5 Interlaminar PRABHJOT with ongoing 70% pain relief more in his back than right leg. He has prior history of left L5-S1 decompression, discectomy and laminectomy in 2003 and worsening radicular back pain was evaluated by Dr. Ricardo on 06/20/22 and was told that he is not a candidate for additional surgery and advised patient to undergo evaluation for SCS trial. We reviewed SCS trial and implant again for post-laminectomy and diabetic neuropathy syndromes. Patient attempted behavioral evaluation through [facility] but due to high out of pocket cost, he cancelled it. Placed referral for psychology clearance in anticipation of SCS trial to patient's Psychologist at [facility], Dr. Brown. Will proceed with [facility] Lumbar SCS trial pending psychology clearance. All questions and concerns answered and patient agreed with the plan. Follow up after behavioral evaluation and sooner if needed. Orders: Referrals Psychology Referral M48.061 - Spinal stenosis, lumbar region without neurogenic claudication, M96.1 - Postlaminectomy syndrome, not elsewhere classified Coding Level of Care Code Est Pt Level 4 (13951) Complex EM visit Add On G2211 Diagnoses Degenerative lumbar spinal stenosis M48.061 Failed back syndrome M96.1 Postlaminectomy syndrome M96.1 Chronic pain syndrome G89.4 Bilateral hip pain M25.551; M25.552 Additional Codes PHQ-9 - 12158 - PHQ-9 Billing: Yes ([id number]) PHQ-9 Over the last 2 weeks, how often have you been bothered by any of the following problems? 1. Little interest or pleasure in doing things: not at all 2. Feeling down, depressed, or hopeless: not at all 3. Trouble falling or staying asleep, or sleeping too much: more than half the days 4. Feeling tired or having little energy: several days 5. Poor appetite or overeating: several days 6. Feeling bad about yourself - or that you are a failure or have let yourself or your family down: not at all 7. Trouble concentrating on things, such as reading the newspaper or watching television: not at all 8. Moving or speaking so slowly that other people could have noticed. Or the opposite - being so fidgety or restless that you have been moving around a lot more than usual: several days 9. Thoughts that you would be better off or of hurting yourself in some way: not at all Total score: 5 Depression Screening Interpretation: Positive Depression Screening Follow-up: Existing condition and In treatment Depression Screening Done: Yes 16371 - PHQ-9 Billing: Yes Source: Developed by Drs. Marcus Lama, Paola Deleon, Alok Ruiz and colleagues, with an educational dawson from [employer].
[2024-08-04 10:58] VITALS: BP 132/60; PULSE 59; BMI 23.7
== END 2024-08-04 11:28 | disposition home or self-care (01) ==
PROVIDERS: PCP Student in an Organized Health Care Education/Training Program; Visit Provider Nurse Practitioner Family
DX: M48.061 Spinal stenosis, lumbar region without neurogenic claudication (principal); M96.1 Postlaminectomy syndrome, not elsewhere classified; G89.4 Chronic pain syndrome; M25.551 Pain in right hip; M25.552 Pain in left hip
CPT/HCPCS: 99214; G2211

== ENCOUNTER → 2024-08-04 14:31 | Outpatient (BNV) | payer OTHER, SELFPAY | PROVIDERS: PCP Student in an Organized Health Care Education/Training Program; Referring Provider Student in an Organized Health Care Education/Training Program; Visit Provider Internal Medicine Medical Oncology | DX: D61.818 Other pancytopenia (principal) | CPT/HCPCS: 99204 ==

== ENCOUNTER → 2024-08-22 12:53 | Outpatient (BNVA) | payer OTHER, SELFPAY | PROVIDERS: PCP Student in an Organized Health Care Education/Training Program; Visit Provider Physician Assistant | DX: E11.21 Type 2 diabetes mellitus with diabetic nephropathy (principal); I10 Essential (primary) hypertension; E78.5 Hyperlipidemia, unspecified; E11.42 Type 2 diabetes mellitus with diabetic polyneuropathy; Z79.4 Long term (current) use of insulin | CPT/HCPCS: 82947; 99212 ==

== ENCOUNTER → 2024-09-05 14:58 | Outpatient (BNVA) | payer OTHER, SELFPAY | PROVIDERS: PCP Student in an Organized Health Care Education/Training Program; Visit Provider Physician Assistant | DX: E11.21 Type 2 diabetes mellitus with diabetic nephropathy (principal); I95.2 Hypotension due to drugs | CPT/HCPCS: 82947; 83036; 99212 ==

== ENCOUNTER → 2024-09-05 14:58 | Outpatient (AMB) | payer OTHER, SELFPAY ==
--- NOTE | 2024-09-05 15:00 | MHC.OFFVIS ---
Vital Signs 09/05/24 15:05 Height 5 ft 11 in Weight 189 lb 13.088 oz BMI 26.5 BP 96/48 L Blood Pressure Location Lt brachial Position Sitting Pulse 64 Pulse Source Pulse Oximeter Pulse Oximetry (%) 98 Oxygen Delivery Method Room Air Intake Visit Reasons: Recheck bp and DM Intake Note: Patient present today for Type 2 Diabetes Mellitus Last Diabetic eye exam: 12/2023 Last Podiatry Visit: Doesn't have one Random Glucose: 186 mg/dl HgA1C: 7.1% School Health Assistant Required: Yes School Health Assistant Language: [employer]: School Health Assistant Present School Health Assistant Name: Román [id number] Information Interpreted: non-clinical & clinical Accompanied by: Self / Same As Patient Allergies dulaglutide [Trulicity] Adverse Reaction (Unknown, Verified 09/05/24 15:08) diarrhea Medication List - Last Reconciled 09/05/24 by Chana Hanson PA-C acetaminophen ER (Arthritis Pain Reliever) 650 mg PO Q8H PRN 90 days alcohol swabs (Alcohol Prep Pads) 1 pad topical QID amlodipine 10 mg PO DAILY apremilast (Otezla) 30 mg PO BID aspirin 81 mg PO BEDTIME bempedoic acid-ezetimibe 180-10 mg (Nexlizet) 1 tab PO DAILY betamethasone dipropionate 0.05% 0.05 ea topical DAILY MRX1 bisacodyl (Dulcolax (bisacodyl)) 20 mg (4 x 5 mg) PO ONCE 1 day blood-glucose meter (FreeStyle Lite Meter kit) 4 times a day cetirizine (Zyrtec) 10 mg PO DAILY PRN cholecalciferol (vitamin D3) (Vitamin D3) 50 mcg PO QAM cyclobenzaprine 5 mg PO TID PRN dapagliflozin propanediol (Farxiga) 5 mg PO QAM [electric wheelchair As directed] esomeprazole magnesium (Nexium) 40 mg PO DAILY famotidine 40 mg PO BEDTIME flash glucose scanning reader (FreeStyle Luis 2 [place]) As directed flash glucose sensor (FreeStyle Luis 2 Sensor kit) USE DIRECTED. CHANGE EVERY 14 DAYS FreeStyle Lite Strips (blood sugar diagnostic) TEST BLOOD SUGAR FOUR TIMES DAILY NS gabapentin 100 mg PO TID PRN glucagon 3 mg/actuation (Baqsimi) 3 mg intranasal ONCE imipramine HCl 25 mg PO BEDTIME insulin aspart (niacinamide) 100 unit/mL (3 mL) 3 units subcut TID 30 days insulin glargine U-300 conc (Toujeo SoloStar U-300 Insulin) 15 units (0.05 mL) subcut BEDTIME lancets (FreeStyle Lancets) 4 times a day metformin ER 1,000 mg (2 x 500 mg) PO BID methylcellulose (laxative) (Fiber Laxative (methylcellulose)) 0 mg PO DAILY metoprolol succinate ER 12.5 mg PO QAM pen needle, diabetic (BD Miriam 2nd Gen Pen Needle) 5 times a day polyethylene glycol 3350 (Miralax) 238 grams PO ONCE Praluent Pen (alirocumab) 150 mg subcut Q2W NS semaglutide (Ozempic) 2 mg (0.75 mL) subcut QWEEK sennosides (Natural Senna Laxative) 17.2 mg (2 x 8.6 mg) PO BEDTIME tadalafil 5 mg PO DAILY 90 days tamsulosin 0.4 mg PO BEDTIME 90 days umeclidinium-vilanterol 62.5-25 mcg/actuation (Anoro Ellipta) 1 ea PO DAILY Ventolin HFA 90 mcg/actuation (albuterol sulfate) 2 puffs PO Q6H PRN 30 days NS zolpidem 5 mg PO BEDTIME PRN HPI HPI Recheck bp and DM: Details: Patient is a 69 -year-old male with a PMH of GERD, anxiety, asthma, arthritis, history of alcohol and cocaine abuse, hypertension, hyperlipidemia presenting today for follow-up of his type 2 diabetes. He denies any acute concerns today. School Health Assistant: Román [id number] Endo: DM- He was dx in 1989. His last A1c was 6.7. He is currently on Toujeo to 15 units, Novolog 3 units with meals, metformin 2000 mg QD, Ozempic 2 mg Q wkly, Farxiga 5 mg QD CGM-Luis download shows he is wearing the sensor 96% of the time. Average glucose is 127 with G mi of 6.5% and variability 32%. He is in target range 83% of the time with 15% hyperglycemia and 2% hypoglycemia. -he states the hypoglycemic event on sensor is wrong because he was laying on it. He is tolerating the increased dose of the Ozempic. had diarrhea with Trulicity 0.75 mg weekly He had elevated CPK on statin, currently on Praluent 150 mg every 2 weeks and Zetia 10 mg daily. Nexlizet Last ophthalmology evaluation: appt 12/2023. no diabetic retinopathy was has hypertensive retinopathy. CV: Blood pressure today in the office is 96/48. He is currently on metoprolol 12.5 mg daily, hydrochlorothiazide 25 mg, amlodipine 10 mg. He states at home they are normal/low. Our last visit it was on the lower side. [facility] Medical History Erectile dysfunction associated with type 2 diabetes mellitus Unsteady gait Asthma Leg weakness Mass of right parotid gland Hypertensive retinopathy of right eye Tubular adenoma of colon Smoker Dyspnea on exertion Vitamin D deficiency Hypertension Diabetic polyneuropathy associated with type 2 diabetes mellitus Diabetic nephropathy associated with type 2 diabetes mellitus alf (current) use of insulin Dyslipidemia Diabetes type 2, uncontrolled Surgical History History of esophagogastroduodenoscopy (EGD) Hx of colonoscopy History of amputation of finger History of lumbar surgery Family History Father Medical history unknown Mother Medical history unknown Sister Breast cancer Brother Cancer Social History Household Members: None Alcohol intake: current Alcohol intake frequency: a few times a month Patient Tobacco Use Status: Former Tobacco user Years Smoked: 52 (onset 13yo) Physical Exam Vital Signs: Last Vital Signs Pulse 64 09/05/24 15:05 BP 96/48 L 09/05/24 15:05 Pulse Ox 98 09/05/24 15:05 Oxygen Delivery Method Room Air 09/05/24 15:05 BMI result Body Mass Index 26.5 Const Orientation/consciousness: patient oriented x3 HEENT Ears: hearing grossly normal bilaterally Neck Thyroid: Thyroid normal Lymphatic: no lymphadenopathy noted Resp Auscultation: clear to auscultation bilaterally Cardio Rate: regular rate Rhythm: regular rhythm Heart sounds: S1 normal heart sound present and S2 normal heart sound present Skin General skin exam: no rashes or lesions noted Neuro General: patient oriented x3, gait normal and no focal motor deficits Results AMB Hemoglobin A1c AMB Hemoglobin A1c 7.1 % Last Edit by KAMLESH Cox on 09/05/24 15:20 Results Reviewed Results Reviewed: Laboratory Tests 06/18/24 08/04/24 09/05/24 09:35 15:14 15:09 Sodium 140 Potassium 4.6 Chloride 108 Carbon Dioxide 27 Anion Gap 10 L BUN 20 H Creatinine 1.12 Estimated GFR > 60 Glucose (Clinic) 186 H Random Glucose 211 H Triglycerides 72 Cholesterol 106 LDL Cholesterol, Calc 48 HDL Cholesterol 44 Urine Creatinine 208.88 Urine Microalbumin 95.0 Microalb/Creat Ratio 45.4 H Assessment & Plan Assessment & Plan (1) Diabetic nephropathy associated with type 2 diabetes mellitus: Code(s): E11.21 - Type 2 diabetes mellitus with diabetic nephropathy Category: Medical Plan: continue current treatment plan tolerating new dose of ozempic he will follow up 1-2 months to be recheck (2) Hypotension: Code(s): I95.9 - Hypotension, unspecified Category: Medical Qualifiers: Hypotension type: hypotension due to drug Qualified Code(s): I95.2 - Hypotension due to drugs Plan: stop the hctz continue amlodipine 10 mg and metoprolol 12.5 mg Orders: Orders AMB Hemoglobin A1c Today E11.21 - Type 2 diabetes mellitus with diabetic nephropathy, Z13.9 - Encounter for screening, unspecified Patient Instructions: stop hydrochlorothiazide monitor bps at home labs prior Coding Level of Care Code Est Pt Level 4 (25162) Diagnoses Diabetic nephropathy associated with type 2 diabetes mellitus E11.21 Hypotension due to drugs I95.2 Hypotension type: hypotension due to drug
[2024-09-05 15:05] VITALS: BP 96/48; PULSE 64; O2SAT 98; BMI 26.5
[2024-09-05 15:15] LABS: Glucose, Whole Blood 186 mg/dL (60-115)
== END ==
PROVIDERS: PCP Student in an Organized Health Care Education/Training Program; Visit Provider Physician Assistant
DX: E11.21 Type 2 diabetes mellitus with diabetic nephropathy (principal); I95.2 Hypotension due to drugs; Z13.9 Encounter for screening, unspecified

== ENCOUNTER 2024-09-25 08:44 | Day surgery (SDC) | payer OTHER, SELFPAY ==
--- NOTE | 2024-09-24 09:57 | HO.ANESPROP2 ---
Documented by User: Lizbet Sutherland NP 09/24/24 09:59 HPI - Anesthesia Eval Consult details Narrative: 69yo M for Upper Endoscopy and Colonoscopy Follows [facility] Cardiology for HTN, darin. Stable at routine yearly visit 07/2024 with 1 year f/u. Anesthesia Pre-Procedure Meds Is the patient on any of the following meds?: GLP1/DPP4 and SGLT2 Inhib PMFSH Active Problems Active Problems: All Active Problems Hypotension (Acute) Pancytopenia (Acute) Renal cyst (Acute) Bilateral hip pain (Acute) Erectile dysfunction associated with type 2 diabetes mellitus (Acute) BPH loc w urin obs/LUTS (Acute) Chronic pain syndrome (Acute) Postlaminectomy syndrome (Acute) Neck pain (Acute) Bilateral knee pain (Acute) Osteoarthritis (Acute) Claustrophobia (Acute) Failed back syndrome (Acute) Degenerative lumbar spinal stenosis (Acute) Unsteady gait (Acute) Asthma (Acute) Leg weakness (Acute) Smoker (Acute) Dyspnea on exertion (Acute) Vitamin D deficiency (Acute) Hypertension (Acute) Diabetic polyneuropathy associated with type 2 diabetes mellitus (Acute) Diabetic nephropathy associated with type 2 diabetes mellitus (Acute) 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 (Acute) Dyslipidemia (Acute) Past Medical History Medical History Erectile dysfunction associated with type 2 diabetes mellitus Unsteady gait Asthma Leg weakness Mass of right parotid gland Hypertensive retinopathy of right eye Tubular adenoma of colon Smoker Dyspnea on exertion Vitamin D deficiency Hypertension Diabetic polyneuropathy associated with type 2 diabetes mellitus Diabetic nephropathy associated with type 2 diabetes mellitus [facility] (current) use of insulin Dyslipidemia Diabetes type 2, uncontrolled Family History Family History Father Medical history unknown Mother Medical history unknown Sister Breast cancer Brother Cancer Family history of problems with anesthesia: No Surgical History Surgical History History of esophagogastroduodenoscopy (EGD) Hx of colonoscopy History of amputation of finger History of lumbar surgery History of Problems with Anesthesia: No Social History Social History Household Members: None Are you a primary long term care social worker to a significant other at home: No Do you presently have visiting nurse or other home services: No Alcohol intake: current Alcohol intake frequency: former alcohol drinker Patient Tobacco Use Status: Former Tobacco user Years Smoked: 52 (onset 13yo) Have you been hit, kicked, punched, or otherwise hurt by someone within the past year? If so, by whom?: No Are you DNR?: No Advance Directives: No Advance Directives Information Provided: Yes Recently lost weight without trying: No Nutrition Risks: No Nutritional Risk Meds Allergies Allergy/AdvReac Type Severity Reaction Status Date / Time dulaglutide [Trulicity] AdvReac Unknown diarrhea Verified 09/25/24 10:07 Home Medications ?Medication ?Instructions ?Recorded ?Confirmed ?Last Taken ?Type imipramine HCl 25 mg tablet 25 mg PO BEDTIME 08/09/20 09/25/24 Unknown History metoprolol succinate 25 mg 12.5 mg PO QAM 08/09/20 09/25/24 04/13/22 History tablet,extended release 24 hr zolpidem 5 mg tablet 5 mg PO BEDTIME PRN Sleep 08/09/20 09/25/24 Unknown History flash glucose scanning reader 03/08/22 09/25/24 Unknown History (FreeStyle Luis 2 [place]) cyclobenzaprine 5 mg tablet 5 mg PO TID PRN Muscle Spasm 03/20/22 09/25/24 Unknown History methylcellulose (laxative) 500 mg 0 mg PO DAILY 09/19/22 09/25/24 Unknown History tablet (Fiber Laxative (methylcellulose)) amlodipine 10 mg tablet 10 mg PO DAILY 09/20/23 09/25/24 Unknown History apremilast 30 mg tablet (Otezla) 30 mg PO BID 09/20/23 09/25/24 Unknown History betamethasone dipropionate 0.05 % 0.05 ea topical DAILY MRX1 01/15/24 09/25/24 Unknown History topical ointment Exam Pertinent Lab Results Pertinent Lab Results: Laboratory Tests 08/04/24 15:14 WBC 3.4 L Hgb 12.8 L Hct 39.6 L Plt Count 127 L Sodium 140 Potassium 4.6 Chloride 108 Carbon Dioxide 27 BUN 20 H Creatinine 1.12 Narrative Narrative: ECHO 2023 Conclusions: - 1. Normal LV ejection fraction of 60 65% 2. Mildly dilated left atrium 3. Normal cardiac valvular Doppler 4. Normal RV systolic pressure 5. No pericardial effusion Assessment and Plan Assessment Anesthesia Assessment: Chart Reviewed Final Anesthetic Review Family History of Problems with Anesthesia: No History of Problems with Anesthesia: No Documented by User: Ok Nuñez MD 09/25/24 11:06 [facility] Past Medical History Medical History Erectile dysfunction associated with type 2 diabetes mellitus Unsteady gait Asthma Leg weakness Mass of right parotid gland Hypertensive retinopathy of right eye Tubular adenoma of colon Smoker Dyspnea on exertion Vitamin D deficiency Hypertension Diabetic polyneuropathy associated with type 2 diabetes mellitus Diabetic nephropathy associated with type 2 diabetes mellitus [facility] (current) use of insulin Dyslipidemia Diabetes type 2, uncontrolled Family History Family History Father Medical history unknown Mother Medical history unknown Sister Breast cancer Brother Cancer Surgical History Surgical History History of esophagogastroduodenoscopy (EGD) Hx of colonoscopy History of amputation of finger History of lumbar surgery Social History Social History Household Members: None Are you a primary long term care social worker to a significant other at home: No Do you presently have visiting nurse or other home services: No Alcohol intake: current Alcohol intake frequency: former alcohol drinker Patient Tobacco Use Status: Former Tobacco user Years Smoked: 52 (onset 13yo) Have you been hit, kicked, punched, or otherwise hurt by someone within the past year? If so, by whom?: No Are you DNR?: No Advance Directives: No Advance Directives Information Provided: Yes Recently lost weight without trying: No Nutrition Risks: No Nutritional Risk Meds Allergies Allergy/AdvReac Type Severity Reaction Status Date / Time dulaglutide [Trulicity] AdvReac Unknown diarrhea Verified 09/25/24 10:07 Home Medications ?Medication ?Instructions ?Recorded ?Confirmed ?Last Taken ?Type imipramine HCl 25 mg tablet 25 mg PO BEDTIME 08/09/20 09/25/24 Unknown History metoprolol succinate 25 mg 12.5 mg PO QAM 08/09/20 09/25/24 04/13/22 History tablet,extended release 24 hr zolpidem 5 mg tablet 5 mg PO BEDTIME PRN Sleep 08/09/20 09/25/24 Unknown History flash glucose scanning reader 03/08/22 09/25/24 Unknown History (FreeStyle Luis 2 [place]) cyclobenzaprine 5 mg tablet 5 mg PO TID PRN Muscle Spasm 03/20/22 09/25/24 Unknown History methylcellulose (laxative) 500 mg 0 mg PO DAILY 09/19/22 09/25/24 Unknown History tablet (Fiber Laxative (methylcellulose)) amlodipine 10 mg tablet 10 mg PO DAILY 09/20/23 09/25/24 Unknown History apremilast 30 mg tablet (Otezla) 30 mg PO BID 09/20/23 09/25/24 Unknown History betamethasone dipropionate 0.05 % 0.05 ea topical DAILY MRX1 01/15/24 09/25/24 Unknown History topical ointment Exam Airway Mallampati Class: I TM Dist: >3cm Neck ROM: Full Denture: Upper and Lower Heart: ok Lungs: ok Assessment and Plan Assessment Anesthesia Assessment: Anesthesia Plan Discussed Final Anesthetic Review NPO: Yes ASA Class: III Final Preanesthetic Review: No Changes in Pt Med Stat, Meds/Allgs Chart Reviewed, Consent Obtained/Reviewed and Anes Risks/Benef Reviewed Patient Risk: Intermediate Procedure Risk: Intermediate Anesthetic Plan Anesthetic Plan: Agree w/ Assess. and Plan and TIVA Disposition: Standard PACU
[2024-09-25 10:06] VITALS: BMI 25.2
[2024-09-25 10:23] LABS: Glucose, Whole Blood 134 mg/dL (60-115)
[2024-09-25 10:26] VITALS: BP 155/86; PULSE 64; RESP 18; TEMP 36.7; O2SAT 100
[2024-09-25] MEDS: Lactated Ringers 1,000 ML 100 ML IVCONT (10:28)
--- NOTE | 2024-09-25 10:55 | P.HPSUR_ITS ---
Pre-Procedural Eval Section A - 24 Hr Update-Section A only Date of Service: 09/25/24 Section B - Complete if H&P > 30 days Chief Complaint: Encounter for screening for malignant neoplasm of Relevant Family History (Specify if Yes): No Relevant Social History: None Present Medications: see Short Stay Collaborative assessment Medical History: Significant History (Erectile dysfunction associated with type 2 diabetes mellitus Unsteady gait Asthma Leg weakness Mass of right parotid gland Hypertensive retinopathy of right eye Tubular adenoma of colon Smoker Dyspnea on exertion Vitamin D deficiency Hypertension Diabetic polyneuropathy associated with type 2 diabe) History of Previous Operations: Relevant previous surgery/procedure and date(s) ( History of esophagogastroduodenoscopy (EGD) Hx of colonoscopy History of amputation of finger History of lumbar surgery) Allergies: Allergies Allergy/AdvReac Type Severity Reaction Status Date / Time dulaglutide [Trulicity] AdvReac Unknown diarrhea Verified 09/25/24 10:07 Review of Systems Sugical H&P ROS: Negative: Constitution, Cardiovascular, Respiratory, Neurological, Psychiatric, Hem-Onc, Allergic/Immunologic, Gastrointestinal, Genitourinary, Musculoskeletal, Integumentary, Endocrine and Eyes/Ears/No se/Throat Exam Surgical H&P Exam: Normal: HEENT, Normal: Heart, Normal: Lungs, Normal: Extremities, Normal: Abdomen, Normal: Skin and Normal: Neurological Plan Diagnosis/Plan: Unchanged I have reviewed the history and physical and performed a pertinent physical examination on my patient. No changes have occurred unless specified. Time Spent With Patient Time: Total time managing care of this patient today ____ minutes.
[2024-09-25 11:02] LABS: Amphetamine Screen Urine Not Detected (Not Detect); Barbiturates, Urine Not Detected (Not Detect); Benzodiazepines Screen Urine Not Detected (Not Detect); Buprenorphine Scr Not Detected (Not Detect); Cannabinoid Screen Urine Not Detected (Not Detect); Cocaine Screen Urine Not Detected (Not Detect); Fentanyl, urine Not Detected (Not Detect); Methadone Screen, Urine Not Detected (Not Detect); Opiate Screen Urine Not Detected (Not Detect); Oxycodone Screen Urine Not Detected (Not Detect); Phencyclidine Screen Urine Not Detected (Not Detect)
--- NOTE | 2024-09-25 11:22 | HO.OPN-COLON ---
Colonoscopy Operative Note Operative Note Date of Service: 09/25/24 Narrative: Operative Information Procedure Description: EGD, Colonoscopy Indication: dysphagai and hx of colon polyps Anesthesia: MAC FLEXIBLE TRANSORAL UPPER GASTROINTESTINAL ENDOSCOPY AND COLONOSCOPY PROCEDURE NOTE UPPER ENDOSCOPY Consent: Indications for the procedure and potential complications of bleeding, perforation, reaction to medications and missed diagnosis were discussed with the patient and informed consent was obtained. Instrument: Olympus GIF H 190 J mid size upper endoscope Monitoring: Vital signs and clinical assessment, continuous EKG monitoring, Pulse oximetry, Carbon Dioxide monitoring and blood pressure monitoring were done throughout the procedure. Procedure: The patient was placed in the left lateral decubitis position and pre-procedure medications were administered and a bite block was placed. The endoscope was inserted into the mouth and advanced under direct vision to the third part of duodenum. A careful inspection was made as the upper endoscope was withdrawn including a retroflexed examination of the proximal stomach; Findings and interventions are described below. Findings: Larynx:normal Esophagus: GE junction at 40 cm, diaphragm hiatus at 42 cm, consistent with 2 cm sliding hiatal hernia with mild esophagitis, bx taken from GEJ, and distal esophagus. Balloon dilation done to 20 mm at LES and UEs, no tears seen Stomach: Patchy erythematous mucosa. Biopsies were obtained. Grade 2 flap valve on retroflexed examination of the cardia. Duodenum: Normal bulb and descending duodenum, samll adenoma appearing lesion noted 4-5 mm removed with cold forceps Intervention: Biopsies as noted above, balloon dilation COLONOSCOPY Instrument: Olympus variable stiffness pediatric scope 190L Colonoscopy Monitoring: Vital signs and clinical assessment, continuous EKG monitoring, Pulse oximetry, Carbon Dioxide monitoring and blood pressure monitoring were done throughout the procedure. Colon withdrawal time was 9 minutes. Procedure: The patient was placed in the left lateral decubitis position and pre-procedure medications were administered. After a digital rectal examination of the ano-rectum, the video colonoscope was inserted into the rectum and advanced through the colon to the cecum/TI. The colonoscope was slowly withdrawn in a retrograde panoramic fashion and the colon mucosa was carefully examined including a retroflexed view of the rectum. Findings and interventions are described below. Procedure Difficulty:moderate Findings: Terminal Ileum-normal Cecum: x 1 sessile polyp 4-6 mm removed with cold forceps Ascending Colon: normal Transverse Colon - x 2 sessile polyps 4-5 mm removed with cold forceps Descending Colon: 10 mm sessile polyp removed with cold snare Sigmoid Colon: mild diverticulosis Rectum: Retroflexion with small internal hemorrhoids, grade I Anorectum - normal Colon preparation: [place] Bowel Preparation Scale Right colon; 2 Transverse colon: 2 Left colon; 1-2 (0 = Unprepared colon segment with mucosa not seen due to solid stool that cannot be cleared. 1 = Portion of mucosa of the colon segment seen, but other areas of the colon segment not well seen due to staining, residual stool and/or opaque liquid. 2 = Minor amount of residual staining, small fragments of stool and/or opaque liquid, but mucosa of colon segment seen well. 3 = Entire mucosa of colon segment seen well with no residual staining, small fragments of stool or opaque liquid) Impression and Post Procedure Diagnosis: Endoscopy Findings: gastritis duodenal adenoma Colonoscopy Findings: diverticulosis colon polyps internal hemorrhoids Plan: Await Pathology results Repeat Colonoscopy in 2-3 years due to some areas of fair prep or earlier if clinically indicated High fiber diet leaflet avoid straining at stool, epsom salts and sitz bath, anusol supps or cream GERD precautions Above findings were reviewed with the patient and relevant handouts were provided if indicated.
[2024-09-25 11:47] VITALS: BP 88/48; PULSE 56; RESP 18; TEMP 36.2; O2SAT 96
[2024-09-25 12:01] VITALS: BP 123/68; PULSE 66; RESP 20; TEMP 36.2; O2SAT 97
== END 2024-09-25 13:14 | disposition home or self-care (01) ==
PROVIDERS: Nurse Practitioner; PCP Student in an Organized Health Care Education/Training Program; Visit Provider Internal Medicine Gastroenterology
PROC: (CPT 45385; principal; 2024-09-25 11:40)
DX: Z12.11 Encounter for screening for malignant neoplasm of colon (principal); Z86.0101 Personal history of adenomatous and serrated colon polyps; D12.0 Benign neoplasm of cecum; D12.3 Benign neoplasm of transverse colon; D12.4 Benign neoplasm of descending colon; K57.30 Diverticulosis of large intestine without perforation or abscess without bleeding; K64.0 First degree hemorrhoids; K58.9 Irritable bowel syndrome, unspecified; K59.01 Slow transit constipation; R13.14 Dysphagia, pharyngoesophageal phase; K29.50 Unspecified chronic gastritis without bleeding; K20.80 Other esophagitis without bleeding; K21.9 Gastro-esophageal reflux disease without esophagitis; K31.7 Polyp of stomach and duodenum; K44.9 Diaphragmatic hernia without obstruction or gangrene; I10 Essential (primary) hypertension; H35.031 Hypertensive retinopathy, right eye; E11.42 Type 2 diabetes mellitus with diabetic polyneuropathy; J45.909 Unspecified asthma, uncomplicated; R06.09 Other forms of dyspnea; R26.81 Unsteadiness on feet; E55.9 Vitamin D deficiency, unspecified; Z79.4 Long term (current) use of insulin; Z79.61 Long term (current) use of immunomodulator; Z79.899 Other long term (current) drug therapy; Z88.8 Allergy status to other drugs, medicaments and biological substances; Z89.021 Acquired absence of right finger(s); Z98.890 Other specified postprocedural states; Z87.891 Personal history of nicotine dependence
CPT/HCPCS: 45385; 45380; 43249; 43239; 80307; 82947; 88305; 88313; 88342; C1726; J2003; J2704; J3010

== ENCOUNTER → 2024-09-25 08:44 | Outpatient (BNV) | payer OTHER, SELFPAY | PROVIDERS: PCP Student in an Organized Health Care Education/Training Program; Visit Provider Internal Medicine Gastroenterology | DX: Z12.11 Encounter for screening for malignant neoplasm of colon (principal); Z86.0100 Personal history of colon polyps, unspecified; D12.0 Benign neoplasm of cecum; D12.3 Benign neoplasm of transverse colon; D12.4 Benign neoplasm of descending colon; K57.30 Diverticulosis of large intestine without perforation or abscess without bleeding; K64.0 First degree hemorrhoids; R13.10 Dysphagia, unspecified; K21.00 Gastro-esophageal reflux disease with esophagitis, without bleeding; K29.70 Gastritis, unspecified, without bleeding; D13.2 Benign neoplasm of duodenum | CPT/HCPCS: 43239; 43249; 45380; 45385 ==

== ENCOUNTER 2024-10-08 15:10 | Outpatient (AMB) | payer OTHER, SELFPAY ==
--- NOTE | 2024-10-08 15:12 | A.OFFVIS_ITS ---
Intake Visit Reasons: 6m/PSA/PVR Intake Note: Patient is present for 6M/PSA/PVR Urology Medication:TADALAFIL,TAMSULOSIN Antibiotic Allergy:NONE Blood Thinner:ASPIRIN Last PVR:21ML'S Todays PVR:25ML'S Wall Man Required: No Wall Man Services: Wall Man Present Wall Man Name: JOSE PAULASAAD Allergies dulaglutide [Trulicity] Adverse Reaction (Unknown, Verified 10/08/24 16:12) diarrhea Medication List - Last Reconciled 10/08/24 by LAKESHA Cobb acetaminophen ER (Arthritis Pain Reliever) 650 mg PO Q8H PRN 90 days alcohol swabs (Alcohol Prep Pads) 1 pad topical QID amlodipine 10 mg PO DAILY apremilast (Otezla) 30 mg PO BID aspirin 81 mg PO BEDTIME bempedoic acid-ezetimibe 180-10 mg (Nexlizet) 1 tab PO DAILY betamethasone dipropionate 0.05% 0.05 ea topical DAILY MRX1 bisacodyl (Dulcolax (bisacodyl)) 20 mg (4 x 5 mg) PO ONCE 1 day blood-glucose meter (FreeStyle Lite Meter kit) 4 times a day cetirizine (Zyrtec) 10 mg PO DAILY PRN cholecalciferol (vitamin D3) (Vitamin D3) 50 mcg PO QAM cyclobenzaprine 5 mg PO TID PRN dapagliflozin propanediol (Farxiga) 5 mg PO QAM [electric wheelchair As directed] esomeprazole magnesium (Nexium) 40 mg PO DAILY famotidine 40 mg PO BEDTIME flash glucose scanning reader (FreeStyle Luis 2 [place]) As directed flash glucose sensor (FreeStyle Luis 2 Sensor kit) USE DIRECTED. CHANGE EVERY 14 DAYS FreeStyle Lite Strips (blood sugar diagnostic) TEST BLOOD SUGAR FOUR TIMES DAILY NS gabapentin 100 mg PO TID PRN glucagon 3 mg/actuation (Baqsimi) 3 mg intranasal ONCE imipramine HCl 25 mg PO BEDTIME insulin aspart (niacinamide) 100 unit/mL (3 mL) 3 units subcut TID 30 days insulin glargine U-300 conc (Toujeo SoloStar U-300 Insulin) 15 units (0.05 mL) subcut BEDTIME lancets (FreeStyle Lancets) 4 times a day metformin ER 1,000 mg (2 x 500 mg) PO BID methylcellulose (laxative) (Fiber Laxative (methylcellulose)) 0 mg PO DAILY metoprolol succinate ER 12.5 mg PO QAM pen needle, diabetic (BD Miriam 2nd Gen Pen Needle) 5 times a day polyethylene glycol 3350 (Miralax) 238 grams PO ONCE Praluent Pen (alirocumab) 150 mg subcut Q2W NS semaglutide (Ozempic) 2 mg (0.75 mL) subcut QWEEK sennosides (Natural Senna Laxative) 17.2 mg (2 x 8.6 mg) PO BEDTIME tadalafil 5 mg PO DAILY 90 days tamsulosin 0.4 mg PO BEDTIME 90 days umeclidinium-vilanterol 62.5-25 mcg/actuation (Anoro Ellipta) 1 ea PO DAILY Ventolin HFA 90 mcg/actuation (albuterol sulfate) 2 puffs PO Q6H PRN 30 days NS zolpidem 5 mg PO BEDTIME PRN HPI Comments Details: Bruno is a 69-year-old Hebrew-speaking male patient of Dr. Moreira. He has a past medical history of erectile dysfunction, asthma, smoker, vitamin-D deficiency, hypertension, type 2 diabetes, diabetic neuropathy, dyslipidemia, and hypertensive retinopathy of the right eye. He presents to the office today for follow-up of his erectile dysfunction in lower urinary tract symptoms. In discussion with the patient today he reports to be doing and feeling well. He reports a significant improvement in erectile dysfunction with penile injection therapy. He reports having adequate erections for penetration with penile injection therapy. He had previously trialed p.o. medications for ED and failed Viagra as well as tadalafil. Previous workup has included PSA and testosterone levels as well renal imaging 10/19 noted bilateral kidneys with no renal calculi, hydronephrosis, or lesions noted. Left kidney with 2 cm likely benign left lower pole renal cyst with a single thin internal septation with no routine follow-up imaging recommended. Recent PSA results reviewed with the patient today as noted and trended below: PSA 10/19 0.6, 11/20 0.5, 10/21 0.6 Testosterone 10/19 347 He currently denies any bothersome urinary issues or concerns. We discussed with patient the affects of diabetes on the bladder as well as its relation with erectile dysfunction. Discussed at length importance of diet control and management of diabetes for overall health and well-being. He reports be happy with current voiding parameters on 0.4 mg of Flomax daily. In office urinalysis results reviewed with the patient today. PVR 25 mL He otherwise offers no other issues or concerns at this time. [facility] Medical History Erectile dysfunction associated with type 2 diabetes mellitus Unsteady gait Asthma Leg weakness Mass of right parotid gland Hypertensive retinopathy of right eye Tubular adenoma of colon Smoker Dyspnea on exertion Vitamin D deficiency Hypertension Diabetic polyneuropathy associated with type 2 diabetes mellitus Diabetic nephropathy associated with type 2 diabetes mellitus [facility] (current) use of insulin Dyslipidemia Diabetes type 2, uncontrolled Surgical History History of esophagogastroduodenoscopy (EGD) Hx of colonoscopy History of amputation of finger History of lumbar surgery Family History Father Medical history unknown Mother Medical history unknown Sister Breast cancer Brother Cancer Social History Household Members: None Are you a primary director day care center to a significant other at home: No Do you presently have visiting nurse or other home services: No Alcohol intake: current Alcohol intake frequency: former alcohol drinker Patient Tobacco Use Status: Former Tobacco user Years Smoked: 52 (onset 13yo) Review of Systems Const Reports no additional complaints Eyes Reports as per HPI ENT Reports no additional complaints Card Reports as per [facility] Resp Reports as per [facility] GI Reports no additional complaints Reports as per HPI Musc Reports as per HPI Neuro Reports no additional complaints Psych Reports no additional complaints Endo Reports as per HPI Physical Exam Const General: cooperative, healthy appearing, comfortable, no acute distress, well developed, alert and awake Orientation/consciousness: patient oriented x3 Limitations: no limitations HEENT Head: Yes normal to inspection, Yes normocephalic and Yes atraumatic Ears: hearing grossly normal bilaterally Eyes General: appearance normal, both eyes and all related structures Neck Neck: Yes normal visual inspection and Yes trachea midline Chest Chest palpation & inspection: normal inspection of the chest Resp Effort & Inspection: normal respiratory effort and able to speak in complete sentences Cardio Rate: regular rate GI Inspection: Yes normal to inspection General: Yes no CVA tenderness Male General Exam: Yes normal external exam Penis: normal penis and uncircumcised Meatus: meatus normal Scrotum: scrotum normal Testes: Testes normal Back/Spine/Pelvis Back: no CVA tenderness Skin General skin exam: no rashes or lesions noted Neuro General: patient oriented x3 Extrem General: Yes normal to inspection Psych Appearance: grossly normal and well kempt Mental Status: mental status grossly normal Speech and movement: Normal speech and movement present and Clear speech present Affect: normal affect Attitude: cooperative Thought process: Normal thought process present Thought content: Normal thought content present Insight: Fair insight present (Psych) Judgement: Fair judgement present (Psych) Office Procedures Post Void Residual Post Residual Void Post Void Residual (PVR): 15532-Pkco Void Residual by ultrasound Results AMB Urinalysis, Automated UA Leukoctes 0 Kenyatta/uL Last Edit by SHIRLEY Ernandez on 10/08/24 15:25 UA Nitrite Negative Last Edit by SHIRLEY Ernandez on 10/08/24 15:25 UA Urobilinogen 3.5 mg/dL Last Edit by SHIRLEY Ernandez on 10/08/24 15:2 5 UA Protein 3 mg/dL Last Edit by SHIRLEY Ernandez on 10/08/24 15:25 UA pH 5.5 Last Edit by SHIRLEY Ernandez on 10/08/24 15:25 UA Blood 0 Jeffrey/uL Last Edit by SHIRLEY Ernandez on 10/08/24 15:25 UA Specific [place] 1.030 Last Edit by SHIRLEY Ernandez on 10/08/24 15: 25 UA Ketone Negative Last Edit by SHIRLEY Ernandez on 10/08/24 15:25 UA Bilirubin 0 mg/dL Last Edit by SHIRLEY Ernandez on 10/08/24 15:25 UA Glucose 0 mg/dL Last Edit by SHIRLEY Ernandez on 10/08/24 15:25 Results Reviewed Results Reviewed: Laboratory Last Values Urine pH (Auto) 5.5 10/08/24 15:24 Specific [place] (Auto) 1.030 10/08/24 15:24 Urine Protein (Auto) 3 mg/dL 10/08/24 15:24 Glucose (UA)(Auto) 0 mg/dL 10/08/24 15:24 Urine Ketones (Auto) Negative 10/08/24 15:24 Urine Blood (Auto) 0 Jeffrey/uL 10/08/24 15:24 Urine Nitrite (Auto) Negative 10/08/24 15:24 Urine Bilirubin (Auto) 0 mg/dL 10/08/24 15:24 Urine Urobilinogen (Auto) 3.5 mg/dL 10/08/24 15:24 Leukocyte Esterase (Auto) 0 Kenyatta/uL 10/08/24 15:24 Assessment & Plan Assessment & Plan (1) Erectile dysfunction associated with type 2 diabetes mellitus: Code(s): E11.69 - Type 2 diabetes mellitus with other specified complication; N52.1 - Erectile dysfunction due to diseases classified elsewhere Category: Medical (2) BPH loc w urin obs/LUTS: Code(s): N40.1 - Benign prostatic hyperplasia with lower urinary tract symptoms Category: Medical Plan In office urinalysis results reviewed with the patient today; as noted above. PVR 25ml's. Recent PSA results reviewed with the patient today Patient currently denies any bothersome urinary issues or concerns. He is happy with current voiding parameters on 0.4 mg of Flomax daily. He reports to have adequate erections with penile injection therapy and would like to continue. Discussed at length lifestyle modifications to assist with ED Discussed and stressed the importance of managing diabetes for improvement in ED as well as overall health and well-being. Will obtain PSA in 1 year Follow-up in 1 year with lab and PVR; or sooner with any issues, concerns, and or questions. Orders: Orders Prostate Specific Antigen 1 Year E11.69 - Type 2 diabetes mellitus with other specified complication, N40.1 - Benign prostatic hyperplasia with lower urinary tract symptoms, N52.1 - Erectile dysfunction due to diseases classified elsewhere AMB Urinalysis Automated Today Z13.9 - Encounter for screening, unspecified Patient Instructions: The patient had an opportunity to ask questions regarding the treatment plan. All questions were answered. Physical exam, labs, and imaging were discussed and reviewed in detail. As well as risks, benefits, and discussion of treatment choices. No major barriers to understanding were identified. The patient expressed understanding and agreement with the above treatment plan. The patient was made aware they should contact our office by phone for worsening of their current condition, the appearance of new symptoms, or with any questions or concerns. Compliance is encouraged with any medications and follow up testing that is ordered. It is a privilege to be allowed the opportunity to participate in? your urological care.? Again, if you have any questions or concerns If you have any questions or concerns please do not hesitate to contact me. The office is [phone]. This note is constructed using voice recognition software. While every effort has been made to ensure accuracy mainframe systems programmer errors may have been included. Yours sincerely, LAKESHA Cobb Coding Level of Care Code Est Pt Level 3 (24702) Complex EM visit Add On G2211 Diagnoses Erectile dysfunction associated with type 2 diabetes mellitus E11.69; N52.1 BPH loc w urin obs/LUTS N40.1 CPT Codes Post Residual Void - PVR CPT Code: 94415-Kuca Void Residual by ultrasound ([id number])
--- OUTSIDE RECORDS SUMMARY | 2024-10-08 17:54 | XMS_ITS | Encounter Summary ---
Author Organization [employer] Address [address] [place] [address] Care Team Providers Care Measurement Department Chief Clerk Name Role Phone Shannon Lerner MD Primary Care Pro vider Encounter Details Date Type Department Care Team (Late st Contact Info) Description 09/25/2024 Orders Only GENERIC EXTERNAL DATA DEPARTMENT Provider, Generic External Data Social History Tobacco Use Types Packs/Day Years Used Date Smoking Tobacco: Former Cigarettes Passive Smoke Exposure: Past Smokeless Tobacco: Never Comments:Started smoking tob acco at 12 y until 21 years ago ( stopped 48 y of age ) -smoked for 36 years - 1 PQT a day --PQT a year 36 Alcohol Use Standard Drinks/Week Comments Yes 7 (1 standard drink = 0.6 oz pur e alcohol) social Depression Answer Date Recorded Patient Health Questionnaire-9 Score 4 06/17/2024 Patient Health Questionnaire-9 Score 4 06/17/2024 Last PHQ-9: Questionnaire Data Not on file 1 08/17/2023 Housing Stability Answer Date Recorded What is your housing situation today? I have martha olmos 11/20/[address] you li ve. Do you have problems with any of the following? None of the above 11/20/2023 Food Insecurity Answer Date Recorded Within the past 12 months, y ou worried that your food would run out before you got money to buy more: Never True 11/20/2023 Within the past 12 months,th e food you bought just didn't last and you didn't have enough money to get more: Never True Transportation Answer Date Recorded In the past 12 months, has l ack of transportation kept you from medical appts, meetings, work or from getting things needed for daily living? No 11/20/2023 Utilities Answer Date Recorded In the past 12 months, has t he electric, gas, oil or water company threatened to shut off services in your home? No 11/20/2023 Depression Answer Date Recorded Patient Health Questionnaire-2 Score 0 06/17/2024 Sex and Gender Information Value Date Recorded Sex Assigned at Male 05/29/2022 10:15 AM EDT Legal Sex Male 10:15 AM EDT Gender Identity Male 07/26/2023 7:09 PM EST Sexual Orientation Straight 07/26/2023 7: 09 PM EST documented as of this encounter Plan of Treatment Not on file documented as of this encounter Procedures Procedure Name Priority Date/Time Associated Diagnosis Comments HEMATOXYLIN AND EOSIN STAIN Routine 09/25/2024 11:19 AM EST GLUCOSE, WHOLE BLOOD Routine 09/25/2024 10:19 AM EST DRUG MONITOR, PANEL 1, SCREEN, URINE Routine 09/25/2024 10:10 AM EST documented in this encounter Results * Hematoxylin and Eosin Stain (09/25/2024 11:19 AM EST) 09/25/2024 11:1 9 AM EST 09/25/2024 1:15 PM EST Narrative [facility] - 09/29/2024 3:44 PM EST ----- ------- Name: Colon,Brando ? Age/Sex: 69/M ? : 1955 Unit#: [id number] ?? Attend Dr: Adolfo Scott MD ?Re09/25/24 ?Status: DEP [facility] ? Location: HO.SSS ?Disch: ? ----- ------- SPEC : [id number] ? RECD: 09/25/24-5 ? STATUS: ??SOUT ? REQ NUM: [id number] ? LAURA: 09/25/24-1119 ? SUBM DR: Adolfo Scott MD ? ENTERED: ??09/25/24-1321 ?SP TYPE: Surgical ? OTHR DR: Shannon Lerner MD ORDERED: ??HE Stain/21, Gross Micro L4/7, IHC, Special st. 2/3, H. pylori, AB/PAS/3 ? Diagnosis ?? A. ??Duodenum, polypectomy: ??Hyperplastic duodenal mucosa with chronic injury. ? B. ??Stomach, biopsy: ??Antral-type mucosa with mild chronic inactive inflammation; no ?? Helicobacter organisms seen. ? C. ??GE junction, biopsy: ?- Cardiofundic-type mucosa with moderate chronic inactive inflammation; no intestinal ?? metaplasia seen. ?- Squamous epithelium within normal limits. ? D. ??Esophagus, distal, biopsy: ??Squamous epithelium within normal limits; no inflammation ?? seen. ? E. ??Colon, transverse, polypectomies: ?- Tubular adenoma; negative for high-grade dysplasia or carcinoma. ?- Colonic mucosa with prominent lymphoid aggregate. ? F. ??Cecum, polypectomy: ??Tubular adenoma; negative for high-grade dysplasia or carcinoma. ? G. ??Colon, descending, polypectomy: ??Tubular adenoma; negative for high- grade dysplasia ?? or carcinoma. ?Clinical History Pre-Op Dx: ??Dysphagia Post-Op Dx: Dysphagia, gastritis, duodenal polyp, colon polyps, internal hemorrhoids ?Microscopic Description A-G. ??Microscopic sections examined. ??Foveolar metaplasia is present in A and no metaplastic changes are seen in B and C supported by AB/PAS stains; no Helicobacter organisms are seen, supported by H. pylori immunostain (B). ? Material Received ?? A. Duodenal polyp ?? B. Stomach bx ?? C. GE junction bx ?? D. Distal esophagus bx ?? E. Transverse colon polyps ?? F. Cecal polyp ? CONTINUED ON NEXT PAGE ----- ------- Name: Colon,Bruno Mello ? Age/Sex: 69/M ? : 1955 Unit#: [id number] ?? Attend Dr: Adolfo Scott MD ?Re09/25/24 ?Status: DEP [facility] ? Location: HO.SSS ?Disch: ? ----- ------- SPEC : [id number] ? RECD: 09/25/24-5 ? STATUS: ??SOUT ? REQ NUM: [id number] ? LAURA: 09/25/24-1119 ? SUBM DR: Adolfo Scott MD ? ENTERED: ??09/25/24-1320 ?SP TYPE: Surgical ? OTHR DR: Shannon Lerner MD ORDERED: ??HE Stain/21, Gross Micro L4/7, IHC, Special st. 2/3, H. pylori, AB/PAS/3 ? Material Received ?(Continued) ?? G. Descending colon polyp ? Gross Description Received in seven parts. Part A: ??Received in formalin labeled ?duodenal polyp are 2 schwarz-pink irregular tissue fragments measuring 0.1 and 0.15 cm, submitted in toto in a cassette labeled A. Part B: ??Received in formalin labeled stomach bx? are 2 schwarz-pink irregular and rectangular tissue fragments measuring 0.15 and 0.4 cm, submitted in toto in a cassette labeled B. Part C: ??Received in formalin labeled ?GE junction bx? are 2 schwarz irregular tissue fragments each measuring 0.15 cm, submitted in toto in a cassette labeled C. Part D: ??Received in formalin labeled ?distal esophagus bx? are 2 chakraborty-white irregular and rectangular tissue fragments measuring 0.15 and 0.25 cm, submitted in toto in a cassette labeled D. Part E: ??Received in formalin labeled ?transverse colon polyp (sic) are 3 schwarz irregular tissue fragments ranging from 0.1-0.25 cm, submitted in toto in a cassette labeled E. Part F: ??Received in formalin labeled ?cecal polyp is a 0.25 cm schwarz irregular tissue fragment, submitted in toto in a cassette labeled F. Part G: ??Received in formalin labeled descending colon polyp is a 0.45 cm schwarz-pink papular tissue fragment with an attached 0.3 cm tail of thin and delicate schwarz mucosa, submitted in toto in a cassette labeled G. ??CEDS Special studies ordered and performed: Immunostain for H. pylori on B; AB/PAS stains on A, B and C Copies To: ?? Adolfo Scott MD ?? [facility] ?? [address] ?? [place] [address] ?? [phone] ?? Shannon Lerner MD ?? [address] ?? [place] [address] ?? [phone] ? CONTINUED ON NEXT PAGE ----- ------- Name: Colon,Bruno Mello ? Age/Sex: 69/M ? : 1955 Unit#: [id number] ?? Attend Dr: Adolfo Scott MD ?Re09/25/24 ?Status: DEP [facility] ? Location: HO.SSS ?Disch: ? ----- ------- SPEC : [id number] ? RECD: 09/25/24-5 ? STATUS: ??SOUT ? REQ NUM: [id number] ? LAURA: 09/25/24-1119 ? SUBM DR: Adolfo Scott MD ? ENTERED: ??09/25/24-1 ?SP TYPE: Surgical ? OTHR DR: Shannon Lerner MD ORDERED: ??HE /, Gross Micro L4/7, IHC, Special st. 2/3, H. pylori, AB/PAS/3 ? ----- ------- Signed (signature on file) Jayesh Mendieta MD 09/29/24 0054 ? ----- ------- ? END OF REPORT ? Generic External Data Provider LAB BLOOD ORDERAB LES Final Result Performing Organization Address [facility]/ZIP Co de Phone Number [facility] [address] [place] [address] [phone] * (ABNORMAL) Glucose, Whole Blood (09/25/2024 10:19 AM EST) Pathologist [facility] Glucose, Whole Blood 134(H) 60 - 115 mg/dL [facility] Comment:METER #: [id number] 09/25/2024 10:1 9 AM EST 09/25/2024 10:23 AM EST POKKT External Data Provider LAB BLOOD ORDERAB LES Final Result Performing Organization Address [facility] Co de Phone Number [facility] [address] [place] [address] [phone] * Drug Monitoring, Panel 1, Screen, Urine (09/25/2024 10:10 AM EST) Opiate Screen Urine Not Detected Not Detect [facility] Comment:Opiate cut-off is 30 0 ng/mL.Positive results are unconfirmed and should not be used fornon-medical purposes. Barbiturates, Urine Not Detected Not Detect [facility] Comment:Barbiturate cut-off is 200 ng/mL.Positive results are unconfirmed and should not be used fornon-medical purposes. Phencyclidine Screen Urine Not Detected Not Detect [facility] Comment:Phencyclidine cut-of f is 25 ng/mL.Positive results are unconfirmed and should not be used fornon-medical purposes. Amphetamine Screen Urine Not Detected Not Detect [facility] Comment:Amphetamine cut-off is 1000 ng/mL.Positive results are unconfirmed and should not be used fornon-medical purposes. Benzodiazepines Screen Urine Not Detected Not Detect [facility] Comment:Benzodiazepine cut-o ff is 200 ng/mL.Positive results are unconfirmed and should not be used fornon-medical purposes. Cocaine Screen Urine Not Detected Not Detect [facility] Comment:Cocaine cut-off is 3 00 ng/mL.Positive results are unconfirmed and should not be used fornon-medical purposes. Cannabinoid Screen Urine Not Detected Not Detect [facility] Comment:Cannabinoid cut-off is 50 ng/mL.Positive results are unconfirmed and should not be used fornon-medical purposes. Methadone Screen, Urine Not Detected Not Detect ng/mL [facility] Comment:Methadone cut-off is 300 ng/mL.Positive results are unconfirmed and should not be used fornon-medical purposes. FENTANYL URINE Not Detected Not Detect [facility] Comment:Fentanyl cut-off is 1 ng/mL.Positive results are unconfirmed and should not be used fornon-medical purposes. Oxycodone Urine Screen Not Detected Not Detect ng/mL [facility] Comment:Oxycodone cut-off is 100 ng/mL.Positive results are unconfirmed and should not be used fornon-medical purposes. Buprenorphine Screen Not Detected Not Detect ng/mL [facility] Comment:Buprenorphine cut-of f is 5 ng/mL.Positive results are unconfirmed and should not be used fornon-medical purposes. 09/25/2024 10:1 0 AM EST 09/25/2024 10:20 AM EST us Generic External Data Provider LAB URINE ORDERAB LES Final Result [facility] [address] [place] [address] [phone] documented in this encounter Visit Diagnoses Not on filedocumented in this encounter Additional Health Concerns Assessment Noted Time PHQ-9 Depression Total Score: 4 11/19/20 24 10:10 AM EST documented as of this encounter Care Teams Measurement Department Chief Clerk Relationship Specialty Start Date End Date Shannon Lerner MD [address] [place] [phone] PCP - General Internal Medicine 02/12/23 documented as of this encounter
--- OUTSIDE RECORDS SUMMARY | 2024-10-08 17:54 | XMS_ITS | Encounter Summary ---
Author Organization [employer] Address [address] [place] [address] Care Team Providers Care Artist Suspect Name Role Phone Shannon Lerner MD Primary Care Pro vider Reason for Visit * Reason Comments Med Refill Encounter Details Date Type Department Care Team ([facility] st Contact Info) Description 09/30/2024 Refill [facility] [address] [place], [place] [phone] Shannon Lerner MD [address] [place] [address] Bradycardia Social History Tobacco Use Types Packs/Day Years [...] on file documented as of this encounter Visit Diagnoses Diagnosis Bradycardia Other specified cardiac dysrhythmias documented in this encounter Additional Health Concerns Assessment Noted Time PHQ-9 Depression Total Score: 4 06/17/20 24 10:10 AM EST documented as of this encounter Care Teams Artist Suspect Relationship Specialty Start Date End Date Shannon Lerner MD [address] [place] [phone] PCP - General Internal Medicine 02/12/23 documented as of this encounter
--- OUTSIDE RECORDS SUMMARY | 2024-10-08 17:54 | XMS_ITS | Encounter Summary ---
Author Organization [employer] Address [address] [facility] 7t [place] [address] Care Team Providers Care Natural Gas Trader Name Role Phone Shannon Lerner MD Primary Care Pro vider Reason for Visit * Reason Comments Med Refill Encounter Details Date Type Department Care Team ([facility] st Contact Info) Description 09/27/2024 Refill [facility] MED & PEDS [address] [place], [place] [phone] Susan Jhaveri MD [address] [facility] [place] [address] Chronic obstructive pulmonary disease, unspecified COPD type (CMS/HCC) Social History Tobacco Use Types Packs/Day Years [...] your housing situation today? I have martha amarilis 11/20/[address] you li [...] as of this encounter Visit Diagnoses Diagnosis Chronic obstructive pulmonary disease, unspecified COPD type (CMS/HCC) documented in this encounter Additional Health Concerns Assessment Noted Time PHQ-9 Depression Total Score: 4 06/17/20 24 10:10 AM EST documented as of this encounter Care Teams Natural Gas Trader Relationship Specialty Start Date End Date Shannon Lerner MD [address] [place] [id number] PCP - General Internal Medicine 02/12/23 documented as of this encounter
--- OUTSIDE RECORDS SUMMARY | 2024-10-08 17:55 | XMS_ITS | Clinical Summary ---
Author Organization [facility] Address [address] [facility] [address] [place] [address] Phone Care Team Providers Care Field Service Engineer Name Role Phone Sofia Parekh Primary Care Provider [phone]- [phone] Allergies Active Allergy Reactions Criticality Noted Date Comments Ludwin Inhibitors 07/17/2019 Medications acetaminophen (MAPAP ARTHRITIS PAIN) 650 MG 8 hr tablet Comments: Filled Date: Jul 26 2017 12:00AM Patient Notes: TAKE 1 TABLET BY MOUTH EVERY 8 HOURS NEEDED. SWALLOW WHOLE WITH [facility]. DO NOT BREAK, CRUSH, DISSOLVE, AND/OR CHEW Duration: 10 7 Active Alirocumab (PRALUENT) 75 MG/ML solution auto-injector Praluent Pen 75 mg/mL subcutaneous pen injector Active atorvastatin (LIPITOR) 40 MG tablet Comments: Filled Date: Aug 17 2017 12:00AM Duration: 90 Active baclofen (LIORESAL) 10 MG tablet baclofen 10 mg tablet Active diazePAM (VALIUM) 5 MG tablet diazepam 5 mg tablet Active clobetasol (TEMOVATE) 0.05 % ointment clobetasol 0.05 % topical ointment Active Dulaglutide (TRULICITY) 0.75 MG/0.5ML solution pen-injector Trulicity 0.75 mg/0.5 mL subcutaneous pen injector Active ezetimibe (ZETIA) 10 MG tablet ezetimibe 10 mg tablet Active fluticasone HFA (FLOVENT HFA) 110 MCG/ACT inhaler Comments: Filled Date: Jul 16 2017 12:00AM Patient Notes: INHALE 2 PUFFS TWICE PER DAY RINSE MOUTH AFTER USING. Duration: 30 7 Active folic acid (FOLVITE) 1 MG tablet folic acid 1 mg tablet Active imipramine (TOFRANIL) 50 MG tablet Comments: Filled Date: Jul 16 2017 12:00AM Patient Notes: TAKE 2 TABLETS EVERY DAY AT BEDTIME Duration: 30 7 Active insulin aspart (NovoLOG FLEXPEN) 100 UNIT/ML injection Comments: Filled Date: Jul 09 2017 12:00AM Patient Notes: INJECT 10 UNITS 3 TIMES DAILY BEFORE MEALS Duration: 57 7 Active lisinopril (PRINIVIL,ZESTR IL) 40 MG tablet Comments: Filled Date: Jul 16 2017 12:00AM Patient Notes: TAKE 1 TABLET EVERY DAY IN THE MORNING Duration: 30 7 Active LORazepam (ATIVAN) 1 MG tablet lorazepam 1 mg tablet Active hydroCHLOROthia zide (MICROZIDE) 12.5 MG capsule Take 1 capsule (12.5 mg total) by mouth 1 (one) time each day 30 capsule 24 1 Active amLODIPine (NORVASC) 5 MG tablet Take 1 tablet (5 mg total) by mouth at bed time 30 tablet 11 2 Active Active Problems Problem Noted Date Diagnosed Date Chronic kidney disease stage 2 07/17/2019 Hypertensive disorder 07/17/2019 Neuropathy 07/17/2019 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 09/17/2018 Type 2 diabetes mellitus 06/13/2018 Resolved Problems Problem Noted Date Diagnosed Date Resolved Date Dyslipidemia 07/17/2019 01/12/2020 Pancytopenia 07/17/2019 01/12/2020 Sleep apnea 07/17/2019 01/12/2020 Onychomycosis 06/13/2018 01/12/2020 Pain in toe 06/13/2018 01/12/2020 Family History Relation Status Comments Father Unknown Mother Unknown Social History Tobacco Use Types Packs/Day Years Used Date Smoking Tobacco: Former Comments:Smoking History Inf o:Unknown Sex and Gender Information Value Date Recorded Sex Assigned at Not on file Legal Sex Male 4:37 PM EST Gender Identity Not on file Sexual Orientation Not on file Last Filed Vital Signs Vital Sign Reading Time Taken Comments Blood Pressure 110/60 10/16/2019 12:00 PM EDT Pulse 52 10/16/2019 12:00 PM EDT Temperature - - Respiratory Rate 16 07/28/2019 1:20 PM EST Oxygen Saturation - - Inhaled Oxygen Concentration - - Weight 87.5 kg (193 lb) 10/16/2019 12:00 PM EDT Height 177.8 cm (5' 10 ) 04/15/2020 12:00 PM EDT Body Mass Index 27.69 10/16/2019 12:00 PM EDT Plan of Treatment Health Maintenance Due Date Last Done Comments Pneumococcal Vaccine: 65+ Ye ars (1 of 2 - PCV) 1961 Colorectal Cancer Screening: Annual FOBT 2004 Colorectal Cancer Screening: Colonoscopy 2004 Colorectal Cancer Screening: Sigmoidoscopy 2004 Diabetes: Hemoglobin A1C 07/17/2019 Diabetes: Ophthalmology Exam 07/17/2019 Diabetes: Pedal Pulse Checked 07/17/2019 Diabetes: Sensory Foot Exam 07/17/2019 Diabetes: Visual Foot Exam 07/17/2019 Influenza Vaccine (#1) 2024 Hepatitis B Vaccine Aged Out No longe r eligible based on patient's age to complete this topic Insurance [facility] [place] [id number] [facility] ([id number]) [place] [id number] , [place] [address] Care Teams Field Service Engineer Relationship Specialty Start Date End Date Sofia Parekh PCP - General Family Medicine 06/30/21
--- OUTSIDE RECORDS SUMMARY | 2024-10-08 17:55 | XMS_ITS | Encounter Summary ---
Author Organization [employer] Address [address] [facility] 7t [place] [address] Care Team Providers Care Hris Developer Name Role Phone Shannon Lerner MD Primary Care Pro vider Reason for Visit * Reason Comments Med Refill Encounter Details Date Type Department Care Team ([facility] st Contact Info) Description 09/06/2023 Refill [facility] CH[facility] MED & PEDS [address] [place], [place] [phone] Shannon Lerner MD [address] [place] [address] Polyneuropathy Social History Tobacco Use Types Packs/Day Years Used Date Smoking Tobacco: Former Cigarettes 1 54 1 949 - 2003 Smokeless Tobacco: Never Comments:Started smoking tob acco at 12 y until 20 years ago ( stopped 48 y of age ) -smoked for 36 years - 1 PQT a day --PQT a year 36 Alcohol Use Standard Drinks/Week Comments Yes 7 (1 standard drink = 0.6 oz pur e alcohol) social Depression Answer Date Recorded Patient Health Questionnaire-9 Score 8 07/26/2023 Patient Health Questionnaire-9 Score 8 07/26/2023 Last PHQ-9: Questionnaire Data Not on file 1 09/26/2022 Housing Stability Answer Date Recorded What is your housing situation today? I have martha olmos 05/14/[address] you li ve. Do you have problems with any of the following? None of the above 05/14/2023 Food Insecurity Answer Date Recorded Within the past 12 months, y ou worried that your food would run out before you got money to buy more: Never True 05/14/2023 Within the past 12 months,th e food you bought just didn't last and you didn't have enough money to get more: Never True Transportation Answer Date Recorded In the past 12 months, has l ack of transportation kept you from medical appts, meetings, work or from getting things needed for daily living? No 05/14/2023 Utilities Answer Date Recorded In the past 12 months, has t he electric, gas, oil or water company threatened to shut off services in your home? No 05/14/2023 Depression Answer Date Recorded Patient Health Questionnaire-2 Score 2 07/26/2023 Sex and Gender Information Value Date Recorded Sex Assigned at Male 05/29/2022 10:15 AM EDT Legal Sex Male 10:15 AM EDT Gender Identity Male 07/26/2023 7:09 PM EST Sexual Orientation Straight 07/26/2023 7: 09 PM EST documented as of this encounter Plan of Treatment Not on file documented as of this encounter Visit Diagnoses Diagnosis Polyneuropathy Unspecified hereditary and idiopathic peripheral neuropathy documented in this encounter Additional Health Concerns Assessment Noted Time PHQ-9 Depression Total Score: 8 07/26/20 23 3:19 PM EST documented as of this encounter Care Teams Hris Developer Relationship Specialty Start Date End Date Shannon Lerner MD [address] [place] [id number] PCP - General Internal Medicine 02/12/23 documented as of this encounter
--- OUTSIDE RECORDS SUMMARY | 2024-10-08 17:55 | XMS_ITS | Encounter Summary ---
Author Organization [employer] Address [address] [facility] 7t [place] [address] Care Team Providers Care Family Dinner Service Specialist Name Role Phone Shannon Lerner MD Primary Care Pro vider Reason for Visit * Reason Comments Med Refill Encounter Details Date Type Department Care Team ([facility] st Contact Info) Description 02/13/2024 Refill [facility] CHC MED & PEDS [address] [place], [place] [phone] Susan Jhaveri MD [address] [place] [address] Social History Tobacco Use Types Packs/Day Years Used Date Smoking Tobacco: Former Cigarettes Q uit: 2002 Passive Smoke Exposure: Past Smokeless Tobacco: Never [...] is your housing situation today? I have marthatanvir olmos 11/20/[address] you [...] documented as of this encounter Visit Diagnoses Not on filedocumented in this encounter Additional Health Concerns Assessment Noted Time PHQ-9 Depression Total Score: 8 07/26/20 23 3:19 PM EST documented as of this encounter Care Teams Family Dinner Service Specialist Relationship Specialty Start Date End Date Shannon Lerner MD [address] [place] [id number] PCP - General Internal Medicine 02/12/23 documented as of this encounter
--- OUTSIDE RECORDS SUMMARY | 2024-10-08 17:55 | XMS_ITS | Encounter Summary ---
Author Organization [employer] Address [address] [facility] 7t [place] [address] Care Team Providers Care Tin Recovery Worker Name Role Phone Shannon Lerner MD Primary Care Pro vider Encounter Details Date Type Department Care Team (Late st Contact Info) Description 07/21/2024 Orders Only [facility]IC[facility] [address] [place] [address] Provider, MD Anju Social History Tobacco Use Types Packs/Day Years [...] Procedure Name Priority Date/Time Associated Diagnosis Comments HM COLONOSCOPY Routine 04/13/2022 3:51 PM EDT documented in this encounter Results * Hm Colonoscopy (04/13/2022 3:51 PM EDT) Historical Provider HEALTH MAINTENANCE Final Result documented in this encounter Visit Diagnoses Not on filedocumented in this encounter Additional Health Concerns Assessment Noted Time PHQ-9 Depression Total Score: 4 06/17/20 24 10:10 AM EST documented as of this encounter Care Teams Tin Recovery Worker Relationship Specialty Start Date End Date Shannon Lerner MD [address] [place] [id number] PCP - General Internal Medicine 02/12/23 documented as of this encounter
--- OUTSIDE RECORDS SUMMARY | 2024-10-08 17:55 | XMS_ITS | Encounter Summary ---
Author Organization [employer] Address [address] [facility] 7t [place] [address] Care Team Providers Care Trash Collector Supervisor Name Role Phone Shannon Lerner MD Primary Care Pro vider Encounter Details Date Type Department Care Team (Late st Contact Info) Description 05/14/2023 Abstract [facility] MEDICINE [address] [place], [place] [phone] Shannon Lerner MD [address] [place], [place] [phone] Social History Tobacco Use Types Packs/Day Years Used Date Smoking Tobacco: Former Cigarettes 1 54 1 949 - 2003 Smokeless Tobacco: Never Alcohol Use Standard Drinks/Week Comments Yes 7 (1 standard drink = 0.6 oz pur e alcohol) Weekly Housing Stability Answer Date Recorded What is [...] off services in your home? No 05/14/2023 Sex and Gender Information Value Date Recorded Sex Assigned at Male 05/29/2022 10:15 AM EDT Legal Sex Male 10:15 AM EDT Gender Identity Male 07/26/2023 7:09 PM EST Sexual Orientation Straight 07/26/2023 7: 09 PM EST documented as of this encounter Plan of Treatment Not on file documented as of this encounter Visit Diagnoses Not on filedocumented in this encounter Care Teams Trash Collector Supervisor Relationship Specialty Start Date End Date Shannon Lerner MD [address] [place] [id number] PCP - General Internal Medicine 02/12/23 documented as of this encounter
--- OUTSIDE RECORDS SUMMARY | 2024-10-08 17:55 | XMS_ITS | Encounter Summary ---
Author Organization [employer] Address [address] [place] [address] [address] [place] [address] Care Team Providers Care Case Management Specialist Name Role Phone Nancy Moreira Primary Care Provider +1- [phone] Shannon Lerner MD Primary Care Pro vider Encounter Details Date Type Department Care Team (Late st Contact Info) Description 09/07/2022 Orders Only [facility] MED & PEDS [address] [place], [place] [phone] Nohemy Nair LPN Social History Tobacco Use Types Packs/Day Years Used Date Smoking Tobacco: Never Assessed Sex and Gender Information Value Date Recorded Sex Assigned at Male 05/29/2022 10:15 AM EDT Legal Sex Male 10:15 AM EDT Gender Identity Male 07/26/2023 7:09 PM EST Sexual Orientation Straight 07/26/2023 7: 09 PM EST documented as of this encounter Plan of Treatment Not on file documented as of this encounter Visit Diagnoses Not on filedocumented in this encounter Care Teams Case Management Specialist Relationship Specialty Start Date End Date Nancy Moreira FNP PCP - General Family Medicine 03/22/22 02/11/23 Shannon Lerner MD [address] [place] [address] PCP - General Internal Medicine 02/12/23 documented as of this encounter
--- OUTSIDE RECORDS SUMMARY | 2024-10-08 17:55 | XMS_ITS | Encounter Summary ---
Author Organization [employer] Address [address] [place] [address] [address] [place] [address] Care Team Providers Care Field Machinist Name Role Phone Nancy Moreira Primary Care Provider +1- [phone] Shannon Lerner MD Primary Care Pro vider Encounter Details Date Type Department Care Team (Late st Contact Info) Description 08/15/2022 Orders Only [facility] MED & PEDS [address] [place] [address] Nohemy Nair LPN Social History Tobacco Use [...] on filedocumented in this encounter Care Teams Field Machinist Relationship Specialty Start Date End Date Nancy Moreira FNP PCP - General Family Medicine 03/22/22 02/11/23 Shannon Lerner MD [address] [place] [address] PCP - General Internal Medicine 02/12/23 documented as of this encounter
--- OUTSIDE RECORDS SUMMARY | 2024-10-08 17:55 | XMS_ITS | Clinical Summary ---
Author Organization [employer] Address [address] [facility] [address] [place] [address] Care Team Providers Care Network Management Specialist Name Role Phone Shannon Lerner MD Primary Care Pro vider Allergies Active Allergy Reactions Criticality Noted Date Comments Ludwin Inhibitors Cough 10/21/2012 Dulaglutide Diarrhea 09/21/2021 Dust Mite Extract 02/09/2023 Medications Ventolin HFA 108 (90 Base) MCG/ACT inhaler Inhale 2 puffs every 6 (six) hours if needed. 023 Active Alcohol Swabs (Alcohol Prep) 70 % pads USE FOUR TIMES DAILY 023 Active Praluent 150 MG/ML injection 023 Active Otezla 30 MG tablet 023 Active betamethasone dipropionate (Diprolene) 0.05 % ointment APPLY TO BODY FROM THE NECK DOWN TWICE DAILY FOR FOURTEEN DAYS, STOP AND USE vaseline FOR 7 DAYS, THEN REPEAT NEEDED 023 Active D3 Super Strength 50 MCG (2000 UT) capsule Take 50 mcg by mouth in the morning. 023 Active Farxiga 5 MG Take 5 mg by mouth in the morning. 023 Active esomeprazole (NexIUM) [address] capsule Take 40 mg by mouth in the morning. 023 Active TRUEplus Lancets 33G [facility] TEST BLOOD SUGAR FOUR TIMES DAILY 022 Active Toujeo SoloStar 300 UNIT/ML injection 023 Active metFORMIN XR (Glucophage-XR) 500 MG 24 hr tablet TAKE 2 TABLETS BY MOUTH TWICE DAILY IN THE MORNING AND EVENING 023 Active metoprolol succinate XL (Toprol-XL) 25 MG 24 hr tablet TAKE 1/2 TABLET BY MOUTH EVERY MORNING 023 Active Ozempic, 1 MG/DOSE, 4 MG/3ML solution pen-injector Inject 1 MG SUBCUTANEOUSLY EVERY 7 DAYS IN THE ABDOMEN, THIGHS OR UPPER ARM. ROTATE INJECTION SITES. 023 Active senna (Senokot) 8.6 MG tablet TAKE 1 TABLET BY MOUTH AT BEDTIME FOR CONSTIPATION Active tamsulosin (Flomax) 0.4 MG 24 hr capsule Take 0.4 mg by mouth in the evening. 022 Active zolpidem (Ambien) 5 MG tablet Take 5 mg by mouth if needed at bedtime. 023 Active tadalafil (Cialis) 5 MG tablet TAKE 1 TABLET BY MOUTH DAILY FOR SEXUAL ACTIVITY 022 Active Fiasp FlexTouch 100 UNIT/ML injection INJECT 2-4 UNITS SUBCUTANEOUSLY THREE TIMES DAILY 023 Active imipramine (Tofranil) 25 MG tablet Take 25 mg by mouth at bedtime. 023 Active FREESTYLE LITE test strip TEST BLOOD SUGAR FOUR TIMES DAILY 023 Active gabapentin (Neurontin) 100 MG capsuleIndicati ons:Polyneuropa thy Take 1 capsule (100 mg) by mouth if needed in the morning, at noon, and at bedtime (Neuropathy). 90 capsule 1 023 Active Pentips 32G X 4 MM miscIndications :Type 2 diabetes mellitus with other specified complication, without long-term current use of insulin (CMS/HCC) USE FOUR TIMES DAILY DIRECTED 200 each 11 024 Active Baqsimi Two Pack 3 MG/DOSE nasal powder 023 Active amLODIPine (Norvasc) 10 MG tabletIndicatio ns:Primary hypertension Take 1 tablet (10 mg) by mouth at bedtime. 90 tablet 3 024 Active lidocaine (Lidoderm) 5 % patch APPLY 2 PATCHES TOPICALLY TO SKIN, LEAVE ON FOR 12 HOURS AND OFF FOR 12 HOURS DIRECTED 30 patch 2 024 Active acetaminophen (Tylenol 8 Hour) 650 MG ER tabletIndicatio ns:Degenerative lumbar spinal stenosis,Chroni c bilateral low back pain with bilateral sciatica TAKE 1 TABLET BY MOUTH EVERY DAY NEEDED FOR MILD PAIN 90 tablet 1 024 Active cetirizine (ZyrTEC) 10 MG tabletIndicatio ns:Nasal congestion TAKE 1 TABLET BY MOUTH EVERY MORNING 90 tablet 1 024 Active hydroCHLOROthia zide (HYDRODiuril) 25 MG tablet TAKE 1 TABLET BY MOUTH EVERY MORNING 90 tablet 025 Active Nexlizet 180-10 MG tablet Take 1 tablet by mouth every day 025 Active Continuous Glucose Sensor (FreeStyle Luis 2 Sensor) [facility] Use as directed. Change sensor every 14 days. 025 Active polyethylene glycol, PEG, 3350 (Glycolax) 17 GM/SCOOP powder Use as directed per doctor 024 Active Anoro Ellipta 62.5-25 MCG/ACT aerosol powderIndicatio ns:Chronic obstructive pulmonary disease, unspecified COPD type (CMS/HCC) INHALE 1 PUFF BY MOUTH EVERY DAY AT THE SAME TIME RINSE MOUTH AFTER USING 60 each 2 025 Active Aspirin EC Adult Low Dose 81 MG EC tabletIndicatio ns:Bradycardia TAKE 1 TABLET BY MOUTH AT BEDTIME 90 tablet 1 025 Active Aspirin Adult Low Strength 81 MG EC tabletIndicatio ns:Bradycardia TAKE 1 TABLET BY MOUTH AT BEDTIME 90 tablet 1 024 2024 Discontinued Anoro Ellipta 62.5-25 MCG/ACT aerosol powderIndicatio ns:Chronic obstructive pulmonary disease, unspecified COPD type (CMS/HCC) INHALE 1 PUFF BY MOUTH EVERY DAY AT THE SAME TIME 60 each 3 024 2024 Discontinued Active Problems Problem Noted Date Diagnosed Date Urinary incontinence 06/17/2024 Interatrial septal aneurysm with PFO 01/04/2024 Poor memory 01/04/2024 Psoriasis 08/31/2023 Carotid artery plaque 08/31/2023 Insomnia 07/28/2023 BPH (benign prostatic hyperplasia) 07/28/2023 Erosive esophagitis 02/10/2023 Overview (02/10/2023): Gerd: Continue medications for reflux sx. Care managed by GI. Recent EGD and colonoscopy on 04/13/22. Prep not sufficient. Repeat in 1-2years. Assessment & Plan (02/10/2023 2:14 PM EDT): F/u PRN with GI Onychomycosis 11/03/2022 Overview (02/10/2023): Completed Terbinafine 3 mo course Dystrophic nails still present/improved Assessment & Plan (02/10/2023 2:12 PM EDT): Will check CMP to confirm LFTs normal after terbinafine treatment Referred podiatry F/u 3 months or sooner PRN Health care maintenance 10/21/2022 Overview (02/10/2023): Routine Health Maintenance: Immunizations: Due Hep B dose 3; Tdap due 08/2023 HIV: Non reactive 09/08/21 Hep C: Non reactive 10/17/22 Hepatitis B: Nonreactive surface antibodies 09/08/21, 2 doses in 2018. Needs 3rd dose BMD: >age 65, Discuss with pt d/t smoking hx. Colonoscopy: Recent EGD and colonoscopy on 04/13/22. Prep not sufficient. Repeat in 1-2years. PSA: 10/27/22 WNL Lung cancer: Quit > 15 years ago, does not qualify for screening Eye: November 2022 Dental: Full dentures, cleans daily Asthma 08/21/2022 Erectile dysfunction 08/21/2022 Bradycardia 08/21/2022 Overview (08/21/2022): Care managed by Dr. Parsons Last appt 07/13/22 Followup 1 year Degenerative lumbar spinal stenosis 04/04/2022 Type 2 diabetes mellitus 06/13/2018 Overview (02/10/2023): 01/25/23: Endo appt Last Diabetic Eye exam: November 2022 Last Podiatry Visit: Referred Podiatry d/t limited sensation Random Glucose: 108 on 02/09/23; 100mg/dl HgA1C: POCT a1c was 6.5 on 02/09/23; 5.8% on 01/25/23 Microalbumin: Positive 02/28/22 Neuropathy: Taking Gabapentin 300mg once a day Current regimen: - Toujeo to 15 units, - Novolog 2-4 before meals - metformin 2000 mg QD - Ozempic 1 mg Q wkly - Farxiga 5 mg QD He has nephropathy without other microvascular, he has PVD based on foot XRay which showed calcifications in foot arteries, no other macrovascular disease He had elevated CPK on statin, currently on Praluent 150 mg every 2 weeks and Zetia 10 mg daily. Some hypoglycemia occuring at night Last ophthalmology evaluation: this month no diabetic retinopathy was has hypertensive Retinopathy. Saw optho in last mos no Diabetic retinopathy Assessment & Plan (02/10/2023 1:58 PM EDT): Refer to Podiatry 02/09/23 Will change gabapentin dose from 300 mg TID to bedtime dosing. Rx Gabapentin 100 mg TID dosing F/u 3 months or sooner PRN Peripheral neuropathy 10/21/2012 Carpal tunnel syndrome 07/18/2012 Nondependent alcohol abuse, episodic 02/16/2012 Depression, recurrent 01/18/2012 Pulmonary hypertension 01/18/2012 Hypertension 01/05/2012 Overview (02/09/2023): Care managed by Dr. Parsons Last appt 07/13/22 Stable Followup 1 year Assessment & Plan (02/10/2023 2:13 PM EDT): BP well controlled today 129/67 Taking Amlodipine 10mg F/u 3 months or sooner with new PCP Obstructive sleep apnea syndrome 01/05/2012 Pure hypercholesterolemia 01/05/2012 Overview (01/30/2023): Care managed by Dr. Parsons On Praulent and Zetia . Goal LDL 70 Twice yearly lipid checks Followup 1 year Restless legs 01/05/2012 Diabetic polyneuropathy 07/30/1959 Pancytopenia 07/30/1959 Encounters Date Type Department Care Team Description 09/30/2024 Refill [facility] [address] [place] [address] Shannon Lerner MD Bradycardia 09/27/2024 Refill [facility] [address] [place] [address] Susan Jhaveri MD Chronic obstructive pulmonary disease, unspecified COPD type ([facility]) 09/25/2024 Orders Only GENERIC EXTERNAL DATA DEPARTMENT Provider, Generic External Data 09/05/2024 Orders Only GENERIC EXTERNAL DATA DEPARTMENT Provider, Generic External Data 08/22/2024 Orders Only GENERIC EXTERNAL DATA DEPARTMENT Provider, Generic External Data 08/06/2024 Refill [facility] [address] [place] [address] Susan Jhaveri MD 07/29/2024 Refill [facility] [address] [place] [address] Shannon Lerner MD Nasal congestion 07/21/2024 Orders Only [facility] MED[facility] [address] [place] [address] Anju Barry MD 07/10/2024 Refill [facility] [address] [place] [address] Shannon Lerner MD Degenerative lumbar spinal stenosis; Chronic bilateral low back pain with bilateral sciatica from Last 3 Months Immunizations Name Administration Dates Next Due Hep B, adult 03/03/2024, 4,08/30/2023,12/14,10/02/2017 Influenza injectable quadriv alent IIV4 with preservative 05/11/2015 Influenza, IIV3, injectable 06/01/2014 Influenza, Split (incl. mary fied surface antigen) 08/06/2013,05/15/2012 Pfizer Covid-19 Vaccine 12+ 06/17/2024, 4 Pneumococcal Polysaccharide PPSV23 04/21/2003 RSV Bivalent 01/10/2024 TD (adult), 2 Lf tetanus tox oid, preservative free, adsorbed 06/04/2008 Tdap 09/24/2013 Zoster, Recombinant 12/12/2021 Zoster, live 10/02/2017 Social History Tobacco Use Types Packs/Day Years [...] Orientation Straight 07/26/2023 7: 09 PM EST Last Filed Vital Signs Vital Sign Reading Time Taken Comments Blood Pressure 119/67 06/17/2024 9:26 AM EST Pulse 55 06/17/2024 9:26 AM EST Temperature 36.3 ??C (97.3 ??F) 06/17/2024 9:26 AM ES T Respiratory Rate 15 06/17/2024 9:26 AM EST Oxygen Saturation 98% 06/17/2024 9:26 AM EST Inhaled Oxygen Concentration - - Weight 82.9 kg (182 lb 12.8 oz) 06/17/2024 9:26 AM EST Height 180.3 cm (5' 11 ) 06/17/2024 9:26 AM EST Body Mass Index 25.5 06/17/2024 9:26 AM EST Plan of Treatment Health Maintenance Due Date Last Done Comments CT Colonography 1955 FIT DNA/Cologuard 1955 FIT 1955 FOBT 1955 Sigmoidoscopy 1955 Eye Exam 1965 Pneumococcal Vaccine: 50+ Years (2 of 2 - PCV) 04/21/2004 04/21/2003 Zoster Vaccines (3 of 3) 02/06/2022 12/12/2021, 03/12/2017 DTaP/Tdap/Td Vaccines (2 - Td or Tdap) 09/24/2023 09/24/2013, 06/04/2008 Diabetes: Foot Exam 02/10/2024 02/09/2023, Influenza Vaccine (#1) 2024 5, 06/01/2014, 08/06/2013, Additional history exists SDOH Screening 11/19/2024 11/20/2023 Diabetes: Hemoglobin A1C 12/16/2024 024, 04/09/2024, 04/04/2024, Additional history exists Alcohol/Substance Use Screening 06/17/2025 06/17/2024 Depression Screening 06/17/2025 06/17/2024, 06/17/20 24 Tobacco Screening 06/17/2025 06/17/2024 Diabetes: Urine Protein Screening 06/18/2025 06/18/2024, 04/09/2024, 08/20/2023, Additional history exists Lipid Panel 06/18/2025 06/18/2024, 03/30, 08/20/2023, Additional history exists Colonoscopy 09/25/2026 04/13/2022 Colorectal Cancer Screening 09/25/2026 RSV Patients and Patients Aged 60 years or older Completed 01/10/2024 Hepatitis B Vaccines Completed 03/03/2024, 10/01/2023, 08/30/2023, Additional history exists COVID-19 Vaccine Completed 06/17/2024, 07/2023, 07/19/2021, Additional history exists Hepatitis C Screening Completed 06/18/2024 , 08/20/2023, 10/17/2022 HIB Vaccines Aged Out No longer eligi ble based on patient's age to complete this topic HPV Vaccines Aged Out No longer eligi ble based on patient's age to complete this topic Hepatitis A Vaccines Aged Out No long er eligible based on patient's age to complete this topic IPV Vaccines Aged Out No longer eligi ble based on patient's age to complete this topic Meningococcal Vaccine Aged Out No cierra josr eligible based on patient's age to complete this topic RSV under 20 months Aged Out No longe r eligible based on patient's age to complete this topic Rotavirus Vaccines Aged Out No longer eligible based on patient's age to complete this topic Procedures Procedure Name Priority Date/Time Associated Diagnosis Comments HEMATOXYLIN AND EOSIN STAIN Routine 09/25/2024 11:19 AM EST GLUCOSE, WHOLE BLOOD Routine 09/25/2024 10:19 AM EST DRUG MONITOR, PANEL 1, SCREEN, URINE Routine 09/25/2024 10:10 AM EST GLUCOSE, WHOLE BLOOD Routine 09/05/2024 3:09 PM EST GLUCOSE, WHOLE BLOOD Routine 08/22/2024 1:02 PM EST AMB REFERRAL TO HEMATOLOGY / ONCOLOGY Routine 08/04/2024 Pancytopenia (CMS/HCC) HEPATITIS C AB W/REFL TO HCV RNA, QN, PCR Routine 06/18/2024 9:35 AM EST Annual physical exam ALBUMIN, RANDOM URINE W/CREATININE Routine 06/18/2024 9:35 AM EST Annual physical exam HEMOGLOBIN A1C Routine 06/18/2024 9:35 AM EST Annual physical exam LIPID PANEL, STANDARD Routine 06/18/2024 9:35 AM EST Annual physical exam HM COLONOSCOPY Routine 04/13/2022 3:51 PM EDT from Last 3 Months or Most Recently Relevant to Health Maintenance Results * Hematoxylin and Eosin Stain (09/25/2024 11:19 AM EST) 09/25/2024 11:1 9 AM EST 09/25/2024 1:15 PM EST Narrative [facility] - 09/29/2024 3:44 PM EST ----- ------- Name: Colon,Bruno Mello ? Age/Sex: 69/M ? : 1955 Unit#: [id number] ?? Attend Dr: Adolfo Scott MD ?Re09/25/24 ?Status: DEP SDC ? Location: HO.SSS ?Disch: ? ----- ------- SPEC : [id number] ? RECD: 09/25/24-1314 ? STATUS: ??SOUT ? REQ NUM: [id number] ? LAURA: 09/25/24-1119 ? SUBM DR: Adolfo [...] CONTINUED ON NEXT PAGE ----- ------- Name: Colon,Brando ? Age/Sex: 69/M ? : 1955 Unit#: [id number] ?? Attend Dr: Adolfo Scott MD ?Re09/25/24 ?Status: DEP SDC ? Location: HO.SSS ?Disch: ? ----- ------- SPEC : [id number] ? RECD: 09/25/24-5 ? STATUS: ??SOUT ? REQ NUM: [id number] ? LAURA: 09/25/24-1119 ? SUBM DR: Adolfo [...] Copies To: ?? Adolfo Scott MD ?? [facility] ?? [address] ?? [place] [address] ?? [phone] ?? Shannon Lerner MD ?? [address] [facility] ?? [place] [address] ?? [phone] ? CONTINUED ON NEXT PAGE ----- ------- Name: Bruno Mueller ? Age/Sex: 69/M ? : 1955 Unit#: [id number] ?? Attend Dr: Adolfo Scott MD ?Re09/25/24 ?Status: DEP SDC ? Location: HO.SSS ?Disch: ? ----- ------- SPEC : [id number] ? RECD: 09/25/24-1314 ? STATUS: ??SOUT ? REQ NUM: [id number] ? LAURA: 09/25/24-1119 ? SUBM DR: Adolfo Scott MD ? ENTERED: ??09/25/24-1321 ?SP TYPE: Surgical ? OTHR DR: Shannon Lerner MD ORDERED: ??HE /21, Gross Micro L4/7, IHC, Special st. 2/3, H. pylori, AB/PAS/3 ? ----- ------- Signed (signature on file) Jayesh Mendieta MD 09/29/24 1544 ? ----- ------- ? END OF REPORT ? us Generic External Data Provider LAB BLOOD ORDERAB LES Final Result [facility] [address] [place] [phone] * (ABNORMAL) Glucose, Whole Blood (09/25/2024 10:19 AM EST) Glucose, Whole Blood 134(H) 60 - 115 mg/dL [facility] Comment:METER #: [id number] 09/25/2024 10:1 9 AM EST 09/25/2024 10:23 AM EST us Generic External Data Provider LAB BLOOD ORDERAB LES Final Result [facility] [address] [place] [address] [phone] * Drug Monitoring, Panel 1, Screen, Urine (09/25/2024 10:10 AM EST) Opiate Screen Urine Not Detected Not Detect [facility] Comment:Opiate cut-off is 30 0 ng/mL.Positive results are unconfirmed and should not be used fornon-medical purposes. Barbiturates, Urine Not Detected Not Detect [facility] Comment:Barbiturate cut-off is 200 ng/mL.Positive results are unconfirmed and should not be used fornon-medical purposes. Phencyclidine Screen Urine Not Detected Not Detect [facility] Comment:Phencyclidine cut-of f is 25 ng/mL.Positive results are unconfirmed and should not be used fornon-medical purposes. Amphetamine Screen Urine Not Detected Not Detect [facility] Comment:Amphetamine cut-off is 1000 ng/mL.Positive results are unconfirmed and should not be used fornon-medical purposes. Benzodiazepines Screen Urine Not Detected Not Detect [facility] Comment:Benzodiazepine cut-o ff is 200 ng/mL.Positive results are unconfirmed and should not be used fornon-medical purposes. Cocaine Screen Urine Not Detected Not Detect [facility] Comment:Cocaine cut-off is 3 00 ng/mL.Positive results are unconfirmed and should not be used fornon-medical purposes. Cannabinoid Screen Urine Not Detected Not Detect [facility] Comment:Cannabinoid cut-off is 50 ng/mL.Positive results are unconfirmed and should not be used fornon-medical purposes. Methadone Screen, Urine Not Detected Not Detect ng/mL [facility] Comment:Methadone cut-off is 300 ng/mL.Positive results are unconfirmed and should not be used fornon-medical purposes. FENTANYL URINE Not Detected Not Detect [facility] Comment:Fentanyl cut-off is 1 ng/mL.Positive results are unconfirmed and should not be used fornon-medical purposes. Oxycodone Urine Screen Not Detected Not Detect ng/mL [facility] Comment:Oxycodone cut-off is 100 ng/mL.Positive results are unconfirmed and should not be used fornon-medical purposes. Buprenorphine Screen Not Detected Not Detect ng/mL [facility] Comment:Buprenorphine cut-of f is 5 ng/mL.Positive results are unconfirmed and should not be used fornon-medical purposes. 09/25/2024 10:1 0 AM EST 09/25/2024 10:20 AM EST us Generic External Data Provider LAB URINE ORDERAB LES Final Result Performing Organization Address [facility]/ZIP Co de Phone Number [facility] [address] [place] [phone] * (ABNORMAL) Glucose, Whole Blood (09/05/2024 3:09 PM EST) Only the most recent of2 resultswithin the time period is included. Glucose, Whole Blood 186(H) 60 - 115 mg/dL [facility] Comment:METER #: [id number] Testing performed in the Endocrinology Department [address], [address], [facility]. 09/05/2024 3:09 PM EST 09/05/2024 3:14 PM EST us Generic External Data Provider LAB BLOOD ORDERAB LES Final Result Performing Organization Address [facility] Co de Phone Number [facility] [address] [place] [phone] * (ABNORMAL) Albumin, Random Urine W/Creatinine (06/18/2024 9:35 AM EST) Creatinine, Urine 208.88 mg/dL [facility] Microalbumin Urine 95.0 mg/L [facility] Microalbum Creatinine Ratio Ur 45.4(H) <30 ug/mg cr [facility] Comment:Albumin/Creatinine R atio Reference Ranges: Normal: < 30 ug/mg creatinine Microalbuminuria: 30 - 300 ug/mg creatinineClinical Albuminuria: > 300 ug/mg creatinine Urine (Urine, Random) 06/18/2024 9:35 AM EST 06/18/2024 11:40 AM EST us Shannon Diana MD LAB URINE ORDERAB LES Final Result Performing Organization Address [facility]/ZIP Co de Phone Number [facility] [address] [place] [phone] * Hepatitis C Antibody with Reflex to HCV, RNA, Quantitative, Real-Time PCR (06/18/2024 9:35 AM EST) Hepatitis C Antibody Nonreactive Nonreactive [facility] Comment:Antibodies to HCV no t detected; does not exclude early acuteHCV infection. Blood Venous blood specimen / Unknown 06/18/2024 9:35 AM EST 06/18/2024 11:22 AM EST us Shannon Diana MD LAB BLOOD ORDERAB LES Final Result Performing Organization Address [facility] Co de Phone Number [facility] [address] [place] [phone] * (ABNORMAL) Hemoglobin A1c (06/18/2024 9:35 AM EST) Hemoglobin A1c 6.7(H) <6.0 % [facility] Comment:Hemoglobin A1C Refer ence Range Adults: 4.8 - 6.0 % Non diabetic: < 6.0 % Goal: < 7.0 %Additional Action Suggested: > 8.0 %Note: Hemoglobin A1c results are invalid for patients with abnormal amounts of HbF. Blood transfusions may impact the HbA1c concentration in the patient sample. Estimated Average Glucose 146 mg/dL [facility] Comment:eAG = Estimated ave rage glucose which is %A1C expressed asaverage glucose, using the formula of the A3T-IqrhatsVzqfiat Glucose study (ADAG), Diabetes Care, Vol.31,#8,Feb. 2007 Blood Venous blood specimen / Unknown 06/18/2024 9:35 AM EST 06/18/2024 11:28 AM EST us Shannon Diana MD LAB BLOOD ORDERAB LES Final Result Performing Organization Address City/[facility]/ZIP Co de Phone Number [facility] [address] [place] [phone] * Lipid Panel, Standard (06/18/2024 9:35 AM EST) Triglycerides 72 <150 mg/dL [facility] Comment:Desirable Triglyceri de: less than 150 mg/dLBorderline High Triglyceride 150-199 mg/dLHigh Triglyceride: 200-499 mg/dLVery High Triglyceride: greater than or equal to 5OO mg/dL Cholesterol 106 <200 mg/dL [facility] Comment:Desirable Cholestero l: less than 200 mg/dLBorderline High Cholesterol: 200-239 mg/dLHigh Cholesterol: greater than 239 mg/dL LDL Cholesterol Calculated 48 <100 mg/dL [facility] Comment:Desirable LDL: less than 100 mg/dLNear Optimal/Above Optimal LDL: 110- 129 mg/dLBorderline High LDL: 130-159 mg/dLHigh LDL: 160-189 mg/dLVery High LDL: greater than or equal to 190 mg/dL HDL Cholesterol 44 >40 mg/dL [facility] Comment:Desirable HDL: great er than 40 mg/dL Note: This HDL assay may give artificially low results in patients with liver disease. Blood Venous blood specimen / Unknown 06/18/2024 9:35 AM EST 06/18/2024 11:22 AM EST us Shannon Diana MD LAB BLOOD ORDERAB LES Final Result Performing Organization Address City/[facility]/ZIP Co de Phone Number [facility] [address] [place] [phone] * Colonoscopy (04/13/2022 3:51 PM EDT) us Historical Provider HEALTH MAINTENANCE Final Result from Last 3 Months or Most Recently Relevant to Health Maintenance Insurance [address] [place] [id number] [facility] Care Teams Network Management Specialist Relationship Specialty Start Date End Date Shannon Lerner MD [address] [place] [phone] PCP - General Internal Medicine 02/12/23
--- OUTSIDE RECORDS SUMMARY | 2024-10-08 17:55 | XMS_ITS | Encounter Summary ---
Author Organization [employer] Address [address] [facility] [address] [place] [address] Care Team Providers Care Lamp Stack Developer Name Role Phone Shannon Lerner MD Primary Care Pro vider Reason for Visit * Reason Comments Med Refill Encounter Details Date Type Department Care Team ([facility] st Contact Info) Description 09/06/2023 Refill [facility] [address] [place], [place] [phone] Shannon Lerner MD [address] [place] [address] Polyneuropathy Social History Tobacco Use Types Packs/Day [...] documented as of this encounter Care Teams Lamp Stack Developer Relationship Specialty Start Date End Date Shannon Lerner MD [address] [place] [phone] PCP - General Internal Medicine 02/12/23 documented as of this encounter
== END 2024-10-08 15:42 | disposition home or self-care (01) ==
LOC: HO.HUSH 15:10
PROVIDERS: PCP Student in an Organized Health Care Education/Training Program; Visit Provider Nurse Practitioner Family
DX: E11.69 Type 2 diabetes mellitus with other specified complication (principal); N52.1 Erectile dysfunction due to diseases classified elsewhere; N40.1 Benign prostatic hyperplasia with lower urinary tract symptoms; Z13.9 Encounter for screening, unspecified
CPT/HCPCS: 99213; G2211

== ENCOUNTER → 2024-10-08 15:10 | Outpatient (BNVA) | payer OTHER, SELFPAY | PROVIDERS: PCP Student in an Organized Health Care Education/Training Program; Visit Provider Nurse Practitioner Family | DX: E11.69 Type 2 diabetes mellitus with other specified complication (principal); N52.1 Erectile dysfunction due to diseases classified elsewhere; N40.1 Benign prostatic hyperplasia with lower urinary tract symptoms | CPT/HCPCS: 51798; 81003; 99212 ==

== ENCOUNTER 2024-11-10 08:04 | Outpatient (AMB) | payer OTHER, SELFPAY ==
[2024-11-10 08:05] VITALS: BP 120/58; PULSE 66; O2SAT 100; BMI 25.1
--- NOTE | 2024-11-10 08:05 | A.OFFVIS_ITS ---
Vital Signs 11/10/24 08:05 Height 5 ft 11 in Weight 180 lb BMI 25.1 BP 120/58 L Blood Pressure Location Rt brachial Position Sitting Pulse 66 Pulse Source Pulse Oximeter Pulse Oximetry (%) 100 Oxygen Delivery Method Room Air Intake Visit Reasons: F/U DOUBLE Intake Note: ESTABLISHED PATIENT for mgmt of GERD and constipation. S/P Double. Chief Complaint; C/O dysphagia with any form of intake regardless of what it is. Pt denies any specific triggers and confirms that he is still taking his nexium. No additional concerns at this time. Route Salesman And Driver Required: Yes Route Salesman And Driver Services: Route Salesman And Driver Present Route Salesman And Driver Name: [id number] Information Interpreted: clinical only Accompanied by: Self / Same As Patient Allergies dulaglutide [Trulicity] Adverse Reaction (Unknown, Verified 11/10/24 08:06) diarrhea HPI HPI F/U DOUBLE: Details: LAST VISIT Dysphagia IBS (irritable bowel syndrome) GERD (gastroesophageal reflux disease) Constipation Screen for colon cancer Plan What to expect before during and after procedure discussed with patient. Patient will try to schedule the procedure with surgical schedulers today. Patient takes Ozempic on Mondays. Has not taking Ozempic yet. Procedure was booked for him on Sunday. Patient is supposed to take half of the night insulin tonight and have tomorrow. No short-acting insulin tomorrow as he will be doing clear liquid diet. I will see him after the procedure. What to expect before during and after procedure discussed with patient. Stressed the importance of clear liquid diet and good bowel prep. I will see him after the procedure, sooner on as needed basis. He is agreeable to this plan and verbalizes understanding of instructions. He was given the opportunity to ask questions and all questions answered. ? Thank you for allowing me to participate in his care Medications New bisacodyl (Dulcolax (bisacodyl)) take 4 tabs at noon the day before your colonoscopy 20 mg (4 x 5 mg) PO ONCE 1 day 4 tabs 0RF Z12.11 polyethylene glycol 3350 (Miralax) As directed by gastroenterology department at [facility] 238 grams PO ONCE 238 grams 0RF Z12.11 Refilled sennosides (Natural Senna Laxative) 17.2 mg (2 x 8.6 mg) PO BEDTIME 120 tabs 3RF constipation K59.00 UPPER ENDOSCOPY AND COLONOSCOPY Findings: Larynx:normal Esophagus: GE junction at 40 cm, diaphragm hiatus at 42 cm, consistent with 2 cm sliding hiatal hernia with mild esophagitis, bx taken from GEJ, and distal esophagus. Balloon dilation done to 20 mm at LES and UEs, no tears seen Stomach: Patchy erythematous mucosa. Biopsies were obtained. Grade 2 flap valve on retroflexed examination of the cardia. Duodenum: Normal bulb and descending duodenum, samll adenoma appearing lesion noted 4-5 mm removed with cold forceps Intervention: Biopsies as noted above, balloon dilation COLONOSCOPY Instrument: Olympus variable stiffness pediatric scope 190L Colonoscopy Monitoring: Vital signs and clinical assessment, continuous EKG monitoring, Pulse oximetry, Carbon Dioxide monitoring and blood pressure monitoring were done throughout the procedure. Colon withdrawal time was 9 minutes. Procedure: The patient was placed in the left lateral decubitis position and pre-procedure medications were administered. After a digital rectal examination of the ano-rectum, the video colonoscope was inserted into the rectum and advanced through the colon to the cecum/TI. The colonoscope was slowly withdrawn in a retrograde panoramic fashion and the colon mucosa was carefully examined including a retroflexed view of the rectum. Findings and interventions are described below. Procedure Difficulty:moderate Findings: Terminal Ileum-normal Cecum: x 1 sessile polyp 4-6 mm removed with cold forceps Ascending Colon: normal Transverse Colon - x 2 sessile polyps 4-5 mm removed with cold forceps Descending Colon: 10 mm sessile polyp removed with cold snare Sigmoid Colon: mild diverticulosis Rectum: Retroflexion with small internal hemorrhoids, grade I Anorectum - normal Colon preparation: [place] Bowel Preparation Scale Right colon; 2 Transverse colon: 2 Left colon; 1-2 (0 = Unprepared colon segment with mucosa not seen due to solid stool that cannot be cleared. 1 = Portion of mucosa of the colon segment seen, but other areas of the colon segment not well seen due to staining, residual stool and/or opaque liquid. 2 = Minor amount of residual staining, small fragments of stool and/or opaque liquid, but mucosa of colon segment seen well. 3 = Entire mucosa of colon segment seen well with no residual staining, small fragments of stool or opaque liquid) Impression and Post Procedure Diagnosis: Endoscopy Findings: gastritis duodenal adenoma Colonoscopy Findings: diverticulosis colon polyps internal hemorrhoids Plan: Await Pathology results Repeat Colonoscopy in 2-3 years due to some areas of fair prep or earlier if clinically indicated High fiber diet leaflet avoid straining at stool, epsom salts and sitz bath, anusol supps or cream GERD precautions PATHOLOGY REPORT Diagnosis A. Duodenum, polypectomy: Hyperplastic duodenal mucosa with chronic injury. B. Stomach, biopsy: Antral-type mucosa with mild chronic inactive inflammation; no Helicobacter organisms seen. C. GE junction, biopsy: - Cardiofundic-type mucosa with moderate chronic inactive inflammation; no intestinal metaplasia seen. - Squamous epithelium within normal limits. D. Esophagus, distal, biopsy: Squamous epithelium within normal limits; no inflammation seen. E. Colon, transverse, polypectomies: - Tubular adenoma; negative for high-grade dysplasia or carcinoma. - Colonic mucosa with prominent lymphoid aggregate. F. Cecum, polypectomy: Tubular adenoma; negative for high-grade dysplasia or carcinoma. G. Colon, descending, polypectomy: Tubular adenoma; negative for high-grade dysplasia or carcinoma TODAY'S VISIT: Patient is here today for follow-up and to discuss upper endoscopy and colonoscopy results. Patient denies any issues with prep, anesthesia or procedure itself. Patient was found to have tubular adenoma without high-grade dysplasia or carcinoma. Stomach biopsy showed mild chronic inactive inflammation no H pylori. No esophagitis. Patient continues to have feeling like he has something stuck in his throat like he is unable to swallow. Patient had x-ray done in 2022 that did not show any acute processes. Patient reports that even this morning he did have anything to eat yet any feels like there is something stuck in his throat. Patient denies any nausea or vomiting. Denies any sore throat, fever or chills. Reports that Nexium has been working for him. He denies having any acid reflux. Reports that he has been moving his bowels well. Uses Senokot as needed. [facility] Medical History Erectile dysfunction associated with type 2 diabetes mellitus Unsteady gait Asthma Leg weakness Mass of right parotid gland Hypertensive retinopathy of right eye Tubular adenoma of colon Smoker Dyspnea on exertion Vitamin D deficiency Hypertension Diabetic polyneuropathy associated with type 2 diabetes mellitus Diabetic nephropathy associated with type 2 diabetes mellitus jail (current) use of insulin Dyslipidemia Diabetes type 2, uncontrolled Surgical History History of esophagogastroduodenoscopy (EGD) Hx of colonoscopy History of amputation of finger History of lumbar surgery Family History Father Medical history unknown Mother Medical history unknown Sister Breast cancer Brother Cancer Social History Household Members: None Are you a primary skin care technician to a significant other at home: No Do you presently have visiting nurse or other home services: No Alcohol intake: current Alcohol intake frequency: former alcohol drinker Patient Tobacco Use Status: Former Tobacco user Years Smoked: 52 (onset 13yo) Review of Systems Const Denies weight gain and Denies weight loss ENT Reports no additional complaints, Denies dysphagia and Denies odynophagia Card Reports no additional complaints Resp Reports no additional complaints GI Denies abdominal pain, Denies belching, Denies melena, Denies bloating, Denies change in bowel habits, Denies dysphagia, Denies excessive flatus, Denies dyspepsia, Denies heartburn, Denies diarrhea, Denies loose stools, Denies nausea, Denies odynophagia and Denies vomiting Reports no additional complaints Musc Reports no additional complaints Neuro Reports no additional complaints Psych Reports no additional complaints Endo Reports no additional complaints Physical Exam Const General: healthy appearing, no acute distress and well developed Nutritional Appearance: well nourished Orientation/consciousness: patient oriented x3 Resp Effort & Inspection: normal respiratory effort, able to speak in complete sentences, no tracheal deviation and symmetric chest movement Auscultation: clear to auscultation bilaterally Cardio Rate: regular rate GI Inspection: Yes normal to inspection and No distended Palpation (GI): Soft to palpation, not firm, nontender and No hepatosplenomegaly present Auscultation: normal bowel sounds General: Yes no CVA tenderness Back/Spine/Pelvis Back: no CVA tenderness Skin General skin exam: elasticity normal, turgor normal and dry skin Neuro General: patient oriented x3 Psych Appearance: grossly normal Mental Status: mental status grossly normal Assessment & Plan Assessment & Plan (1) Dysphagia: Code(s): R13.10 - Dysphagia, unspecified Qualifiers: Dysphagia type: oropharyngeal phase Qualified Code(s): R13.12 - Dysphagia, oropharyngeal phase (2) IBS (irritable bowel syndrome): Code(s): K58.9 - Irritable bowel syndrome, unspecified Qualifiers: Irritable bowel syndrome type: without diarrhea Qualified Code(s): K58.9 - Irritable bowel syndrome, unspecified (3) GERD (gastroesophageal reflux disease): Code(s): K21.9 - Gastro-esophageal reflux disease without esophagitis Qualifiers: Esophagitis presence: without esophagitis Qualified Code(s): K21.9 - Gastro-esophageal reflux disease without esophagitis (4) Constipation: Code(s): K59.00 - Constipation, unspecified Qualifiers: Constipation type: slow transit constipation Qualified Code(s): K59.01 - Slow transit constipation Plan Patient will continue taking Nexium daily and famotidine at bedtime. Avoid dietary triggers and late night snacking. Staying upright for minimal 3 hours after meals discussed with patient. Will send him for modified barium swallow with speech therapy. He continues to have dysphagia. Feeling like something is stuck in his throat. X-ray done in the past and negative. Nothing seen on endoscopy. Referral to ENT for further evaluation. Patient was encouraged to she will his food well before she swallows. Continue senna is needed. Increase fluid intake and activity to promote better bowel motility. Suboptimal prep for colonoscopy and will need to be repeated in 2-3 years. Patient will be seen in the office in 4 months, sooner on as needed basis. He is agreeable to this plan and verbalizes understanding of instructions. He was given the opportunity to ask questions and all questions answered. Thank you for allowing me to participate in his care Orders: Orders [place] Modified Barium Swallow Today R13.10 - Dysphagia, unspecified XR chest 2V Today R13.10 - Dysphagia, unspecified Referrals Ear/Nose/Throat Referral R13.10 - Dysphagia, unspecified Coding Level of Care Code Est Pt Level 4 (00620) Complex EM visit Add On G2211 Diagnoses Oropharyngeal dysphagia R13.12 Dysphagia type: oropharyngeal phase Irritable bowel syndrome without diarrhea K58.9 Irritable bowel syndrome type: without diarrhea Gastroesophageal reflux disease without esophagitis K21.9 Esophagitis presence: without esophagitis Slow transit constipation K59.01 Constipation type: slow transit constipation Time Spent (min) 35 Comment 25 minutes spent with patient and additional 10 minutes spent reviewing his records
--- OUTSIDE RECORDS SUMMARY | 2024-11-10 08:23 | XMS_ITS | Encounter Summary ---
Author Organization [employer] Address [address] [place] [address] [address] [place] [id number] Care Team Providers Care Desktop Support Specialist Name Role Phone Nancy Moreira Primary Care Provider +1- [phone] Shannon Lerner MD Primary Care Pro vider Encounter Details Date Type Department Care Team (Late st Contact Info) Description 08/15/2022 Orders Only [facility] CHC MED & PEDS [address] [place] [address] Nohemy Nair LPN Social History Tobacco Use Types Packs/Day Years Used Date Smoking Tobacco: Never Assessed Sex and Gender Information Value Date Recorded Sex Assigned at Male 05/29/2022 10:15 AM EDT Legal Sex Male 10:15 AM EDT Gender Identity Male 07/26/2023 7:09 PM EST Sexual Orientation Straight 07/26/2023 7: 09 PM EST documented as of this encounter Plan of Treatment Upcoming Encounters Date Type Department Care Team (Late st Contact Info) Description 11/25/2024 11:00 AM EDT Clinical Support [address] [address] 12/16/2024 11:15 AM EDT Office Visit [address] [address] Shannon Lerner MD [address] [place] [address] documented as of this encounter Visit Diagnoses Not on filedocumented in this encounter Care Teams Desktop Support Specialist Relationship Specialty Start Date End Date Nancy Moreira FNP PCP - General Family Medicine 03/22/22 02/11/23 Shannon Lerner MD [address] [place] [address] PCP - General Internal Medicine 02/12/23 documented as of this encounter
--- OUTSIDE RECORDS SUMMARY | 2024-11-10 08:23 | XMS_ITS | Encounter Summary ---
Author Organization [employer] Address [address] [facility] 7t [place] [address] Care Team Providers Care Fresh Food Manager Name Role Phone Shannon Lerner MD Primary Care Pro vider Reason for Visit * Reason Comments Med Refill Encounter Details Date Type Department Care Team ([facility] st Contact Info) Description 09/06/2023 Refill [facility] CHC MED & PEDS [address] [place], [place] [phone] Shannon Lerner MD [address] [place] [address] Polyneuropathy Social History Tobacco Use Types Packs/Day [...] Description 11/25/2024 11:00 AM EDT Clinical Support [address] [address] 12/16/2024 11:15 AM EDT Office Visit [address] [address] Shannon Lerner MD [address] [place] [address] documented as of this encounter Visit Diagnoses Diagnosis Polyneuropathy Unspecified hereditary and idiopathic peripheral neuropathy documented in this encounter Additional Health Concerns Assessment Noted Time PHQ-9 Depression Total Score: 8 07/26/20 3:19 PM EST documented as of this encounter Care Teams Fresh Food Manager Relationship Specialty Start Date End Date Shannon Lerner MD [address] [place] [phone] PCP - General Internal Medicine 02/12/23 documented as of this encounter
--- OUTSIDE RECORDS SUMMARY | 2024-11-10 08:23 | XMS_ITS | Encounter Summary ---
Author Organization [employer] Address [address] [facility] 7t [place] [address] Care Team Providers Care Hospital Laboratory Technician Name Role Phone Shannon Lerner MD Primary Care Pro vider Reason for Visit * Reason Comments Med Refill Encounter Details Date Type Department Care Team ([facility] st Contact Info) Description 02/13/2024 Refill [facility] CHC MED & PEDS [address] [place], [place] [phone] Susan Jhaveri MD [address] [place] [address] Social History Tobacco Use Types Packs/Day Years [...] Description 11/25/2024 11:00 AM EDT Clinical Support [address] [address] 12/16/2024 11:15 AM EDT Office Visit [address] [address] Shannon Lerner MD [address] [place] [address] documented as of this encounter Visit Diagnoses Not on filedocumented in this encounter Additional Health Concerns Assessment Noted Time PHQ-9 Depression Total Score: 8 07/26/20 3:19 PM EST documented as of this encounter Care Teams Hospital Laboratory Technician Relationship Specialty Start Date End Date Shannon Lerner MD [address] [place] [address] PCP - General Internal Medicine 02/12/23 documented as of this encounter
--- OUTSIDE RECORDS SUMMARY | 2024-11-10 08:23 | XMS_ITS | Encounter Summary ---
Author Organization [employer] Address [address] [place] [address] [address] [place] [phone] Care Team Providers Care Clamp Jig Assembler Name Role Phone Nancy Moreira Primary Care Provider +1- [phone] Shannon Lerner MD Primary Care Pro vider Encounter Details Date Type Department Care Team (Late st Contact Info) Description 09/07/2022 Orders Only [facility] CHC MED & PEDS [address] [place] [address] Nohemy Nair LPN Social History Tobacco Use [...] Description 11/25/2024 11:00 AM EDT Clinical Support [address] [address] 12/16/2024 11:15 AM EDT Office Visit [address] [address] Shannon Lerner MD [address] [place] [address] documented as of this encounter Visit Diagnoses Not on filedocumented in this encounter Care Teams Clamp Jig Assembler Relationship Specialty Start Date End Date Nancy Moreira FNP PCP - General Family Medicine 03/22/22 02/11/23 Shannon Lerner MD [address] [place] [address] PCP - General Internal Medicine 02/12/23 documented as of this encounter
--- OUTSIDE RECORDS SUMMARY | 2024-11-10 08:23 | XMS_ITS | Encounter Summary ---
Author Organization [employer] Address [address] [facility] 7t [place] [address] Care Team Providers Care Science And Operations Officer Name Role Phone Shannon Lerner MD Primary Care Pro vider Encounter Details Date Type Department Care Team (Late st Contact Info) Description 05/14/2023 Abstract [facility] MEDICINE [address] [place], [place] [phone] Shannon Lerner MD [address] [place], [place] [phone] Social History Tobacco Use Types Packs/Day Years [...] Description 11/25/2024 11:00 AM EDT Clinical Support [address] [address] 12/16/2024 11:15 AM EDT Office Visit [address] [address] Shannon Lerner MD [address] [place] [address] documented as of this encounter Visit Diagnoses Not on filedocumented in this encounter Care Teams Science And Operations Officer Relationship Specialty Start Date End Date Shannon Lerner MD [address] [place] [address] PCP - General Internal Medicine 02/12/23 documented as of this encounter
--- OUTSIDE RECORDS SUMMARY | 2024-11-10 08:23 | XMS_ITS | Encounter Summary ---
Author Organization [email or web address] Address [address] [facility] 7t [place] [address] Care Team Providers Care Reconditioner Name Role Phone Shannon Lerner MD Primary Care Pro vider Reason for Visit * Reason Comments Med Refill Encounter Details Date Type Department Care Team ([facility] st Contact Info) Description 09/06/2023 Refill [facility] CHC MED & PEDS [address] [place], [place] [phone] Shannon Lerner MD [address] [place] [address] Polyneuropathy Social History Tobacco Use Types Packs/Day [...] Description 11/25/2024 11:00 AM EDT Clinical Support [address] [address] 12/16/2024 11:15 AM EDT Office Visit [address] [address] Shannon Lerner MD [address] [place] [address] documented as of this encounter Visit Diagnoses Diagnosis Polyneuropathy Unspecified hereditary and idiopathic peripheral neuropathy documented in this encounter Additional Health Concerns Assessment Noted Time PHQ-9 Depression Total Score: 8 07/26/20 3:19 PM EST documented as of this encounter Care Teams Reconditioner Relationship Specialty Start Date End Date Shannon Lerner MD [address] [place] [id number] PCP - General Internal Medicine 02/12/23 documented as of this encounter
--- OUTSIDE RECORDS SUMMARY | 2024-11-10 08:23 | XMS_ITS | Clinical Summary ---
Author Organization [facility] Address [address] [facility] [address] [place] [address] Phone Care Team Providers Care Yard Engineer Name Role Phone Sofia Parekh Primary Care Provider +1- [phone] Allergies Active Allergy Reactions Criticality Noted Date [...] Due Date Last Done Comments Pneumococcal Vaccine: 50+ Ye ars (1 of 2 - PCV) 1974 Colorectal Cancer Screening: Annual FOBT 2004 Colorectal Cancer Screening: Colonoscopy 2004 Colorectal Cancer Screening: Sigmoidoscopy 2004 Diabetes: Hemoglobin A1C 07/17/2019 Diabetes: Ophthalmology Exam 07/17/2019 Diabetes: Pedal Pulse Checked 07/17/2019 Diabetes: Sensory Foot Exam 07/17/2019 Diabetes: Visual Foot Exam 07/17/2019 Influenza Vaccine (Season Ended) 2025 Hepatitis B Vaccine Aged Out No longe r eligible based on patient's age to complete this topic Insurance [facility] [place] [id number] [facility] ([id number]) [place] [phone] , [place] [address] Care Teams Yard Engineer Relationship Specialty Start Date End Date Sofia Parekh PCP - General Family Medicine 06/30/21
--- OUTSIDE RECORDS SUMMARY | 2024-11-10 08:23 | XMS_ITS | Encounter Summary ---
Author Organization [employer] Address [address] [facility] [address] [place] [address] Care Team Providers Care Motor Equipment Lieutenant Name Role Phone Shannon Lerner MD Primary Care Pro vider Encounter Details Date Type Department Care Team (Late st Contact Info) Description 07/21/2024 Orders Only [facility] MEDICINE [address] [place] [address] Provider, MD Anju Social History Tobacco Use [...] Description 11/25/2024 11:00 AM EDT Clinical Support [address] [address] 12/16/2024 11:15 AM EDT Office Visit [facility] [address] [place] [address] Shannon eLrner MD [address] [place] [address] documented as of this encounter Procedures Procedure Name Priority Date/Time Associated Diagnosis Comments HM COLONOSCOPY Routine 04/13/2022 3:51 PM EDT documented in this encounter Results * Hm Colonoscopy (04/13/2022 3:51 PM EDT) us Historical Provider HEALTH MAINTENANCE Final Result documented in this encounter Visit Diagnoses Not on filedocumented in this encounter Additional Health Concerns Assessment Noted Time PHQ-9 Depression Total Score: 4 06/17/20 24 10:10 AM EST documented as of this encounter Care Teams Motor Equipment Lieutenant Relationship Specialty Start Date End Date Shannon Lerner MD [address] [place] [phone] PCP - General Internal Medicine 02/12/23 documented as of this encounter
--- OUTSIDE RECORDS SUMMARY | 2024-11-10 08:23 | XMS_ITS | Clinical Summary ---
Author Organization [employer] Address [address] [facility] [address] [place] [address] Care Team Providers Care Preassembler And Inspector Name Role Phone Shannon Lerner MD Primary [...] the morning. 023 Active [facility]plus [facility]ets [facility] BLOOD SUGAR FOUR TIMES DAILY 022 [...] TABLET BY MOUTH DAILY FOR SEXUAL ACTIVITY Active Fiasp FlexTouch 100 UNIT/ML injection INJECT 2-4 UNITS SUBCUTANEOUSLY THREE TIMES DAILY Active imipramine (Tofranil) 25 MG tablet Take [...] complication, without long-term current use of insulin ([facility]) USE FOUR TIMES DAILY DIRECTED 200 each 11 024 Active Baqsimi Two Pack 3 MG/DOSE nasal powder 023 Active lidocaine (Lidoderm) 5 % patch APPLY [...] EVERY MORNING 90 tablet 1 024 Active Nexlizet 180-10 MG tablet Take 1 tablet by mouth every day 025 Active Continuous Glucose Sensor (FreeStyle Luis 2 Sensor) [facility] Use as directed. Change sensor every 14 [...] AT BEDTIME 90 tablet 1 025 Active amLODIPine (Norvasc) 10 MG tabletIndicatio ns:Primary hypertension TAKE 1 TABLET BY MOUTH AT BEDTIME 90 tablet 1 025 Active hydroCHLOROthia zide (HYDRODiuril) 25 MG tablet TAKE 1 TABLET BY MOUTH EVERY MORNING 90 tablet 025 Active amLODIPine (Norvasc) 10 MG tabletIndicatio ns:Primary hypertension Take 1 tablet (10 mg) by mouth at bedtime. 90 tablet 3 024 2024 Discontinued hydroCHLOROthia zide (HYDRODiuril) 25 MG tablet TAKE 1 TABLET BY MOUTH EVERY MORNING 90 tablet 025 2024 Discontinued Active Problems Problem Noted Date [...] Encounters Date Type Department Care Team Description 11/03/2024 Refill [facility] & PEDS [address] [place] [address] Susan Jhaveri MD 10/30/2024 Telephone [facility] MED[facility] [address] [place] [address] Shannon Lerner MD Appointment Request 10/28/2024 Refill [facility] [address] [place] [address] Rudy Kapadia MD Primary hypertension 09/30/2024 Refill [facility] MED & PEDS [address] [place] [address] Shannon Lerner MD Bradycardia 09/27/2024 Refill [facility] MED & PEDS [address] [place] [address] Susan Jhaveri MD Chronic obstructive pulmonary disease, unspecified COPD type ([facility]) 09/25/2024 Orders Only GENERIC EXTERNAL DATA DEPARTMENT Provider, Generic External Data 09/05/2024 Orders Only GENERIC EXTERNAL DATA DEPARTMENT Provider, Generic External Data 08/22/2024 Orders Only GENERIC EXTERNAL DATA DEPARTMENT Provider, Generic External Data from Last 3 Months Immunizations Name Administration [...] 06/17/2024 9:26 AM EST Plan of Treatment Upcoming Encounters Date Type Department Care Team (Late st Contact Info) Description 11/25/2024 11:00 AM EDT Clinical Support [facility] [address] [place] [address] 12/16/2024 11:15 AM EDT Office Visit [facility] [address] [place] [address] Shannon Lerner MD [address] [place] [address] Health Maintenance Due Date Last Done Comments CT Colonography 1955 FIT DNA/Cologuard 1955 FIT 1955 FOBT 1955 Sigmoidoscopy 1955 Eye Exam 1965 Pneumococcal Vaccine: 50+ Years (2 of 2 - PCV) 04/21/2004 04/21/2003 Zoster Vaccines (3 of 3) 02/06/2022 12/12/2021, 12/2017 DTaP/Tdap/Td Vaccines (2 - Td or Tdap) 09/24/2023 09/24/2013, 06/04/2008 Diabetes: Foot Exam 02/10/2024 02/09/2023, 3 Influenza Vaccine (#1) 2024 5, 06/01/2014, 08/06/2013, [...] WHOLE BLOOD Routine 08/22/2024 1:02 PM EST HEPATITIS C AB W/REFL TO HCV RNA, [...] 9 AM EST 09/25/2024 1:15 PM EST [facility] - 09/29/2024 3:44 PM EST ----- ------- Name: Colon,Bruno Mello ? Age/Sex: 69/M ? : 1955 Unit#: [id number] ?? Attend Dr: Adolfo Scott MD ?Re09/25/24 ?Status: DEP SDC ? Location: HO.SSS ?Disch: ? ----- ------- SPEC : [id number] ? RECD: 09/25/24-1314 ? STATUS: ??SOUT ? REQ NUM: [id number] ? LAURA: 09/25/24-1119 ? SUBM DR: Adolfo [...] ? Age/Sex: 69/M ? : 1955 Unit#: [id number] ?? Attend Dr: Adolfo Scott MD ?Re09/25/24 ?Status: DEP SDC ? Location: HO.SSS ?Disch: ? ----- ------- SPEC : [id number] ? RECD: 09/25/24-1314 ? STATUS: ??SOUT ? REQ NUM: [id number] ? LAURA: 09/25/24-1119 ? SUBM DR: Adolfo [...] Copies To: ?? Adolfo Scott MD ?? [facility] ?? [address] ?? [place] [address] ?? [phone] ?? Shannon Lerner MD ?? [address] [facility] ?? [place] [address] ?? [phone] ? CONTINUED ON NEXT PAGE ----- ------- Name: Colon,Bruno Mello ? Age/Sex: 69/M ? : 1955 Unit#: [id number] ?? Attend Dr: Adolfo Scott MD ?Re09/25/24 ?Status: DEP SDC ? Location: HO.SSS ?Disch: ? ----- ------- SPEC : [id number] ? RECD: 09/25/24-1314 ? STATUS: ??SOUT ? REQ NUM: [id number] ? LAURA: 09/25/24-1119 ? SUBM DR: Adolfo Scott MD ? ENTERED: ??09/25/24-1321 ?SP TYPE: Surgical ? OTHR DR: Shannon Lerner MD ORDERED: ??HE /, Gross Micro L4/7, IHC, Special st. 2/, H. pylori, AB/PAS/3 ? ----- ------- Signed (signature on file) Jayesh Mendieta MD 09/29/24 5849 ? ----- ------- ? END OF REPORT ? us Generic External Data Provider LAB BLOOD ORDERAB LES Final Result [facility] [address] [place] [address] [phone] * (ABNORMAL) Glucose, Whole Blood (09/25/2024 10:19 AM EST) Glucose, Whole Blood 134(H) 60 - 115 mg/dL [facility] Comment:METER #: [id number] 09/25/2024 10:1 9 AM EST 09/25/2024 10:23 AM EST us Generic External Data Provider LAB BLOOD ORDERAB LES Final Result [facility] [address] [place] [phone] * Drug Monitoring, Panel 1, Screen, Urine (09/25/2024 10:10 AM EST) Opiate Screen Urine Not Detected Not Detect [facility] Comment:Opiate cut-off is 30 0 ng/mL.Positive results are unconfirmed and should not be used fornon-medical purposes. Barbiturates, Urine Not Detected Not Detect [facility] Comment:Barbiturate cut-off is 200 ng/mL.Positive results are unconfirmed and should not be used fornon-medical purposes. Phencyclidine Screen Urine Not Detected Not Detect [facility] Comment:Phencyclidine cut-of f is 25 ng/mL.Positive results are unconfirmed and should not be used fornon-medical purposes. Amphetamine Screen Urine Not Detected Not Detect [facility] Comment:Amphetamine cut-off is 1000 ng/mL.Positive results are unconfirmed and should not be used fornon-medical purposes. Benzodiazepines Screen Urine Not Detected Not Detect [facility] Comment:Benzodiazepine cut-o ff is 200 ng/mL.Positive results are unconfirmed and should not be used fornon-medical purposes. Cocaine Screen Urine Not Detected Not Detect [facility] Comment:Cocaine cut-off is 3 00 ng/mL.Positive results are unconfirmed and should not be used fornon-medical purposes. Cannabinoid Screen Urine Not Detected Not Detect [facility] Comment:Cannabinoid cut-off is 50 ng/mL.Positive results are unconfirmed and should not be used fornon-medical purposes. Methadone Screen, Urine Not Detected Not Detect ng/mL [facility] Comment:Methadone cut-off is 300 ng/mL.Positive results are unconfirmed and should not be used fornon-medical purposes. FENTANYL URINE Not Detected Not Detect [facility] Comment:Fentanyl cut-off is 1 ng/mL.Positive results are unconfirmed and should not be used fornon-medical purposes. Oxycodone Urine Screen Not Detected Not Detect ng/mL [facility] Comment:Oxycodone cut-off is 100 ng/mL.Positive results are unconfirmed and should not be used fornon-medical purposes. Buprenorphine Screen Not Detected Not Detect ng/mL [facility] Comment:Buprenorphine cut-of f is 5 ng/mL.Positive results are unconfirmed and should not be used fornon-medical purposes. 09/25/2024 10:1 0 AM EST 09/25/2024 10:20 AM EST Generic External Data Provider LAB URINE ORDERAB LES Final Result Performing Organization Address City/[facility] Co de Phone Number [facility] [address] [place] [phone] * (ABNORMAL) Glucose, Whole Blood (09/05/2024 3:09 PM EST) Only the most recent of2 resultswithin the time period is included. Glucose, Whole Blood 186(H) 60 - 115 mg/dL [facility] Comment:METER #: [id number] Testing performed in the Endocrinology Department [address] , [address], [facility]. 09/05/2024 3:09 PM EST 09/05/2024 3:14 PM EST us Generic External Data Provider LAB BLOOD ORDERAB LES Final Result Performing Organization Address City/[facility]/ZIP Co de Phone Number [facility] [address] [place] [phone] * (ABNORMAL) Albumin, Random Urine W/Creatinine (06/18/2024 9:35 AM EST) Creatinine, Urine 208.88 mg/dL [facility] Microalbumin Urine 95.0 mg/L H [facility] Microalbum Creatinine Ratio Ur 45.4(H) <30 ug/mg cr [facility] Comment:Albumin/Creatinine R atio Reference Ranges: Normal: < 30 ug/mg creatinine Microalbuminuria: 30 - 300 ug/mg creatinineClinical Albuminuria: > 300 ug/mg creatinine Urine (Urine, Random) 06/18/2024 9:35 AM EST 06/18/2024 11:40 AM EST Shannon Diana MD LAB URINE ORDERAB LES Final Result Performing Organization Address [facility] Co de Phone Number [facility] [address] [place] [phone] * Hepatitis C Antibody with Reflex to HCV, RNA, Quantitative, Real-Time PCR (06/18/2024 9:35 AM EST) Hepatitis C Antibody Nonreactive Nonreactive [facility] Comment:Antibodies to HCV no t detected; does not exclude early acuteHCV infection. Blood Venous blood specimen / Unknown 06/18/2024 9:35 AM EST 06/18/2024 11:22 AM EST us Shannon Diana MD LAB BLOOD ORDERAB LES Final Result Performing Organization Address [facility] Co de Phone Number [facility] [address] [place] [phone] * (ABNORMAL) Hemoglobin A1c (06/18/2024 9:35 AM EST) Hemoglobin A1c 6.7(H) <6.0 % [facility] Comment:Hemoglobin A1C Refer ence Range Adults: 4.8 - 6.0 % Non diabetic: < 6.0 % Goal: < 7.0 %Additional Action Suggested: > 8.0 %Note: Hemoglobin A1c results are invalid for patients with abnormal amounts of HbF. Blood transfusions may impact the HbA1c concentration in the patient sample. Estimated Average Glucose 146 mg/dL [facility] Comment:eAG = Estimated ave rage glucose which is %A1C expressed asaverage glucose, using the formula of the [id number] Glucose study (ADAG), Diabetes Care, Vol.31,#8,Feb. 2007 Blood Venous blood specimen / Unknown 06/18/2024 9:35 AM EST 06/18/2024 11:28 AM EST us Shannon Diana MD LAB BLOOD ORDERAB LES Final Result [facility] [address] [place] [phone] * Lipid Panel, Standard (06/18/2024 9:35 AM EST) Triglycerides 72 <150 mg/dL [facility] Comment:Desirable Triglyceri de: less than 150 mg/dLBorderline High Triglyceride 150-199 mg/dLHigh Triglyceride: 200-499 mg/dLVery High Triglyceride: greater than or equal to 5OO mg/dL Cholesterol 106 <200 mg/dL [facility] Comment:Desirable Cholestero l: less than 200 mg/dLBorderline High Cholesterol: 200-239 mg/dLHigh Cholesterol: greater than 239 mg/dL LDL Cholesterol Calculated 48 <100 mg/dL [facility] Comment:Desirable LDL: less than 100 mg/dLNear Optimal/Above Optimal LDL: 110- 129 mg/dLBorderline High LDL: 130-159 mg/dLHigh LDL: 160-189 mg/dLVery High LDL: greater than or equal to 190 mg/dL HDL Cholesterol 44 >40 mg/dL [facility] Comment:Desirable HDL: great er than 40 mg/dL Note: This HDL assay may give artificially low results in patients with liver disease. Blood Venous blood specimen / Unknown 06/18/2024 9:35 AM EST 06/18/2024 11:22 AM EST us Shannon Diana MD LAB BLOOD ORDERAB LES Final Result [facility] [address] [place] [phone] * Colonoscopy (04/13/2022 3:51 PM EDT) us Historical Provider HEALTH MAINTENANCE Final Result from Last 3 Months or Most Recently Relevant to Health Maintenance Insurance [facility] Care Teams Preassembler And Inspector Relationship Specialty Start Date End Date Shannon Lerner MD [address] [place] [address] PCP - General Internal Medicine 02/12/23
== END 2024-11-10 08:34 | disposition home or self-care (01) ==
LOC: HO.HGI 08:04
PROVIDERS: PCP Student in an Organized Health Care Education/Training Program; Visit Provider Nurse Practitioner Family
DX: R13.12 Dysphagia, oropharyngeal phase (principal); K58.9 Irritable bowel syndrome, unspecified; K21.9 Gastro-esophageal reflux disease without esophagitis; K59.01 Slow transit constipation
CPT/HCPCS: 99214; G2211

== ENCOUNTER → 2024-11-10 08:04 | Outpatient (BNVA) | payer OTHER, SELFPAY | PROVIDERS: PCP Student in an Organized Health Care Education/Training Program; Visit Provider Nurse Practitioner Family | DX: K58.9 Irritable bowel syndrome, unspecified (principal); K21.9 Gastro-esophageal reflux disease without esophagitis; K59.01 Slow transit constipation; R13.12 Dysphagia, oropharyngeal phase | CPT/HCPCS: 99212 ==

== ENCOUNTER 2024-12-12 13:18 | Outpatient (AMB) | payer OTHER, SELFPAY ==
[2024-12-12 13:20] VITALS: BP 106/70; PULSE 69; O2SAT 98; BMI 26.1
--- NOTE | 2024-12-12 13:20 | A.OFFVIS_ITS ---
Vital Signs 12/12/24 13:20 Height 5 ft 11 in Weight 186 lb 15.232 oz BMI 26.1 BP 106/70 Blood Pressure Location Lt brachial Position Sitting Pulse 69 Pulse Source Pulse Oximeter Pulse Oximetry (%) 98 Oxygen Delivery Method Room Air Intake Visit Reasons: DM Intake Note: Patient present today for Type 2 Diabetes Mellitus Last Diabetic eye exam: 04/2024 Last Podiatry Visit: Doesn't have one Random Glucose: 116 mg/dl HgA1C: 7.1% Fibrous Plasterer Required: Yes Fibrous Plasterer Language: Contractor General Engineering Services: Fibrous Plasterer Present Fibrous Plasterer Name: Lennie Information Interpreted: non-clinical & clinical Accompanied by: Self / Same As Patient Allergies dulaglutide [Trulicity] Adverse Reaction (Unknown, Verified 12/12/24 13:24) diarrhea Medication List - Last Reconciled 12/12/24 by Chana Hanson PA-C acetaminophen ER (Arthritis Pain Reliever) 650 mg PO Q8H PRN 90 days alcohol swabs (Alcohol Prep Pads) 1 pad topical QID amlodipine 10 mg PO DAILY apremilast (Otezla) 30 mg PO BID aspirin 81 mg PO BEDTIME bempedoic acid-ezetimibe 180-10 mg (Nexlizet) 1 tab PO DAILY betamethasone dipropionate 0.05% 0.05 ea topical DAILY MRX1 blood-glucose meter (FreeStyle Lite Meter kit) 4 times a day cetirizine (Zyrtec) 10 mg PO DAILY PRN cholecalciferol (vitamin D3) (Vitamin D3) 50 mcg PO QAM cyclobenzaprine 5 mg PO TID PRN [electric wheelchair As directed] esomeprazole magnesium (Nexium) 40 mg PO DAILY evolocumab (Repatha SureClick) 140 mg subcut Q2W famotidine 40 mg PO BEDTIME flash glucose scanning reader (FreeStyle Luis 2 [place]) As directed flash glucose sensor (FreeStyle Luis 2 Sensor kit) USE DIRECTED. CHANGE EVERY 14 DAYS FreeStyle Lite Strips (blood sugar diagnostic) TEST BLOOD SUGAR FOUR TIMES DAILY NS gabapentin 100 mg PO TID PRN glucagon 3 mg/actuation (Baqsimi) 3 mg intranasal ONCE imipramine HCl 25 mg PO BEDTIME insulin glargine U-300 conc (Toujeo SoloStar U-300 Insulin) 10 units subcut BEDTIME lancets (FreeStyle Lancets) 4 times a day metformin ER 1,000 mg (2 x 500 mg) PO BID methylcellulose (laxative) (Fiber Laxative (methylcellulose)) 0 mg PO DAILY metoprolol succinate ER 12.5 mg PO QAM pen needle, diabetic (BD Miriam 2nd Gen Pen Needle) 5 times a day semaglutide (Ozempic) 2 mg (0.75 mL) subcut QWEEK sennosides (senna) 17.2 mg (2 x 8.6 mg) PO BEDTIME tadalafil 5 mg PO DAILY 90 days tamsulosin 0.4 mg PO BEDTIME 90 days umeclidinium-vilanterol 62.5-25 mcg/actuation (Anoro Ellipta) 1 ea PO DAILY Ventolin HFA 90 mcg/actuation (albuterol sulfate) 2 puffs PO Q6H PRN 30 days NS zolpidem 5 mg PO BEDTIME PRN HPI HPI DM: Details: Patient is a 69 -year-old male with a PMH of GERD, anxiety, asthma, arthritis, history of alcohol and cocaine abuse, hypertension, hyperlipidemia presenting today for follow-up of his type 2 diabetes. He denies any acute concerns today. Fibrous Plasterer: Heladio [id number] Endo: DM- He was dx in 1989. His A1c is 7.1. He is currently on Toujeo to 15 units, Novolog 3 units with meals, metformin 2000 mg QD, Ozempic 2 mg Q wkly, Farxiga 5 mg QD CGM-Luis download shows he is wearing the sensor 96% of the time. Average glucose is 140 with G mi of 6.7% and variability 33%. He is in target range 80% of the time with 17% hyperglycemia and 3% hypoglycemia. -reports overnight lows and rare afternoon low blood sugars -he states that he does not eat as much and thinks that is partially why he is getting some of the low blood sugars. He has not adjusted his insulin regimen to account for reduced eating. He does have glucose tablets at home. He states he feels very comfortable correcting low blood sugars. had diarrhea with Trulicity 0.75 mg weekly He had elevated CPK on statin, currently on Praluent 150 mg every 2 weeks and Zetia 10 mg daily. -insurance stopped covering Praluent. Recently switch to Repatha and denies any adverse effects Last ophthalmology evaluation: appt 12/2023. no diabetic retinopathy was has hypertensive retinopathy. CV: Blood pressure today in the office is 106 70. He is currently on metoprolol 12.5 mg daily, amlodipine 10 mg. At last visit we discontinued the hydrochlorothiazide due to low blood pressure readings. [facility] Medical History (Updated 11/10/24 @ 08:57 by Nayeli Watts, [facility]) Dysphagia Erectile dysfunction associated with type 2 diabetes mellitus Unsteady gait Asthma Leg weakness Mass of right parotid gland Hypertensive retinopathy of right eye Tubular adenoma of colon Smoker Dyspnea on exertion Vitamin D deficiency Hypertension Diabetic polyneuropathy associated with type 2 diabetes mellitus Diabetic nephropathy associated with type 2 diabetes mellitus longterm (current) use of insulin Dyslipidemia Diabetes type 2, uncontrolled Surgical History History of esophagogastroduodenoscopy (EGD) Hx of colonoscopy History of amputation of finger History of lumbar surgery Family History Father Medical history unknown Mother Medical history unknown Sister Breast cancer Brother Cancer Social History Household Members: None Are you a primary childcare attendant to a significant other at home: No Do you presently have visiting nurse or other home services: No Alcohol intake: current Alcohol intake frequency: former alcohol drinker Patient Tobacco Use Status: Former Tobacco user Years Smoked: 52 (onset 13yo) Physical Exam Vital Signs: Last Vital Signs Pulse 69 12/12/24 13:20 BP 106/70 12/12/24 13:20 Pulse Ox 98 12/12/24 13:20 Oxygen Delivery Method Room Air 12/12/24 13:20 BMI result Body Mass Index 26.1 Const Orientation/consciousness: patient oriented x3 HEENT Ears: hearing grossly normal bilaterally Neck Thyroid: Thyroid normal Lymphatic: no lymphadenopathy noted Resp Auscultation: clear to auscultation bilaterally Cardio Rate: regular rate Rhythm: regular rhythm Heart sounds: S1 normal heart sound present and S2 normal heart sound present Skin General skin exam: no rashes or lesions noted Neuro General: patient oriented x3, gait normal and no focal motor deficits Results AMB Hemoglobin A1c AMB Hemoglobin A1c 7.1 % Last Edit by KAMLESH Cox on 12/12/24 13:36 Results Reviewed Results Reviewed: Laboratory Last Values Glucose (Clinic) 116 mg/dL (60-115) H 12/12/24 13:26 Laboratory Tests 06/18/24 09/05/24 10/06/24 09:35 15:14 14:00 Estim Creat Clear Calc 70.0 Estimated GFR > 60 Glucose (Clinic) Hgb A1c (Clinic) 7.1 H AST 23 ALT 24 Alkaline Phosphatase 59 Triglycerides 72 Cholesterol 106 LDL Cholesterol, Calc 48 HDL Cholesterol 44 12/12/24 13:26 Estim Creat Clear Calc Estimated GFR Glucose (Clinic) 116 H Hgb A1c (Clinic) AST ALT Alkaline Phosphatase Triglycerides Cholesterol LDL Cholesterol, Calc HDL Cholesterol Assessment & Plan Assessment & Plan (1) Diabetic nephropathy associated with type 2 diabetes mellitus: Code(s): E11.21 - Type 2 diabetes mellitus with diabetic nephropathy Category: Medical Plan: Reduce the Toujeo to 10 units Discontinue NovoLog Increase Farxiga to 10 mg Continue metformin Labs prior to appointment Follow up in 2-3 months. Sooner if needed (2) Dyslipidemia: Code(s): E78.5 - Hyperlipidemia, unspecified Category: Medical Plan: Doing well with Repatha Labs ordered (3) Hypertension: Code(s): I10 - Essential (primary) hypertension Category: Medical Qualifiers: Hypertension type: essential hypertension Qualified Code(s): I10 - Essential (primary) hypertension Plan: Improved. Continue current regimen Orders: Orders AMB Hemoglobin A1c Today Chana Hanson PA-C E11.21 - Type 2 diabetes mellitus with diabetic nephropathy, Z13.9 - Encounter for screening, unspecified Comprehensive [place]. Panel Fast Today Chana Hanson PA-C E11.21 - Type 2 diabetes mellitus with diabetic nephropathy, E78.5 - Hyperlipidemia, unspecified, I10 - Essential (primary) hypertension Microalbumin, Random (w Creat) Today Chana Hanson PA-C E11.21 - Type 2 diabetes mellitus with diabetic nephropathy, E78.5 - Hyperlipidemia, unspecified, I10 - Essential (primary) hypertension Lipid Panel Today Chana Hanson PA-C E11.21 - Type 2 diabetes mellitus with diabetic nephropathy, E78.5 - Hyperlipidemia, unspecified, I10 - Essential (primary) hypertension Hemoglobin A1c Today Chana Hanson PA-C E11.21 - Type 2 diabetes mellitus with diabetic nephropathy, E78.5 - Hyperlipidemia, unspecified, I10 - Essential (primary) hypertension, R73.01 - Impaired fasting glucose Medications: New dapagliflozin propanediol (Farxiga) 10 mg PO QAM 90 tabs 1RF Chana Hanson PA-C blood-glucose,product inspection coordinator,cont (FreeStyle Luis 3 [place]) Use daily As directed to monitor blood glucose 1 ea 0RF Chana Hanson PA-C E11.65 - Type 2 diabetes mellitus with hyperglycemia, Z79.4 - longterm (current) use of insulin blood-glucose sensor (FreeStyle Luis 3 Plus Sensor device) Use daily As directed to monitor glucose 2 ea 5RF Chana Hanson PA-C E08.29 - Diabetes mellitus due to underlying condition with other diabetic kidney complication, R80.9 - Proteinuria, unspecified, Z79.4 - longterm (current) use of insulin Changed From insulin glargine U-300 conc (Toujeo SoloStar U-300 Insulin) 15 units (0.05 mL) subcut BEDTIME 4.5 mL 5RF E11.65 - Type 2 diabetes mellitus with hyperglycemia To insulin glargine U-300 conc (Toujeo SoloStar U-300 Insulin) 10 units subcut BEDTIME E11.65 - Type 2 diabetes mellitus with hyperglycemia Marcus Medina MD Discontinued flash glucose sensor (FreeStyle Luis 2 Sensor kit) Discontinued Reason: Doctor's Order USE DIRECTED. CHANGE EVERY 14 DAYS 2 kits 6RF Patient Instructions: decrease toujeo to 10 units stop novolog increase farxiga to 10 mg daily continue metformin labs prior to appointment Coding Level of Care Code Est Pt Level 4 (51437) Complex EM visit Add On G2211 Diagnoses Diabetic nephropathy associated with type 2 diabetes mellitus E11.21 Dyslipidemia E78.5 Essential hypertension I10 Hypertension type: essential hypertension
--- OUTSIDE RECORDS SUMMARY | 2024-12-12 13:20 | XMS_ITS | Encounter Summary ---
Author Organization [employer] Address [address] [facility] [address] [place] [address] Care Team Providers Care Thread Winder Name Role Phone Shannon Lerner MD Primary Care Pro vider Reason for Visit * Reason Comments Pre-visit Planning SDOH negative, Tobac co screening negative Encounter Details Date Type Department Care Team (Late st Contact Info) Description 12/09/2024 Patient Outreach [facility] MED & PEDS [address] [place] [address] Shannon Lerner MD [address] [place] [address] Pre-visit Planning (SDOH negative, Tobacco screening negative) Social History Tobacco Use Types Packs/Day Years [...] housing situation today? I have martha amarilis 12/09/[address] you li ve. Do you have problems with any of the following? None of the above 12/09/2024 Food Insecurity Answer Date Recorded Within the past 12 months, y ou worried that your food would run out before you got money to buy more: Never True 12/09/2024 Within the past 12 months,th e food you bought just didn't last and you didn't have enough money to get more: Never True Transportation Answer Date Recorded In the past 12 months, has l ack of transportation kept you from medical appts, meetings, work or from getting things needed for daily living? No 12/09/2024 Utilities Answer Date Recorded In the past 12 months, has t he electric, gas, oil or water company threatened to shut off services in your home? No 12/09/2024 Depression Answer Date Recorded Patient Health Questionnaire-2 Score 0 06/17/2024 Internet Access Answer Date Recorded Internet Access Q1 Yes 12/09/2024 Internet Access Q2 Not on file 12/09/2024 Sex and Gender Information Value Date Recorded Sex Assigned at Male 05/29/2022 10:15 AM EDT Legal Sex Male 10:15 AM EDT Gender Identity Male 07/26/2023 7:09 PM EST Sexual Orientation Straight 07/26/2023 7: 09 PM EST documented as of this encounter Progress Notes * Olesya Morejon - 12/09/2024 2:04 PM EDT CC Olesya Estrada placed successful outbound call to patient for pre-visit planning. Patient name and confirmed. Patient confirms appt date and time, and has transportation arrangements. Biggest concern for appointment at this time is no concerns. Appropriate screenings completed in anticipation of appointment. documented in this encounter Plan of Treatment Upcoming Encounters Date Type Department Care Team (Late st Contact Info) Description 12/16/2024 11:15 AM EDT Office Visit [facility] MEDIC[facility] [address] [place] [address] Shannon Lerner MD [address] [place] [address] documented as of this encounter Visit Diagnoses Not on filedocumented in this encounter Additional Health Concerns Assessment Noted Time PHQ-9 Depression Total Score: 4 06/17/20 24 10:10 AM EST documented as of this encounter Care Teams Thread Winder Relationship Specialty Start Date End Date Shannon Lerner MD [address] [place] [phone] PCP - General Internal Medicine 02/12/23 documented as of this encounter
--- OUTSIDE RECORDS SUMMARY | 2024-12-12 13:20 | XMS_ITS | Encounter Summary ---
Author Organization [employer] Address [address] [facility] [address] [place] [address] Care Team Providers Care Chefs Name Role Phone Shannon Lerner MD Primary Care Pro vider Reason for Visit * Reason Comments Med Refill Encounter Details Date Type Department Care Team ([facility] st Contact Info) Description 09/06/2023 Refill [facility]S [address] [place], [place] [phone] Shannon Lerner MD [address] [place], [place] [phone] Polyneuropathy Social History Tobacco Use Types Packs/Day [...] Description 12/16/2024 11:15 AM EDT Office Visit [facility] [address] [place] [phone] Shannon Lerner MD [address] [place] [phone] documented as of this encounter Visit Diagnoses Diagnosis Polyneuropathy Unspecified hereditary and idiopathic peripheral neuropathy documented in this encounter Additional Health Concerns Assessment Noted Time PHQ-9 Depression Total Score: 8 07/26/20 23 3:19 PM EST documented as of this encounter Care Teams Chefs Relationship Specialty Start Date End Date Shannon Lerner MD [address] [place] [phone] PCP - General Internal Medicine 02/12/23 documented as of this encounter
--- OUTSIDE RECORDS SUMMARY | 2024-12-12 13:20 | XMS_ITS | Clinical Summary ---
Author Organization [employer] Address [address] [facility] 7t [place] [address] Care Team Providers Care Registered Nurse Step Down Name Role Phone Shannon Lerner MD Primary [...] the morning. 023 Active TRUEplus Lancets 33G misc TEST BLOOD SUGAR FOUR TIMES DAILY 022 [...] bedtime (Neuropathy). 90 capsule 1 023 Active Baqsimi Two Pack 3 MG/DOSE nasal [...] Glucose Sensor (FreeStyle Luis 2 Sensor) [facility] Use as directed. Change sensor every 14 days. 025 Active polyethylene glycol, PEG, 3350 (Glycolax) 17 GM/SCOOP powder Use as directed per doctor Active Anoro Ellipta 62.5-25 MCG/ACT aerosol powderIndicatio ns:Chronic obstructive pulmonary disease, unspecified COPD type ([facility]) INHALE 1 PUFF BY MOUTH EVERY DAY [...] MOUTH EVERY MORNING 90 tablet 025 Active insulin pen needle (BD Pen Needle Miriam U/F) 32G x 4 mm miscIndications :Type 2 diabetes mellitus with other specified complication, without long-term current use of insulin ([facility]) USE FOUR TIMES DAILY DIRECTED 200 each 025 Active Pentips 32G X 4 MM miscIndications :Type 2 diabetes mellitus with other specified complication, without long-term current use of insulin ([facility]) USE FOUR TIMES DAILY DIRECTED 200 each 024 2024 Discontinued Active Problems Problem Noted [...] Encounters Date Type Department Care Team Description 12/09/2024 Patient Outreach [facility] MED & PEDS [address] [place] [address] Shannon Lerner MD Pre-visit Planning (SDOH negative, Tobacco screening negative) 12/02/2024 Refill [facility] MED & PEDS [address] [place] [address] Shannon Lerner MD Type 2 diabetes mellitus with other specified complication, without long-term current use of insulin ([facility]) 11/25/2024 11:00 AM EDT Clinical Support [facility] MEDIC[facility] [address] [place] [address] Sharon Segal RN Poor memory 11/25/2024 Travel 11/03/2024 Refill [facility] & PEDS [address] [place], [place] [phone] Susan Jhaveri MD 10/30/2024 Telephone [facility] [address] [place], [place] [phone] Shannon Lerner MD Appointment Request 10/28/2024 Refill [facility] PEDS [address] [place], [place] [phone] Rudy Kapadia MD Primary hypertension 09/30/2024 Refill [facility]EDS [address] [place], [place] [phone] Shannon Lerner MD Bradycardia 09/27/2024 Refill [facility]EDS [address] [place], [place] [phone] Susan Jhaveri MD Chronic obstructive pulmonary disease, unspecified COPD type ([facility]) 09/25/2024 Orders Only GENERIC EXTERNAL DATA DEPARTMENT Provider, Generic External Data from Last 3 Months Immunizations Immunization Administration Dates Next Due Hep B, adult [...] housing situation today? I have marthatanvir olmos 12/09/[address] you li [...] Description 12/16/2024 11:15 AM EDT Office Visit [facility] [address] [place], [place] [phone] Shannon Lerner MD [address] [place], [place] [phone] Health Maintenance Due Date Last Done Comments [...] 2024 5, 06/01/2014, 08/06/2013, Additional history exists COVID-19 Vaccine ( season) 2024 06/17/2024, 08/30/2023, 07/19/2021, Additional history exists Diabetes: Hemoglobin A1C 12/16/2024 024, 04/09/2024, 04/04/2024, Additional history exists Alcohol/Substance Use Screening 06/17/2025 06/17/2024 Depression Screening 06/17/2025 06/17/2024, 06/17/20 24 Tobacco Screening 06/17/2025 06/17/2024 Diabetes: Urine Protein Screening 06/18/2025 06/18/2024, 04/09/2024, 08/20/2023, Additional history exists Lipid Panel 06/18/2025 06/18/2024, 03/30, 08/20/2023, Additional history exists SDOH Screening 12/09/2025 12/09/2024 Colonoscopy 09/25/2026 04/13/2022 Colorectal Cancer Screening 09/25/2026 RSV Patients and Patients Aged 60 years or older Completed 01/10/2024 Hepatitis B Vaccines Completed 03/03/2024, 10/01/2023, 08/30/2023, Additional history exists Hepatitis C Screening Completed [...] patient's age to complete this topic Meningococcal B Vaccine Aged Out No l onger eligible based on patient's age to complete [...] SCREEN, URINE Routine 09/25/2024 10:10 AM EST HEPATITIS C AB W/REFL TO HCV [...] 9 AM EST 09/25/2024 1:15 PM EST [facility] LABS - 09/29/2024 3:44 PM EST ----- ------- Name: Colon,Bruno Mello ? Age/Sex: 69/M ? : 1955 Unit#: [id number] ?? Attend Dr: Adolfo Scott MD ?Re09/25/24 ?Status: DEP OKC ? Location: HO.SSS ?Disch: ? ----- ------- SPEC : [id number] ? RECD: 09/25/24-5 ? STATUS: ??SOUT ? REQ NUM: [id number] ? LAURA: 09/25/24-1119 ? SUBM DR: Adolfo [...] ? Age/Sex: 69/M ? : 1955 Unit#: [id number] ?? Attend Dr: Adolfo Scott MD ?Re09/25/24 ?Status: DEP SDC ? Location: HO.SSS ?Disch: ? ----- ------- SPEC : [id number] ? RECD: 09/25/24-5 ? STATUS: ??SOUT ? REQ NUM: [id number] ? LAURA: 09/25/24-1119 ? SUBM DR: Adolfo [...] Copies To: ?? Adolfo Scott MD ?? [facility] ?? [address] ?? [place] [address] ?? [phone] ?? Shannon Lerner MD ?? [address] [facility] ?? [place] ?? [phone] ? CONTINUED ON NEXT PAGE ----- ------- Name: Colon,Bruno Mello ? Age/Sex: 69/M ? : 1955 Unit#: [id number] ?? Attend Dr: Adolfo Scott MD ?Re09/25/24 ?Status: DEP OKC ? Location: HO.SSS ?Disch: ? ----- ------- SPEC : [id number] ? RECD: 09/25/24-1314 ? STATUS: ??SOUT ? REQ NUM: [id number] ? LAURA: 09/25/24-1119 ? SUBM DR: Adolfo Scott MD ? ENTERED: ??09/25/24-1320 ?SP TYPE: Surgical ? OTHR DR: Shannon Lerner MD ORDERED: ??HE /, Gross Micro L4/7, IHC, Special st. 2/, H. pylori, AB/PAS/3 ? ----- ------- Signed (signature on file) Jayesh Mendieta MD 09/29/24 7660 ? ----- ------- ? END OF REPORT ? us Generic External Data Provider LAB BLOOD ORDERAB LES Final Result Performing Organization Address [facility] Co de Phone Number [facility] [address] [place] [address] [phone] * (ABNORMAL) Glucose, Whole Blood (09/25/2024 10:19 AM EST) Glucose, Whole Blood 134(H) 60 - 115 mg/dL [facility] Comment:METER #: [id number] 09/25/2024 10:1 9 AM EST 09/25/2024 10:23 AM EST Generic External Data Provider LAB BLOOD ORDERAB LES Final Result Performing Organization Address [facility] de Phone Number [facility] [address] [place] [phone] * Drug Monitoring, Panel 1, Screen, Urine (09/25/2024 10:10 AM EST) Opiate Screen Urine Not Detected Not Detect [facility] Comment:Opiate cut-off is 30 0 ng/mL.Positive results are unconfirmed and should not be used fornon-medical purposes. Barbiturates, Urine Not Detected Not Detect [facility] Comment:Barbiturate cut-off is 200 ng/mL.Positive results are unconfirmed and should not be used fornon-medical purposes. Phencyclidine Screen Urine Not Detected Not Detect [facility] Comment:Phencyclidine cut-of f is 25 ng/mL.Positive results are unconfirmed and should not be used fornon-medical purposes. Amphetamine Screen Urine Not Detected Not Detect [facility] Comment:Amphetamine cut-off is 1000 ng/mL.Positive results are unconfirmed and should not be used fornon-medical purposes. Benzodiazepines Screen Urine Not Detected Not Detect [facility] Comment:Benzodiazepine cut-o ff is 200 ng/mL.Positive results are unconfirmed and should not be used fornon-medical purposes. Cocaine Screen Urine Not Detected Not Detect [facility] Comment:Cocaine cut-off is 3 00 ng/mL.Positive results are unconfirmed and should not be used fornon-medical purposes. Cannabinoid Screen Urine Not Detected Not Detect [facility] Comment:Cannabinoid cut-off is 50 ng/mL.Positive results are unconfirmed and should not be used fornon-medical purposes. Methadone Screen, Urine Not Detected Not Detect ng/mL [facility] Comment:Methadone cut-off is 300 ng/mL.Positive results are unconfirmed and should not be used fornon-medical purposes. FENTANYL URINE Not Detected Not Detect [facility] Comment:Fentanyl cut-off is 1 ng/mL.Positive results are unconfirmed and should not be used fornon-medical purposes. Oxycodone Urine Screen Not Detected Not Detect ng/mL [facility] Comment:Oxycodone cut-off is 100 ng/mL.Positive results are unconfirmed and should not be used fornon-medical purposes. Buprenorphine Screen Not Detected Not Detect ng/mL [facility] Comment:Buprenorphine cut-of f is 5 ng/mL.Positive results are unconfirmed and should not be used fornon-medical purposes. 09/25/2024 10:1 0 AM EST 09/25/2024 10:20 AM EST Generic External Data Provider LAB URINE ORDERAB LES Final Result Performing Organization Address City/State/[facility] Co de Phone Number [facility] [address] [place] [phone] * (ABNORMAL) Albumin, Random Urine W/Creatinine (06/18/2024 9:35 AM EST) Creatinine, Urine 208.88 mg/dL [facility] Microalbumin Urine 95.0 mg/L [facility] Microalbum Creatinine Ratio Ur 45.4(H) <30 ug/mg cr [facility] Comment:Albumin/Creatinine R atio Reference Ranges: Normal: < 30 ug/mg creatinine Microalbuminuria: 30 - 300 ug/mg creatinineClinical Albuminuria: > 300 ug/mg creatinine Urine (Urine, Random) 06/18/2024 9:35 AM EST 06/18/2024 11:40 AM EST Shannon Diana MD LAB URINE ORDERAB LES Final Result Performing Organization Address [facility] Co de Phone Number [facility] [address] [place] [address] [phone] * Hepatitis C Antibody with Reflex to HCV, RNA, Quantitative, Real-Time PCR (06/18/2024 9:35 AM EST) Hepatitis C Antibody Nonreactive Nonreactive [facility] Comment:Antibodies to HCV no t detected; does not exclude early acuteHCV infection. Blood Venous blood specimen / Unknown 06/18/2024 9:35 AM EST 06/18/2024 11:22 AM EST Shannon Diana MD LAB BLOOD ORDERAB LES Final Result Performing Organization Address City/[facility] Co de Phone Number [facility] [address] [place] [phone] * (ABNORMAL) Hemoglobin A1c (06/18/2024 9:35 AM EST) Hemoglobin A1c 6.7(H) <6.0 % [facility] Comment:Hemoglobin A1C Refer ence Range Adults: 4.8 - 6.0 % Non diabetic: < 6.0 % Goal: < 7.0 %Additional Action Suggested: > 8.0 %Note: Hemoglobin A1c results are invalid for patients with abnormal amounts of HbF. Blood transfusions may impact the HbA1c concentration in the patient sample. Estimated Average Glucose 146 mg/dL [facility] Comment:eAG = Estimated ave rage glucose which is %A1C expressed asaverage glucose, using the formula of the F2Z-WiwhideIxrprvy Glucose study (ADAG), Diabetes Care, Vol.31,#8,Feb. 2007 Blood Venous blood specimen / Unknown 06/18/2024 9:35 AM EST 06/18/2024 11:28 AM EST us Shannon Diana MD LAB BLOOD ORDERAB LES Final Result Performing Organization Address [facility] Co de Phone Number [facility] [address] [place] [address] [phone] * Lipid Panel, Standard (06/18/2024 9:35 AM EST) Triglycerides 72 <150 mg/dL [facility] Comment:Desirable Triglyceri de: less than 150 mg/dLBorderline High Triglyceride 150-199 mg/dLHigh Triglyceride: 200-499 mg/dLVery High Triglyceride: greater than or equal to 5OO mg/dL Cholesterol 106 <200 mg/dL [facility] Comment:Desirable Cholestero l: less than 200 mg/dLBorderline High Cholesterol: 200-239 mg/dLHigh Cholesterol: greater than 239 mg/dL LDL Cholesterol Calculated 48 <100 mg/dL [facility] Comment:Desirable LDL: less than 100 mg/dLNear Optimal/Above Optimal LDL: 110- 129 mg/dLBorderline High LDL: 130-159 mg/dLHigh LDL: 160-189 mg/dLVery High LDL: greater than or equal to 190 mg/dL HDL Cholesterol 44 >40 mg/dL [facility] Comment:Desirable HDL: great er than 40 mg/dL Note: This HDL assay may give artificially low results in patients with liver disease. Blood Venous blood specimen / Unknown 06/18/2024 9:35 AM EST 06/18/2024 11:22 AM EST us Shannon Diana MD LAB BLOOD ORDERAB LES Final Result Performing Organization Address [facility]/ZIP Co de Phone Number [facility] [address] [place] [phone] * Colonoscopy (04/13/2022 3:51 PM EDT) Historical Provider HEALTH MAINTENANCE Final Result from Last 3 Months or Most Recently Relevant to Health Maintenance Insurance [address] [place] [id number] [facility] OPTIONS (O D-SNP) [place] [id number] Care Teams Registered Nurse Step Down Relationship Specialty Start Date End Date Shannon Lerner MD [address] [place] [address] PCP - General Internal Medicine 02/12/23
--- OUTSIDE RECORDS SUMMARY | 2024-12-12 13:20 | XMS_ITS | Clinical Summary ---
Author Organization [facility] Address [address] [facility] [address] [place] [address] Phone Care Team Providers Care Manager Hotel Name Role Phone Sofia Parekh Primary Care Provider [phone]- [phone] Allergies Active Allergy Reactions Criticality Noted Date [...] patient's age to complete this topic Insurance [facility] [place] [id number] [facility] ([id number]) [place] [id number] , [place] [id number] Care Teams Manager Hotel Relationship Specialty Start Date End Date Sofia Parekh PCP - General Family Medicine 06/30/21
--- OUTSIDE RECORDS SUMMARY | 2024-12-12 13:20 | XMS_ITS | Encounter Summary ---
Author Organization [employer] Address [address] [facility] 7t [place] [address] Care Team Providers Care Apprentice Architect Name Role Phone Shannon Lerner MD Primary Care Pro vider Reason for Visit * Reason Comments Med Refill Encounter Details Date Type Department Care Team ([facility] st Contact Info) Description 02/13/2024 Refill [facility] MED & PEDS [address] [place], [place] [phone] Susan Jhaveri MD [address] [place] [address] Social History Tobacco Use Types Packs/Day Years [...] enough money to get more: Never True 04/ Transportation Answer Date Recorded In the past [...] 12/16/2024 11:15 AM EDT Office Visit [facility] MED[facility]INE [address] [place] [address] [phone] Shannon Lerner MD [address] [place] [phone] documented as of this encounter Visit Diagnoses Not on filedocumented in this encounter Additional Health Concerns Assessment Noted Time PHQ-9 Depression Total Score: 8 07/26/20 3:19 PM EST documented as of this encounter Care Teams Apprentice Architect Relationship Specialty Start Date End Date Shannon Lerner MD [address] [place] [address] [phone] PCP - General Internal Medicine 02/12/23 documented as of this encounter
--- OUTSIDE RECORDS SUMMARY | 2024-12-12 13:20 | XMS_ITS | Encounter Summary ---
Author Organization [employer] Address [address] [place] [address] 7 [place] [address] Care Team Providers Care Housekeeper Supervisor Name Role Phone Nancy Moreira Primary Care Provider +1- [phone] Shannon Lerner MD Primary Care Pro vider Encounter Details Date Type Department Care Team (Late st Contact Info) Description 08/15/2022 Orders Only [facility] MED & PEDS [address] [place] [address] Nohemy Nair LPN Social History Tobacco Use [...] Description 12/16/2024 11:15 AM EDT Office Visit [facility] MEDICINE [address] [place] [address] Shannon Lerner MD [address] [place] [address] documented as of this encounter Visit Diagnoses Not on filedocumented in this encounter Care Teams Housekeeper Supervisor Relationship Specialty Start Date End Date Nancy Moreira FNP PCP - General Family Medicine 03/22/22 02/11/23 Shannon Lerner MD [address] [place] [address] PCP - General Internal Medicine 02/12/23 documented as of this encounter
--- OUTSIDE RECORDS SUMMARY | 2024-12-12 13:20 | XMS_ITS | Encounter Summary ---
Author Organization [employer] Address [address] [place] [address] 7 [place] [address] Care Team Providers Care Manager Digital Ad Operations Name Role Phone Nancy Moreira Primary Care Provider +1- [phone] Shannon Lerner MD Primary Care Pro vider Encounter Details Date Type Department Care Team (Late st Contact Info) Description 09/07/2022 Orders Only [facility] MED & PEDS [address] [place] [address] Nohemy Nair LPN Social History Tobacco Use [...] Description 12/16/2024 11:15 AM EDT Office Visit [facility] MED[facility]INE [address] [place] [address] Shannon Lerner MD [address] [place] [address] documented as of this encounter Visit Diagnoses Not on filedocumented in this encounter Care Teams Manager Digital Ad Operations Relationship Specialty Start Date End Date Nancy Moreira FNP PCP - General Family Medicine 03/22/22 02/11/23 Shannon Lerner MD [address] [place] [phone] PCP - General Internal Medicine 02/12/23 documented as of this encounter
--- OUTSIDE RECORDS SUMMARY | 2024-12-12 13:20 | XMS_ITS | Encounter Summary ---
Author Organization [employer] Address [address] [facility] 7t [place] [address] Care Team Providers Care Patient Intake Coordinator Name Role Phone Shannon Lerner MD Primary Care Pro vider Encounter Details Date Type Department Care Team (Late st Contact Info) Description 05/14/2023 Abstract [facility] MEDICINE [address] [place] [address] Shannon Lerner MD [address] [place], [place] [phone] Social History Tobacco Use Types Packs/Day Years [...] Description 12/16/2024 11:15 AM EDT Office Visit [facility] MEDICINE [address] [place] [address] Shannon Lerner MD [address] [place] [phone] documented as of this encounter Visit Diagnoses Not on filedocumented in this encounter Care Teams Patient Intake Coordinator Relationship Specialty Start Date End Date Shannon Lerner MD [address] [place] [phone] PCP - General Internal Medicine 02/12/23 documented as of this encounter
--- OUTSIDE RECORDS SUMMARY | 2024-12-12 13:20 | XMS_ITS | Encounter Summary ---
Author Organization [employer] Address [address] [facility] 7t [place] [address] Care Team Providers Care Technical Program Manager Name Role Phone Shannon Lerner MD Primary Care Pro vider Encounter Details Date Type Department Care Team (Late st Contact Info) Description 07/21/2024 Orders Only [facility] MEDICINE [address] [place] [address] Provider, MD Anju Social History Tobacco Use [...] Description 12/16/2024 11:15 AM EDT Office Visit [facility] MED[facility]INE [address] [place] [phone] Shannon Lerner MD [address] [place] [phone] documented as of this encounter Procedures Procedure [...] documented as of this encounter Care Teams Technical Program Manager Relationship Specialty Start Date End Date Shannon Lerner MD [address] [place] [phone] PCP - General Internal Medicine 02/12/23 documented as of this encounter
--- OUTSIDE RECORDS SUMMARY | 2024-12-12 13:20 | XMS_ITS | Encounter Summary ---
Author Organization [employer] Address [address] [facility] 7t [place] [address] Care Team Providers Care Microfabrication Engineer Manager Name Role Phone Shannon Lerner MD Primary Care Pro vider Reason for Visit * Reason Comments Med Refill Encounter Details Date Type Department Care Team ([facility] st Contact Info) Description 09/06/2023 Refill [facility] MED & PEDS [address] [place], [place] [phone] Shannon Lerner MD [address] [place], [place] [phone] Polyneuropathy Social History Tobacco Use Types Packs/Day [...] Description 12/16/2024 11:15 AM EDT Office Visit [facility] MEDICINE [address] [place] [phone] Shannon Lerner MD [address] [place] [phone] documented as of this encounter Visit Diagnoses Diagnosis Polyneuropathy Unspecified hereditary and idiopathic peripheral neuropathy documented in this encounter Additional Health Concerns Assessment Noted Time PHQ-9 Depression Total Score: 8 07/26/20 23 3:19 PM EST documented as of this encounter Care Teams Microfabrication Engineer Manager Relationship Specialty Start Date End Date Shannon Lerner MD [address] [place] [phone] PCP - General Internal Medicine 02/12/23 documented as of this encounter
[2024-12-12 13:29] LABS: Glucose, Whole Blood 116 mg/dL (60-115)
== END 2024-12-12 13:48 | disposition home or self-care (01) ==
LOC: HO.ENCR 13:18
PROVIDERS: PCP Student in an Organized Health Care Education/Training Program; Visit Provider Physician Assistant
DX: E11.21 Type 2 diabetes mellitus with diabetic nephropathy (principal); E78.5 Hyperlipidemia, unspecified; I10 Essential (primary) hypertension; Z13.9 Encounter for screening, unspecified

== ENCOUNTER → 2024-12-12 13:18 | Outpatient (BNVA) | payer OTHER, SELFPAY | PROVIDERS: PCP Student in an Organized Health Care Education/Training Program; Visit Provider Physician Assistant | DX: E11.21 Type 2 diabetes mellitus with diabetic nephropathy (principal); K21.9 Gastro-esophageal reflux disease without esophagitis; F41.9 Anxiety disorder, unspecified; J45.909 Unspecified asthma, uncomplicated; I10 Essential (primary) hypertension; E78.5 Hyperlipidemia, unspecified; R80.9 Proteinuria, unspecified; Z79.4 Long term (current) use of insulin; Z79.84 Long term (current) use of oral hypoglycemic drugs; Z79.899 Other long term (current) drug therapy | CPT/HCPCS: 82947; 83036; 99212 ==

== ENCOUNTER 2025-01-21 15:09 | Outpatient (REF) | payer OTHER, SELFPAY ==
--- NOTE | ~2025-01-21 | US_ITS ---
CLINICAL HISTORY: pt w bl carotid plaques needs dedicated test of blood vessels US bilateral carotid duplex Comparison: None Findings: Waveforms demonstrate normal pattern. Peak systolic velocities: Right CCA: 151 cm/s Right ICA: 96 cm/s ICA/CCA ratio: 0.64 Right ECA: Unremarkable Right vertebral artery flow antegrade. No significant plaque noted. Left CCA: 139 cm/s Left ICA: 107 cm/s ICA/CCA ratio: 0.77 Left ECA: Unremarkable Left vertebral artery flow antegrade. No significant plaque noted. Impression: No significant velocity altering stenosis This document has been electronically signed by: Willie Huynh MD on 01/21/2025 21:09:49
--- OUTSIDE RECORDS SUMMARY | 2025-01-21 18:02 | XMS_ITS | Patient Health Record ---
Author Organization [facility] Address [address] [place] [address] Care Team Providers Care Supervisor Capacitor Processing Name Role Phone AlinaChellyguerlineyvette Primary Care Provider Marcus Billy Unavailable [phone] Reason For Referral No Information Medications Medication SIG (Take, Route, Frequency, Duration) Notes Start Date End Date Status Triamcinolone Acetonide 0.1 % 1 application to affected area Externally Twice a day Active Lantus 100 UNIT/ML 0.02 ml Subcutaneous Once a day Active Flexeril 10 MG 1 tablet Orally Thre e times a day Active metFORMIN HCl ER 750 MG 1 tablet with ev ening meal Orally Once a day Active Flovent HFA 110 MCG/ACT 1 puff Inhalatio n Twice a day Active Betamethasone Dipropionate 0.05 % 1 application to affected area Externally Twice a day Active Aspir-81 81 MG 1 tablet Orally Once a day Active Colyte w Flavor Packs 240 GM as directed Orally as directed for 1 day(s) 04/07/2014 Active HumaLOG 100 UNIT/ML Subcutaneous Active Imipramine HCl 50 MG 2 tablets at bedtim e Orally Once a day Active ProAir HFA 108 (90 Base) MCG/ACT 2 puffs as needed Inhalation every 4 hrs Active Nitroglycerin 0.4 MG 1 tablet under the tongue and allow to dissolve as needed Sublingual Once a day Active Dextrose (Diabetic Use) 4 GM 5 tablets as needed Orally Twice a day Active Toprol XL 25 MG 1 tablet Orally Once a day Active Percocet 5-325 MG 1 tablet as needed O rally every 6 hrs Active Lotrimin AF 1 % 1 application to aff ected area Externally Twice a day Active Omeprazole 20 MG 1 capsule Orally Onc e a day Active Ambien 5 MG 1 tablet at bedtime Orally Once a day Active Lipitor 40 MG 1 tablet Orally Once a day Active Lisinopril 40 MG 1 tablet Orally Once a day Active Problems Problem Type SNOMED Code ICD Code Onset Dates Problem Status W/U Status Risk Notes Problem Colon cancer screening (944864107) Colon cancer screening (V76.51) Active confirmed Problem History of polyp of colon (378570458) H/O adenomatous polyp of colon (V12.72) Active confirmed Problem Long-term use of aspirin therapy (V58.66) Active confirmed Plan Of Treatment Future Test Test Name Order Date COLONOSCOPY 04/07/2014 Insurance Providers Payer Name Payer Address Payer Phone Subscriber Number Group Number Insured Name Patient Relationship to Insured Coverage Start Date Coverage End Date [facility] [address] [place] [phone] [id number] COLON, LACEY Self - patient is the insured Medical (General) History Medical History History ICD Code IDDM Depression Asthma hyperlipidemia Screening colonoscopy--1 Tubular adenoma removed in 2005 Denies [place] Stroke-mild- 2012--no residual HTN Sleep apnea--but told that he does not n eed the CPAP yet Restless leg syndrome Some alcohol and substance a buse--drinks some beers on the weekends and stopped cocaine in 12/2013 He was hospitalized in December 2013 for problems including acute renal failure, bronchitis, asthma and hypertension--his renal failure resolved. Surgical History Surgery Date(Month/Year) back surgery finger surgery
== END 2025-01-21 15:10 | disposition home or self-care (01) ==
LOC: HO.US 15:09
PROVIDERS: PCP Student in an Organized Health Care Education/Training Program; Visit Provider Student in an Organized Health Care Education/Training Program
DX: I65.23 Occlusion and stenosis of bilateral carotid arteries (principal)
CPT/HCPCS: 93880

== ENCOUNTER → 2025-01-21 15:11 | Outpatient (BNV) | payer OTHER, SELFPAY | PROVIDERS: PCP Student in an Organized Health Care Education/Training Program; Visit Provider Radiology Diagnostic Radiology | DX: I65.23 Occlusion and stenosis of bilateral carotid arteries (principal) | CPT/HCPCS: 93880 ==

== ENCOUNTER 2025-01-26 14:14 | Outpatient (REF) | payer OTHER, SELFPAY ==
--- NOTE | ~2025-01-26 | FL_ITS ---
EXAMINATION: XR BARIUM SWALLOW CLINICAL INFORMATION: Dysphagia COMPARISON: None available. TECHNIQUE: Routine modified barium swallow was performed following oral administration of various consistencies of liquid, semisolids and solids coated with barium and presence of speech therapist. FINDINGS: The oral administration of thin and thick barium, saltine crackers coated with barium and nectar consistency barium there is normal perfusion bolus from the oral cavity through the pharynx into esophagus. No laryngeal penetration or aspiration seen. No retention of barium coated food in the valleculae or piriform sinuses. Incidental finding of ventral spondylosis C4-5, C5-6 and C6-7 disc levels is noted without obstruction. FLUOROSCOPY TIME: 1 minute 19 seconds DOSE AREA PRODUCT: 1177 uGy-m2 (microgray-meter squared) FL/FL Modified Barium Swallow IMPRESSION: Unremarkable modified barium swallow except for mild ventral spondylosis C4-5, C5-6 and C6/7 disc levels. Compare these findings with speech therapy report. Electronically signed by: Earl Núñez MD 01/27/2025 07:10 AM EDT
--- OUTSIDE RECORDS SUMMARY | 2025-01-26 14:46 | XMS_ITS | Patient Health Record ---
Author Organization [facility] Address [address] [place] [address] Care Team Providers Care Hose Suspender Cutter Name Role Phone AlinaChellyguerlineyvette Primary Care Provider Marcus Billy Unavailable [phone] Reason For Referral No Information Medications Medication [...] Status Risk Notes Problem Colon cancer screening (823744878) Colon cancer screening (V76.51) Active confirmed Problem History of polyp of colon (198972576) H/O adenomatous polyp of colon (V12.72) Active confirmed Problem Long-term use of aspirin therapy (V58.66) Active confirmed Plan Of Treatment Future Test Test Name Order Date COLONOSCOPY 04/07/2014 Insurance Providers Payer Name Payer Address Payer Phone Subscriber Number Group Number Insured Name Patient Relationship to Insured Coverage Start Date Coverage End Date [facility] [address] [place] [phone] [id number] COLON, LACEY Self - patient is the insured Medical (General) History Medical History History ICD Code IDDM Depression Asthma hyperlipidemia Screening colonoscopy--1 Tubular adenoma removed in 2005 Denies [place] Stroke-mild- 2012--no residual HTN Sleep apnea--but told [...]
--- OUTSIDE RECORDS SUMMARY | 2025-01-26 14:46 | XMS_ITS | Encounter Summary ---
Author Organization [employer] Address [address] [place] [address] Care Team Providers Care Provider Contracting Consultant Name Role Phone Shannon Lerner MD Primary Care Pro vider Encounter Details Date Type Department Care Team (Late st Contact Info) Description 07/21/2024 Orders Only [facility] [address] [place] [address] Provider, MD Anju Social History Tobacco Use [...] Care Team (Late st Contact Info) Description 02/17/2025 11:15 AM EDT Office Visit [facility] [address] [place] [id number] Shannon Lerner MD [address] [place] [phone] documented as of this encounter Procedures Procedure [...] documented as of this encounter Care Teams Provider Contracting Consultant Relationship Specialty Start Date End Date Shannon Lerner MD [address] [place] [id number] PCP - General Internal Medicine 02/12/23 documented as of this encounter
--- OUTSIDE RECORDS SUMMARY | 2025-01-26 14:46 | XMS_ITS | Clinical Summary ---
Author Organization [facility] Address [address] [facility] [address] [place] [address] Phone Care Team Providers Care Professor Of Biostatistics Name Role Phone Sofia Parekh Primary Care Provider [phone] Allergies Active Allergy Reactions Criticality Noted Date Comments Ludwin Inhibitors 07/17/2019 Medications acetaminophen (MAPAP ARTHRITIS PAIN) 650 MG 8 hr tablet Comments: Filled Date: Jul 26 2017 12:00AM Patient Notes: TAKE 1 TABLET BY MOUTH EVERY 8 HOURS NEEDED. SWALLOW WHOLE WITH [facility] ER. DO NOT BREAK, CRUSH, DISSOLVE, AND/OR CHEW Duration: 7 Active Alirocumab (PRALUENT) 75 MG/ML solution [...] patient's age to complete this topic Insurance [facility] [place] [id number] [facility] ([id number]) [place] [phone] [place] [address] Care Teams Professor Of Biostatistics Relationship Specialty Start Date End Date Sofia Parekh PCP - General Family Medicine 06/30/21
--- NOTE | 2025-01-27 16:19 | MHC.SL.IMP ---
Date of Plan of Treatment: 01/26/25 Onset of Symptoms/Illness: 11/10/24 Date Treatment Started: 01/26/25 Admitting Diagnosis: Dysphagia Primary Speech & Language Diagnosis: R13.10 Dysphagia Reason for Today's Visit: 36350 Modified Barium Swallow Study Pre-evaluation Dietary Consistencies: Regular Pre-evaluation Liquid Consistency: Thin Pre-evaluation Medication Administration: Whole with Liquid Medical History: Modified Barium Swallow Study Fluoroscopic Evaluation of Swallowing Function CPT Code 07434 Evaluation Year: 2024 Reason for Study: Patient feels ?something stuck in [his] throat when swallowing? Referring Physician: Nayeli Watts GROUP SOCIAL WORKER-BC Evaluating Clinician: Rajni Peter MA, CCC-OBSTETRICIAN AND GYNAECOLOGIST Study Number: 1 Patient Name: Bruno Mueller Status: Outpatient, Ambulatory Age: 69 Sex: Male Medical History Medical History Erectile dysfunction associated with type 2 diabetes mellitus Unsteady gait Asthma Leg weakness Mass of right parotid gland Hypertensive retinopathy of right eye Tubular adenoma of colon Smoker Dyspnea on exertion Vitamin D deficiency Hypertension Diabetic polyneuropathy associated with type 2 diabetes mellitus Diabetic nephropathy associated with type 2 diabetes mellitus 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 office. Patient reports ?feeling something stuck in [his] throat with all PO intake.? Today patient further endorses constantly feeling something is stick every time he swallows, whether liquids or solids. Patient had an upper endoscopy 09/25/24 revealing gastritis and duodenal adenoma, balloon dilation was done at the [facility] and [facility]. Pertinent medical history includes asthma, mass of R-parotid gland, hypertension, and diabetes. Food and Liquid Trials: Oral Impairment: Lip Closure: Did not test Oral Impairment: Tongue Control During Bolus Hold: 0=Cohesive bolus between tongue to palatal seal Oral Impairment: Bolus Preparation/Mastication: 0=Timely and efficient chewing and mashing Oral Impairment: Bolus Transport/Lingual Motion: 1= Delayed initiation of tongue motion Oral Impairment: Oral Residue: 1=Trace residue lining oral structures Oral Impairment:Initiation of Pharyngeal Swallow: 2=Bolus head at posterior laryngeal surface of epiglottis Pharyngeal Impairment: Soft Palate Elevation: 0=No bolus between soft palate (SP)/pharyngeal wall (PW) Pharyngeal Impairment: Laryngeal Elevation: 0=Complete superior movement of thyroid cartilage (see description) Pharyngeal Impairment: Anterior Hyoid Excursion: 1=Partial anterior movement Pharyngeal Impairment: Epiglottic Movement: 0=Complete inversion Pharyngeal Impairment: Laryngeal Vestibular Closure:: 0=Complete: no air/contrast in laryngeal vestibule Pharyngeal Impairment: Pharyngeal Stripping Wave: 0=Present: complete Pharyngeal Impairment: Pharyngeal Contraction: Did not test Pharyngeal Impairment: Pharyngoesophageal Segment Openin=Partial distention/partial duration: partial obstruction of flow Pharyngeal Impairment: Tongue Base (TB) Retraction: 2=Narrow column of contrast/air between TB and posterior PW Pharyngeal Impairment: Pharyngeal Residue: 1=Trace residue within or on pharyngeal structures Pharyngeal Impairment: Esophageal Clearance Upright Position: Did not test Impressions and Recommendations Clinical Observations: OBJECTIVE: Time-out: performed at 14:50 Evaluation Start: 14:30; Stop: 14:35 Patient Positioning: Standing Viewing Planes: LATERAL ONLY Contrast: MBSImP? Standardized Protocol using commercially prepared, standardized Barium viscosities, including: Varibar? THIN LIQUID (40% w/v, <15 cps) , Varibar? PUDDING (40% w/v, <1001-2960 cps) [facility] [id number] [facility] Results: Lip closure for intraoral bolus containment could not be assessed due to logistical reasons not related to physiologic impairment. Tongue control during bolus hold maintained a cohesive bolus held between tongue to palate seal. Bolus preparation and mastication resulted in timely and efficient chewing and mashing. Bolus transport/lingual motion demonstrated delayed initiation of tongue motion. Oral residue was a trace, lining oral structures. Initiation of the pharyngeal swallow occurred as the bolus head was at the posterior laryngeal surface of the epiglottis. Soft palate elevation resulted in no bolus between the soft palate and the pharyngeal wall. Laryngeal elevation demonstrated complete superior movement of the thyroid cartilage with complete approximation of the arytenoids to the epiglottic petiole. Anterior hyoid excursion demonstrated partial anterior movement. Epiglottic movement resulted in complete inversion. Laryngeal vestibular closure was complete, as indicated by no air or contrast within the laryngeal vestibule at the height of the swallow. Pharyngeal stripping wave was present and complete. Pharyngeal contraction could not be determined due to logistical reasons not related to physiologic impairment. Pharyngoesophageal segment opening demonstrated partial distension/partial duration, with partial obstruction of bolus flow. Tongue base retraction allowed a narrow column of contrast or air between the retracted tongue base and the posterior pharyngeal wall. Pharyngeal residue was a trace within or on pharyngeal structures. Esophageal clearance in the upright position could not be assessed due to logistical reasons not related to physiologic impairment. Oral Impairment Score: 3 (absence of score, component 1) Pharyngeal Impairment Score: 4 (absence of score, component 13) Esophageal Impairment Score: --- (absence of score, component 17) Laryngeal Penetration and Aspiration: Neither penetration nor aspiration was observed in today's study with Cookie, Pudding-thick, Thin. Structural Abnormalities Noted: Per Dr. Núñez, ?Incidental finding of ventral spondylosis C4-5, C5-6 and C6-7 disc levels is noted without obstruction.? ASSESSMENT: This exam was performed by the radiologist and the speech pathologist. Patient was standing for lateral view only. He fed himself without difficulty and trialed the following consistencies: Thin liquid (via rapid cup sips) Puree (mixture applesauce with barium paste) Regular (nohemy crackers coated in barium paste) Note good tongue control with no premature posterior escape. Timely and efficient mastication. Posterior lingual motion was mildly delayed, but with overall good recollection. Trace lingual residue cleared on subsequent swallows. Pharyngeal swallow trigger initiated as the bolus head reached the posterior laryngeal surface of the epiglottis. No evidence of nasopharyngeal reflux. Complete laryngeal elevation with complete epiglottic inversion and laryngeal vestibular closure. No evidence of aspiration or penetration. Trace residue in the valleculae and pyriforms subsequently cleared. Liquid Intake Recommendation: Thin Liquid Intake Strategies: Unrestricted Dietary Recommendations: Regular Medication Administration: Whole with Liquid Please contact the pharmacy regarding appropriate crushable or liquid drug formulations that are available whenever modified delivery is recommended. Compensatory Strategies Recommended: Sitting Upright (90 deg), Small Bites and Sips, Alternate Liquids/Solids, Rate of Ingestion Change Recommendation for Speech Therapy: NA:Typical Evaluation Text Comment: Intake Recommendations: Route: PO Diet Grade: Regular Liquid Consistencies: Thin Post-Study Functional Oral Intake Scale (FOIS): 7- Total oral intake with no restrictions No evidence of aspiration or penetration during this exam. Good clearance of the oral and pharyngeal cavities. Suggested Referrals: The patient might benefit from a referral to: Gastroenterology Therapy Recommendations: Speech Therapy is not warranted at this time, as patient?s swallow physiology in the oral and pharyngeal phases is deemed functional. Recommend patient continue on unmodified diet textures REGULAR solids and THIN liquids. Patient to continue workup w/ G.I. Clinician - Supplemental, Miscellaneous Communication: It is important to note MBSS objective studies are snapshots in time and Patient function might vary with factors such as time of day or concomitant medical conditions. For this reason, the final treatment plan for this patient should rest with their medical care team. Additional recommendations should be considered with the totality of the Patient in mind. Thank for the opportunity to participate in the care of this patient. If you have any questions about the content of this report, please contact the [facility] at [facility]. Education: Education regarding findings from today's study and plans for therapy were provided to Patient only through Verbal Instruction. Understanding was expressed by the Patient only. Stage Electrician Helper Clinician/Clinical Fellow: No Supervisory Statement: N/A Speech Language Pathologist: Rajni Peter M.A., CCC-OBSTETRICIAN AND GYNAECOLOGIST
== END 2025-01-26 14:15 | disposition home or self-care (01) ==
LOC: HO.XRAY 14:14
PROVIDERS: PCP Student in an Organized Health Care Education/Training Program; Visit Provider Nurse Practitioner Family
DX: R13.10 Dysphagia, unspecified (principal)
CPT/HCPCS: 74230; 92611

== ENCOUNTER → 2025-01-26 14:30 | Outpatient (BNV) | payer OTHER, SELFPAY | PROVIDERS: PCP Student in an Organized Health Care Education/Training Program; Visit Provider Radiology Diagnostic Radiology | DX: R13.10 Dysphagia, unspecified (principal) | CPT/HCPCS: 74230 ==

== ENCOUNTER 2025-02-17 11:49 | Outpatient (REF) | payer OTHER, SELFPAY ==
--- NOTE | ~2025-02-17 | XR_ITS ---
EXAMINATION: XR SHOULDER 2 OR MORE VIEWS RIGHT HISTORY: ongoing bilateral shoulder pain COMPARISON: Comparison is made with the prior examination dated 11/21/2018. FINDINGS: Five views of the right shoulder are submitted. Osseous mineralization is normal. There is no fracture or dislocation. The glenohumeral joint space is maintained. There is mild narrowing of the AC joint. The soft tissues are unremarkable. XR/XR shoulder RT min 2V IMPRESSION: Mild narrowing of the AC joint. Electronically signed by: Marcus Ba MD 02/17/2025 02:13 PM EDT
--- NOTE | ~2025-02-17 | XR_ITS ---
EXAMINATION: XR SHOULDER, LEFT CLINICAL INFORMATION: ongoing bilateral shoulder pain COMPARISON: None available. TECHNIQUE: Three views of the left shoulder. FINDINGS: Normal bone mineralization. No fracture, dislocation, or suspicious bone lesion. Normal alignment. The glenohumeral joint is normal. The AC joint demonstrates mild spurring. There is a type I acromion. No undersurface spurring. The subacromial space is preserved. Remainder of the soft tissue and bony structures appear normal. XR/XR shoulder LT min 2V IMPRESSION: 1. Mild spurring of the AC joint. 2. Otherwise, normal radiographs left shoulder. Electronically signed by: Clifton Ricardo MD 02/17/2025 02:14 PM EDT
--- OUTSIDE RECORDS SUMMARY | 2025-02-17 13:04 | XMS_ITS | Clinical Summary ---
Author Organization [facility] Address [address] [address] Phone Care Team Providers Care Head Golf Coach Name Role Phone Pcp, Unknown Primary Care Provider Unavailabl e Social History Tobacco Use Types Packs/Day Years Used Date Smoking Tobacco: Never Assessed Education Answer Date Recorded Are you interested in more education? Not on [place] e 11/24/2022 Are you concerned about learning? Not on file 11/24/2022 No 11/24/2022 No 11/24/2022 Digital Access Answer Date Recorded No 12/26/2022 No 12/26/2022 No 12/26/2022 Reliable internet access at home? Not on file 12/26/2022 Device with a working camera? Not on file Sex and Gender Information Value Date Recorded Sex Assigned at Not on file Legal Sex Male 11:25 AM EDT Gender Identity Not on file Sexual Orientation Not on file Plan of Treatment Not on file Medical Devices Not on file Insurance [facility] MEDICARE REPLACEMENT MEDICARE REPLACEMENT MEDICARE REPLACEMENT MEDICARE REPLACEMENT MEDICARE REPLACEMENT MEDICARE REPLACEMENT MEDICARE REPLACEMENT O MEDICARE REPLACEMENT Care Teams Head Golf Coach Relationship Specialty Start Date End Date Pcp, Unknown PCP - General 01/16/19 Additional Source Comments The information contained in this document represents components of the legal health record. It is not the complete legal health record.[facility]
--- OUTSIDE RECORDS SUMMARY | 2025-02-17 13:04 | XMS_ITS | Patient Health Record ---
Author Organization [facility] Address [address] [place] [address] Care Team Providers Care Rough Rib Grader Name Role Phone AlinaChellyguerlineyvette Primary Care Provider Marcus Billy Unavailable [phone] Reason For Referral No Information Medications Medication [...] Status Risk Notes Problem Colon cancer screening (349853819) Colon cancer screening (V76.51) Active confirmed Problem History of polyp of colon (453833406) H/O adenomatous polyp of colon (V12.72) Active confirmed Problem Long-term use of aspirin therapy (V58.66) Active confirmed Plan Of Treatment Future Test Test Name Order Date COLONOSCOPY 04/07/2014 Insurance Providers Payer Name Payer Address Payer Phone Subscriber Number Group Number Insured Name Patient Relationship to Insured Coverage Start Date Coverage End Date [facility] [address] [place] [address] [id number] COLON, LACEY Self - patient is the insured Medical (General) History Medical History History ICD Code IDDM Depression Asthma hyperlipidemia Screening colonoscopy--1 Tubular adenoma removed in 2005 Denies [place] Stroke-mild- 2012--no residual HTN Sleep apnea--but told [...]
--- OUTSIDE RECORDS SUMMARY | 2025-02-17 13:04 | XMS_ITS | Encounter Summary ---
Author Organization [facility] Address [address] [place] [address] Care Team Providers Care Seed Corn Production Manager Name Role Phone Shannon Lerner MD Primary Care Pro vider Encounter Details Date Type Department Care Team (Late st Contact Info) Description 07/21/2024 Orders Only [facility] MEDICINE [address] [place] [address] Provider, MD Anju Social History Tobacco Use [...] documented as of this encounter Care Teams Seed Corn Production Manager Relationship Specialty Start Date End Date Shannon Lerner MD [address] [place] [id number] PCP - General Internal Medicine 02/12/23 documented as of this encounter
--- OUTSIDE RECORDS SUMMARY | 2025-02-17 13:04 | XMS_ITS | Clinical Summary ---
Author Organization [facility] Address [address] [facility] [address] [place] [address] Phone Care Team Providers Care Public Speaker Name Role Phone Sofia Parekh Primary Care Provider [phone] Allergies Active Allergy Reactions Criticality Noted Date [...] Visual Foot Exam 07/17/2019 Influenza Vaccine (#1) 2025 Hepatitis B Vaccine Aged Out No longe r eligible based on patient's age to complete this topic Insurance [facility] [place] [id number] [facility] ([id number]) [place] [id number] , [place] [address] Care Teams Public Speaker Relationship Specialty Start Date End Date Sofia Parekh PCP - General Family Medicine 06/30/21
[2025-02-17 13:50] LABS: Hematocrit 42.5 % (42.0-52.0); Hemoglobin 13.7 g/dl (14.0-18.0); Mean Corpuscular HGB Conc 32.2 g/dl (31.0-36.0); Mean Corpuscular Hemoglobin 28.2 pg (27.0-33.0); Mean Corpuscular Volume 87.4 fL (80.0-98.0); NRBC Abs Auto 0.000 X10*3/uL (0.0-0.012); NRBC Pct Auto 0.0 /100WBC (0.0-0.2); Platelet Count 146 X10*3/uL (160-400); Red Blood Count 4.86 X10*6/uL (4.60-5.80); White Blood Count 3.0 X10*3/uL (4.8-10.8)
[2025-02-17 13:57] LABS: Hemoglobin A1C 180.3373 umol/L; Total Hemoglobin (HGBA1C) 3514.6880 umol/L
[2025-02-17 14:20] LABS: HIV Num 1 0.05 S/CO (0.00-0.99)
[2025-02-17 14:24] LABS: Alanine Aminotransferase 26 U/L (0-40); Albumin Level 4.2 g/dL (3.5-5.0); Alkaline Phosphatase 58 U/L (39-117); Anion Gap 12 (12-20); Aspartate Amino Transferase 26 U/L (5-37); Blood Urea Nitrogen 15 mg/dL (9-16); Calcium 8.7 mg/dL (8.4-10.2); Carbon Dioxide 26 mmol/L (22-29); Chloride 110 mmol/L (96-108); Cholesterol 122 mg/dL (<200); Estimated Glomerular Filt Rate > 60; HDL Cholesterol 41 mg/dL (>40); Potassium 4.3 mmol/L (3.3-5.1); Sodium 144 mmol/L (135-145); Total Protein 6.8 g/dL (6.5-8.0); Triglycerides 83 mg/dL (<150)
[2025-02-17 14:35] LABS: Microalbum/Creatinine Ratio Ur 43.3 ug/mg cr (<30)
[2025-02-17 14:38] LABS: Cholesterol 124 mg/dL (<200); HDL Cholesterol 42 mg/dL (>40); Triglycerides 86 mg/dL (<150); Uric Acid 5.7 mg/dL (3.4-7.0)
[2025-02-17 14:45] LABS: Microalbum/Creatinine Ratio Ur 41.1 ug/mg cr (<30)
[2025-02-17 15:01] LABS: Folate 9.9 ng/mL (> or = 4.0); Vitamin B12 467 pg/mL (200-900)
[2025-02-23 11:49] LABS: Anti Nuclear Antibody Screen NEGATIVE (NEGATIVE)
== END 2025-02-17 11:50 | disposition home or self-care (01) ==
LOC: HO.HHCX 11:49
PROVIDERS: Internal Medicine Medical Oncology; Physician Assistant; PCP Student in an Organized Health Care Education/Training Program; Visit Provider Student in an Organized Health Care Education/Training Program
DX: E11.21 Type 2 diabetes mellitus with diabetic nephropathy (principal); E78.5 Hyperlipidemia, unspecified; I10 Essential (primary) hypertension; D61.818 Other pancytopenia; M25.50 Pain in unspecified joint; R53.83 Other fatigue; E11.42 Type 2 diabetes mellitus with diabetic polyneuropathy; Z79.4 Long term (current) use of insulin; M25.511 Pain in right shoulder; G89.29 Other chronic pain; M25.512 Pain in left shoulder
CPT/HCPCS: 36415; 73030; 80053; 80061; 82043; 82550; 82570; 82607; 82746; 83036; 83615; 84443; 84550; 85027; 85652; 86038; 86140; 86200; 86431; 87389

== ENCOUNTER → 2025-02-17 12:58 | Outpatient (BNV) | payer OTHER, SELFPAY | PROVIDERS: PCP Student in an Organized Health Care Education/Training Program; Visit Provider Radiology Diagnostic Radiology | DX: M25.719 Osteophyte, unspecified shoulder (principal) | CPT/HCPCS: 73030 ==

== ENCOUNTER 2025-03-10 10:39 | Outpatient (AMB) | payer OTHER, SELFPAY ==
--- NOTE | 2025-03-10 10:39 | MHC.OFFVIS ---
Vital Signs 03/10/25 10:45 Height 5 ft 11 in Weight 180 lb BMI 25.1 BP 116/54 L Blood Pressure Location Rt brachial Position Sitting Pulse 56 Pulse Source Pulse Oximeter Pulse Oximetry (%) 99 Oxygen Delivery Method Room Air Intake Visit Reasons: 4m Intake Note: ESTABLISHED PATIENT for mgmt of GERD and constipation. Imaging done (EULALIO FL Mod) CC; Pt denies any GI changes or new sx since last visit. Residential Monitor Required: Yes Residential Monitor Services: Residential Monitor Present Residential Monitor Name: Charli [id number] + [facility] [place] [place] Information Interpreted: clinical only Accompanied by: Self / Same As Patient Allergies dulaglutide (Trulicity) Adverse Reaction (Unknown, Verified 03/10/25 10:47) diarrhea HPI HPI 4m: Details: LAST VISIT: Dysphagia IBS (irritable bowel syndrome) GERD (gastroesophageal reflux disease) Constipation Plan Patient will continue taking Nexium daily and famotidine at bedtime. Avoid dietary triggers and late night snacking. Staying upright for minimal 3 hours after meals discussed with patient. Will send him for modified barium swallow with speech therapy. He continues to have dysphagia. Feeling like something is stuck in his throat. X-ray done in the past and negative. Nothing seen on endoscopy. Referral to ENT for further evaluation. Patient was encouraged to she will his food well before she swallows. Continue senna is needed. Increase fluid intake and activity to promote better bowel motility. Suboptimal prep for colonoscopy and will need to be repeated in 2-3 years. Patient will be seen in the office in 4 months, sooner on as needed basis. He is agreeable to this plan and verbalizes understanding of instructions. He was given the opportunity to ask questions and all questions answered. ? Thank you for allowing me to participate in his care Orders FL Modified Barium Swallow Today R13.10 XR chest 2V Today R13.10 Referrals Ear/Nose/Throat Referral R13.10 TODAY'S VISIT Patient is here today for follow-up and to discuss modified barium swallow. Patient reports that he is feeling better. Occasional trouble swallowing medications. Patient feels that sometimes he has to drink lots of water in order for the medication to go down. Modified barium swallow unremarkable. Speech therapy assessment reviewed. No modification in his diet recommended. Patient has not seen ENT yet. Will try to help and call the office today. Patient reports that he is not moving his bowels completely when taking Senokot. 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 Dyslipidemia Diabetes type 2, uncontrolled Surgical History History of esophagogastroduodenoscopy (EGD) Hx of colonoscopy History of amputation of finger History of lumbar surgery Family History Father Medical history unknown Mother Medical history unknown Sister Breast cancer Brother Cancer Social History Household Members: None Are you a primary foster care worker to a significant other at home: No Do you presently have visiting nurse or other home services: No Alcohol intake: current Alcohol intake frequency: former alcohol drinker Patient Tobacco Use Status: Former Tobacco user Years Smoked: 52 (onset 13yo) Review of Systems Const Denies weight gain and Denies weight loss ENT Reports no additional complaints, Denies dysphagia and Denies odynophagia Card Reports no additional complaints Resp Reports no additional complaints GI Denies abdominal pain, Denies belching, Denies melena, Denies bloating, Denies change in bowel habits, Denies dysphagia, Denies excessive flatus, Denies dyspepsia, Denies heartburn, Denies diarrhea, Denies loose stools, Denies nausea, Denies odynophagia and Denies vomiting Reports no additional complaints Musc Reports no additional complaints Neuro Reports no additional complaints Psych Reports no additional complaints Endo Reports no additional complaints Physical Exam Vital Signs: Last Vital Signs Pulse 56 03/10/25 10:45 BP 116/54 L 03/10/25 10:45 Pulse Ox 99 03/10/25 10:45 Oxygen Delivery Method Room Air 03/10/25 10:45 BMI result Body Mass Index 25.1 Const General: healthy appearing, no acute distress and well developed Nutritional Appearance: well nourished Orientation/consciousness: patient oriented x3 Resp Effort & Inspection: normal respiratory effort, able to speak in complete sentences, no tracheal deviation and symmetric chest movement Auscultation: clear to auscultation bilaterally Cardio Rate: regular rate GI Inspection: Yes normal to inspection and No distended Palpation (GI): Soft to palpation, not firm, nontender and No hepatosplenomegaly present Auscultation: normal bowel sounds General: Yes no CVA tenderness Back/Spine/Pelvis Back: no CVA tenderness Skin General skin exam: elasticity normal, turgor normal and dry skin Neuro General: patient oriented x3 Psych Appearance: grossly normal Mental Status: mental status grossly normal Results Reviewed Results Reviewed: MODIFIED BARIUM SWALLOW IMPRESSION: Unremarkable modified barium swallow except for mild ventral spondylosis C4-5, C5-6 and C6/7 disc levels. Compare these findings with speech therapy report. SPEECH THERAPY REPORT Therapy Recommendations: Speech Therapy is not warranted at this time, as patient?s swallow physiology in the oral and pharyngeal phases is deemed functional. Recommend patient continue on unmodified diet textures REGULAR solids and THIN liquids. Patient to continue workup w/ G.I. Clinician - Supplemental, Miscellaneous Communication: It is important to note MBSS objective studies are snapshots in time and Patient function might vary with factors such as time of day or concomitant medical conditions. For this reason, the final treatment plan for this patient should rest with their medical care team. Additional recommendations should be considered with the totality of the Patient in mind. Thank for the opportunity to participate in the care of this patient. If you have any questions about the content of this report, please contact the Speech [facility] Hearing [facility] at [facility]. Education: Education regarding findings from today's study and plans for therapy were provided to Patient only through Verbal Instruction. Understanding was expressed by the Patient only. Assessment & Plan Assessment & Plan (1) Dysphagia: Code(s): R13.10 - Dysphagia, unspecified Category: Medical Qualifiers: Dysphagia type: oropharyngeal phase Qualified Code(s): R13.12 - Dysphagia, oropharyngeal phase (2) Postprandial epigastric pain: Code(s): R10.13 - Epigastric pain (3) Constipation: Code(s): K59.00 - Constipation, unspecified Qualifiers: Constipation type: slow transit constipation Qualified Code(s): K59.01 - Slow transit constipation Plan Patient will continue Nexium in the morning and famotidine at bedtime. Continue avoiding dietary triggers and late night snacking. Patient was encouraged to chew his food well and drink fluids. We were able to make an appointment for patient for April 14 to see ENT specialist in [place]. Patient will stop senna and will start taking Dulcolax daily. Increase fluid intake and activity to promote better bowel motility. Patient will follow-up in 2-3 months, sooner on as needed basis. He is agreeable to this plan and verbalizes understanding of instructions. He was given the opportunity to ask questions and all questions answered. Thank you for allowing me to participate in his care Medications: New bisacodyl (Dulcolax (bisacodyl)) 10 mg (2 x 5 mg) PO BEDTIME 180 tabs 4RF Refilled famotidine 40 mg PO BEDTIME 90 tabs 3RF K21.9 - Gastro-esophageal reflux disease without esophagitis esomeprazole magnesium (Nexium) 40 mg PO DAILY 90 caps 3RF K21.9 - Gastro-esophageal reflux disease without esophagitis Discontinued sennosides (senna) Discontinued Reason: Doctor's Order 17.2 mg (2 x 8.6 mg) PO BEDTIME 120 tabs 3RF for constipation K59.00 - Constipation, unspecified Coding Level of Care Code Est Pt Level 4 (53961) Complex EM visit Add On G2211 Diagnoses Oropharyngeal dysphagia R13.12 Dysphagia type: oropharyngeal phase Postprandial epigastric pain R10.13 Slow transit constipation K59.01 Constipation type: slow transit constipation Time Spent (min) 35 Comment 25 minutes spent with patient and additional 10 minutes spent reviewing his records
[2025-03-10 10:45] VITALS: BP 116/54; PULSE 56; O2SAT 99; BMI 25.1
--- OUTSIDE RECORDS SUMMARY | 2025-03-10 11:43 | XMS_ITS | Patient Health Record ---
Author Organization [facility] Address [address] [place] [address] Care Team Providers Care Chain Saw Mechanic Name Role Phone AlinaChellyguerlineyvette Primary Care Provider Marcus Billy Unavailable [phone] Reason For Referral No Information Medications Medication [...] Status Risk Notes Problem Colon cancer screening (925186670) Colon cancer screening (V76.51) Active confirmed Problem History of polyp of colon (206330759) H/O adenomatous polyp of colon (V12.72) Active confirmed Problem Long-term use of aspirin therapy (V58.66) Active confirmed Plan Of Treatment Future Test Test Name Order Date COLONOSCOPY 04/07/2014 Insurance Providers Payer Name Payer Address Payer Phone Subscriber Number Group Number Insured Name Patient Relationship to Insured Coverage Start Date Coverage End Date [facility] [address] [place] [address] [id number] COLON, LACEY Self - patient is the insured Medical (General) History Medical History History ICD Code IDDM Depression Asthma hyperlipidemia Screening colonoscopy--1 Tubular adenoma removed in 2005 Denies [place] Stroke-mild- 2012--no residual HTN Sleep apnea--but told [...]
--- OUTSIDE RECORDS SUMMARY | 2025-03-10 11:43 | XMS_ITS | Encounter Summary ---
Author Organization [facility] Address [address] [place] [address] Phone Care Team Providers Care Master Yacht Name Role Phone Pcp, Unknown Primary Care Provider Unavailabl e Encounter Details Date Type Department Care Team (Latest Contact Info) Description 09/03/2020 Ancillary Orders [facility] [address] [place] [address] [place] [address] lAejandro Parsons DO [address] [place] [address] Bradycardia; SOB (shortness of breath) Social History Tobacco Use Types Packs/Day Years Used Date Smoking Tobacco: Never Assessed Sex and Gender Information Value Date Recorded Sex Assigned at Not on file Legal Sex Male 11:25 AM EDT Gender Identity Not on file Sexual Orientation Not on file documented as of this encounter Plan of Treatment Not on file documented as of this encounter Results * Holter Monitor 24 Hours (09/03/2020 12:21 PM EST) Anatomical Region Laterality Modality Heart Other Narrative 09/03/2020 5:10 PM EST 24-hour monitor: Baseline rhythm is sinus with a minimum heart rate 36, maximum 95, average 57 bpm. The longest pause duration is 1.79 seconds. There is a moderately increased frequency of atrial ectopy, about 24,000 atrial ectopic beats during the monitoring period. These are mainly isolated PACs with occasional couplets and brief runs of atrial tachycardia, longest duration four beats. There is a mildly increased frequency of ventricular ectopy, about 2100 PVCs during the 24 hours, all isolated PVCs. There is no diary submitted. There are no patient event markers. Impression: Abnormal 24-hour monitor. Increased frequency atrial ectopy, details above, with brief runs of atrial tachycardia present. Increased frequency of ventricular ectopy, details above, about 2100 PVCs during 24 hours. Maximum heart rate less than 100 bpm consistent with some degree of sinus node dysfunction. Longest pause duration 1.79 seconds. No diary submitted. No patient event markers. Procedure Note Clyde Chavez MD - 09/03/2020 24-hour monitor: Baseline rhythm is sinus with a minimum heart rate 36,maximum 95, average 57 bpm. The longest pause duration is 1.79 seconds.There is a moderately increased frequency of atrial ectopy, about 24,000atrial ectopic beats during the monitoring period. These are mainlyisolated PACs with occasional couplets and brief runs of atrialtachycardia, longest duration four beats. There is a mildly increasedfrequency of ventricular ectopy, about 2100 PVCs during the 24 hours, allisolated PVCs. There is no diary submitted. There are no patient eventmarkers. Impression: Abnormal 24-hour monitor. Increased frequency atrial ectopy,details above, with brief runs of atrial tachycardia present. Increasedfrequency of ventricular ectopy, details above, about 2100 PVCs during 24hours. Maximum heart rate less than 100 bpm consistent with some degreeof sinus node dysfunction. Longest pause duration 1.79 seconds. No diarysubmitted. No patient event markers. Alejandro Jaqueline [facility] ORDERABLE S Final Result documented in this encounter Visit Diagnoses Diagnosis Bradycardia Other specified cardiac dysrhythmias SOB (shortness of breath) Shortness of breath Bradycardia Other specified cardiac dysrhythmias SOB (shortness of breath) Shortness of breath documented in this encounter Care Teams Master Yacht Relationship Specialty Start Date End Date Pcp, Unknown PCP - General 01/16/19 documented as of this encounter Additional Source Comments The information contained in this document represents components of the legal health record. It is not the complete legal health record.[facility]
--- OUTSIDE RECORDS SUMMARY | 2025-03-10 11:43 | XMS_ITS | Clinical Summary ---
Author Organization [facility] Address [address] [facility] [address] [place] [address] Phone Care Team Providers Care Corporate Responsibility Officer Name Role Phone Sofia Parekh Primary Care Provider [phone] Allergies Active Allergy Reactions Criticality Noted Date [...] patient's age to complete this topic Insurance [facility] [place] [id number] [facility] ([id number]) [place] [id number] , [place] [address] Care Teams Corporate Responsibility Officer Relationship Specialty Start Date End Date Sofia Parekh PCP - General Family Medicine 06/30/21
== END 2025-03-10 11:02 | disposition home or self-care (01) ==
LOC: HO.HGI 10:39
PROVIDERS: PCP Student in an Organized Health Care Education/Training Program; Visit Provider Nurse Practitioner Family
DX: R13.12 Dysphagia, oropharyngeal phase (principal); R10.13 Epigastric pain; K59.01 Slow transit constipation
CPT/HCPCS: 99214; G2211

== ENCOUNTER → 2025-03-10 10:39 | Outpatient (BNVA) | payer OTHER, SELFPAY | PROVIDERS: PCP Student in an Organized Health Care Education/Training Program; Visit Provider Nurse Practitioner Family | DX: K21.9 Gastro-esophageal reflux disease without esophagitis (principal); K59.01 Slow transit constipation; R13.12 Dysphagia, oropharyngeal phase; R10.13 Epigastric pain | CPT/HCPCS: 99212 ==

== ENCOUNTER 2025-03-13 13:22 | Outpatient (AMB) | payer OTHER, SELFPAY ==
--- OUTSIDE RECORDS SUMMARY | 2025-03-13 13:26 | XMS_ITS | Clinical Summary ---
Author Organization [facility] Address [address] [address] Phone Care Team Providers Care Tuckpointer Name Role Phone Pcp, Unknown Primary Care [...] file Medical Devices Not on file Insurance [facility] MEDICARE REPLACEMENT MEDICARE REPLACEMENT MEDICARE REPLACEMENT MEDICARE REPLACEMENT MEDICARE REPLACEMENT MEDICARE REPLACEMENT MEDICARE REPLACEMENT O MEDICARE REPLACEMENT Care Teams Tuckpointer Relationship Specialty Start Date End Date Pcp, Unknown PCP - General 01/16/19 Additional Source Comments The information contained in this document represents components of the legal health record. It is not the complete legal health record.[facility]
--- OUTSIDE RECORDS SUMMARY | 2025-03-13 13:26 | XMS_ITS | Encounter Summary ---
Author Organization [facility] Address [address] [facility] [address] [place] [address] Care Team Providers Care Bilingual Loan Processor Name Role Phone Shannon Lerner MD Primary Care Pro vider Encounter Details Date Type Department Care Team (Late st Contact Info) Description 02/17/2025 Results Follow-Up [facility] [address] [place], [place] [id number] Shannon Lerner MD [address] [place] [address] Hemoglobin A1c, Albumin, Random Urine W/Creatinine, Rheumatoid Factor, HIV-1/2 Antigen and Antibodies, Fourth Generation, with Reflexes Social History Tobacco Use Types Packs/Day Years [...] housing situation today? I have martha olmos 12/09/[address] you [...] PM EST documented as of this encounter Miscellaneous Notes * Result Encounter Note - Shannon Diana MD - 02/17/2025 10:24 PM EDT Please can you call pt and schedule an apt with me for f up labs within next 4 to 6 weeks if possible Thanks documented in this encounter Plan of Treatment Upcoming Encounters Date Type Department Care Team (Late st Contact Info) Description 04/23/2025 1:30 PM EDT Office Visit [facility] [address] [place] [id number] Shannon Lerner MD [address] [place] [phone] documented as of this encounter Visit Diagnoses Not on filedocumented in this encounter Additional Health Concerns Assessment Noted Time PHQ-9 Depression Total Score: 4 06/17/20 24 10:10 AM EST documented as of this encounter Care Teams Bilingual Loan Processor Relationship Specialty Start Date End Date Shannon Lerner MD [address] [place] [id number] PCP - General Internal Medicine 7/17/23 documented as of this encounter
--- OUTSIDE RECORDS SUMMARY | 2025-03-13 13:26 | XMS_ITS | Patient Health Record ---
Author Organization [facility] Address [address] [place] [address] Care Team Providers Care Leisure Travel Agent Name Role Phone AlinaChellyguerlineyvette Primary Care Provider Marcus Billy Unavailable [phone] Reason For Referral No Information Medications Medication [...] Status Risk Notes Problem Colon cancer screening (342932309) Colon cancer screening (V76.51) Active confirmed Problem History of polyp of colon (032570083) H/O adenomatous polyp of colon (V12.72) Active confirmed Problem Long-term use of aspirin therapy (V58.66) Active confirmed Plan Of Treatment Future Test Test Name Order Date COLONOSCOPY 04/07/2014 Insurance Providers Payer Name Payer Address Payer Phone Subscriber Number Group Number Insured Name Patient Relationship to Insured Coverage Start Date Coverage End Date [facility] [address] [place] [address] [id number] COLON, LACEY Self - patient is the insured Medical (General) History Medical History History ICD Code IDDM Depression Asthma hyperlipidemia Screening colonoscopy--1 Tubular adenoma removed in 2005 Denies [place] Stroke-mild- 2012--no residual HTN Sleep apnea--but told [...]
--- OUTSIDE RECORDS SUMMARY | 2025-03-13 13:26 | XMS_ITS | Clinical Summary ---
Author Organization [facility] Address [address] [facility] [address] [place] [address] Phone Care Team Providers Care Sex Crimes Detective Name Role Phone Sofia Parekh Primary Care Provider [phone]- [phone] Allergies Active Allergy Reactions Criticality Noted Date [...] patient's age to complete this topic Insurance [facility] [place] [id number] [facility] ([id number]) [place] [id number] , [place] [address] Care Teams Sex Crimes Detective Relationship Specialty Start Date End Date Sofia Parekh PCP - General Family Medicine 06/30/21
[2025-03-13 13:27] VITALS: BP 110/48; PULSE 57; O2SAT 97; BMI 25.8
--- NOTE | 2025-03-13 13:27 | A.OFFVIS_ITS ---
Vital Signs 03/13/25 13:27 Height 5 ft 11 in Weight 185 lb 3.013 oz BMI 25.8 BP 110/48 L Blood Pressure Location Rt brachial Position Sitting Pulse 57 Pulse Source Pulse Oximeter Pulse Oximetry (%) 97 Oxygen Delivery Method Room Air Intake Visit Reasons: T2DM Intake Note: Patient presents today for a follow-up on Type 2 Diabetes Mellitus: Last Diabetic eye exam was on: 04/2024, [facility] Last Podiatry exam was on: Patient has a coming up appt at Podiatry [facility] Most recent HbA1c: 6.8%, 02/17/2025 Random Glucose- 107 mg/dL, Today Racking Technician Required: Yes Racking Technician Language: Family Engagement Specialist Services: Racking Technician Present Racking Technician Name: KAMLESH Elizabeth Information Interpreted: non-clinical & clinical Accompanied by: Self / Same As Patient Allergies dulaglutide (Trulicity) Adverse Reaction (Unknown, Verified 03/13/25 13:30) diarrhea HPI HPI T2DM: Details: Patient is a 69 -year-old male with a PMH of GERD, anxiety, asthma, arthritis, history of alcohol and cocaine abuse, hypertension, hyperlipidemia presenting today for follow-up of his type 2 diabetes. He denies any acute concerns today. Racking Technician: Randa Endo: DM- He was dx in 1989. His A1c is 6.8. He is currently on Toujeo to 10 units, metformin 2000 mg QD, Ozempic 2 mg Q wkly, Farxiga 10 mg QD CGM-Luis download shows he is wearing the sensor 95% of the time. Average glucose is 132 with G mi of 6.5%. He is in target range 85% of the time with 12% hyperglycemia and 3% hypoglycemia. -lows mid morning had diarrhea with Trulicity 0.75 mg weekly He had elevated CPK on statin, currently on Praluent 150 mg every 2 weeks and Zetia 10 mg daily. -insurance stopped covering Praluent. Recently switch to Repatha and denies any adverse effects Last ophthalmology evaluation: appt 12/2023. no diabetic retinopathy was has hypertensive retinopathy. CV: Blood pressure today in the office is 110/48 He is currently on metoprolol 12.5 mg daily, amlodipine 10 mg. I did previously discontinue the HCTZ due to low blood pressures. We did discuss today possibly reducing the amlodipine as it looks like the last couple office visits he has had low readings but he states that his blood pressures at home are completely normal and they have been normal at other locations. We did discuss that I increased his Farxiga at the last office visit and that can sometimes contribute to his low blood pressures. He tells me he will address this with his PCP. [facility] Medical History Dysphagia Erectile dysfunction associated with type 2 diabetes mellitus Unsteady gait Asthma Leg weakness Mass of right parotid gland Hypertensive retinopathy of right eye Tubular adenoma of colon Smoker Dyspnea on exertion Vitamin D deficiency Hypertension Diabetic polyneuropathy associated with type 2 diabetes mellitus Diabetic nephropathy associated with type 2 diabetes mellitus correction (current) use of insulin Dyslipidemia Diabetes type 2, uncontrolled Surgical History History of esophagogastroduodenoscopy (EGD) Hx of colonoscopy History of amputation of finger History of lumbar surgery Family History Father Medical history unknown Mother Medical history unknown Sister Breast cancer Brother Cancer Social History Household Members: None Are you a primary resident care manager to a significant other at home: No Do you presently have visiting nurse or other home services: No Alcohol intake: current Alcohol intake frequency: former alcohol drinker Patient Tobacco Use Status: Former Tobacco user Years Smoked: 52 (onset 13yo) Physical Exam Vital Signs: Last Vital Signs Pulse 57 03/13/25 13:27 BP 110/48 L 03/13/25 13:27 Pulse Ox 97 03/13/25 13:27 Oxygen Delivery Method Room Air 03/13/25 13:27 BMI result Body Mass Index 25.8 Const Orientation/consciousness: patient oriented x3 HEENT Ears: hearing grossly normal bilaterally Neck Thyroid: Thyroid normal Lymphatic: no lymphadenopathy noted Resp Auscultation: clear to auscultation bilaterally Cardio Rate: regular rate Rhythm: regular rhythm Heart sounds: S1 normal heart sound present and S2 normal heart sound present Skin General skin exam: no rashes or lesions noted Neuro General: patient oriented x3, gait normal and no focal motor deficits Results Reviewed Results Reviewed: Laboratory Last Values Glucose (Clinic) 107 mg/dL (60-115) 03/13/25 13:34 Laboratory Tests 02/17/25 12:17 Creatinine 1.04 Estimated GFR > 60 Fasting Glucose 104 H Hemoglobin A1c % 6.8 H AST 26 ALT 26 Triglycerides 86 Cholesterol 124 LDL Cholesterol, Calc 65 HDL Cholesterol 42 Assessment & Plan Assessment & Plan (1) Diabetic polyneuropathy associated with type 2 diabetes mellitus: Code(s): E11.42 - Type 2 diabetes mellitus with diabetic polyneuropathy Category: Medical Plan: Currently well-controlled. He is happy with his current regimen and does not want to change anything or feels that anything needs to be changed. We will have him follow up in 3 months. (2) Hypertension: Code(s): I10 - Essential (primary) hypertension Category: Medical Qualifiers: Hypertension type: essential hypertension Qualified Code(s): I10 - Essential (primary) hypertension Plan: Discussed that his blood pressures on the lower side today. He has an appointment next month with his PCP. He has been checking blood pressures at home and they are normal. Encouraged him to make sure he hydrates. (3) Dyslipidemia: Code(s): E78.5 - Hyperlipidemia, unspecified Category: Medical Plan: Controlled. Continue current regimen. Reviewed labs. Coding Level of Care Code Est Pt Level 4 (32101) Complex EM visit Add On G2211 Diagnoses Diabetic polyneuropathy associated with type 2 diabetes mellitus E11.42 Essential hypertension I10 Hypertension type: essential hypertension Dyslipidemia E78.5
[2025-03-13 13:37] LABS: Glucose, Whole Blood 107 mg/dL (60-115)
== END 2025-03-13 13:44 | disposition home or self-care (01) ==
LOC: HO.ENCR 13:23
PROVIDERS: PCP Student in an Organized Health Care Education/Training Program; Visit Provider Physician Assistant
DX: E11.42 Type 2 diabetes mellitus with diabetic polyneuropathy (principal); I10 Essential (primary) hypertension; E78.5 Hyperlipidemia, unspecified

== ENCOUNTER → 2025-03-13 13:22 | Outpatient (BNVA) | payer OTHER, SELFPAY | PROVIDERS: PCP Student in an Organized Health Care Education/Training Program; Visit Provider Physician Assistant | DX: E11.42 Type 2 diabetes mellitus with diabetic polyneuropathy (principal); E78.5 Hyperlipidemia, unspecified; I10 Essential (primary) hypertension; Z79.84 Long term (current) use of oral hypoglycemic drugs; Z79.899 Other long term (current) drug therapy | CPT/HCPCS: 82947; 99212 ==

== ENCOUNTER → 2025-05-06 11:52 | Outpatient (REF) | payer OTHER, SELFPAY ==
--- NOTE | 2025-05-06 11:55 | CA_ITS ---
Transthoracic Echocardiogram Patient (Last, First, Middle): Bruno Mueller M Gender: M Date of : 1955 Age: 70 Procedure Date: 05/06/2025 Procedure Type: Transthoracic Echocardiogram Location: OP Height: 180.34 cm Weight: 81.65 kg BSA: 2.02 m2 Heart Rate: bpm BP: 124 / 80 mmHg Pilot Plant Research Technician: Referring MD: Shannon Diana MD Photoengraving Helper: Rich De Jesus MD Symptoms: NIEVES R06.09 Study Quality: Fair/Adequate ECG Rhythm: Sinus with extra beats Conclusions: - Essentially normal study with mildly dilated left atrium Findings Left Ventricle Normal left ventricular size, thickness, and systolic function. The visually estimated ejection fraction is between 55-60%. Spectral Doppler is indicative of an impaired relaxation filling pattern. Right Ventricle Normal right ventricular cavity size and systolic function. Atria The left atrium is mildly dilated. There is an interatrial septal aneurysm seen bowing to the right. The right atrium is normal in size. Aortic Valve Normal aortic valve structure and function. There is no aortic valve stenosis. There is no aortic valve regurgitation. Mitral Valve Normal mitral valve structure and function. There is trace mitral valve regurgitation. There is no mitral valve stenosis. Pulmonic Valve The pulmonic valve is likely normal. Tricuspid Valve Normal tricuspid valve structure. There is trace tricuspid valve regurgitation. The right ventricular systolic pressure is normal. The right ventricular systolic pressure is 24 mmHg. Normal right atrial pressure. There is no evidence of pulmonary hypertension. Great Vessels All visible segments of the aorta are normal in size. The pulmonary artery was not well visualized. Venous The inferior vena cava is normal in size and collapses greater than 50% with inspiration. Pericardium/Pleural There is no evidence of pericardial effusion. Prior Study Comparison No significant change compared to prior study dated: 10/10/2023. Measurements 2D Linear Measurements IVSd: 1.12 0.6-0.9/0.6-1.0 cm LVIDd: 4.08 3.9-5.3/4.2-5.9 cm LVIDd Index: 2.02 2.4-3.2/2.2-3.1 cm/m2 LVIDs: 2.76 2.0-3.6 cm LVPWd: 1.11 0.7-1.1 cm Ao Root: 3.20 2.1-3.5 cm LA Diam: 4.10 2.7-3.8/3.0-4.0 cm LAIDs Index: 2.03 1.5-2.3 cm/m2 LV Mass: 190.66 67-162/88-224 g LV Mass Index: 94.38 43-95/49-115 g/m2 LVOT Diam: 2.30 3.0+(-)1.3 cm 2D Systolic Function EF 4C: 56.60 >55% EF 2C: 57.10 >55% EF BiP: 58.90 >55% Mitral Valve MV Pk E: 0.85 MV PK A: 0.83 MV Decel Time: 213.00 E/A: 1.00 E'Lateral: 9.79 E'Medial: 6.53 E/E' Med: 13.10 E/E' Lat: 8.70 PHT: 62.00 MVA PHT: 3.55 Decel Prowers: 4.00 Aortic Valve AoV Pk Joss: 1.06 AoV Mn Joss: 0.76 AoV VTI: 0.32 AoV Pk Grad: 4.00 Aov Mn Grad: 3.00 RBETT Cont.VTI: 2.48 LVOT LVOT Pk Joss: 0.67 LVOT Mn Joss: 0.44 LVOT VTI: 0.19 LVOT Pk Grad: 2.00 LVOT Mn Grad: 1.00 LVOT Diam: 2.30 LVOT Area: 4.15 Diastolic Function MV Pk E: 0.85 MV Pk A: 0.83 E/A: 1.00 E'Medial: 6.53 E/E' Med: 13.10 E' Laterial: 9.79 E/E' Lat: 8.70 Right Ventricle TAPSE (mm): 27.00 Tricuspid Valve TR Pk Joss: 2.27 TR Pk Grad: 21.00 RA Press: 3.00 RVSP: 24.00 Great Vessels Aorta Ao Root-2D: 3.20 2.0-3.7 cm Ao Asc: 3.30 2.1-3.4 cm Pulmonary Valve PV Pk Joss: 0.78 Peak PV Grad: 2.00 Updated in Other Vendor System with Status of Final Rich De Jesus MD electronically signed on 05/06/2025 4:13:39 PM with status of Final
== END ==
LOC: HO.CARD 11:52
PROVIDERS: PCP Student in an Organized Health Care Education/Training Program; Visit Provider Student in an Organized Health Care Education/Training Program
DX: R06.09 Other forms of dyspnea (principal)
CPT/HCPCS: 93306

== ENCOUNTER → 2025-05-06 11:55 | Outpatient (BNV) | payer OTHER, SELFPAY | PROVIDERS: PCP Student in an Organized Health Care Education/Training Program; Visit Provider Internal Medicine Cardiovascular Disease | DX: I51.7 Cardiomegaly (principal); R06.09 Other forms of dyspnea | CPT/HCPCS: 93306 ==

== ENCOUNTER 2025-05-08 09:46 | Outpatient (AMB) | payer OTHER, SELFPAY ==
--- NOTE | 2025-05-08 09:53 | A.OFFVIS_ITS ---
Vital Signs 05/08/25 10:06 Height 5 ft 11 in Weight 180 lb BMI 25.1 BP 129/56 L Blood Pressure Location Rt brachial Position Sitting Pulse 81 Pulse Source Pulse Oximeter Pulse Oximetry (%) 97 Oxygen Delivery Method Room Air Intake Visit Reasons: Back Pain Intake Note: Pain today 03/08 Superintendent Custodian Janitor Required: Yes Superintendent Custodian Janitor Language: Learning Support Resource Room Teacher Services: Superintendent Custodian Janitor Present Superintendent Custodian Janitor Name: Jaylin #[id number] Accompanied by: Self / Same As Patient Allergies dulaglutide (Trulicity) Adverse Reaction (Unknown, Verified 05/08/25 10:07) diarrhea HPI Comments Details: The patient is a 70-year-old male presenting with chronic back pain with radiculopathy. Patient was last seen in our office in July 2024. Denies any recent trauma, injury or falls. Reports increasing weakness, imbalance and limited mobility with worsening back and leg symptoms. The back pain has been persistent and radiates to the legs, primarily affecting the sides and back of the legs, worse on the left side. The patient reports that the pain is severe and has been ongoing for a long time, impacting his ability to move and sleep. The patient experienced an episode of being bedridden and unable to move for two days, which occurred recently. He has a history of back surgery approximately 20 years ago, in 2001. The patient reports weakness in his legs, sometimes feeling as though they fade away, and experiences numbness and tingling with heaviness. He has been managing his pain with Tylenol, which he finds ineffective, and has tried gabapentin and OTC topical patches without relief. The patient has diabetes mellitus, which is reportedly well-controlled, and he is aware of the need to adhere to diabetic diet restrictions. Denies any recent cough, cold, infection, fever or any significant changes in medical history since last office visit. PRIOR: Patient presents today to assess response to RIGHT PARASAGITTAL L4, L5, INTERLAMINAR PRABHJOT on 07/01/[address] Fulton. Patient reports 70% pain relief since procedure with partial improvement in his daily activities, functioning, mobility and sleep. Patient reports better pain relief in his back than right leg pain with injection. He attempted Behavioral evaluation with [facility] for potential SCS trial but due to high out of pocket costs, decided to cancel it. Patient reports he sees Dr. Brown at [facility] for depression which has been under good control with imipramine at bedtime. I will sent referral to Dr. Brown for psychology clearance for potential SCS trial to address patient's chronic back pain with radiculopathy. Denies any recent cough, cold, infection, fever, bladder or bowel dysfunction, saddle anesthesia or other significant changes in medical history since last office visit. Past Procedures: 07/01/24: Right parasagittal L4-L5 Interlaminar PRABHJOT-70% pain relief 09/19/22: Bilateral intra-articular hip steroid injections-80% ongoing pain relief 04/18/22: Caudal PRABHJOT with catheter-0% pain relief PRIOR: Patient presents today for follow up with increasing lower back pain, bilateral hip and leg pain. Patient underwent neurosurgical evaluation by Dr. Ricardo on 06/20/22 and was told that no additional surgery was indicated and was advised to proceed with spinal cord stimulator. Pending behavioral assessment, not completed at [facility] and was sent to [facility] on 08/03/22. Patient has significant bilateral hip pain and groin pain with external and internal hip rotations bilaterally, worse on the right. His back pain continues to radiate down to both of his lower legs posteriorly with numbness and tingling. He ambulates with slow, antalgic gait with use of cane in mildly flexed position due to pain. Reports pain with walking, sitting, standing, or changing positions. Patient would like to proceed with bilateral hip steroid injection under sedation. Denies any fever, abdominal pain, bowel or bladder incontinence or saddle anesthesia. The trialed and failed therapy has been reviewed with the patient. The risks, consequences, alternatives, and benefits of various treatment options were discussed with the patient in great detail, including conservative management, injections and procedures. Plan to proceed with lumbar SCS trial once behavioral assessment is completed. PRIOR: Patient presents today in the office to assess his response to Caudal PRABHJOT with catheter injection on 04/18/22. Patient reports 0% pain relief status post procedure and continues to endorse spinal stenosis related pain. He continues to reports lower back pain with radiation to both of his lower extremity posteriorly with numbness and tingling and parenthesia symptoms in L5-S1 distribution. He also has burning pain in his feet due to chronic diabetic neuropathy. Unfortunately, his insurance did not approve [employer]. Pain continues to affect his daily functioning, sleep and quality of life. We discussed SCS trial previously and behavioral assessment was submitted but not completed. I will refer this patient for neurosurgical evaluation to evaluate if any additional surgery is needed prior to considering SCS trial. Patient cannot tolerate walking more than 5 minutes and ambulates in forward flexed position slowly, with antalgic gait and uses cane. Most recent lumbar MRI was completed in September, and is noted below. Patient denies any fever, weight changes, dizziness, lightheadedness, shortness of breaths, bowel or bladder incontinence or saddle anesthesia. PRIOR: Patient returns today for follow up in the office with worsening of chronic low back pain. He was last seen in our office on 10/17/21. His back pain presents in his lower back that spreads across his lower back and into his bilateral lower extremities posteriorly with shooting, sharp pain and significant numbness and tingling with cramping in both of his feet. Patient reports worsening of chronic painful diabetic neuropathy in his both feet which has been worse at night. Back pain and bilateral neuropathy in his feet has been affecting his daily activities, functioning, sleep and quality of life. At previous visit, his A1C was elevated and we did not proceed with lumbar injections. Patient has had regular follow ups with his lift driver and his most recent A1C was 7.4 on 03/08/22 down from 10.3. Patient was praised for monitoring his blood sugars, medication compliance and his attempts and efforts to adhere to ADA diet. We have discussed caudal epidural injection with catheter and patient agreed to undergo this under local and fluoroscopy. He has been managing his back pain with lidocaine patches, naproxen, intermittent use of gabapentin due to drowsiness and low dose of cyclobenzaprine prn with continued symptoms. Patient reports pain with prolonged standing or walking, pain mildly relieved with rest. He ambulates with antalgic gait with the use of cane. Patient reports he has recently fell last Sunday due to significant back pain while walking with cane at home. Patient reports falling backwards and onto his left side with intermittent neck pain and significant muscle pain in his bilateral trapezius regions. Patient reports he did not go to ER or his PCP for evaluation status post fall and has been feeling better except his back symptoms. He denies loss of consciousness, fever, malaise, dizziness, headache, chest pain, shortness of breaths, abdominal or groin pain, bowel or bladder incontinence or saddle anesthesia. Patient reports bilateral lower extremity weakness due to chronic knee and back pain. PRIOR: Today patient presents to the office for review of lumbar MRI and bilateral knee xray. He is accompanied by his LIGHT ARMORED RECONNAISSANCE OFFICER who is also helps with translation per patient's request. Patient continues to report bilateral knee pain and chronic back pain with right radiculopathy to his right leg laterally and anteriorly to right thigh. He has a prior history of left L5-S1 decompression, discectomy and laminectomy in 2003. He is diabetic with poorly controlled blood sugars with most recent A1C 10.3 on 09/08/21. He states he is followed by our endocrinology services and tries to adhere to ADA diet and closely monitor his blood sugars. Per [facility] notes review, patient last had Left L5-S1 TFESI as well as S1 selective epidurals with nerve root blocks on 01/24/2017. Due to his elevated A1C and poorly controlled diabetes, we will avoid steroid injections at this time. I have placed behavioral evaluation referral for SCS trial at previous visit which is pending. Both lumbar MRI and bilateral knee xrays reports reviewed with patient and are noted below. He notices good relief with lidocaine patches for knee pain and mild improvements with gabapentin, flexeril, and naproxen. Patient denies any fever, malaise, dizziness, weight loss, abdominal or groin pain, bladder/bowel dysfunction or saddle anesthesia. Patient reports lower extremity weakness and difficulty with prolong walking or sitting. Ambulates with antalgic gate and uses cane. [facility] Medical History Dysphagia Erectile dysfunction associated with type 2 diabetes mellitus Unsteady gait Asthma Leg weakness Mass of right parotid gland Hypertensive retinopathy of right eye Tubular adenoma of colon Smoker Dyspnea on exertion Vitamin D deficiency Hypertension Diabetic polyneuropathy associated with type 2 diabetes mellitus Diabetic nephropathy associated with type 2 diabetes mellitus senior care (current) use of insulin Dyslipidemia Diabetes type 2, uncontrolled Surgical History History of esophagogastroduodenoscopy (EGD) Hx of colonoscopy History of amputation of finger History of lumbar surgery Family History Father Medical history unknown Mother Medical history unknown Sister Breast cancer Brother Cancer Social History Household Members: None Are you a primary spiritual care coordinator to a significant other at home: No Do you presently have visiting nurse or other home services: No Alcohol intake: current Alcohol intake frequency: former alcohol drinker Patient Tobacco Use Status: Former Tobacco user Years Smoked: 52 (onset 13yo) Review of Systems Const Details: - Musculoskeletal: Reports chronic back pain radiating to legs, weakness, numbness, and tingling in legs - Neurological: Reports numbness and tingling in legs, denies bladder or bowel dysfunction or saddle anesthesia All systems reviewed & are unremarkable except as noted in HPI and below Physical Exam General: Appears afebrile. Alert and oriented. Mood and affect appropriate. Follows and participates in conversation appropriately. Respiratory effort is unlabored. No cough. Able to transition from sit to stand unassisted. Slow, antalgic gait. Uses cane with ambulation. General: Yes no CVA tenderness Back/Spine/Pelvis Other: Limited lumbar flexion and extension due to significant aggravation of his back symptoms. Demonstrates 4/5 left and 5/5 right strength of quadriceps bilaterally as well as flexion/dorsiflexion of bilateral feet against resistance. Diminished DTRs bilaterally. Positive Seated SLR with dorsiflexion bilaterally, left>right. Valsalva maneuvr is positive. Back: no CVA tenderness Cervical Spine: loss of normal cervical lordosis, cervical muscular tenderness, pain with cervical ROM and No Cervical spine tenderness Thoracic/Lumbar Spine: thoracic and lumbar spine normal to inspection, Thoracic/lumbar spine scar(s) (midline lower back), Lasegue's sign positive (left>right) bilateral and localized, pain with thoraco-lumbar ROM, paraspinal muscle tenderness, thoraco-lumbar ROM limited with forward flexion (WNL) and with lateral flexion to the left (limited by pain), No thoracic spinal tenderness and lumbar spinal tenderness (L4-S1) Sacroiliac joints: bilaterally tender to palpation Extrem General: Yes capillary refill normal, Yes no clubbing, cyanosis or edema and Yes no calf tenderness Results Reviewed Results Reviewed: MR LUMBAR SPINE WITHOUT CONTRAST 10/06/21 CLINICAL INFORMATION: Post laminectomy syndrome. Low back and leg pain. COMPARISON: MRI dated 11/24/2016. FINDINGS: VERTEBRAL BODIES AND PARASPINAL STRUCTURES: There are chronic post laminectomy changes at the L4-L5 and L5-S1 levels on the left side. The marrow signal is within normal limits. Mild anteroinferior endplate edema noted at the T12 level with worsened moderate disc space narrowing and anterior endplate spurring at the T12-L1 level. There are no compression fractures. Slight retrosubluxation is stable at the L4- L5 level. No paraspinal soft tissue fluid collections are seen. Renal cysts again visible. The imaged bony pelvis is unremarkable. CONUS MEDULLARIS AND CAUDA EQUINA: Normal, terminating at the level of L2. No lower cord signal abnormality is seen. The cauda equina nerve roots are normal. SPINAL LEVELS: L1-L2 and L2-L3: No significant disc pathology, central canal stenosis, or foraminal narrowing. L3-L4: Mild disc bulge and hypertrophic facet arthropathy resulting in slight narrowing of the central canal compared to prior imaging and mild right foraminal encroachment. L4-L5: Chronic post laminectomy changes and moderate facet arthropathy with a recurrent broad-based central disc protrusion mildly distorting the ventral thecal sac and impressing upon both L5 nerve roots, more so on the left side. Moderate central canal stenosis and mild left foraminal narrowing. L5-S1: Chronic post laminectomy changes and partially resorbed residual small central disc protrusion mildly impressing upon the ventral thecal sac. Underlying disc bulge and hypertrophic facet arthropathy encroach upon the subarticular zones with chronic mass effect upon the traversing S1 nerve roots. Patent foramina. IMPRESSION: Recurrent broad-based central disc protrusion at the L4-L5 level mildly distorting the ventral thecal sac and impressing upon both L5 nerve roots with moderate central canal stenosis and chronic post laminectomy changes. Chronic postoperative changes at L5-S1 with a partially resorbed residual small central disc protrusion mildly distorting the ventral thecal sac. Bulging disc and osseous spurring chronically encroach upon the subarticular zones with mass effect upon the traversing S1 nerve roots. Mild disc bulge and facet arthropathy slightly encroaching upon the central canal at the L3-L4 level. Progressed muum-hi-cugsczoi spondylosis at the T12-L1 level with mild anterior endplate edema. X-Ray hip BI w PEL1V 10/18/22 IMPRESSION: 1. Small avulsion fracture fragment or osteophyte lateral left acetabulum. 2. No visible acute fracture or dislocation either hips or AP pelvis. XR SOFT TISSUE NECK 05/21/23 CLINICAL INDICATION: Dysphagia. FINDINGS: Soft tissue films of the neck demonstrate a normal larynx, pharynx and upper trachea. No soft tissue swelling or opaque foreign body is demonstrated. There is moderately severe degenerative disc disease at C4-C5 and C5-C6, and mild to moderate degenerative disc disease is seen at C6-C7. There are calcifications of the ligamentum nuchae. There are bilateral carotid atherosclerotic calcifications, right greater than left. IMPRESSION: 1. Unremarkable radiographic appearance of the soft tissues of the neck. 2. There are degenerative changes of the spine, as detailed. 3. There are bilateral carotid atherosclerotic calcifications, which may be more fully evaluated with dedicated carotid ultrasound, if clinically indicated. XR SHOULDER, LEFT 05/03/23 CLINICAL INFORMATION: Pain and abrasion status-post fall. FINDINGS: Bony alignment and mineralization are normal. The glenohumeral joint is intact. The acromioclavicular and coracoclavicular intervals are normal. No fracture or dislocation is seen. There is a small distal acromial undersurface osteophyte. There is very mild calcific tendinitis of the left rotator cuff insertion. No foreign body is seen. There is no left pneumothorax. IMPRESSION: 1. No fracture or dislocation is seen. 2. There is very mild calcific tendinitis of the left rotator cuff. Assessment & Plan Assessment & Plan (1) Degenerative lumbar spinal stenosis: Code(s): M48.061 - Spinal stenosis, lumbar region without neurogenic claudication Category: Medical (2) Claustrophobia: Code(s): F40.240 - Claustrophobia Category: Medical (3) Postlaminectomy syndrome: Code(s): M96.1 - Postlaminectomy syndrome, not elsewhere classified Category: Medical (4) Lumbar radiculopathy: Code(s): M54.16 - Radiculopathy, lumbar region Category: Medical (5) Chronic pain syndrome: Code(s): G89.4 - Chronic pain syndrome Category: Medical (6) Unsteady gait: Code(s): R26.81 - Unsteadiness on feet Category: Medical Plan The plan includes obtaining updated lumbar spine MRI to assess any changes since the last imaging three years ago with worsening spinal stenosis and radicular symptoms. Patient requests an open MRI with oral Ativan due to claustrophobia. A Medrolpak, a steroid taper, is prescribed for short term symptomatic relief, with instructions to follow the package directions carefully. The patient is advised to adhere to diabetic diet restrictions and medication regime while on the steroid medication to prevent temporary increases in blood sugar levels. A behavioral evaluation report will be obtained from Dr. Brown at [facility], to further explore pain management options such as SCS trial and implant, previous ly discussed. All questions and concerns have been answered and patient agreed with the treatment plan. Follow up for MRI results and sooner as needed. Patient was informed and verbally consented to the use of an ambient scribe for clinic note documentation during this visit. Orders: Orders MR lumbar spine wo con Today F40.240 - Claustrophobia, M48.061 - Spinal stenosis, lumbar region without neurogenic claudication, M54.16 - Radiculopathy, lumbar region, M96.1 - Postlaminectomy syndrome, not elsewhere classified Medications: New methylprednisolone (Medrol (Prince)) PO PER PKG DIR 21 ea 0RF pain M48.061 - Spinal stenosis, lumbar region without neurogenic claudication, M96.1 - Postlaminectomy syndrome, not elsewhere classified Coding Level of Care Code Est Pt Level 4 (60438) Complex EM visit Add On G2211 Diagnoses Degenerative lumbar spinal stenosis M48.061 Claustrophobia F40.240 Postlaminectomy syndrome M96.1 Lumbar radiculopathy M54.16 Chronic pain syndrome G89.4 Unsteady gait R26.81
[2025-05-08 10:06] VITALS: BP 129/56; PULSE 81; O2SAT 97; BMI 25.1
--- OUTSIDE RECORDS SUMMARY | 2025-05-08 10:29 | XMS_ITS | Encounter Summary ---
Author Organization [facility] Address [address] [facility] [address] [place] [phone] Phone Care Team Providers Care Registered Nurse Behavioral Health Name Role Phone Pcp, Unknown Primary Care Provider Unavailabl e Encounter Details Date Type Department Care Team (Late st Contact Info) Description 09/03/2020 Procedure Pass [facility] [address] [place] [address] [place], [place] [id number] Social History Tobacco Use Types Packs/Day Years [...] on filedocumented in this encounter Care Teams Registered Nurse Behavioral Health Relationship Specialty Start Date End Date Pcp, Unknown PCP - General 01/16/19 documented as of this encounter Additional Source Comments The information contained in this document represents components of the legal health record. It is not the complete legal health record.[facility]
--- OUTSIDE RECORDS SUMMARY | 2025-05-08 10:29 | XMS_ITS | Patient Health Record ---
Author Organization [facility] Address [address] [place] [address] Care Team Providers Care Counter Cutter Name Role Phone AlinaChellythu Primary Care Provider Marcus Billy Unavailable [phone] Reason For Referral No Information Medications Medication [...] Packs 240 GM as directed Orally as directed; Duration: 1 day(s) 04/07/2014 Active HumaLOG 100 UNIT/ML [...] Status Risk Notes Problem Colon cancer screening (155137509) Colon cancer screening (V76.51) Active confirmed Problem History of polyp of colon (942353634) H/O adenomatous polyp of colon (V12.72) Active confirmed Problem Long-term use of aspirin therapy (V58.66) Active confirmed Plan Of Treatment Future Test Test Name Order Date COLONOSCOPY 04/07/2014 Insurance Providers Payer Name Payer Address Payer Phone Subscriber Number Group Number Insured Name Patient Relationship to Insured Coverage Start Date Coverage End Date [facility] [address] [place] [phone] [id number] COLONLACEY Self - patient is the insured Medical [...]
--- OUTSIDE RECORDS SUMMARY | 2025-05-08 10:29 | XMS_ITS | Clinical Summary ---
Author Organization [facility] Address [address] [address] Phone Care Team Providers Care Fibre Optics Jointer Name Role Phone Pcp, Unknown Primary Care [...] file Medical Devices Not on file Insurance [facility] MEDICARE REPLACEMENT MEDICARE REPLACEMENT MEDICARE REPLACEMENT MEDICARE REPLACEMENT MEDICARE REPLACEMENT MEDICARE REPLACEMENT MEDICARE REPLACEMENT O MEDICARE REPLACEMENT Care Teams [employer] Jointer Relationship Specialty Start Date End Date Pcp, Unknown PCP - General 01/16/19 Additional Source Comments The information contained in this document represents components of the legal health record. It is not the complete legal health record.[facility]
--- OUTSIDE RECORDS SUMMARY | 2025-05-08 10:29 | XMS_ITS | Encounter Summary ---
Author Organization [facility] Address [address] [facility] [address] [place] [address] Care Team Providers Care Macaroni Press Operator Name Role Phone Shannon Lerner MD Primary Care Pro vider Encounter Details Date Type Department Care Team (Late st Contact Info) Description 07/21/2024 Orders Only [facility] [address] [place] [address] Provider, MD Anju Social History Tobacco Use [...] Care Team (Late st Contact Info) Description 05/21/2025 2:00 PM EDT Clinical Support [address] [address] 07/17/2025 11:15 AM EST Office Visit [address] [address] Shannon Lerner MD [address] [place] [phone] documented as of this encounter Procedures Procedure [...] documented as of this encounter Care Teams Macaroni Press Operator Relationship Specialty Start Date End Date Shannon Lerner MD [address] [place] [phone] PCP - General Internal Medicine 02/12/23 documented as of this encounter
--- OUTSIDE RECORDS SUMMARY | 2025-05-08 10:30 | XMS_ITS | Encounter Summary ---
Author Organization [facility] Address [address] [facility] [address] [place] [address] Phone Care Team Providers Care Beehive Kiln Supervisor Name Role Phone Pcp, Unknown Primary Care Provider Unavailabl e Encounter Details Date Type Department Care Team (Late st Contact Info) Description 11/11/2018 Ancillary Orders [facility] [address] [place] [address] [place] [address] Alejandro Parsons DO [address] [place] [phone] Bradycardia Social History Tobacco Use Types Packs/Day [...] encounter Results * Holter Monitor 24 Hours (11/11/2018 12:15 PM EDT) Anatomical Region Laterality Modality Heart Other Narrative 11/11/2018 12:44 PM EDT 24-hour monitor: Baseline rhythm is sinus with a minimum heart rate of 39 maximum 127 average 57 bpm. Longest pause is 1.73 seconds. There were about 550 PVCs during the 24 hours, mainly isolated PVCs, with a single 3 beat run at 141 bpm. There is an increased frequency of atrial ectopy, about 11,000 during the 24 hours, with isolated PACs, couplets, and brief runs of atrial tachycardia, longest duration 10 beats. There is no diary returned. There are no patient events noted. Impression: Abnormal 24-hour monitor. Minor increase in frequency of ventricular ectopy, primarily single PVCs. Moderate increase in frequency of atrial ectopy, mainly PACs and couplets, with brief runs of atrial tachycardia as noted above. No symptoms reported. Procedure Note Kirchhoffer, Clyde B, MD - 11/11/2018 24-hour monitor: Baseline rhythm is sinus with a minimum heart rate of 39maximum 127 average 57 bpm. Longest pause is 1.73 seconds. There wereabout 550 PVCs during the 24 hours, mainly isolated PVCs, with a single 3beat run at 141 bpm. There is an increased frequency of atrial ectopy,about 11,000 during the 24 hours, with isolated PACs, couplets, and briefruns of atrial tachycardia, longest duration 10 beats. There is no diaryreturned. There are no patient events noted. Impression: Abnormal 24-hour monitor. Minor increase in frequency ofventricular ectopy, primarily single PVCs. Moderate increase in frequencyof atrial ectopy, mainly PACs and couplets, with brief runs of atrialtachycardia as noted above. No symptoms reported. Alejandro Parsons DO [facility] ORDER[facility] S Final Result documented in this encounter Visit Diagnoses Diagnosis Bradycardia Other specified cardiac dysrhythmias Bradycardia Other specified cardiac dysrhythmias documented in this encounter Care Teams Beehive Kiln Supervisor Relationship Specialty Start Date End Date Pcp, Unknown PCP - General 01/16/19 documented as of this encounter Additional Source Comments The information contained in this document represents components of the legal health record. It is not the complete legal health record.[facility]
--- OUTSIDE RECORDS SUMMARY | 2025-05-08 10:30 | XMS_ITS | Encounter Summary ---
Author Organization [employer] Address [address] [facility] 7t [place] [address] Care Team Providers Care Law Office Assistant Name Role Phone Shannon Lerner MD Primary Care Pro vider Reason for Visit * Reason Onset Date Comments Results 05/07/2025 Encounter Details Date Type Department Care Team ([facility] st Contact Info) Description 05/07/2025 Telephone [facility] [address] [place] [address] Shannon Lerner MD [address] [place] [address] Results Social History Tobacco Use Types Packs/Day Years [...] as of this encounter Miscellaneous Notes * Telephone Encounter - Jamia Jackson MA - 05/07/2025 4:17 PM EDT [employer] informed Patient that heart echocardiogram is a normal study. From: Shannon Diana MD Sent: 05/06/2025 8:46 PM EDT To: Jamia Jackson MA Please From: Shannon Diana MD Sent: 05/06/2025 8:46 PM EDT To: Jamia Jackson MA Please inform pt that heart echocardiogram is Essentially a normal study documented in this encounter Plan of Treatment Upcoming Encounters Date Type Department Care Team (Late st Contact Info) Description 05/21/2025 2:00 PM EDT Clinical Support [facility] [address] [place] [phone] 07/17/2025 11:15 AM EST Office Visit [facility] [address] [place] [address] Shannon Lerner MD [address] [place] [phone] documented as of this encounter Visit Diagnoses Not on filedocumented in this encounter Additional Health Concerns Assessment Noted Time PHQ-9 Depression Total Score: 4 06/17/20 24 10:10 AM EST documented as of this encounter Care Teams Law Office Assistant Relationship Specialty Start Date End Date Shannon Lerner MD [address] [place] [phone] PCP - General Internal Medicine 02/12/23 documented as of this encounter
--- OUTSIDE RECORDS SUMMARY | 2025-05-08 10:30 | XMS_ITS | Encounter Summary ---
Author Organization [employer] Address [address] [facility] 7t [place] [address] Care Team Providers Care Deputy General Counsel Name Role Phone Shannon Lerner MD Primary Care Pro vider Reason for Visit * Reason Comments Med Refill Encounter Details Date Type Department Care Team ([facility] st Contact Info) Description 09/06/2023 Refill [facility] PEDS [address] [place], [place] [phone] Shannon Lerner MD [address] [place], [place] [phone] Polyneuropathy Social History Tobacco Use Types Packs/Day [...] Description 05/21/2025 2:00 PM EDT Clinical Support [address] [address] 07/17/2025 11:15 AM EST Office Visit [address] [address] Shannon Lerner MD [address] [place] [phone] documented as of this encounter Visit Diagnoses Diagnosis Polyneuropathy Unspecified hereditary and idiopathic peripheral neuropathy documented in this encounter Additional Health Concerns Assessment Noted Time PHQ-9 Depression Total Score: 8 07/26/20 23 3:19 PM EST documented as of this encounter Care Teams Deputy General Counsel Relationship Specialty Start Date End Date Shannon Lerner MD [address] [place] [phone] PCP - General Internal Medicine 02/12/23 documented as of this encounter
--- OUTSIDE RECORDS SUMMARY | 2025-05-08 10:30 | XMS_ITS | Encounter Summary ---
Author Organization [employer] Address [address] [facility] 7 [place] [address] Care Team Providers Care Thread Trimmer Name Role Phone Nancy MoreiraP Primary Care Provider Shannon Miller MD Primary Care Pro vider Encounter Details Date Type Department Care Team (Late st Contact Info) Description 08/15/2022 Orders Only [facility] PEDS [address] [place] [address] Nohemy Nair LPN Social History Tobacco Use [...] Description 05/21/2025 2:00 PM EDT Clinical Support [address] [address] 07/17/2025 11:15 AM EST Office Visit [facility] [address] [place] [address] Shannon Lerner MD [address] [place] [phone] documented as of this encounter Visit Diagnoses Not on filedocumented in this encounter Care Teams Thread Trimmer Relationship Specialty Start Date End Date Nancy Moreira FNP PCP - General Family Medicine 03/22/22 02/11/23 Shannon Lerner MD [address] [place] [phone] PCP - General Internal Medicine 02/12/23 documented as of this encounter
--- OUTSIDE RECORDS SUMMARY | 2025-05-08 10:30 | XMS_ITS | Encounter Summary ---
Author Organization [employer] Address [address] [facility] 7 [place] [address] Care Team Providers Care Material Handler Floorperson Name Role Phone Nancy MoreiraP Primary Care Provider Shannon Miller MD Primary Care Pro vider Encounter Details Date Type Department Care Team (Late st Contact Info) Description 09/07/2022 Orders Only [facility] MED & PEDS [address] [place] [address] Nohemy Nair LPN Social History Tobacco Use [...] Description 05/21/2025 2:00 PM EDT Clinical Support [address] [address] 07/17/2025 11:15 AM EST Office Visit [facility] [address] [place] [address] Shannon Lerner MD [address] [place] [phone] documented as of this encounter Visit Diagnoses Not on filedocumented in this encounter Care Teams Material Handler Floorperson Relationship Specialty Start Date End Date Nancy Moreira FNP PCP - General Family Medicine 03/22/22 02/11/23 Shannon Lerner MD [address] [place] [phone] PCP - General Internal Medicine 02/12/23 documented as of this encounter
--- OUTSIDE RECORDS SUMMARY | 2025-05-08 10:30 | XMS_ITS | Encounter Summary ---
Author Organization [employer] Address [address] [facility] 7t [place] [address] Care Team Providers Care Community Affairs Director Name Role Phone Shannon Lerner MD Primary Care Pro vider Reason for Visit * Reason Comments Med Refill Encounter Details Date Type Department Care Team ([facility] st Contact Info) Description 02/13/2024 Refill [facility] MED & PEDS [address] [place], [place] [phone] Susan Jhaveri MD [address] [place] [address] Social History Tobacco Use Types Packs/Day Years [...] Description 05/21/2025 2:00 PM EDT Clinical Support [address] [address] 07/17/2025 11:15 AM EST Office Visit [address] [address] Shannon Lerner MD [address] [place] [phone] documented as of this encounter Visit Diagnoses Not on filedocumented in this encounter Additional Health Concerns Assessment Noted Time PHQ-9 Depression Total Score: 8 07/26/20 23 3:19 PM EST documented as of this encounter Care Teams Community Affairs Director Relationship Specialty Start Date End Date Shannon Lerner MD [address] [place] [phone] PCP - General Internal Medicine 02/12/23 documented as of this encounter
--- OUTSIDE RECORDS SUMMARY | 2025-05-08 10:30 | XMS_ITS | Encounter Summary ---
Author Organization [facility] Address [address] [facility] [address] [place] [address] Phone Care Team Providers Care Agricultural Science Professor Name Role Phone Pcp, Unknown Primary Care Provider Unavailabl e Encounter Details Date Type Department Care Team (Latest Contact Info) Description 09/03/2020 Ancillary Orders [facility] [address] [place] [address] [place] [address] Alejandro Parsons DO [address] [place] [phone] Bradycardia; SOB (shortness of breath) Social History [...] breath documented in this encounter Care Teams Agricultural Science Professor Relationship Specialty Start Date End Date Pcp, Unknown PCP - General 01/16/19 documented as of this encounter Additional Source Comments The information contained in this document represents components of the legal health record. It is not the complete legal health record.[facility]
--- OUTSIDE RECORDS SUMMARY | 2025-05-08 10:30 | XMS_ITS | Clinical Summary ---
Author Organization [employer] Address [address] [facility] [address] [place] [address] Care Team Providers Care Silver Chaser Name Role Phone Shannon Lerner MD Primary Care Pro vider Allergies Active Allergy Reactions Criticality Noted Date Comments Ludwin Inhibitors Cough 10/21/2012 Atorvastatin 04/23/2025 History of elevated CPK on statins Dulaglutide Diarrhea 09/21/2021 Dust Mite Extract 02/09/2023 Medications Alcohol Swabs (Alcohol Prep) 70 % pads USE FOUR TIMES DAILY 023 Active Praluent 150 MG/ML injection 023 Active Otezla 30 MG tablet 023 Active betamethasone dipropionate (Diprolene) 0.05 % ointment APPLY TO BODY FROM THE NECK DOWN TWICE DAILY FOR FOURTEEN DAYS, STOP AND USE vaseline FOR 7 DAYS, THEN REPEAT NEEDED 023 Active D3 Super Strength 50 MCG (1999 UT) capsule Take 50 mcg by mouth in the morning. 023 Active esomeprazole (NexIUM) [address] capsule Take 40 mg by mouth in the morning. 023 Active TRUEplus Lancets 33G [facility] BLOOD SUGAR FOUR TIMES DAILY 022 Active Toujeo SoloStar 300 UNIT/ML injection 10 u daily 023 Active metFORMIN XR (Glucophage-XR) 500 MG [...] TABLET BY MOUTH AT BEDTIME FOR CONSTIPATION 023 Active tamsulosin (Flomax) 0.4 MG 24 hr [...] MILD PAIN 90 tablet 1 024 Active Nexlizet 180-10 MG tablet Take 1 tablet by mouth every day Active Continuous Glucose Sensor (FreeStyle Luis 2 Sensor) misc Use as directed. Change sensor every 14 days. 025 Active polyethylene glycol, PEG, 3350 (Glycolax) 17 GM/SCOOP powder Use as directed per doctor 024 Active insulin pen needle (BD Pen Needle Miriam U/F) 32G x 4 mm miscIndications :Type 2 diabetes mellitus with other specified complication, without long-term current use of insulin (HCC) USE FOUR TIMES DAILY DIRECTED 200 each 11 Active dapagliflozin (Farxiga) 10 MG Take by mouth. Active Ventolin HFA 108 (90 Base) MCG/ACT inhaler Inhale 2 puffs every 6 (six) hours if needed for shortness of breath. 18 g 3 Active Fluticasone-Ume clidin-Vilant (Trelegy Ellipta) 200-62.5-25 MCG/ACT aerosol powderIndicatio ns:NIEVES (dyspnea on exertion) Inhale 1 Inhalation Once per day. 1 each 3 Active Diclofenac Sodium 1 % gel Apply 1 Application topically if needed each day (shoulder pain). 50 g Active Aspirin EC Adult Low Dose 81 MG EC tabletIndicatio ns:Bradycardia TAKE 1 TABLET BY MOUTH AT BEDTIME 90 tablet 1 Active hydroCHLOROthia zide (HYDRODiuril) 25 MG tablet TAKE 1 TABLET BY MOUTH EVERY MORNING 90 tablet 1 Active cetirizine (ZyrTEC) 10 MG tabletIndicatio ns:Nasal congestion Take 1 tablet (10 mg) by mouth if needed each day for allergies. 90 tablet Active losartan (Cozaar) 25 MG tablet Take 1 tablet (25 mg) by mouth Once per day. 90 tablet 025 2025 Active amLODIPine (Norvasc) 5 MG tabletIndicatio ns:Primary hypertension Take 1 tablet (5 mg) by mouth at bedtime. 90 tablet Active amLODIPine (Norvasc) 10 MG tabletIndicatio ns:Primary hypertension TAKE 1 TABLET BY MOUTH AT BEDTIME 90 tablet 1 025 2024 Discontinued Repatha SureClick 140 MG/ML injection 025 2024 Discontinued(O ther) cetirizine (ZyrTEC) 10 MG tabletIndicatio ns:Nasal congestion TAKE 1 TABLET BY MOUTH EVERY MORNING 90 tablet 1 025 2024 Discontinued(R eorder (will not trigger notification to Pharmacy)) hydroCHLOROthia zide (HYDRODiuril) 25 MG tablet TAKE 1 TABLET BY MOUTH EVERY MORNING 90 tablet 025 2024 Discontinued amLODIPine (Norvasc) 10 MG tabletIndicatio ns:Primary hypertension TAKE 1 TABLET BY MOUTH AT BEDTIME 90 tablet 1 025 2024 Discontinued(R eorder (will not trigger notification to Pharmacy)) Active Problems Problem Noted Date Diagnosed Date [...] episodic 02/16/2012 Depression, recurrent 01/18/2012 Pulmonary hypertension ([facility]/HCC) 01/18/2012 Hypertension 01/05/2012 Overview (02/09/2023): Care managed [...] legs 01/05/2012 Diabetic polyneuropathy 07/30/1959 Pancytopenia 07/30/1959 Resolved Problems Problem Noted Date Diagnosed Date Resolved Date Other fatigue 12/17/2024 04/24/2025 Encounters Date Type Department Care Team Description 05/07/2025 Telephone [facility] [address] [place] [phone] Shannon Lerner MD Results 04/23/2025 1:30 PM EDT Office Visit [facility] [address] [place] [phone] Shannon Lerner MD Poor memory (Primary Dx); NIEVES (dyspnea on exertion); Nasal congestion; Primary hypertension; Encounter for immunization; Type 2 diabetes mellitus with diabetic polyneuropathy, with long-term current use of insulin ([facility]); Health care maintenance 04/23/2025 Travel 04/22/2025 Telephone [facility] [address] [place] [phone] Carolyn Santana MA 04/21/2025 Refill [facility] [address] [place] [address] Shannon Lerner MD Primary hypertension 04/16/2025 Patient Outreach [facility] [address] [place] [address] Shannon Lerner MD Pre-visit Planning (SDNV was already completed ) 03/25/2025 Refill [facility] [address] [place] [address] Rudy Kapadia MD Bradycardia 03/13/2025 Orders Only GENERIC EXTERNAL DATA DEPARTMENT Provider, Generic External Data 02/20/[address] [address] Shannon Lerner MD sep recall 02/17/2025 11:15 AM EDT Office Visit [address] [address] Shannon Lerner MD NIEVES (dyspnea on exertion) (Primary Dx); Arthralgia, unspecified joint; Type 2 diabetes mellitus with diabetic polyneuropathy, with long-term current use of insulin ([facility]); Chronic pain of both shoulders 02/17/2025 Results Follow-Up [address] [address] Shannon Lerner MD XR Shoulder 2+ Views Left 02/17/2025 Orders Only [address] [address] Shannon Lerner MD Chronic pain of both shoulders (Primary Dx) 02/17/2025 Results Follow-Up [address] [address] Shannon Lerner MD Hemoglobin A1c, Albumin, Random Urine W/Creatinine, Rheumatoid Factor, HIV-1/2 Antigen and Antibodies, Fourth Generation, with Reflexes 02/17/2025 Orders Only GENERIC EXTERNAL DATA DEPARTMENT Provider, Generic External Data 02/17/2025 Travel 02/16/[address] [address] Shannon Lerner MD Chart Prep from Last 3 Months Immunizations Immunization Administration Dates Next Due Hep B, adult 03/03/2024, 4,08/30/2023,12/14,10/02/2017 Influenza injectable quadriv alent IIV4 with preservative 05/11/2015 Influenza, IIV3, injectable 06/01/2014 Influenza, Split (incl. mary f[place] surface antigen) 08/06/2013,05/15/2012 Pfizer Covid-19 Vaccine 12+ 06/17/2024, Pneumococcal Conjugate PCV 20 04/23/2025 Pneumococcal Polysaccharide PPSV23 04/21/2003 RSV Bivalent 01/10/2024 TD (adult), 2 Lf tetanus tox oid, preservative free, adsorbed 06/04/2008 Tdap 09/24/2013 Zoster, Recombinant 12/12/2021 Zoster, live 10/02/2017 Social History Tobacco Use Types Packs/Day Years Used Date Smoking Tobacco: Former Cigarettes Passive Smoke Exposure: Past Smokeless Tobacco: Never Tobacco Cessation:Counseling Given: Not Answered Comments:Started smoking tobacco at 12 y until 21 years ago [...] Sign Reading Time Taken Comments Blood Pressure 110/50 04/23/2025 1:27 PM EDT Pulse 70 04/23/2025 1:27 PM EDT Temperature 36.2 C (97.1 F) 04/23/2025 1:27 PM EDT Respiratory Rate 20 04/23/2025 1:27 PM EDT Oxygen Saturation 96% 04/23/2025 1:27 PM EDT Inhaled Oxygen Concentration - - Weight 86.1 kg (189 lb 12.8 oz) 04/23/2025 1:27 PM EDT Height 180.3 cm (5' 11 ) 04/23/2025 1:27 PM EDT Body Mass Index 26.47 04/23/2025 1:27 PM EDT Plan of Treatment Upcoming Encounters Date Type Department Care Team (Late st Contact Info) Description 05/21/2025 2:00 PM EDT Clinical Support [facility] [address] [place] [phone] 07/17/2025 11:15 AM EST Office Visit [address] [address] Shannon Lerner MD [address] [place] [address] [phone] Health Maintenance Due Date Last Done Comments CT Colonography 1955 FIT DNA/Cologuard 1955 FIT 1955 FOBT 1955 Sigmoidoscopy 1955 Eye Exam 1965 Zoster Vaccines (3 of 3) 02/06/2022 12/12/2021, 03/0 12/2017 DTaP/Tdap/Td Vaccines (2 - Td or Tdap) 09/24/2023 09/24/2013, 06/04/2008 Diabetes: Foot Exam 02/10/2024 02/09/2023, COVID-19 Vaccine ( season) 2025 06/17/2024, 08/30/2023, 07/19/2021, Additional history exists Influenza Vaccine (#1) 2025 5, 06/01/2014, 08/06/2013, Additional history exists Alcohol/Substance Use Screening 06/17/2025 06/17/2024 Depression Screening 06/17/2025 06/17/2024, 06/17/20 24 Diabetes: Hemoglobin A1C 08/20/2025 025, 12/16/2024, 06/18/2024, Additional history exists SDOH Screening 12/09/2025 12/09/2024 Diabetes: Urine Protein Screening 02/17/2026 02/17/2025, 02/17/2025, 06/18/2024, Additional history exists Lipid Panel 02/17/2026 02/17/2025, 01/28, 06/18/2024, Additional history exists Tobacco Screening 04/23/2026 04/23/2025 Colonoscopy 09/25/2026 04/13/2022 Colorectal Cancer Screening 09/25/2026 RSV Patients and Patients Aged 60 years or older Completed 01/10/2024 Hepatitis B Vaccines Completed 03/03/2024, 10/01/2023, 08/30/2023, Additional history exists Hepatitis C Screening Completed 06/18/2024 , 08/20/2023, 10/17/2022 Pneumococcal Vaccine: 50+ Years Completed 04/23/2025, 04/21/2003 HIB Vaccines Aged Out No longer eligi [...] Procedure Name Priority Date/Time Associated Diagnosis Comments GLUCOSE, WHOLE BLOOD Routine 03/13/2025 1:34 PM EDT XR SHOULDER 2+ VIEWS LEFT Routine 02/17/2025 12:25 PM EDT Chronic pain of both shoulders XR SHOULDER 2+ VIEWS RIGHT Routine 02/17/2025 12:19 PM EDT Chronic pain of both shoulders JASMEET SCREEN, IFA, W/REFL TITER AND PATTERN Routine 02/17/2025 12:17 PM EDT Chronic pain of both shoulders HIV 1/2 ANTIGEN/ANTIBODY, FOURTH GENERATION W/RFL Routine 02/17/2025 12:17 PM EDT RHEUMATOID FACTOR Routine 02/17/2025 12: 17 PM EDT ALBUMIN, RANDOM URINE W/CREATININE Routine 02/17/2025 12:17 PM EDT LIPID PANEL, STANDARD Routine 02/17/2025 12:17 PM EDT LD Routine 02/17/2025 12:17 PM EDT COMPREHENSIVE METABOLIC PANEL, FASTING Routine 02/17/2025 12:17 PM EDT HEMOGLOBIN A1C Routine 02/17/2025 12:17 PM EDT URIC ACID Routine 02/17/2025 12:17 PM EDT Arthralgia, unspecified joint JASMEET SCREEN, IFA, W/REFL TITER AND PATTERN Routine 02/17/2025 12:17 PM EDT Arthralgia, unspecified joint CREATINE KINASE, TOTAL Routine 12:17 PM EDT Arthralgia, unspecified joint CYCLIC CITRULLINATED PEPTIDE (CCP) AB (IGG) Routine 02/17/2025 12:17 PM EDT Arthralgia, unspecified joint RHEUMATOID FACTOR Routine 02/17/2025 12: 17 PM EDT Arthralgia, unspecified joint SED RATE BY MODIFIED WESTERGREN Routine 02/17/2025 12:17 PM EDT Arthralgia, unspecified joint C-REACTIVE PROTEIN Routine 02/17/2025 12 :17 PM EDT Arthralgia, unspecified joint ALBUMIN, RANDOM URINE W/CREATININE Routine 02/17/2025 12:17 PM EDT Type 2 diabetes mellitus with diabetic polyneuropathy, with long-term current use of insulin (CMS/HCC) LIPID PANEL, STANDARD Routine 02/17/2025 12:17 PM EDT Type 2 diabetes mellitus with diabetic polyneuropathy, with long-term current use of insulin (CMS/HCC) COMPREHENSIVE METABOLIC PANEL Routine 02/17/2025 12:17 PM EDT Other fatigue CBC Routine 02/17/2025 12:17 PM EDT Other fatigue VITAMIN B12/FOLATE, SERUM PANEL Routine 02/17/2025 12:17 PM EDT Other fatigue TSH W/REFLEX TO FT4 Routine 02/17/2025 1 2:17 PM EDT Other fatigue HEPATITIS C AB W/REFL TO HCV RNA, QN, PCR Routine 06/18/2024 9:35 AM EST Annual physical exam HM COLONOSCOPY Routine 04/13/2022 3:51 PM EDT from Last 3 Months or Most Recently Relevant to Health Maintenance Results * Glucose, Whole Blood (03/13/2025 1:34 PM EDT) Glucose, Whole Blood 107 60 - 115 mg/dL [facility] Comment:METER #: [id number] 0Testing performed in the Endocrinology Department [address] , [address], [place]. 03/13/2025 1:34 PM EDT 03/13/2025 1:37 PM EDT us Generic External Data Provider LAB BLOOD ORDERAB LES Final Result [facility] [address] [place] [phone] * XR Shoulder 2+ Views Left (02/17/2025 12:25 PM EDT) Anatomical Region Laterality Modality Upper Extremities, Shoulder Left Radi ographic Imaging 02/17/2025 12:2 5 PM EDT Narrative 02/17/2025 2:17 PM EDT [address] [address] XRay Report Signed Patient: Bruno Mueller MR#: [id number] 72 : 1955 Acct:[id number] Age/Sex: 69 / M ADM Date: 02/17/25 [facility]: Shannon Diana MD Ordering Physician: Shannon Lerner MD Date of Service: 02/17/25 Procedure(s): XR shoulder LT min 2V Accession Number(s): [id number] cc: Shannon Lerner MD EXAMINATION: XR SHOULDER, LEFT CLINICAL INFORMATION: ongoing bilateral shoulder pain COMPARISON: None available. TECHNIQUE: Three views of the left shoulder. FINDINGS: Normal bone mineralization. No fracture, dislocation, or suspicious bone lesion. Normal alignment. The glenohumeral joint is normal. The AC joint demonstrates mild spurring. There is a type I acromion. No undersurface spurring. The subacromial space is preserved. Remainder of the soft tissue and bony structures appear normal. XR/XR shoulder LT min 2V IMPRESSION: 1. Mild spurring of the AC joint. 2. Otherwise, normal radiographs left shoulder. Electronically signed by: Clifton Ricardo MD 02/17/2025 02:14 PM EDT Dictated By: Clifton Ricardo MD Signed By: <Electronically signed by Clifton Ricardo MD in OV> 02/17/25 1414 DD/ 1225 TD/TT: 02/17/25 1225 Commercial Intelligence Manager: Procedure Note Donotuseinterpreter, Image - 02/17/[address] [address] XRay Report Signed Patient: Bruno Mueller MMR#: [id number] 72 : 5Acct:[id number] Age/Sex: 69 / MADM Date: 02/17/25 Loc: [facility] Attending Dr: Shannon Diana MD Ordering Physician: Shannon Lerner MD Date of Service: 02/17/25 Procedure(s): XR shoulder LT min 2V Accession Number(s): [id number] cc: Shannon Lerner MD EXAMINATION: XR SHOULDER, LEFT CLINICAL INFORMATION: ongoing bilateral shoulder pain COMPARISON: None available. TECHNIQUE: Three views of the left shoulder. FINDINGS: Normal bone mineralization. No fracture, dislocation, or suspicious bone lesion. Normal alignment. The glenohumeral joint is normal. The AC joint demonstrates mild spurring. There is a type I acromion. No undersurface spurring. The subacromial space is preserved. Remainder of the soft tissue and bony structures appear normal. XR/XR shoulder LT min 2V IMPRESSION: 1. Mild spurring of the AC joint. 2. Otherwise, normal radiographs left shoulder. Electronically signed by: Clifton Ricardo MD 02/17/2025 02:14 PM EDT Dictated By: Clifton Ricardo MD Signed By: <Electronically signed by Clifton Ricardo MD in OV> 02/17/25 1414 DD/ 1225 TD/TT: 02/17/25 122 Commercial Intelligence Manager: us Shannon Diana MD IMG XR PROCEDURES Final Result * XR Shoulder 2+ Views Right (02/17/2025 12:19 PM EDT) Anatomical Region Laterality Modality Upper Extremities, Shoulder Right Radi ographic Imaging 02/17/2025 12:1 9 PM EDT Narrative 02/17/2025 2:16 PM EDT [address] [address] XRay Report Signed Patient: Bruno Mueller MR#: [id number] 72 : 1955 Acct:[id number] Age/Sex: 69 / M ADM Date: 02/17/25 Loc: HO.CX Attending Dr: Shannon Diana MD Ordering Physician: Shannon Lerner MD Date of Service: 02/17/25 Procedure(s): XR shoulder RT min 2V Accession Number(s): [id number] cc: Shannon Lerner MD EXAMINATION: XR SHOULDER 2 OR MORE VIEWS RIGHT HISTORY: ongoing bilateral shoulder pain COMPARISON: Comparison is made with the prior examination dated 11/21/2018. FINDINGS: Five views of the right shoulder are submitted. Osseous mineralization is normal. There is no fracture or dislocation. The glenohumeral joint space is maintained. There is mild narrowing of the AC joint. The soft tissues are unremarkable. XR/XR shoulder RT min 2V IMPRESSION: Mild narrowing of the AC joint. Electronically signed by: Marcus Ba MD 02/17/2025 02:13 PM EDT Dictated By: Marcus Ba MD Signed By: <Electronically signed by Marcus Ba MD in OV> 02/17/25 1413 DD/ 1219 TD/TT: 02/17/25 1225 Commercial Intelligence Manager: Procedure Note Donotuseinterpreter, Image - 02/17/[address] [address] XRay Report Signed Patient: Bruno Mueller MMR#: [id number] 72 : 5Acct:[id number] Age/Sex: 69 / MADM Date: 02/17/25 Loc: [facility] Attending Dr: Shannon Diana MD Ordering Physician: Shannon Lerner MD Date of Service: 02/17/25 Procedure(s): XR shoulder RT min 2V Accession Number(s): [id number] cc: Shannon Lerner MD EXAMINATION: XR SHOULDER 2 OR MORE VIEWS RIGHT HISTORY: ongoing bilateral shoulder pain COMPARISON: Comparison is made with the prior examination dated 11/21/2018. FINDINGS: Five views of the right shoulder are submitted. Osseous mineralization is normal. There is no fracture or dislocation. The glenohumeral joint space is maintained. There is mild narrowing of the AC joint. The soft tissues are unremarkable. XR/XR shoulder RT min 2V IMPRESSION: Mild narrowing of the AC joint. Electronically signed by: Marcus Ba MD 02/17/2025 02:13 PM EDT RP Dictated By: Marcus Ba MD Signed By: <Electronically signed by Marcus Ba MD in OV> 02/17/25 1413 DD/ 1219 TD/TT: 02/17/25 1225 Commercial Intelligence Manager: us Shannon Diana MD IMG XR PROCEDURES Final Result * (ABNORMAL) Comprehensive Metabolic Panel, Fasting (02/17/2025 12:17 PM EDT) Glucose Fasting 104(H) 60 - 99 mg/dL [facility] Comment:A fasting glucose fr om 100-125 mg/dl is considered impaired(pre-diabetes). 02/17/2025 12:1 7 PM EDT 02/17/2025 1:38 PM EDT us Generic External Data Provider LAB BLOOD ORDERAB LES Final Result [facility] [address] [place] [phone] * Vitamin B12 (Cobalamin) and Folate Panel, Serum (02/17/2025 12:17 PM EDT) Vitamin B12 467 200 - 900 pg/mL [facility] Comment:NORMAL 200-900 PG/ML INDETERMINATE 160-199 PG/ML DEFICIENT < 160 PG/ML Folate 9.9 > or = 4.0 ng/mL [facility] Comment:Reference Values:> o r = 4.0 ng/mL< 4.0 ng/mL suggests folate deficiency Methotrexate, aminopterin and folinic acid(leucovorin) are chemotherapeutic agents whose molecularstructures are similar to folate; therefore, the Architectfolate assay cannot be used for patients using these drugs. Blood 02/17/2025 12:1 7 PM EDT 02/17/2025 1:20 PM EDT Shannon Diana MD LAB BLOOD ORDERAB LES Final Result Performing Organization Address [facility] Co de Phone Number [facility] [address] [place] [phone] * TSH with Reflex to Free T4 (02/17/2025 12:17 PM EDT) TSH reflex Free T4 3.45 0.32 - 4.0 uIU/mL [facility] Blood 02/17/2025 12:1 7 PM EDT 02/17/2025 1:25 PM EDT Shannon Diana MD LAB BLOOD ORDERAB LES Final Result Performing Organization Address [facility] de Phone Number [facility] [address] [place] [phone] * (ABNORMAL) Albumin, Random Urine W/Creatinine (02/17/2025 12:17 PM EDT) Only the most recent of2 resultswithin the time period is included. Creatinine, Urine 126.77 mg/dL [facility] Microalbumin Urine 55.0 mg/L H [facility] Microalbum Creatinine Ratio Ur 43.3(H) <30 ug/mg cr [facility] Comment:Albumin/Creatinine R atio Reference Ranges: Normal: < 30 ug/mg creatinine Microalbuminuria: 30 - 300 ug/mg creatinineClinical Albuminuria: > 300 ug/mg creatinine 02/17/2025 12:1 7 PM EDT 02/17/2025 1:03 PM EDT us Generic External Data Provider LAB URINE ORDERAB LES Final Result Performing Organization Address [facility] Co de Phone Number [facility] [address] [place] [phone] * Cyclic Citrullinated Peptide (CCP) Antibody (IgG) (02/17/2025 12:17 PM EDT) Cyclic Citrullinated Peptide <16 UNITS [facility] Comment:Reference RangeNegat brian: <20Weak Positive: 20-39Moderate Positive: 40-59Strong Positive: >59THIS TEST WAS PERFORMED AT:[facility] [place] [phone] ROBLERO MD Blood Venous blood specimen / Unknown 02/17/2025 12:17 PM EDT 02/17/2025 1:25 PM EDT us Shannon Diana MD LAB BLOOD ORDERAB LES Final Result Performing Organization Address [facility] Co de Phone Number [facility] [address] [place] [phone] * HIV-1/2 Antigen and Antibodies, Fourth Generation, with Reflexes (02/17/2025 12:17 PM EDT) Pathologist [facility] HIV AB/AG Nonreactive Nonreactive [facility] Comment:HIV-1 p24 Ag and/or HIV-1/HIV-2 Ab not detected.A test result that is nonreactive does not exclude thepossibility of exposure to or infection with HIV-1 and/orHIV-2. Nonreactive results in this assay for individualswith prior exposure to HIV-1 and/or HIV-2 may be due toantigen and antibody levels that are below the limit ofdetection of this assay.The [employer] HIV Ag/Ab Combo assay result andsupplemental assay results should be interpreted inconjunction with the patient's clinical presentation,history and other laboratory results. If the results areinconsistent with clinical evidence, additional testing issuggested to confirm the result. 02/17/2025 12:1 7 PM EDT 02/17/2025 1:20 PM EDT us Generic External Data Provider LAB BLOOD ORDERAB LES Final Result Performing Organization Address [facility] Co de Phone Number [facility] [address] [place] [phone] * Sed Rate by Modified Westergren (02/17/2025 12:17 PM EDT) Pathologist [facility] Erythrocyte Sedimentation Rate 9 0 - 15 MM/HR [facility] Comment:Patients with polycy themia and many hemoglobin abnormalitiesmay have depressed sed rates whereas patients with anemiamay have elevated sed rates. Blood Venous blood specimen / Unknown 02/17/2025 12:17 PM EDT 02/17/2025 1:20 PM EDT us Shannon Diana MD LAB BLOOD ORDERAB LES Final Result Performing Organization Address [facility] Co de Phone Number [facility] [address] [place] [phone] * (ABNORMAL) CBC (02/17/2025 12:17 PM EDT) White Blood Count 3.0(L) 4.8 - 10.8 X10*3/uL [facility] Red Blood Count 4.86 4.60 - 5.80 X10*6/uL [facility] Hemoglobin 13.7(L) 14.0 - 18.0 g/dl [facility] Hematocrit 42.5 42.0 - 52.0 % [facility] Mean Corpuscular Volume 87.4 80.0 - 98.0 fL [facility] Mean Corpuscular Hemoglobin 28.2 27.0 - 33.0 pg [facility] Mean Corpuscular HGB Conc 32.2 31.0 - 36.0 g/dl [facility] Red Cell Distribution Width 13.7 11.0 - 16.0 % [facility] Platelet Count 146(L) 160 - 400 X10*3/uL [facility] Mean Platelet Volume 11.2 9.4 - 12.4 fL [facility] NRBC Pct Auto 0.0 0.0 - 0.2 /100WBC [facility] NRBC Abs Auto 0.000 0.0 - 0.012 X10*3/uL [facility] Blood Venous blood specimen / Unknown 02/17/2025 12:17 PM EDT 02/17/2025 1:25 PM EDT us Shannon Diana MD LAB BLOOD ORDERAB LES Final Result Performing Organization Address [facility]/ZIP Co de Phone Number [facility] [address] [place] [phone] * Rheumatoid Factor (02/17/2025 12:17 PM EDT) Only the most recent of2 resultswithin the time period is included. Rheumatoid Factor <13.0 <15.0 IU/mL [facility] 02/17/2025 12:1 7 PM EDT 02/17/2025 1:20 PM EDT us Generic External Data Provider LAB BLOOD ORDERAB LES Final Result Performing Organization Address City/[facility]/ZIP Co de Phone Number [facility] [address] [place] [phone] * C-reactive Protein (02/17/2025 12:17 PM EDT) C Reactive Protein 0.38 < or = 0.50 mg/dL [facility] Blood Venous blood specimen / Unknown 02/17/2025 12:17 PM EDT 02/17/2025 1:38 PM EDT us Shannon Diana MD LAB BLOOD ORDERAB LES Final Result Performing Organization Address [facility]/ZIP Co de Phone Number [facility] [address] [place] [phone] * JASMEET Screen,IFA, with Reflex to Titer and Pattern (02/17/2025 12:17 PM EDT) Only the most recent of2 resultswithin the time period is included. Anti Nuclear Antibody Screen NEGATIVE NEGATIVE [facility] Comment:JASMEET IFA is a first l ine screen for detecting thepresence of up to approximately 150 autoantibodies invarious autoimmune diseases. A negative JASMEET IFA resultsuggests an JASMEET-associated autoimmune disease is notpresent at this time, but is not definitive. If thereis high clinical suspicion for Sjogren's syndrome,testing for anti-SS-A/Ro antibody should be considered.Anti-Iliana-1 antibody should be considered for clinicallysuspected inflammatory myopathies.AC-0: NegativeInternational Consensus on JASMEET Patterns(https://doi.org/10.1515/iwmr-6408-4125)For additional information, please refer tohttp://education.[employer] Edge/faq/ZSQ478(This link is being provided for informational/educational purposes only.)THIS TEST WAS PERFORMED AT:[employer] [place] [id number] ROBLERO MD JASMEET Titer TNP [facility] JASMEET Pattern [facility] JASMEET TITER 2 (REF LAB) [facility] JASMEET Pattern 2 [facility] JASMEET TITER 3 [facility] JASMEET PATTERN 3 [facility] 02/17/2025 12:1 7 PM EDT 02/17/2025 1:25 PM EDT us Generic External Data Provider LAB BLOOD ORDERAB LES Final Result Performing Organization Address [facility]/ZIP Co de Phone Number [facility] [address] [place] [phone] * Uric acid (02/17/2025 12:17 PM EDT) Uric Acid 5.7 3.4 - 7.0 mg/dL [facility] Blood Venous blood specimen / Unknown 02/17/2025 12:17 PM EDT 02/17/2025 1:25 PM EDT us Shannon Diana MD LAB BLOOD ORDERAB LES Final Result Performing Organization Address City/[facility]/ZIP Co de Phone Number [facility] [address] [place] [phone] * Lactate Dehydrogenase (LD) (02/17/2025 12:17 PM EDT) Lactate Dehydrogenase 244 118 - 273 U/L [facility] 02/17/2025 12:1 7 PM EDT 02/17/2025 1:38 PM EDT us Generic External Data Provider LAB BLOOD ORDERAB LES Final Result Performing Organization Address [facility] Co de Phone Number [facility] [address] [place] [phone] * (ABNORMAL) Hemoglobin A1c (02/17/2025 12:17 PM EDT) Hemoglobin A1c 6.8(H) <6.0 % [facility] Comment:Hemoglobin A1C Refer ence Range Adults: 4.8 - 6.0 % Non diabetic: < 6.0 % Goal: < 7.0 %Additional Action Suggested: > 8.0 %Note: Hemoglobin A1c results are invalid for patients with abnormal amounts of HbF. Blood transfusions may impact the HbA1c concentration in the patient sample. Estimated Average Glucose 148 mg/dL [facility] Comment:eAG = Estimated ave rage glucose which is %A1C expressed asaverage glucose, using the formula of the D6Y-MatgsclBprlvpk Glucose study (ADAG), Diabetes Care, Vol.31,#8,2007 02/17/2025 12:1 7 PM EDT 02/17/2025 1:25 PM EDT us Generic External Data Provider LAB BLOOD ORDERAB LES Final Result Performing Organization Address City/[facility]/ZIP Co de Phone Number [facility] [address] [place] [phone] * Creatine Kinase, Total (02/17/2025 12:17 PM EDT) Pathologist [facility] Creatine Kinase Total 157 38 - 174 U/L [facility] Blood Venous blood specimen / Unknown 02/17/2025 12:17 PM EDT 02/17/2025 1:38 PM EDT us Shannon Diana MD LAB BLOOD ORDERAB LES Final Result Performing Organization Address [facility] Co de Phone Number [facility] [address] [place] [phone] * Lipid Panel, Standard (02/17/2025 12:17 PM EDT) Only the most recent of2 resultswithin the time period is included. Triglycerides 83 <150 mg/dL [facility] Comment:Desirable Triglyceri de: less than 150 mg/dLBorderline High Triglyceride 150-199 mg/dLHigh Triglyceride: 200-499 mg/dLVery High Triglyceride: greater than or equal to 5OO mg/dL Cholesterol 122 <200 mg/dL [facility] Comment:Desirable Cholestero l: less than 200 mg/dLBorderline High Cholesterol: 200-239 mg/dLHigh Cholesterol: greater than 239 mg/dL LDL Cholesterol Calculated 65 <100 mg/dL [facility] Comment:Desirable LDL: less than 100 mg/dLNear Optimal/Above Optimal LDL: 110- 129 mg/dLBorderline High LDL: 130-159 mg/dLHigh LDL: 160-189 mg/dLVery High LDL: greater than or equal to 190 mg/dL HDL Cholesterol 41 >40 mg/dL [facility] Comment:Desirable HDL: great er than 40 mg/dL Note: This HDL assay may give artificially low results in patients with liver disease. 02/17/2025 12:1 7 PM EDT 02/17/2025 1:38 PM EDT us Generic External Data Provider LAB BLOOD ORDERAB LES Final Result [facility] [address] [place] [phone] * (ABNORMAL) Comprehensive Metabolic Panel (02/17/2025 12:17 PM EDT) Sodium 144 135 - 145 mmol/L [facility] Potassium 4.3 3.3 - 5.1 mmol/L [facility] Chloride 110(H) 96 - 108 mmol/L [facility] Carbon Dioxide 26 22 - 29 mmol/L [facility] Anion Gap 12 12 - 20 [facility] Urea Nitrogen (BUN) 15 9 - 16 mg/dL [facility] Creatinine, Serum 1.04 0.5 - 1.4 mg/dL [facility] Estimated Glomerular Filt Rate >60 [facility] Comment:Chronic Kidney Disea se: Estimated GFR < 60 mL/min/1.65c1Kxhogh Kidney Disease: Estimated GFR < 15 mL/min/1.73m2 Glucose 103 60 - 115 mg/dL [facility] Calcium 8.7 8.4 - 10.2 mg/dL [facility] Bilirubin, Total 0.6 0.0 - 1.0 mg/dL [facility] Aspartate Amino Transferase 26 5 - 37 U/L [facility] Alanine Aminotransferase 26 0 - 40 U/L [facility] Total Protein 6.8 6.5 - 8.0 g/dL [facility] Albumin Level 4.2 3.5 - 5.0 g/dL [facility] Alkaline Phosphatase 58 39 - 117 U/L [facility] Blood Venous blood specimen / Unknown 02/17/2025 12:17 PM EDT 02/17/2025 1:38 PM EDT us Shannon Diana MD LAB BLOOD ORDERAB LES Final Result Performing Organization Address [facility]/ZIP Co de Phone Number [facility] [address] [place] [phone] * Hepatitis C Antibody with Reflex to HCV, RNA, Quantitative, Real-Time PCR (06/18/2024 9:35 AM EST) Hepatitis C Antibody Nonreactive Nonreactive [facility] Comment:Antibodies to HCV no t detected; does not exclude early acuteHCV infection. Blood Venous blood specimen / Unknown 06/18/2024 9:35 AM EST 06/18/2024 11:22 AM EST us Shannon Diana MD LAB BLOOD ORDERAB LES Final Result Performing Organization Address [facility] Co de Phone Number [facility] [address] [place] [phone] * Colonoscopy (04/13/2022 3:51 PM EDT) Historical Provider HEALTH MAINTENANCE Final Result from Last 3 Months or Most Recently Relevant to Health Maintenance Insurance [facility] [employer] OPT[employer] (O D-SNP) AILYN SULLIVAN [id number] Care Teams Silver Chaser Relationship Specialty Start Date End Date Shannon Lerner MD [address] [place], [place] [phone] PCP - General Internal Medicine 02/12/23
--- OUTSIDE RECORDS SUMMARY | 2025-05-08 10:30 | XMS_ITS | Encounter Summary ---
Author Organization [employer] Address [address] [facility] 7t [place] [address] Care Team Providers Care Medical Manager Name Role Phone Shannon Lerner MD Primary Care Pro vider Reason for Visit * Reason Comments Med Refill Encounter Details Date Type Department Care Team ([facility] st Contact Info) Description 09/06/2023 Refill [facility] CHC MED & PEDS [address] [place], [place] [phone] Shannon Lerner MD [address] [place], [place] [phone] Polyneuropathy Social History Tobacco Use Types Packs/Day [...] Description 05/21/2025 2:00 PM EDT Clinical Support [address] [address] 07/17/2025 11:15 AM EST Office Visit [address] [address] Shannon Lerner MD [address] [place] [address] documented as of this encounter Visit Diagnoses Diagnosis Polyneuropathy Unspecified hereditary and idiopathic peripheral neuropathy documented in this encounter Additional Health Concerns Assessment Noted Time PHQ-9 Depression Total Score: 8 07/26/20 23 3:19 PM EST documented as of this encounter Care Teams Medical Manager Relationship Specialty Start Date End Date Shannon Lerner MD [address] [place] [phone] PCP - General Internal Medicine 02/12/23 documented as of this encounter
--- OUTSIDE RECORDS SUMMARY | 2025-05-08 10:30 | XMS_ITS | Encounter Summary ---
Author Organization [employer] Address [address] [facility] 7t [place] [address] Care Team Providers Care Health Care Liaison Name Role Phone Shannon Lerner MD Primary Care Pro vider Encounter Details Date Type Department Care Team (Late st Contact Info) Description 05/14/2023 Abstract [facility] MEDICINE [address] [place] [address] Shannon Lerner MD [address] [place], [place] [phone] Social History Tobacco Use Types Packs/Day Years [...] Description 05/21/2025 2:00 PM EDT Clinical Support [address] [address] 07/17/2025 11:15 AM EST Office Visit [address] [address] Shannon Lerner MD [address] [place] [address] documented as of this encounter Visit Diagnoses Not on filedocumented in this encounter Care Teams Health Care Liaison Relationship Specialty Start Date End Date Shannon Lerner MD [address] [place] [phone] PCP - General Internal Medicine 02/12/23 documented as of this encounter
== END 2025-05-08 10:23 | disposition home or self-care (01) ==
LOC: HO.PMC 09:46
PROVIDERS: Visit Provider Nurse Practitioner Family
DX: M48.061 Spinal stenosis, lumbar region without neurogenic claudication (principal); F40.240 Claustrophobia; M96.1 Postlaminectomy syndrome, not elsewhere classified; M54.16 Radiculopathy, lumbar region; G89.4 Chronic pain syndrome; R26.81 Unsteadiness on feet
CPT/HCPCS: 99214; G2211

== ENCOUNTER → 2025-05-08 09:46 | Outpatient (BNVA) | payer OTHER, SELFPAY | PROVIDERS: Visit Provider Nurse Practitioner Family | DX: M48.061 Spinal stenosis, lumbar region without neurogenic claudication (principal); F40.240 Claustrophobia; M96.1 Postlaminectomy syndrome, not elsewhere classified; M54.16 Radiculopathy, lumbar region | CPT/HCPCS: 99212 ==

== ENCOUNTER 2025-05-25 10:05 | Outpatient (REF) | payer OTHER, SELFPAY ==
--- OUTSIDE RECORDS SUMMARY | 2025-05-21 14:00 | XMS_ITS | Encounter Summary ---
Author Organization [employer] Address [address] [facility] [address]t h Floor [place] [phone] Care Team Providers Care Offset Plate Preparation Supervisor Name Role Phone Shannon Lerner MD Primary Care Pro vider Reason for Visit * Reason Comments BP Check Encounter Details Date Type Department Care Team (Latest Contact Info) Description 05/21/2025 2:00 PM EDT Clinical Support [facility] MEDICINE [address] [place] [address] Sharon Segal, RN [address] [place] [address] Primary hypertension Social History Tobacco Use Types Packs/Day Years [...] PM EST documented as of this encounter Last Filed Vital Signs Vital Sign Reading Time Taken Comments Blood Pressure 102/48 05/21/2025 2:36 PM EDT Pulse 72 05/21/2025 2:36 PM EDT Temperature - - Respiratory Rate 18 05/21/2025 2:36 PM EDT Oxygen Saturation 99% 05/21/2025 2:36 PM EDT Inhaled Oxygen Concentration - - Weight - - Height - - Body Mass Index - - documented in this encounter Progress Notes * Sharon Segal RN - 05/21/2025 2:00 PM EDT Pt is a pleasant 70yo anguillan-speaking male who presents to the office for follow up blood pressurecheck nurse visit. Serbian-Paraguayan interpretation provided by KAMLESH Blandon for this visit. S: At last appt 04/23/2025, pt's BP noted to be 110/50. Plan was: due to microalbuminuria, trial losartan and decrease amlodipine to 5mg. Pt current blood pressure medication regimen: losartan 25md every day, amlodipine 5mg daily, and hydrochlorothiazide 25mg daily. Today, pt denies any blurred vision, shortness of breath, chest pain, dizziness, or headaches. Pt reports compliance with BP medication regimen, confirms that BP medication was taken today and that since last appt he brought medbox to the pharmacy and made med changes as recommended. Pt denies smoking cigarettes or drinking coffee. O: blood pressure in office: 102/48, heart rate: 72, RR: 18. Blood pressure taken while pt was seated in normal chair with feet on the ground and legs uncrossed. Appropriate sized blood pressure cuffused and blood pressure was taken manually on left arm. Pt did not bring BP log to this visit but reported blood pressure up and down at home. Sometimes low, sometimes normal. Couldn't specify numbers. Pt reports asymptomatic hypotension A: Compliance with BP medication regimen. Reinforcement of Lifestyle modification including low sodium diet and exercise. P: Discussed directly with PCP who advised to cut hydrochlorothiazide 25mg in half. Chem today and in 2 weeks. Called pharmacy who reports hydrochlorothiazide can be halved. Pt gets med box. He states knows which pill it is ( the little water pill ) and will start breaking it in half. Pt has another appointment now so has to leave but will return tomorrow for labs. Advised to keep blood pressure log and bring to appts. Call the clinic if blood pressure <100/50 Next appt booked for Future Appointments Date Time Provider Department Center 06/05/2025 11:00 AM [facility] GREEN TEAM NURSE MEDICINE [facility] 07/17/2025 11:15 AM Shannon Diana MD MEDICINE [facility] Pt to F/U sooner as needed Pt agrees with plan Sharon Segal RN documented in this encounter Plan of Treatment Upcoming Encounters Date Type Department Care Team (Late st Contact Info) Description 06/05/2025 11:00 AM EST Clinical Support [address] [address] 07/17/2025 11:15 AM EST Office Visit [address] [address] Shannon Lerner MD [address] [place] [address] documented as of this encounter Visit Diagnoses Diagnosis Primary hypertension Unspecified essential hypertension documented in this encounter Additional Health Concerns Assessment Noted Time PHQ-9 Depression Total Score: 4 06/17/20 24 10:10 AM EST documented as of this encounter Care Teams Offset Plate Preparation Supervisor Relationship Specialty Start Date End Date Shannon Lerner MD [address] [place] [phone] PCP - General Internal Medicine 02/12/23 documented as of this encounter
[2025-05-25 11:34] LABS: MANUAL DIFF FLAG NO
[2025-05-25 11:57] LABS: Hematocrit 42.4 % (42.0-52.0); Hemoglobin 13.6 g/dl (14.0-18.0); Imm Gran Abs Auto 0.01 X10*3/uL (0.00-0.03); Imm Gran Pct Auto 0.2 % (0.0-0.4); Lymphocytes Absolute Auto 1.7 X10*3/uL (1.2-4.9); Mean Corpuscular HGB Conc 32.1 g/dl (31.0-36.0); Mean Corpuscular Hemoglobin 27.4 pg (27.0-33.0); Mean Corpuscular Volume 85.3 fL (80.0-98.0); NRBC Abs Auto 0.000 X10*3/uL (0.0-0.012); NRBC Pct Auto 0.0 /100WBC (0.0-0.2); Platelet Count 139 X10*3/uL (160-400); Red Blood Count 4.97 X10*6/uL (4.60-5.80); White Blood Count 4.3 X10*3/uL (4.8-10.8)
--- OUTSIDE RECORDS SUMMARY | 2025-05-25 12:02 | XMS_ITS | Encounter Summary ---
Author Organization [employer] Address [address] [facility] 7t [place] [address] Care Team Providers Care Computer Support Analyst Name Role Phone Shannon Lerner MD Primary Care Pro vider Encounter Details Date Type Department Care Team (Late st Contact Info) Description 05/20/2025 Results Follow-Up [facility] [address] [place], [place] [phone] Shannon Lerner MD [address] [place] [address] MR Brain w/o Contrast Social History Tobacco Use Types Packs/Day Years [...] Encounter Note - Shannon Diana MD - 05/20/2025 2:55 PM EDT Please call patient to advise to come to already scheduled apt with me to go over MRI result and further evaluation for memory AND Please also help pt getting apt w RN 2 weeks prior next apt w me for repeating MOCA evaluation Thanks ----- -Brain MRI 04/2025 : No acute intracranial pathology, Noted generalized volume loss ,cortical atrophy ,chronic paranasal sinus disease Cervical disc bulge C3-C4 ---- Will discuss chronic findings at next apt w me documented in this encounter Plan of Treatment Upcoming Encounters Date Type Department Care Team (Late st Contact Info) Description 06/05/2025 11:00 AM EST Clinical Support [facility] MEDICINE [address] [place] [phone] 07/17/2025 11:15 AM EST Office Visit [facility] [address] [place] [address] Shannon Lerner MD [address] [place] [address] documented as of this encounter Visit Diagnoses Not on filedocumented in this encounter Additional Health Concerns Assessment Noted Time PHQ-9 Depression Total Score: 4 06/17/20 24 10:10 AM EST documented as of this encounter Care Teams Computer Support Analyst Relationship Specialty Start Date End Date Shannon Lerner MD [address] [place] [phone] PCP - General Internal Medicine 02/12/23 documented as of this encounter
--- OUTSIDE RECORDS SUMMARY | 2025-05-25 12:02 | XMS_ITS | Encounter Summary ---
Author Organization [employer] Address 75 [facility] 7t [place] [address] Care Team Providers Care Meat Process Worker Name Role Phone Shannon Lerner MD Primary Care Pro vider Reason for Visit * Reason Comments Med Refill Encounter Details Date Type Department Care Team ([facility] st Contact Info) Description 09/06/2023 Refill [facility] CHC MED & PEDS [address] [place], [place] [phone] Shannon Lerner MD [address] [place], [place] [phone] Polyneuropathy Social History Tobacco Use Types Packs/Day [...] Description 06/05/2025 11:00 AM EST Clinical Support [address] [address] 07/17/2025 11:15 AM EST Office Visit [address] [address] Shannon Lerner MD [address] [place] [address] documented as of this encounter Visit Diagnoses Diagnosis Polyneuropathy Unspecified hereditary and idiopathic peripheral neuropathy documented in this encounter Additional Health Concerns Assessment Noted Time PHQ-9 Depression Total Score: 8 07/26/20 23 3:19 PM EST documented as of this encounter Care Teams Meat Process Worker Relationship Specialty Start Date End Date Shannon Lerner MD [address] [place] [phone] PCP - General Internal Medicine 02/12/23 documented as of this encounter
--- OUTSIDE RECORDS SUMMARY | 2025-05-25 12:02 | XMS_ITS | Clinical Summary ---
Author Organization [facility] Address [address] [address] Phone Care Team Providers Care Felt Washing Machine Tender Name Role Phone Pcp, Unknown Primary Care [...] Medical Devices Not on file Insurance [facility] MEDICARE REPLACEMENT MEDICARE REPLACEMENT MEDICARE REPLACEMENT MEDICARE REPLACEMENT MEDICARE REPLACEMENT MEDICARE REPLACEMENT MEDICARE REPLACEMENT O MEDICARE REPLACEMENT Care Teams Felt Washing Machine Tender Relationship Specialty Start Date End Date Pcp, Unknown PCP - General 01/16/19 Additional Source Comments The information contained in this document represents components of the legal health record. It is not the complete legal health record.[facility]
--- OUTSIDE RECORDS SUMMARY | 2025-05-25 12:02 | XMS_ITS | Encounter Summary ---
Author Organization [employer] Address [address] [facility] 7t [place] [address] Care Team Providers Care Data Reduction Technician Name Role Phone Shannon Lerner MD Primary Care Pro vider Encounter Details Date Type Department Care Team (Late st Contact Info) Description 07/21/2024 Orders Only [facility] MEDICINE [address] [place] [address] Provider, MD Anju Social History Tobacco Use [...] Description 06/05/2025 11:00 AM EST Clinical Support [address] [address] 07/17/2025 11:15 AM EST Office Visit [address] [address] Shannon Lerner MD [address] [place] [phone] documented as of this encounter Procedures Procedure [...] documented as of this encounter Care Teams Data Reduction Technician Relationship Specialty Start Date End Date Shannon Lerner MD [address] [place] [phone] PCP - General Internal Medicine 02/12/23 documented as of this encounter
--- OUTSIDE RECORDS SUMMARY | 2025-05-25 12:02 | XMS_ITS | Encounter Summary ---
Author Organization [facility] Address [address] [facility] [address] [place] [phone] Phone Care Team Providers Care Ticket Speculator Name Role Phone Pcp, Unknown Primary Care Provider Unavailabl e Encounter Details Date Type Department Care Team (Late st Contact Info) Description 09/03/2020 Procedure Pass [facility] [address] [place] [address] [place], [place] [phone] Social History Tobacco Use Types Packs/Day Years [...] on filedocumented in this encounter Care Teams Ticket Speculator Relationship Specialty Start Date End Date Pcp, Unknown PCP - General 01/16/19 documented as of this encounter Additional Source Comments The information contained in this document represents components of the legal health record. It is not the complete legal health record.[facility]
--- OUTSIDE RECORDS SUMMARY | 2025-05-25 12:02 | XMS_ITS | Encounter Summary ---
Author Organization [employer] Address [address] [facility] 7t [place] [address] Care Team Providers Care Ict Systems Test Engineer Name Role Phone Shannon Lerner MD Primary Care Pro vider Encounter Details Date Type Department Care Team (Latest Contact Info) Description 05/21/2025 Travel Social History Tobacco Use Types Packs/Day Years [...] Description 06/05/2025 11:00 AM EST Clinical Support [address] [address] 07/17/2025 11:15 AM EST Office Visit [address] [address] Shannon Lerner MD [address] [place] [address] documented as of this encounter Visit Diagnoses Not on filedocumented in this encounter Additional Health Concerns Assessment Noted Time PHQ-9 Depression Total Score: 4 06/17/20 24 10:10 AM EST documented as of this encounter Care Teams Ict Systems Test Engineer Relationship Specialty Start Date End Date Shannon Lerner MD [address] [place] [phone] PCP - General Internal Medicine 02/12/23 documented as of this encounter
--- OUTSIDE RECORDS SUMMARY | 2025-05-25 12:02 | XMS_ITS | Encounter Summary ---
Author Organization [employer] Address [address] [facility] 7t [place] [address] Care Team Providers Care Transfer Machine Operator Name Role Phone Shannon Lerner MD Primary Care Pro vider Reason for Visit * Reason Comments Med Refill Encounter Details Date Type Department Care Team ([facility] st Contact Info) Description 09/06/2023 Refill [facility] CHC MED & PEDS [address] [place], [place] [phone] Shannon Lerner MD [address] [place], [place] [phone] Polyneuropathy Social History Tobacco Use Types Packs/Day [...] Description 06/05/2025 11:00 AM EST Clinical Support [address] [address] 07/17/2025 11:15 AM EST Office Visit [address] [address] Shannon Lerner MD [address] [place] [address] documented as of this encounter Visit Diagnoses Diagnosis Polyneuropathy Unspecified hereditary and idiopathic peripheral neuropathy documented in this encounter Additional Health Concerns Assessment Noted Time PHQ-9 Depression Total Score: 8 07/26/20 23 3:19 PM EST documented as of this encounter Care Teams Transfer Machine Operator Relationship Specialty Start Date End Date Shannon Lerner MD [address] [place] [phone] PCP - General Internal Medicine 02/12/23 documented as of this encounter
--- OUTSIDE RECORDS SUMMARY | 2025-05-25 12:02 | XMS_ITS | Encounter Summary ---
Author Organization [employer] Address [address] [facility] 7t [place] [address] Care Team Providers Care Treatment Supervisor Name Role Phone Shannon Lerner MD Primary Care Pro vider Encounter Details Date Type Department Care Team (Late st Contact Info) Description 05/25/2025 Orders Only GENERIC EXTERNAL DATA DEPARTMENT Provider, [...] Description 06/05/2025 11:00 AM EST Clinical Support [address] [phone] 07/17/2025 11:15 AM EST Office Visit [address] [phone] Shannon Lerner MD [address] [place] [address] [phone] documented as of this encounter Procedures Procedure Name Priority Date/Time Associated Diagnosis Comments CBC WITH AUTO DIFFERENTIAL Routine 05/25/2025 10:09 AM EDT documented in this encounter Results * (ABNORMAL) CBC auto differential (05/25/2025 10:09 AM EDT) White Blood Count 4.3(L) 4.8 - 10.8 X10*3/uL [facility] Red Blood Count 4.97 4.60 - 5.80 X10*6/uL [facility] Hemoglobin 13.6(L) 14.0 - 18.0 g/dl [facility] Hematocrit 42.4 42.0 - 52.0 % [facility] Mean Corpuscular Volume 85.3 80.0 - 98.0 fL [facility] Mean Corpuscular Hemoglobin 27.4 27.0 - 33.0 pg [facility] Mean Corpuscular HGB Conc 32.1 31.0 - 36.0 g/dl [facility] Red Cell Distribution Width 13.2 11.0 - 16.0 % [facility] Platelet Count 139(L) 160 - 400 X10*3/uL [facility] Mean Platelet Volume 11.3 9.4 - 12.4 fL [facility] Neutrophils Percent Auto 51.7 45 - 73 % [facility] Imm Gran Pct Auto 0.2 0.0 - 0.4 % [facility] Lymphocytes Percent Auto 39.5 20 - 40 % [facility] Monocytes Percent Auto 5.1 2 - 11 % [facility] Eosinophils Percent Auto 2.8 0 - 4 % [facility] Basophils Percent Auto 0.7 0 - 2 % [facility] NRBC Pct Auto 0.0 0.0 - 0.2 /100WBC [facility] Neutrophils Absolute Auto 2.2 2.0 - 8.3 x10*3/uL [facility] Imm Gran Abs Auto 0.01 0.00 - 0.03 X10*3/uL [facility] Lymphocytes Absolute Auto 1.7 1.2 - 4.9 X10*3/uL [facility] Monocytes Absolute Auto 0.2 0.1 - 1.2 X10*3/uL [facility] Eosinophils Absolute Auto 0.1 0.0 - 0.4 X10*3/uL [facility] Basophils Absolute Auto 0.0 0.0 - 0.2 X10*3/uL [facility] NRBC Abs Auto 0.000 0.0 - 0.012 X10*3/uL [facility] 05/25/2025 10:0 9 AM EDT 05/25/2025 11:32 AM EDT us Generic External Data Provider LAB BLOOD ORDERAB LES Final Result [facility] [address] [place] [address] [phone] documented in this encounter Visit Diagnoses Not on filedocumented in this encounter Additional Health Concerns Assessment Noted Time PHQ-9 Depression Total Score: 4 06/17/20 24 10:10 AM EST documented as of this encounter Care Teams Treatment Supervisor Relationship Specialty Start Date End Date Shannon Lerner MD [address] [place] [phone] PCP - General Internal Medicine 02/12/23 documented as of this encounter
--- OUTSIDE RECORDS SUMMARY | 2025-05-25 12:02 | XMS_ITS | Clinical Summary ---
Author Organization [facility] Address [address] [facility] [address] [place] [address] Phone Care Team Providers Care Scallop Dredger Name Role Phone Sofia Parekh Primary Care Provider [phone] Allergies Active Allergy Reactions Criticality Noted Date [...] patient's age to complete this topic Insurance [facility] [place] [id number] [facility] ([id number]) [place] [phone] [place] [id number] Care Teams Scallop Dredger Relationship Specialty Start Date End Date Sofia Parekh PCP - General Family Medicine 06/30/21
--- OUTSIDE RECORDS SUMMARY | 2025-05-25 12:02 | XMS_ITS | Encounter Summary ---
Author Organization [employer] Address 75 [facility] 7t [place] [address] Care Team Providers Care Drum Handler Name Role Phone Shannon Lerner MD Primary Care Pro vider Reason for Visit * Reason Comments Med Refill Encounter Details Date Type Department Care Team ([facility] st Contact Info) Description 02/13/2024 Refill [facility] [address] [place], [place] [phone] Susan Jhaveri MD [address] [place] [address] Social History Tobacco Use Types Packs/Day Years [...] Description 06/05/2025 11:00 AM EST Clinical Support [address] [address] 07/17/2025 11:15 AM EST Office Visit [address] [address] Shannon Lerner MD [address] [place] [address] documented as of this encounter Visit Diagnoses Not on filedocumented in this encounter Additional Health Concerns Assessment Noted Time PHQ-9 Depression Total Score: 8 07/26/20 23 3:19 PM EST documented as of this encounter Care Teams Drum Handler Relationship Specialty Start Date End Date Shannon Lerner MD [address] [place] [phone] PCP - General Internal Medicine 02/12/23 documented as of this encounter
--- OUTSIDE RECORDS SUMMARY | 2025-05-25 12:02 | XMS_ITS | Patient Health Record ---
Author Organization [facility] Address [address] [place] [address] Care Team Providers Care On Site Manager Name Role Phone AlinaChellythu Primary Care Provider Marcus Billy Unavailable [phone] Reason For Referral No Information Medications Medication [...] Status Risk Notes Problem Colon cancer screening (932224628) Colon cancer screening (V76.51) Active confirmed Problem History of polyp of colon (329630438) H/O adenomatous polyp of colon (V12.72) Active confirmed Problem Long-term use of aspirin therapy (V58.66) Active confirmed Plan Of Treatment Future Test Test Name Order Date COLONOSCOPY 04/07/2014 Insurance Providers Payer Name Payer Address Payer Phone Subscriber Number Group Number Insured Name Patient Relationship to Insured Coverage Start Date Coverage End Date [facility] [address] [place] [address] [id number] COLONLACEY Self - patient is the insured [...]
--- OUTSIDE RECORDS SUMMARY | 2025-05-25 12:02 | XMS_ITS | Encounter Summary ---
Author Organization [employer] Address 75 [facility] 7t [place] [address] Care Team Providers Care Utility Clerk Name Role Phone Shannon Lerner MD Primary Care Pro vider Encounter Details Date Type Department Care Team (Late st Contact Info) Description 05/14/2023 Abstract [facility] [address] [place] [address] Shannon Lerner MD [address] [place], [place] [phone] Social History Tobacco Use Types Packs/Day Years [...] Description 06/05/2025 11:00 AM EST Clinical Support [address] [address] 07/17/2025 11:15 AM EST Office Visit [address] [address] Shannon Lerner MD [address] [place] [phone] documented as of this encounter Visit Diagnoses Not on filedocumented in this encounter Care Teams Utility Clerk Relationship Specialty Start Date End Date Shannon Lerner MD [address] [place] [phone] PCP - General Internal Medicine 02/12/23 documented as of this encounter
--- OUTSIDE RECORDS SUMMARY | 2025-05-25 12:02 | XMS_ITS | Clinical Summary ---
Author Organization [employer] Address 75 [facility] 7t [place] [address] Care Team Providers Care Machine Turner Name Role Phone Shannon Lerner MD Primary Care Pro vider Allergies Active Allergy Reactions Criticality Noted Date Comments Ludwin Inhibitors Cough 10/21/2012 Atorvastatin 04/23/2025 History of elevated CPK on statins Dulaglutide Diarrhea 09/21/2021 Dust Mite Extract 02/09/2023 Medications Alcohol Swabs (Alcohol Prep) 70 % pads USE FOUR TIMES DAILY 08/31/19 23 Active Praluent 150 MG/ML injection 10/10/19 23 Active Otezla 30 MG tablet 09/15/19 23 Active betamethasone dipropionate (Diprolene) 0.05 % ointment APPLY TO BODY FROM THE NECK DOWN TWICE DAILY FOR FOURTEEN DAYS, STOP AND USE vaseline FOR 7 DAYS, THEN REPEAT NEEDED 09/25/19 23 Active D3 Super Strength 50 MCG (1999 UT) capsule Take 50 mcg by mouth in the morning. 10/06/19 23 Active esomeprazole (NexIUM) [address] capsule Take 40 mg by mouth in the morning. 08/31/19 23 Active TRUEplus Lancets 33G [facility] TEST BLOOD SUGAR FOUR TIMES DAILY 07/26/20 22 Active Toujeo SoloStar 300 UNIT/ML injection 10 u daily 08/31/19 23 Active metFORMIN XR (Glucophage-XR) 500 MG 24 hr tablet TAKE 2 TABLETS BY MOUTH TWICE DAILY IN THE MORNING AND EVENING 10/06/19 23 Active metoprolol succinate XL (Toprol-XL) 25 MG 24 hr tablet TAKE 1/2 TABLET BY MOUTH EVERY MORNING 08/31/19 23 Active Ozempic, 1 MG/DOSE, 4 MG/3ML solution pen-injector Inject 1 MG SUBCUTANEOUSLY EVERY 7 DAYS IN THE ABDOMEN, THIGHS OR UPPER ARM. ROTATE INJECTION SITES. 09/19/19 23 Active senna (Senokot) 8.6 MG tablet TAKE 1 TABLET BY MOUTH AT BEDTIME FOR CONSTIPATION 08/31/19 23 Active tamsulosin (Flomax) 0.4 MG 24 hr capsule Take 0.4 mg by mouth in the evening. 07/26/20 22 Active zolpidem (Ambien) 5 MG tablet Take 5 mg by mouth if needed at bedtime. 10/03/19 23 Active tadalafil (Cialis) 5 MG tablet TAKE 1 TABLET BY MOUTH DAILY FOR SEXUAL ACTIVITY 07/07/20 22 Active Fiasp FlexTouch 100 UNIT/ML injection INJECT 2-4 UNITS SUBCUTANEOUSLY THREE TIMES DAILY 08/31/19 23 Active imipramine (Tofranil) 25 MG tablet Take 25 mg by mouth at bedtime. 10/06/19 23 Active FREESTYLE LITE test strip TEST BLOOD SUGAR FOUR TIMES DAILY 10/06/19 23 Active gabapentin (Neurontin) 100 MG capsuleIndicatio ns:Polyneuropath y Take 1 capsule (100 mg) by mouth if needed in the morning, at noon, and at bedtime (Neuropathy). 90 capsule 1 07/12/20 23 Active Baqsimi Two Pack 3 MG/DOSE nasal powder 03/02/20 23 Active lidocaine (Lidoderm) 5 % patch APPLY 2 PATCHES TOPICALLY TO SKIN, LEAVE ON FOR 12 HOURS AND OFF FOR 12 HOURS DIRECTED 30 patch 2 06/13/20 24 Active acetaminophen (Tylenol 8 Hour) 650 MG ER tabletIndication s:Degenerative lumbar spinal stenosis,Chronic bilateral low back pain with bilateral sciatica TAKE 1 TABLET BY MOUTH EVERY DAY NEEDED FOR MILD PAIN 90 tablet 1 07/10/20 24 Active Nexlizet 180-10 MG tablet Take 1 tablet by mouth every day 08/06/19 25 Active Continuous Glucose Sensor (FreeStyle Luis 2 Sensor) misc Use as directed. Change sensor every 14 days. 08/06/19 25 Active polyethylene glycol, PEG, 3350 (Glycolax) 17 GM/SCOOP powder Use as directed per doctor 06/23/20 24 Active insulin pen needle (BD Pen Needle Miriam U/F) 32G x 4 mm miscIndications: Type 2 diabetes mellitus with other specified complication, without long-term current use of insulin (HCC) USE FOUR TIMES DAILY DIRECTED 200 each 11 12/04/19 25 Active dapagliflozin (Farxiga) 10 MG Take by mouth. Active Ventolin HFA 108 (90 Base) MCG/ACT inhaler Inhale 2 puffs every 6 (six) hours if needed for shortness of breath. 18 g 3 12/17/19 25 Active Fluticasone-Umec lidin-Vilant (Trelegy Ellipta) 200-62.5-25 MCG/ACT aerosol powderIndication s:NIEVES (dyspnea on exertion) Inhale 1 Inhalation Once per day. 1 each 3 02/18/20 25 Active Diclofenac Sodium 1 % gel Apply 1 Application topically if needed each day (shoulder pain). 50 g 02/18/20 25 Active Aspirin EC Adult Low Dose 81 MG EC tabletIndication s:Bradycardia TAKE 1 TABLET BY MOUTH AT BEDTIME 90 tablet 1 03/25/20 25 Active hydroCHLOROthiaz gatito (HYDRODiuril) 25 MG tablet TAKE 1 TABLET BY MOUTH EVERY MORNING 90 tablet 1 04/22/20 25 Active cetirizine (ZyrTEC) 10 MG tabletIndication s:Nasal congestion Take 1 tablet (10 mg) by mouth if needed each day for allergies. 90 tablet 04/23/20 25 Active losartan (Cozaar) 25 MG tablet Take 1 tablet (25 mg) by mouth Once per day. 90 tablet 04/23/20 25 026 Active amLODIPine (Norvasc) 5 MG tabletIndication s:Primary hypertension Take 1 tablet (5 mg) by mouth at bedtime. 90 tablet 04/23/20 25 Active Active Problems Problem Noted Date Diagnosed [...] episodic 02/16/2012 Depression, recurrent 01/18/2012 Pulmonary hypertension ([facility]/HCC) 01/18/2012 Hypertension 01/05/2012 Overview (02/09/2023): Care managed [...] Encounters Date Type Department Care Team Description 05/25/2025 Orders Only GENERIC EXTERNAL DATA DEPARTMENT Provider, Generic External Data 05/21/2025 2:00 PM EDT Clinical Support [address] [address] Sharon Segal, GABBI Primary hypertension 05/21/2025 Travel 05/20/2025 Results Follow-Up [facility] [address] [place] [phone] Shannon Lerner MD MR Brain w/o Contrast 05/07/2025 Telephone [facility] [address] [place] [phone] Sahnnon Lerner MD Results 04/23/2025 1:30 PM EDT Office Visit [facility] [address] [place] [phone] Shannon Lerner MD Poor memory (Primary Dx); NIEVES (dyspnea on exertion); Nasal congestion; Primary hypertension; Encounter for immunization; Type 2 diabetes mellitus with diabetic polyneuropathy, with long-term current use of insulin ([facility]); Health care maintenance 04/23/2025 Travel 04/22/2025 Telephone [facility] [address] [place] [phone] Carolyn Santana [place] 04/21/2025 Refill [facility] [address] [place], [place] [phone] Shannon Lerner MD Primary hypertension 04/16/2025 Patient Outreach [facility] [address] [place] [address] Shannon Lerner MD Pre-visit Planning (SDOH was already completed ) 03/25/2025 Refill [facility] [address] [place] [address] Rudy Kapadia MD Bradycardia 03/13/2025 Orders Only GENERIC EXTERNAL DATA DEPARTMENT Provider, Generic External Data from Last 3 Months Immunizations Immunization Administration Dates Next Due Hep B, adult 03/03/2024,,08/30/2023,12/14,10/02/2017 Influenza injectable quadriv alent IIV4 with preservative [...] Pulse 72 05/21/2025 2:36 PM EDT Temperature 36.2 C (97.1 F) 04/23/2025 1:27 PM EDT Respiratory Rate 18 05/21/2025 2:36 PM EDT [...] Description 06/05/2025 11:00 AM EST Clinical Support [facility] [address] [place] [address] 07/17/2025 11:15 AM EST Office Visit [address] [phone] Shannon Lerner MD [address] [place] [address] Health Maintenance Due Date Last Done Comments CT Colonography 1955 FIT DNA/Cologuard 1955 FIT 1955 FOBT 1955 Sigmoidoscopy 1955 Eye Exam 1965 Zoster Vaccines (3 of 3) 02/06/2022 12/12/2021, 03/12/2017 DTaP/Tdap/Td Vaccines (2 - Td or Tdap) 09/24/2023 09/24/2013, 06/04/2008 Diabetes: Foot Exam 02/10/2024 02/09/2023, 3 COVID-19 Vaccine ( season) 2025 06/17/2024, 08/30/2023, 07/19/2021, Additional history exists Influenza Vaccine (#1) 2025 5, 06/01/2014, 08/06/2013, Additional history exists Alcohol/Substance Use Screening 06/17/2025 06/17/2024 Depression Screening 06/17/2025 06/17/2024, 06/17/20 Diabetes: Hemoglobin A1C 08/20/2025 025, 12/16/2024, 06/18/2024, Additional history exists SDOH Screening 12/09/2025 12/09/2024 Diabetes: Urine Protein Screening 02/17/2026 02/17/2025, 02/17/2025, 06/18/2024, Additional history exists Lipid Panel 02/17/2026 02/17/2025, 01/28, 06/18/2024, Additional history exists Tobacco Screening 05/21/2026 05/21/2025 Colonoscopy 09/25/2026 04/13/2022 Colorectal Cancer Screening 09/25/2026 [...] AUTO DIFFERENTIAL Routine 05/25/2025 10:09 AM EDT MR BRAIN WO CONTRAST Routine 05/20/2025 Poor memory GLUCOSE, WHOLE BLOOD Routine 03/13/2025 1:34 PM EDT ALBUMIN, RANDOM URINE W/CREATININE Routine 02/17/2025 12:17 PM EDT HEMOGLOBIN A1C Routine 02/17/2025 12:17 PM EDT LIPID PANEL, STANDARD Routine 02/17/2025 12:17 PM EDT HEPATITIS C AB W/REFL TO HCV RNA, QN, PCR Routine 06/18/2024 9:35 AM EST Annual physical exam HM COLONOSCOPY Routine 04/13/2022 3:51 PM EDT from Last 3 Months or Most Recently Relevant to Health Maintenance Results * (ABNORMAL) CBC auto differential (05/25/2025 10:09 AM EDT) White Blood Count 4.3(L) 4.8 - 10.8 X10*3/uL [facility] Red Blood Count 4.97 4.60 - 5.80 X10*6/uL [facility] Hemoglobin 13.6(L) 14.0 - 18.0 g/dl [facility] Hematocrit 42.4 42.0 - 52.0 % [facility] Mean Corpuscular Volume 85.3 80.0 - 98.0 fL [facility] Mean Corpuscular Hemoglobin 27.4 27.0 - 33.0 pg [facility] Mean Corpuscular HGB Conc 32.1 31.0 - 36.0 g/dl [facility] Red Cell Distribution Width 13.2 11.0 - 16.0 % [facility] Platelet Count 139(L) 160 - 400 X10*3/uL [facility] Mean Platelet Volume 11.3 9.4 - 12.4 fL [facility] Neutrophils Percent Auto 51.7 45 - 73 % [facility] Imm Gran Pct Auto 0.2 0.0 - 0.4 % [facility] Lymphocytes Percent Auto 39.5 20 - 40 % [facility] Monocytes Percent Auto 5.1 2 - 11 % [facility] Eosinophils Percent Auto 2.8 0 - 4 % [facility] Basophils Percent Auto 0.7 0 - 2 % [facility] NRBC Pct Auto 0.0 0.0 - 0.2 /100WBC [facility] Neutrophils Absolute Auto 2.2 2.0 - 8.3 x10*3/uL [facility] Imm Gran Abs Auto 0.01 0.00 - 0.03 X10*3/uL [facility] Lymphocytes Absolute Auto 1.7 1.2 - 4.9 X10*3/uL [facility] Monocytes Absolute Auto 0.2 0.1 - 1.2 X10*3/uL [facility] Eosinophils Absolute Auto 0.1 0.0 - 0.4 X10*3/uL [facility] Basophils Absolute Auto 0.0 0.0 - 0.2 X10*3/uL [facility] NRBC Abs Auto 0.000 0.0 - 0.012 X10*3/uL [facility] 05/25/2025 10:0 9 AM EDT 05/25/2025 11:32 AM EDT us Generic External Data Provider LAB BLOOD ORDERAB LES Final Result Performing Organization Address City/State/[facility] Co de Phone Number [facility] [address] [place] [phone] * MR Brain w/o Contrast (05/20/2025) Anatomical Region Laterality Modality Brain Magnetic Resonan ce us Shannon Diana MD IMG MRI PROCEDURE S Final Result * Glucose, Whole Blood (03/13/2025 1:34 PM EDT) Glucose, Whole Blood 107 60 - 115 mg/dL [facility] Comment:METER #: [id number] 0Testing performed in the Endocrinology Department [address] , [address], [facility]. 03/13/2025 1:34 PM EDT 03/13/2025 1:37 PM EDT Generic External Data Provider LAB BLOOD ORDERAB LES Final Result Performing Organization Address [facility] Co de Phone Number [facility] [address] [place] [phone] * (ABNORMAL) Albumin, Random Urine W/Creatinine (02/17/2025 12:17 PM EDT) Creatinine, Urine 126.77 mg/dL [facility] Microalbumin Urine 55.0 mg/L [facility] Microalbum Creatinine Ratio Ur 43.3(H) <30 ug/mg cr [facility] Comment:Albumin/Creatinine R atio Reference Ranges: Normal: < 30 ug/mg creatinine Microalbuminuria: 30 - 300 ug/mg creatinineClinical Albuminuria: > 300 ug/mg creatinine 02/17/2025 12:1 7 PM EDT 02/17/2025 1:03 PM EDT us Generic External Data Provider LAB URINE ORDERAB LES Final Result Performing Organization Address [facility] Co de Phone Number [facility] [address] [place] [phone] * (ABNORMAL) Hemoglobin A1c (02/17/2025 12:17 PM EDT) Hemoglobin A1c 6.8(H) <6.0 % [facility] Comment:Hemoglobin A1C Refer ence Range Adults: 4.8 - 6.0 % Non diabetic: < 6.0 % Goal: < 7.0 %Additional Action Suggested: > 8.0 %Note: Hemoglobin A1c results are invalid for patients with abnormal amounts of HbF. Blood transfusions may impact the HbA1c concentration in the patient sample. Estimated Average Glucose 148 mg/dL [facility] Comment:eAG = Estimated ave rage glucose which is %A1C expressed asaverage glucose, using the formula of the H0U-ZrhoxikVxqudhk Glucose study (ADAG), Diabetes Care, Vol.31,#8,Feb. 2007 02/17/2025 12:1 7 PM EDT 02/17/2025 1:25 PM EDT Generic External Data Provider LAB BLOOD ORDERAB LES Final Result Performing Organization Address [facility] Co de Phone Number [facility] [address] [place] [phone] * Lipid Panel, Standard (02/17/2025 12:17 PM EDT) Triglycerides 83 <150 mg/dL [facility] Comment:Desirable Triglyceri de: less than 150 mg/dLBorderline High Triglyceride 150-199 mg/dLHigh Triglyceride: 200-499 mg/dLVery High Triglyceride: greater than or equal to 5OO mg/dL Cholesterol 122 <200 mg/dL [facility] Comment:Desirable Cholestero l: less than 200 mg/dLBorderline High Cholesterol: 200-239 mg/dLHigh Cholesterol: greater than 239 mg/dL LDL Cholesterol Calculated 65 <100 mg/dL [facility] Comment:Desirable LDL: less than 100 mg/dLNear Optimal/Above Optimal LDL: 110- 129 mg/dLBorderline High LDL: 130-159 mg/dLHigh LDL: 160-189 mg/dLVery High LDL: greater than or equal to 190 mg/dL HDL Cholesterol 41 >40 mg/dL [facility] Comment:Desirable HDL: great er than 40 mg/dL Note: This HDL assay may give artificially low results in patients with liver disease. 02/17/2025 12:1 7 PM EDT 02/17/2025 1:38 PM EDT us Generic External Data Provider LAB BLOOD ORDERAB LES Final Result Performing Organization Address [facility] Co de Phone Number [facility] [address] [place] [phone] * Hepatitis C Antibody with Reflex to HCV, RNA, Quantitative, Real-Time PCR (06/18/2024 9:35 AM EST) Hepatitis C Antibody Nonreactive Nonreactive [facility] Comment:Antibodies to HCV no t detected; does not exclude early acuteHCV infection. Blood Venous blood specimen / Unknown 06/18/2024 9:35 AM EST 06/18/2024 11:22 AM EST us Shannon Diana MD LAB BLOOD ORDERAB LES Final Result [facility] [address] [place] [address] [phone] * Colonoscopy (04/13/2022 3:51 PM EDT) Historical Provider HEALTH MAINTENANCE Final Result from Last 3 Months or Most Recently Relevant to Health Maintenance Insurance [facility] [employer] (O D-SNP) [place] [id number] Care Teams Machine Turner Relationship Specialty Start Date End Date Shannon Lerner MD [address] [place] [address] PCP - General Internal Medicine 02/12/23
[2025-05-25 12:03] LABS: Alanine Aminotransferase 17 U/L (0-40); Albumin Level 4.2 g/dL (3.5-5.0); Alkaline Phosphatase 56 U/L (39-117); Anion Gap 11 (12-20); Aspartate Amino Transferase 21 U/L (5-37); Blood Urea Nitrogen 18 mg/dL (9-16); Calcium 8.7 mg/dL (8.4-10.2); Carbon Dioxide 27 mmol/L (22-29); Chloride 106 mmol/L (96-108); Estimated Glomerular Filt Rate > 60; Potassium 4.1 mmol/L (3.3-5.1); Sodium 140 mmol/L (135-145); Total Protein 7.0 g/dL (6.5-8.0)
--- OUTSIDE RECORDS SUMMARY | 2025-05-25 12:03 | XMS_ITS | Encounter Summary ---
Author Organization [employer] Address [address] [facility] 7t [place] [address] Care Team Providers Care Staffing Mgr Name Role Phone Nancy MoreiraP Primary Care Provider Shannon Miller MD Primary Care Pro vider Encounter Details Date Type Department Care Team (Late st Contact Info) Description 08/15/2022 Orders Only [facility] [address] [place] [address] Nohemy Nair LPN Social History Tobacco Use [...] Description 06/05/2025 11:00 AM EST Clinical Support [address] [address] 07/17/2025 11:15 AM EST Office Visit [address] [address] Shannon Lerner MD [address] [place] [phone] documented as of this encounter Visit Diagnoses Not on filedocumented in this encounter Care Teams Staffing Mgr Relationship Specialty Start Date End Date Nancy Moreira FNP PCP - General Family Medicine 03/22/22 02/11/23 Shannon Lerner MD [address] [place] [phone] PCP - General Internal Medicine 02/12/23 documented as of this encounter
--- OUTSIDE RECORDS SUMMARY | 2025-05-25 12:03 | XMS_ITS | Encounter Summary ---
Author Organization [facility] Address [address] [place] [address] Phone Care Team Providers Care Wire Spinner Name Role Phone Pcp, Unknown Primary Care Provider Unavailabl e Encounter Details Date Type Department Care Team (Latest Contact Info) Description 09/03/2020 Ancillary Orders [facility] [address] [place] [address] [place] [address] Alejandro Parsons DO [address] [place] [phone] Bradycardia; SOB (shortness of breath) Social History [...] breath documented in this encounter Care Teams Wire Spinner Relationship Specialty Start Date End Date Pcp, Unknown PCP - General 01/16/19 documented as of this encounter Additional Source Comments The information contained in this document represents components of the legal health record. It is not the complete legal health record.[facility]
--- OUTSIDE RECORDS SUMMARY | 2025-05-25 12:03 | XMS_ITS | Encounter Summary ---
Author Organization [facility] Address [address] [place] [address] Phone Care Team Providers Care Sewing Machinist Name Role Phone Pcp, Unknown Primary Care Provider Unavailabl e Encounter Details Date Type Department Care Team (Late st Contact Info) Description 11/11/2018 Ancillary Orders [facility] [address] [place] [address] [place] [address] Alejandro Parsons DO [address] [place] [id number] Bradycardia Social History Tobacco Use Types Packs/Day [...] dysrhythmias documented in this encounter Care Teams Sewing Machinist Relationship Specialty Start Date End Date Pcp, Unknown PCP - General 01/16/19 documented as of this encounter Additional Source Comments The information contained in this document represents components of the legal health record. It is not the complete legal health record.[facility]
--- OUTSIDE RECORDS SUMMARY | 2025-05-25 12:03 | XMS_ITS | Encounter Summary ---
Author Organization [employer] Address [address] [place] [address] Care Team Providers Care Welt Rougher Name Role Phone Nancy MoreiraP Primary Care Provider Shannon Miller MD Primary Care Pro vider Encounter Details Date Type Department Care Team (Late st Contact Info) Description 09/07/2022 Orders Only [facility] [address] [place] [address] Nohemy Nair LPN Social History Tobacco Use [...] Description 06/05/2025 11:00 AM EST Clinical Support [address] [address] 07/17/2025 11:15 AM EST Office Visit [address] [address] Shannon Lerner MD [address] [place] [phone] documented as of this encounter Visit Diagnoses Not on filedocumented in this encounter Care Teams Welt Rougher Relationship Specialty Start Date End Date Nancy Moreira FNP PCP - General Family Medicine 03/22/22 02/11/23 Shannon Lerner MD [address] [place] [id number] PCP - General Internal Medicine 02/12/23 documented as of this encounter
== END 2025-05-25 10:06 | disposition home or self-care (01) ==
LOC: HO.HHCL 10:05
PROVIDERS: PCP Student in an Organized Health Care Education/Training Program; Referring Provider Student in an Organized Health Care Education/Training Program; Visit Provider Internal Medicine Medical Oncology
DX: D61.818 Other pancytopenia (principal)
CPT/HCPCS: 36415; 80053; 85025

== ENCOUNTER 2025-07-06 12:58 | Outpatient (AMB) | payer OTHER, SELFPAY ==
--- NOTE | 2025-07-06 13:05 | A.OFFVIS_ITS ---
Vital Signs 07/06/25 13:10 Height 5 ft 11 in Weight 180 lb BMI 25.1 BP 132/86 Blood Pressure Location Rt brachial Position Sitting Pulse 72 Pulse Source Pulse Oximeter Pulse Oximetry (%) 97 Oxygen Delivery Method Room Air Intake Visit Reasons: Discuss MRI Results Intake Note: Pain today 03/08 Chemical Processing Supervisor Required: Yes Chemical Processing Supervisor Language: Automobile Service Station Manager Name: Adriana #[id number] Accompanied by: Self / Same As Patient Allergies dulaglutide (Trulicity) Adverse Reaction (Unknown, Verified 07/06/25 13:12) diarrhea HPI Comments Details: The patient is a 70-year-old male presenting for review of lumbar MRI results for chronic back pain. He reports chronic back pain that radiates to both legs, with symptoms being worse in the left leg. The pain significantly limits his ability to walk, allowing him to ambulate for only a very short time before needing to sit down. He uses cane with walking. The patient reports that his current medication, gabapentin, is not providing significant relief. Spinal cord stimulation was discussed as a potential treatment at his last visit, pending a psychological evaluation. The patient has a history of diabetes, with a recent HbA1c of 6.8%. Additionally, there is a concern for worsening memory reported to his primary care physician, and the patient acknowledges occasional forgetfulness, though he manages his own medications. A brain MRI was previously performed for this concern. Denies any recent cough, cold, infection, fever or any significant changes in medical history since last office visit. PRIOR: The patient is a 70-year-old male presenting with chronic back pain with radiculopathy. Patient was last seen in our office in July 2024. Denies any recent trauma, injury or falls. Reports increasing weakness, imbalance and limited mobility with worsening back and leg symptoms. The back pain has been persistent and radiates to the legs, primarily affecting the sides and back of the legs, worse on the left side. The patient reports that the pain is severe and has been ongoing for a long time, impacting his ability to move and sleep. The patient experienced an episode of being bedridden and unable to move for two days, which occurred recently. He has a history of back surgery approximately 20 years ago, in 2001. The patient reports weakness in his legs, sometimes feeling as though they fade away, and experiences numbness and tingling with heaviness. He has been managing his pain with Tylenol, which he finds ineffective, and has tried gabapentin and OTC topical patches without relief. The patient has diabetes mellitus, which is reportedly well-controlled, and he is aware of the need to adhere to diabetic diet restrictions. Denies any recent cough, cold, infection, fever or any significant changes in medical history sin ce last office visit. PRIOR: Patient presents today to assess response to RIGHT PARASAGITTAL L4, L5, INTERLAMINAR PRABHJOT on 07/01/[address] Fulton. Patient reports 70% pain relief since procedure with partial improvement in his daily activities, functioning, mobility and sleep. Patient reports better pain relief in his back than right leg pain with injection. He attempted Behavioral evaluation with [facility] for potential SCS trial but due to high out of pocket costs, decided to cancel it. Patient reports he sees Dr. Brown at [facility] for depression which has been under good control with imipramine at bedtime. I will sent referral to Dr. Brown for psychology clearance for potential SCS trial to address patient's chronic back pain with radiculopathy. Denies any recent cough, cold, infection, fever, bladder or bowel dysfunction, saddle anesthesia or other significant changes in medical history since last office visit. Past Procedures: 07/01/24: Right parasagittal L4-L5 Interlaminar PRABHJOT-70% pain relief 09/19/22: Bilateral intra-articular hip steroid injections-80% ongoing pain relief 04/18/22: Caudal PRABHJOT with catheter-0% pain relief PRIOR: Patient presents today for follow up with increasing lower back pain, bilateral hip and leg pain. Patient underwent neurosurgical evaluation by Dr. Ricardo on 06/20/22 and was told that no additional surgery was indicated and was advised to proceed with spinal cord stimulator. Pending behavioral assessment, not completed at [facility] and was sent to [facility] on 08/03/22. Patient has significant bilateral hip pain and groin pain with external and internal hip rotations bilaterally, worse on the right. His back pain continues to radiate down to both of his lower legs posteriorly with numbness and tingling. He ambulates with slow, antalgic gait with use of cane in mildly flexed position due to pain. Reports pain with walking, sitting, standing, or changing positions. Patient would like to proceed with bilateral hip steroid injection under sedation. Denies any fever, abdominal pain, bowel or bladder incontinence or saddle anesthesia. The trialed and failed therapy has been reviewed with the patient. The risks, consequences, alternatives, and benefits of various treatment options were discussed with the patient in great detail, including conservative management, injections and procedures. Plan to proceed with lumbar SCS trial once behavioral assessment is completed. PRIOR: Patient presents today in the office to assess his response to Caudal PRABHJOT with catheter injection on 04/18/22. Patient reports 0% pain relief status post procedure and continues to endorse spinal stenosis related pain. He continues to reports lower back pain with radiation to both of his lower extremity posteriorly with numbness and tingling and parenthesia symptoms in L5-S1 distribution. He also has burning pain in his feet due to chronic diabetic neuropathy. Unfortunately, his insurance did not approve [employer]. Pain continues to affect his daily functioning, sleep and quality of life. We discussed SCS trial previously and behavioral assessment was submitted but not completed. I will refer this patient for neurosurgical evaluation to evaluate if any additional surgery is needed prior to considering SCS trial. Patient cannot tolerate walking more than 5 minutes and ambulates in forward flexed position slowly, with antalgic gait and uses cane. Most recent lumbar MRI was completed in September, and is noted below. Patient denies any fever, weight changes, dizziness, lightheadedness, shortness of breaths, bowel or bladder incontinence or saddle anesthesia. PRIOR: Patient returns today for follow up in the office with worsening of chronic low back pain. He was last seen in our office on 10/17/21. His back pain presents in his lower back that spreads across his lower back and into his bilateral lower extremities posteriorly with shooting, sharp pain and significant numbness and tingling with cramping in both of his feet. Patient reports worsening of chronic painful diabetic neuropathy in his both feet which has been worse at night. Back pain and bilateral neuropathy in his feet has been affecting his daily activities, functioning, sleep and quality of life. At previous visit, his A1C was elevated and we did not proceed with lumbar injections. Patient has had regular follow ups with his head of product and his most recent A1C was 7.4 on 03/08/22 down from 10.3. Patient was praised for monitoring his blood sugars, medication compliance and his attempts and efforts to adhere to ADA diet. We have discussed caudal epidural injection with catheter and patient agreed to undergo this under local and fluoroscopy. He has been managing his back pain with lidocaine patches, naproxen, intermittent use of gabapentin due to drowsiness and low dose of cyclobenzaprine prn with continued symptoms. Patient reports pain with prolonged standing or walking, pain mildly relieved with rest. He ambulates with antalgic gait with the use of cane. Patient reports he has recently fell last Sunday due to significant back pain while walking with cane at home. Patient reports falling backwards and onto his left side with intermittent neck pain and significant muscle pain in his bilateral trapezius regions. Patient reports he did not go to ER or his PCP for evaluation status post fall and has been feeling better except his back symptoms. He denies loss of consciousness, fever, malaise, dizziness, headache, chest pain, shortness of breaths, abdominal or groin pain, bowel or bladder incontinence or saddle anesthesia. Patient reports bilateral lower extremity weakness due to chronic knee and back pain. PRIOR: Today patient presents to the office for review of lumbar MRI and bilateral knee xray. He is accompanied by his RAILROAD DETECTIVE who is also helps with translation per patient's request. Patient continues to report bilateral knee pain and chronic back pain with right radiculopathy to his right leg laterally and anteriorly to right thigh. He has a prior history of left L5-S1 decompression, discectomy and laminectomy in 2003. He is diabetic with poorly controlled blood sugars with most recent A1C 10.3 on 09/08/21. He states he is followed by our endocrinology services and tries to adhere to ADA diet and closely monitor his blood sugars. Per [facility] notes review, patient last had Left L5-S1 TFESI as well as S1 selective epidurals with nerve root blocks on 01/24/2017. Due to his elevated A1C and poorly controlled diabetes, we will avoid steroid injections at this time. I have placed behavioral evaluation referral for SCS trial at previous visit which is pending. Both lumbar MRI and bilateral knee xrays reports reviewed with patient and are noted below. He notices good relief with lidocaine patches for knee pain and mild improvements with gabapentin, flexeril, and naproxen. Patient denies any fever, malaise, dizziness, weight loss, abdominal or groin pain, bladder/bowel dysfunction or saddle anesthesia. Patient reports lower extremity weakness and difficulty with prolong walking or sitting. Ambulates with antalgic gate and uses cane. [facility] Medical History Dysphagia Erectile dysfunction associated with type 2 diabetes mellitus Unsteady gait Asthma Leg weakness Mass of right parotid gland Hypertensive retinopathy of right eye Tubular adenoma of colon Smoker Dyspnea on exertion Vitamin D deficiency Hypertension Diabetic polyneuropathy associated with type 2 diabetes mellitus Diabetic nephropathy associated with type 2 diabetes mellitus FPC (current) use of insulin Dyslipidemia Diabetes type 2, uncontrolled Surgical History History of esophagogastroduodenoscopy (EGD) Hx of colonoscopy History of amputation of finger History of lumbar surgery Family History Father Medical history unknown Mother Medical history unknown Sister Breast cancer Brother Cancer Social History Household Members: None Are you a primary post acute care nurse practitioner to a significant other at home: No Do you presently have visiting nurse or other home services: No Alcohol intake: current Alcohol intake frequency: former alcohol drinker Patient Tobacco Use Status: Former Tobacco user Years Smoked: 52 (onset 13yo) Review of Systems Const Details: - Musculoskeletal: Reports back pain radiating to both legs. - Neurological: Reports his left leg feels worse than the right. Reports occasional forgetfulness. Denies bladder or bowel dysfunction or saddle anesthesia. - Endocrine: Reports history of diabetes. All systems reviewed & are unremarkable except as noted in HPI and below Physical Exam Vital Signs: Last Vital Signs Pulse 72 07/06/25 13:10 BP 132/86 07/06/25 13:10 Pulse Ox 97 07/06/25 13:10 Oxygen Delivery Method Room Air 07/06/25 13:10 BMI result Body Mass Index 25.1 General: Appears afebrile. Alert and oriented. Mood and affect appropriate. Follows and participates in conversation appropriately. Respiratory effort is unlabored. No cough. Able to transition from sit to stand unassisted. Slow, antalgic gait. Uses cane with ambulation. General: Yes no CVA tenderness Back/Spine/Pelvis Other: Limited lumbar flexion and extension due to significant aggravation of his back symptoms. Demonstrates 4/5 left and 5/5 right strength of quadriceps bilaterally as well as flexion/dorsiflexion of bilateral feet against resistance. Diminished DTRs bilaterally. Positive Seated SLR with dorsiflexion bilaterally, left>right. Valsalva maneuvr is positive. Back: no CVA tenderness Cervical Spine: loss of normal cervical lordosis, cervical muscular tenderness, pain with cervical ROM and No Cervical spine tenderness Thoracic/Lumbar Spine: thoracic and lumbar spine normal to inspection, Thora cic/lumbar spine scar(s) (midline lower back), Lasegue's sign positive (left>right) bilateral and localized, pain with thoraco-lumbar ROM, paraspinal muscle tenderness, thoraco-lumbar ROM limited with forward flexion (WNL) and with lateral flexion to the left (limited by pain), No thoracic spinal tenderness and lumbar spinal tenderness (L4-S1) Sacroiliac joints: bilaterally tender to palpation Extrem General: Yes capillary refill normal, Yes no clubbing, cyanosis or edema and Yes no calf tenderness Results Reviewed Results Reviewed: MR SPINE LUMBAR without CONTRAST 05/19/25 RAYUS INDICATION: Spinal stenosis. Postlaminectomy syndrome. Radiculopathy, lumbar region. Chronic lower back pain and weakness for years. Additional History: Surgery 2001. TECHNIQUE: Unenhanced multiplanar, multisequence MR imaging of the lumbar spine. COMPARISON: MR lumbar spine 10/06/2021. FINDINGS: For the purposes of this examination, the last well-formed inferior disc space will be labeled as L5-S1. Mild residual grade 1 retrolisthesis of L5 on S1. Normal lumbar alignment is otherwise demonstrated. Vertebral heights are well maintained. Bone marrow signal is within normal limits, and no suspicious osseous lesion is identified. Conus medullaris is unremarkable and terminates at L1-L2. The visualized paraspinal musculature, including the multifidus and erector spinae muscles, appears symmetric, well-maintained in volume, and demonstrates normal, homogeneous signal intensity. Partially exophytic cyst measuring 2.8 cm involving the posterior lateral mid to inferior left kidney. Paraspinal soft tissues and visualized portions of the abdomen and pelvis are unremarkable. At T12-L1 there is mild to moderate intervertebral space narrowing. No central spinal canal or neural foraminal narrowing. At L1-2, L2-L3, there is no significant disc herniation or protrusion. No central canal or neural foraminal stenosis is demonstrated. At L3-4, there is mild disc bulge resulting in mild anterior thecal sac impingement. There is bilateral facet joint hypertrophy and ligamentum flavum thickening. There is no significant central spinal canal or neural foraminal narrowing. At L4-5, there is a residual disc bulge, associated with a persistent broad- based asymmetric left paracentral and left foraminal disc protrusion. Status post left laminectomy at L4. Findings result in moderate residual left anterolateral spinal canal narrowing and left lateral recess stenosis. There is mild left neural foraminal narrowing, without significant right neural foraminal narrowing. Findings appear stable. At L5-S1, status post left laminectomy defect at L5. There is a disc bulge with small residual central disc protrusion, resulting in mild anterior thecal sac impingement. Mild bilateral facet joint hypertrophy and ligamentum flavum flavum thickening. There is mild bilateral neural foraminal stenosis. Findings appear stable. IMPRESSION: 1. Left laminectomy defects involving the L4 and L5 vertebrae are again noted. 2. Residual disc bulge at L4-L5 associated with persistent broad-based asymmetric left paracentral and foraminal disc protrusion, resulting in moderate residual left anterolateral spinal canal narrowing and left lateral recess stenosis. There is mild left neural foraminal narrowing at this level. 3. Disc bulge with small residual central disc protrusion at L5-S1, resulting in mild anterior thecal sac impingement. There is mild bilateral foraminal stenosis. 4. Left renal cyst. 5. Overall findings appear relatively unchanged when compared to prior MRI examination. MR BRAIN WITHOUT CONTRAST 05/20/25 RAYUS INDICATION: Worsening memory TECHNIQUE: Multiplanar multisequence imaging of the brain was obtained, without intravenous contrast administration. COMPARISON: None. FINDINGS: There are no acute territorial infarcts seen within the brain on diffusion images. No midline shift, mass effect or hemorrhage seen. Ventricular system is symmetrical, without hydrocephalus. Scattered few nonspecific T2 hyperintense foci are present along the periventricular white matter and centrum semiovale, suggestive of chronic microvascular ischemic or gliotic changes Craniocervical junction is preserved and the fourth ventricle is in the midline. No signal abnormalities are seen within the hippocampal formation. Generalized sulcal dilatation is present consistent with volume loss and cortical atrophy. Normal signal flow voids are seen along the major intracranial arteries. Visualized orbits and region of the sella are preserved. Chronic mucosal thickening ethmoid, maxillary and right frontal sinuses. Sphenoid and mastoid sinuses are clear. The calvarium is intact. Sagittal images demonstrates cervical disc bulge at C3-C4 level. IMPRESSION: 1. No acute intracranial pathology seen. 2. Generalized volume loss, and other age-related/white matter involutional changes as discussed. 3. Chronic inflammatory paranasal sinus disease. Assessment & Plan Assessment & Plan (1) Degenerative lumbar spinal stenosis: Code(s): M48.061 - Spinal stenosis, lumbar region without neurogenic claudication Category: Medical (2) Postlaminectomy syndrome: Code(s): M96.1 - Postlaminectomy syndrome, not elsewhere classified Category: Medical (3) Chronic pain syndrome: Code(s): G89.4 - Chronic pain syndrome Category: Medical (4) Lumbar radiculopathy: Code(s): M54.16 - Radiculopathy, lumbar region Category: Medical Plan The patient's chronic low back pain with bilateral radiculopathy, worse on the left, is attributed to moderate spinal stenosis at L4-L5 secondary to disc bulging, as seen on his recent MRI which is consistent with his ongoing symptoms. Given that his current medical management with gabapentin is ineffective, procedural options were discussed. There is a pending a required psychological evaluation with Dr. Brown for potential SCS trial. A request will be sent to Dr. Brown to facilitate this evaluation. While awaiting clearance for the spinal cord stimulator, the patient has elected to proceed with a bilateral L4-L5 TF epidural steroid injection with local and fluoroscopy for symptomatic relief. Expectations, risks and benefits were reviewed. Patient is aware he will be contacted to schedule this procedure The option of Neurosurgery evaluation was also mentioned, which the patient declined at this time. Regarding the patient's memory concerns, he will follow up and review brain MRI with his primary care physician for further management. The patient's type 2 diabetes is noted with a recent A1c of 6.8%. All questions and concerns have been answered and patient agreed with the treatment plan. Follow up after injections and sooner as needed. Patient was informed and verbally consented to the use of an ambient scribe for clinic note documentation during this visit. Coding Level of Care Code Est Pt Level 4 (95120) Complex visit Add On G2211 Diagnoses Degenerative lumbar spinal stenosis M48.061 Postlaminectomy syndrome M96.1 Chronic pain syndrome G89.4 Lumbar radiculopathy M54.16
[2025-07-06 13:10] VITALS: BP 132/86; PULSE 72; O2SAT 97; BMI 25.1
== END 2025-07-06 13:31 | disposition home or self-care (01) ==
LOC: HO.PMC 12:59
PROVIDERS: PCP Student in an Organized Health Care Education/Training Program; Visit Provider Nurse Practitioner Family
DX: M48.061 Spinal stenosis, lumbar region without neurogenic claudication (principal); M96.1 Postlaminectomy syndrome, not elsewhere classified; G89.4 Chronic pain syndrome; M54.16 Radiculopathy, lumbar region
CPT/HCPCS: 99214; G2211

== ENCOUNTER → 2025-07-06 12:58 | Outpatient (BNVA) | payer OTHER, SELFPAY | PROVIDERS: PCP Student in an Organized Health Care Education/Training Program; Visit Provider Nurse Practitioner Family | DX: M48.061 Spinal stenosis, lumbar region without neurogenic claudication (principal); M96.1 Postlaminectomy syndrome, not elsewhere classified; G89.4 Chronic pain syndrome; M54.16 Radiculopathy, lumbar region | CPT/HCPCS: 99212 ==